=== PATIENT | male | born 1945 | race Caucasian/White ===

== ENCOUNTER → 2020-07-15 13:29 | Outpatient (BNVA) | payer MEDICARE, SELFPAY | PROVIDERS: PCP Internal Medicine; Visit Provider Urology | DX: N40.1 Benign prostatic hyperplasia with lower urinary tract symptoms (principal); N13.8 Other obstructive and reflux uropathy; N39.41 Urge incontinence; N52.9 Male erectile dysfunction, unspecified; Z87.442 Personal history of urinary calculi | CPT/HCPCS: 51798; 99212 ==

== ENCOUNTER → 2020-07-27 13:56 | Outpatient (BNVA) | payer MEDICARE, SELFPAY | PROVIDERS: PCP Internal Medicine; Referring Provider Internal Medicine; Visit Provider Internal Medicine Gastroenterology | DX: R14.0 Abdominal distension (gaseous) (principal); R10.9 Unspecified abdominal pain; K21.9 Gastro-esophageal reflux disease without esophagitis; K30 Functional dyspepsia; N40.1 Benign prostatic hyperplasia with lower urinary tract symptoms; N13.8 Other obstructive and reflux uropathy; Z79.899 Other long term (current) drug therapy | CPT/HCPCS: 99213; Q3014 ==

== ENCOUNTER → 2020-09-27 11:17 | Outpatient (BNVA) | payer MEDICARE, SELFPAY | PROVIDERS: PCP Internal Medicine; Visit Provider Urology | DX: N40.1 Benign prostatic hyperplasia with lower urinary tract symptoms (principal); N13.8 Other obstructive and reflux uropathy; N39.41 Urge incontinence; N52.9 Male erectile dysfunction, unspecified | CPT/HCPCS: 51798; 81002; 99212 ==

== ENCOUNTER 2020-12-08 08:23 | Outpatient (REF) | payer MEDICARE, SELFPAY ==
[2020-12-08 11:10] LABS: MANUAL DIFF FLAG NO
[2020-12-08 11:20] LABS: Basophils Percent Auto 0.6 % (0-2); Eosinophils Absolute Auto 0.2 X10*3/uL (0.0-0.4); Eosinophils Percent Auto 3.1 % (0-4); Hematocrit 45.8 % (42-52); Hemoglobin 15.9 g/dl (14.0-18.0); Imm Gran Abs Auto 0.02 X10*3/uL (0.00-0.03); Imm Gran Pct Auto 0.3 % (0.0-0.4); Lymphocytes Absolute Auto 2.1 X10*3/uL (1.2-4.9); Lymphocytes Percent Auto 30.5 % (20-40); Mean Corpuscular HGB Conc 34.7 g/dl (31.0-36.0); Mean Corpuscular Hemoglobin 30.6 pg (27.0-33.0); Mean Corpuscular Volume 88.2 fL (80-98); Mean Platelet Volume 10.4 fL (9.4-12.4); Monocytes Absolute Auto 0.5 X10*3/uL (0.1-1.2); Monocytes Percent Auto 7.3 % (2-11); Neutrophils Absolute Auto 3.9 X10*3/uL (2.0-8.3); Neutrophils Percent Auto 58.2 % (45-73); Platelet Count 240 X10*3/uL (160-400); Red Blood Count 5.19 X10*6/uL (4.60-5.80); Red Cell Distribution Width 13.2 % (11.0-16.0); White Blood Count 6.8 X10*3/uL (4.8-10.8)
[2020-12-08 11:34] LABS: Glucose Urine UA NEG (NEG); Leukocyte Esterase Urine NEG (NEG); Nitrite Urine NEG (NEG); PH 5.5 (5.0-8.0); Urine Blood NEG (NEG); Urine Ketones NEG (NEG); Urine Protein NEG (NEG-TRACE)
[2020-12-08 11:36] LABS: Estimated Average Glucose 108 mg/dL; Hemoglobin A1c % 5.4 %
[2020-12-08 11:38] LABS: Appearance Urine CLEAR; Color Urine YELLOW
[2020-12-08 11:50] LABS: RBC Urine 0 /HPF (0); Squamous Epithelial Cell Urine TRACE /LPF; WBC Urine 0 /HPF (0-4)
[2020-12-08 12:13] LABS: Alanine Aminotransferase 32 U/L (0-40); Albumin Level 4.4 g/dL (3.5-5.0); Alkaline Phosphatase 61 U/L (39-117); Anion Gap 14 (12-20); Aspartate Amino Transferase 22 U/L (5-37); Bilirubin Total 0.9 mg/dL (0.0-1.0); Blood Urea Nitrogen 18 mg/dL (9-16); Calcium 9.2 mg/dL (8.4-10.2); Carbon Dioxide 27 mmol/L (22-29); Chloride 105 mmol/L (96-108); Cholesterol 146 mg/dL; Estimated Glomerular Filt Rate > 60; Glucose Fasting 104 mg/dL (60-99); HDL Cholesterol 44 mg/dL; LDL Cholesterol Calculated 77 mg/dl; Potassium 3.7 mmol/L (3.3-5.1); Sodium 142 mmol/L (135-145); Total Protein 7.5 g/dL (6.5-8.0); Triglycerides 129 mg/dL
[2020-12-08 12:14] LABS: TSH reflex Free T4 0.58 uIU/mL (0.32-4.0)
== END 2020-12-08 08:24 | disposition home or self-care (01) ==
LOC: HO.HMGCLDS 08:23
PROVIDERS: PCP Internal Medicine; Visit Provider Internal Medicine
DX: I10 Essential (primary) hypertension (principal); R73.01 Impaired fasting glucose; E78.5 Hyperlipidemia, unspecified; K21.9 Gastro-esophageal reflux disease without esophagitis; E66.3 Overweight
CPT/HCPCS: 36415; 80053; 80061; 81001; 83036; 84443; 85025

== ENCOUNTER 2021-06-08 08:18 | Outpatient (REF) | payer MEDICARE, SELFPAY ==
[2021-06-08 11:16] LABS: MANUAL DIFF FLAG NO
[2021-06-08 11:22] LABS: Glucose Urine UA NEG (NEG); Leukocyte Esterase Urine NEG (NEG); Nitrite Urine NEG (NEG); Urine Blood NEG (NEG); Urine Ketones NEG (NEG); Urine Protein TRACE MG/DL (NEG-TRACE)
[2021-06-08 11:24] LABS: Appearance Urine CLEAR; Color Urine YELLOW
[2021-06-08 11:29] LABS: Basophils Percent Auto 0.5 % (0-2); Eosinophils Absolute Auto 0.7 X10*3/uL (0.0-0.4); Eosinophils Percent Auto 9.5 % (0-4); Hemoglobin 15.5 g/dl (14.0-18.0); Imm Gran Abs Auto 0.02 X10*3/uL (0.00-0.03); Imm Gran Pct Auto 0.3 % (0.0-0.4); Lymphocytes Absolute Auto 1.6 X10*3/uL (1.2-4.9); Lymphocytes Percent Auto 21.6 % (20-40); Mean Corpuscular HGB Conc 35.2 g/dl (31.0-36.0); Mean Corpuscular Hemoglobin 30.5 pg (27.0-33.0); Mean Corpuscular Volume 86.6 fL (80-98); Mean Platelet Volume 10.3 fL (9.4-12.4); Monocytes Absolute Auto 0.4 X10*3/uL (0.1-1.2); Monocytes Percent Auto 5.6 % (2-11); Neutrophils Absolute Auto 4.6 X10*3/uL (2.0-8.3); Neutrophils Percent Auto 62.5 % (45-73); Platelet Count 213 X10*3/uL (160-400); Red Blood Count 5.08 X10*6/uL (4.60-5.80); Red Cell Distribution Width 13.1 % (11.0-16.0); White Blood Count 7.4 X10*3/uL (4.8-10.8)
[2021-06-08 11:48] LABS: Alanine Aminotransferase 33 U/L (0-40); Albumin Level 4.3 g/dL (3.5-5.0); Alkaline Phosphatase 56 U/L (39-117); Anion Gap 12 (12-20); Aspartate Amino Transferase 23 U/L (5-37); Blood Urea Nitrogen 22 mg/dL (9-16); Calcium 9.4 mg/dL (8.4-10.2); Carbon Dioxide 27 mmol/L (22-29); Chloride 105 mmol/L (96-108); Cholesterol 148 mg/dL; Estimated Glomerular Filt Rate > 60; Glucose Fasting 119 mg/dL (60-99); HDL Cholesterol 43 mg/dL; LDL Cholesterol Calculated 81 mg/dl; Potassium 3.6 mmol/L (3.3-5.1); Sodium 140 mmol/L (135-145); Triglycerides 121 mg/dL
[2021-06-08 12:09] LABS: TSH reflex Free T4 1.16 uIU/mL (0.32-4.0)
[2021-06-08 12:21] LABS: Estimated Average Glucose 108 mg/dL; Hemoglobin A1c % 5.4 %
== END 2021-06-08 08:19 | disposition home or self-care (01) ==
LOC: HO.HMGCLDS 08:18
PROVIDERS: PCP Internal Medicine; Visit Provider Internal Medicine
DX: E66.3 Overweight (principal); E78.00 Pure hypercholesterolemia, unspecified; R73.01 Impaired fasting glucose; I10 Essential (primary) hypertension; K21.9 Gastro-esophageal reflux disease without esophagitis
CPT/HCPCS: 36415; 80053; 80061; 81003; 83036; 84443; 85025

== ENCOUNTER → 2021-08-07 13:55 | Outpatient (BNVA) | payer MEDICARE, SELFPAY | PROVIDERS: PCP Internal Medicine; Referring Provider Internal Medicine; Visit Provider Nurse Practitioner | DX: K21.9 Gastro-esophageal reflux disease without esophagitis (principal); K30 Functional dyspepsia; Z98.890 Other specified postprocedural states | CPT/HCPCS: 99212 ==

== ENCOUNTER 2021-09-22 08:02 | Outpatient (REF) | payer MEDICARE, SELFPAY ==
[2021-09-22 12:03] LABS: Prostate Specific Antigen 0.95 ng/mL (<0.05-4.0)
== END 2021-09-22 08:03 | disposition home or self-care (01) ==
LOC: HO.HMGCLDS 08:02
PROVIDERS: PCP Internal Medicine; Visit Provider Urology
DX: Z12.5 Encounter for screening for malignant neoplasm of prostate (principal); N13.8 Other obstructive and reflux uropathy; N40.1 Benign prostatic hyperplasia with lower urinary tract symptoms
CPT/HCPCS: 36415; 84153

== ENCOUNTER 2021-09-22 09:47 | Emergency (ER) | payer MEDICARE, SELFPAY ==
--- NOTE | ~2021-09-22 | CT_ITS ---
EXAMINATION: CT HEAD WITHOUT CONTRAST CLINICAL INFORMATION: Dizziness, weakness impression the head COMPARISON: None TECHNIQUE: Contiguous axial imaging was performed from the skull base to vertex without intravenous administration of contrast. This CT examination was performed using dose optimization techniques as appropriate, variously including the following: *Automated exposure control *Adjustment of mA and/or kV according to patient size (this includes techniques or standardized protocols for targeted exams where dose is matched to indication/reason for exam; i.e. extremities or head) *Use of iterative reconstruction technique DLP: 727 mGy-cm FINDINGS: There is no evidence of acute intracranial hemorrhage or territorial infarction. No abnormal mass effect or midline shift is seen. Gutierrez to white matter differentiation is well preserved. No extra-axial fluid collections are identified. The lateral ventricles are symmetrical in size and configuration without enlargement. There is mild periventricular hypodensity in both cerebral hemispheres suggestive of chronic small vessel ischemic disease. The osseous structures and soft tissues are normal. The mastoid air cells and visualized portions of the paranasal sinuses are well aerated. CT/CT head/brain wo con IMPRESSION: No acute intracranial process seen.
[2021-09-22 09:50] VITALS: BP 128/68; PULSE 55; RESP 18; TEMP 36.7; O2SAT 97; BMI 28.1
--- NOTE | 2021-09-22 10:30 | ECG_ITS ---
Test Reason : WEAKNESS Blood Pressure : / mmHG Vent. Rate : 051 BPM Atrial Rate : 051 BPM P-R Int : 170 ms QRS Dur : 092 ms QT Int : 410 ms P-R-T Axes : 028 -02 006 degrees QTc Int : 377 ms Sinus bradycardia Otherwise normal ECG When compared with ECG of 12-APR-2016 11:33, Inverted T waves have replaced nonspecific T wave abnormality in Inferior leads Referred By: Linette Sharpe Electronically Signed By:MOHAN FAULKNER MD
--- NOTE | 2021-09-22 10:35 | ED_ITS ---
HPI - Neuro Symptoms/Deficit General Chief Complaint: Neuro Symptoms/Deficit Stated Complaint: HBP Time Seen by Provider: 09/22/21 10:08 Source: patient Mode of arrival: ambulatory Limitations: no limitations History of Present Illness HPI Narrative: 76-year-old male with a history of hypertension, hyperlipidemia, a recent ischemic stroke admitted to [facility] on September 05 here with reports of intermittent feeling of lightheadedness, head pressure with labile blood pressures since his discharge from the hospital. Patient tells me that he has follow-up with his primary care doctor. They added clonidine 0.1 mg to his daily regimen and increase his hydrochlorothiazide from 12.5 mg to 25 mg daily. He tells me his blood pressures have still been labile which is giving him some anxiety. He has a follow-up appointment Neurology in October here at [facility]. He currently is wearing a Holter monitor. He tells me he initially presented to [place] with vision changes, dizziness, generalized weakness and slurred speech. He denies any current vision changes or speech difficulty. He is taking a full aspirin and statin daily per his discharge Related Data Home Medications Medication Instructions Recorded Confirmed methylcellulose (laxative) 500 mg 500 mg PO DAILY 07/27/20 09/11/21 tablet (Citrucel) metoprolol tartrate 25 mg tablet 25 mg PO BID 09/27/20 09/11/21 atorvastatin 20 mg tablet 20 mg PO DAILY 09/07/21 09/11/21 Previous Rx's Medication Instructions Recorded meclizine 25 mg tablet 25 mg PO TID PRN 30 Days #90 tab 12/20/20 amlodipine 10 mg tablet 10 mg PO DAILY #90 cap 06/22/21 lisinopril 40 mg tablet 40 mg PO DAILY #90 cap 06/22/21 pantoprazole 40 mg tablet,delayed 40 mg PO DAILY #90 cap 08/07/21 release aspirin 325 mg tablet 325 mg PO DAILY #30 tab 09/07/21 hydrochlorothiazide 25 mg tablet 25 mg PO DAILY #90 tab 09/07/21 clonidine HCl 0.1 mg tablet 0.1 mg PO BID #60 tab 09/15/21 Allergies Allergy/AdvReac Type Severity Reaction Status Date / Time Iodinated Contrast Media Allergy Mild UNKNOWN Verified 09/22/21 09:50 [IV Dye, Iodine Containing] tizanidine Allergy Unknown painful Verified 09/22/21 09:50 rash on ankles, dizziness IV contrast dye Allergy Unknown unknown Uncoded 09/11/21 09:48 x ray dye Allergy Unknown unknown Uncoded 09/11/21 09:48 Review of Systems Review of Systems: Yes all other systems are reviewed and are negative Constitutional: Constitutional: Reports no additional constitutional complaints, Denies body ache(s), Denies chills, Denies fever(s), Reports headache(s) (Head pressure) and Denies weakness Eyes: Eyes: Reports no additional eye complaints and Denies change in vision ENT: Reports system reviewed and no additional complaints, except as documented, Reports dizziness, Reports headache(s) (Head pressure), Denies nasal congestion, Denies nasal discharge and Denies neck pain Cardiovascular: Cardiovascular: Reports no additional cardiovascular complaints, Denies chest pain, Denies leg edema and Denies dyspnea Respiratory: Respiratory: Reports no additional respiratory complaints, Denies cough and Denies dyspnea Gastrointestinal: Gastrointestinal: Reports no additional gastrointestinal complaints, Denies abdominal pain, Denies diarrhea, Denies nausea and Denies vomiting Genitourinary: Genitourinary: Denies urinary incontinence Musculoskeletal: Musculoskeletal: Reports no additional musculoskeletal complaints, Denies back pain, Denies arthralgias, Denies joint swelling, Denies neck pain, Denies numbness and Denies tingling Integumentary/Breasts: Skin/Breast: Reports system reviewed and no additional complaints, except as docu and Denies rash Neurologic: Reports system reviewed and no additional complaints, except as documented, Denies Abnormal speech present, Reports dizziness, Reports headache(s) (Head pressure), Denies numbness, Denies tingling and Denies weakness [facility] Past Medical History Attestation statement: The following information was validated with the patient. Source: old records reviewed and nursing notes reviewed Medical History Anxiety Benign essential hypertension BPH (benign prostatic hyperplasia) Cervical disc disorder with radiculopathy Degenerative disc disease, lumbar Degenerative disc disease, thoracic Delayed gastric emptying Dizziness Erectile dysfunction GERD (gastroesophageal reflux disease) Impaired fasting glucose Overweight (BMI 25.0-29.9) Primary insomnia Pure hypercholesterolemia Surgical History History of esophagogastroduodenoscopy (EGD) (02/14/15) Hx of colonoscopy (03/04/12) Hx of cystoscopy (~2019) Hx of tonsillectomy Family History Family History Father Heart disease Mother Cancer Brother Diabetes Paternal Grandmother Heart disease Maternal Uncle Colon cancer Social History Social History Housing: House Alcohol intake: never Patient Tobacco Use Status: Former Tobacco user e-Cigarette/Vaping Use: Never Used Second Hand Smoke Exposure: Yes Use of substances other than those prescribed or required for medical reasons: No Advance Directives: Yes Advance Directives Information Provided: Yes Advance Directives on File: No service: Yes ([employer]) Current occupational status: retired Cognitive needs: No Hearing needs: No Vision needs: No Physical Exam Vital Signs: Vital Signs: Last Vital Signs Temp 98.1 F 09/22/21 09:50 Pulse 62 09/22/21 13:05 Resp 15 09/22/21 13:05 BP 142/63 H 09/22/21 13:05 Pulse Ox 95 09/22/21 13:05 BMI result Body Mass Index 28.1 Const: General: cooperative, healthy appearing, comfortable and no acute distress Orientation/consciousness: patient oriented x3 Limitations: no limitations HENMT: Head: Yes normal to inspection Ears: hearing grossly normal bilaterally General nose exam: Normal external nose present Face and sinus: Yes normal facial exam Mouth: Normal oral and palatal mucosa present Throat: Yes posterior oropharynx normal Eyes: General: appearance normal, both eyes and all related structures Pupils: Equal, round and reactive pupils present Neck: Neck: Yes normal visual inspection Chest: Chest palpation & inspection: normal inspection of the chest Resp: Effort & Inspection: normal respiratory effort Auscultation: clear to auscultation bilaterally Cardio: Rate: regular rate Rhythm: regular rhythm Peripheral pulses: Peripheral pulses 2+ throughout GI: Inspection: Yes normal to inspection Palpation (GI): Soft to palpation and nontender Auscultation: normal bowel sounds Back/Spine/Pelvis: Thoracic/Lumbar Spine: thoracic and lumbar spine normal to inspection Skin: General skin exam: no rashes or lesions noted Neuro: General: patient oriented x3, no focal motor deficits and normal sensation to monofilament Cranial nerves: Yes CN's II-XII intact bilaterally, Yes Equal, round and reactive pupils present, Yes Bilaterally intact EOM present, Yes Nystagmus not present, Yes Normal facial strength present and Yes Midline tongue present Cognition (Neuro): normal cognition Speech: No Abnormal speech present Gait exam (Neuro): Normal gait present Motor exam (neuro): 5/5 motor strength present throughout Sensory Exam: Normal double simultaneous stimulation for sensation Coordination: [id number] test normal, [id number] test normal and tandem gait normal Extrem: General: Yes normal to inspection, Yes no pedal edema and Yes no calf tenderness Course Course Course Narrative: 76-year-old male with a recent ischemic stroke here with intermittent symptoms of head pressure with feeling lightheaded and dizzy since the stroke. Was seen at a walk-in center today and referred to the emergency department for further workup. Patient tells me his blood sugars have been labile and they have changed his medications and this past week. On arrival patient's pressure was normal. He has a normal neurological exam. These symptoms are different from the symptoms he presented with ischemic stroke per patient. Will check labs, CT, EKG 1130-Bp 170/74. Patient tells me he did not take any of his morning medications. These will be ordered. 1200-labs are unremarkable. EKG shows no ischemic changes and troponin is flat. CT head shows no acute intracranial process. Neuro exam is unremarkable there are no overt deficits. Patient is quite concerned about his blood pressure which seems to be labile at home and this is making him feel quite anxious. I recommended he continue his current regimen and follow-up with his primary care doctor outpatient. 1320-blood pressure down to 140 systolic. Plan for discharge home with follow- up with Neurology and primary care outpatient. Reviewed worrisome signs and symptoms of when to return to the emergency department. Comfortable discharge home. MDM - Neuro Symptoms/Deficit Medical Records Attestation: I reviewed the patient's medical records. Lab Data Attestation: I reviewed the patient's lab results. Result diagrams: 09/22/21 10:52 09/22/21 10:52 Labs: Lab Results 09/22/21 09/22/21 09/22/21 Range/Units 10:52 10:52 10:52 WBC 8.7 (4.8-10.8) X10*3/uL RBC 4.89 (4.60-5.80) X10*6/uL Hgb 15.1 (14.0-18.0) g/dl Hct 42.9 (42.0-52.0) % MCV 87.7 (80.0-98.0) fL MCH 30.9 (27.0-33.0) pg MCHC 35.2 (31.0-36.0) g/dl RDW 12.5 (11.0-16.0) % Plt Count 202 (160-400) X10*3/uL MPV 10.2 (9.4-12.4) fL Immature Gran % (Auto) 0.2 (0.0-0.4) % Neut % (Auto) 80.4 H (45-73) % Lymph % (Auto) 12.9 L (20-40) % [place] % (Auto) 4.9 (2-11) % Eos % (Auto) 1.1 (0-4) % Baso % (Auto) 0.5 (0-2) % Lymph # (Auto) 1.1 L (1.2-4.9) X10*3/uL [place] # (Auto) 0.4 (0.1-1.2) X10*3/uL Eos # (Auto) 0.1 (0.0-0.4) X10*3/uL Baso # (Auto) 0.0 (0.0-0.2) X10*3/uL Abs Immat Gran (auto) 0.02 (0.00-0.03) X10*3/uL Absolute Neuts (auto) 7.0 (2.0-8.3) x10*3/uL Absolute Nucleated RBC 0.000 (0.0-0.012) X10*3/uL Nucleated RBC % (auto) 0.0 (0.0-0.2) /100WBC PT 12.2 (9.9-13.0) SEC INR 1.1 (0.9-1.1) Sodium 141 (135-145) mmol/L Potassium 3.8 (3.3-5.1) mmol/L Chloride 105 (96-108) mmol/L Carbon Dioxide 29 (22-29) mmol/L Anion Gap 11 L (12-20) BUN 18 H (9-16) mg/dL Creatinine 1.01 (0.5-1.4) mg/dL Estim Creat Clear Calc 63.6 Estimated GFR > 60 Random Glucose 117 H (60-115) mg/dL Calcium 9.4 (8.4-10.2) mg/dL Magnesium 2.0 (1.6-2.6) mg/dL Total Bilirubin 0.7 (0.0-1.0) mg/dL Direct Bilirubin 0.3 (0.0-0.5) mg/dL AST 19 (5-37) U/L ALT 32 (0-40) U/L Alkaline Phosphatase 56 (39-117) U/L Troponin I High Sens (<3.5-35.0) ng/L Total Protein 6.8 (6.5-8.0) g/dL Albumin 3.9 (3.5-5.0) g/dL 09/22/21 Range/Units 10:52 WBC (4.8-10.8) X10*3/uL RBC (4.60-5.80) X10*6/uL Hgb (14.0-18.0) g/dl Hct (42.0-52.0) % MCV (80.0-98.0) fL MCH (27.0-33.0) pg MCHC (31.0-36.0) g/dl RDW (11.0-16.0) % Plt Count (160-400) X10*3/uL MPV (9.4-12.4) fL Immature Gran % (Auto) (0.0-0.4) % Neut % (Auto) (45-73) % Lymph % (Auto) (20-40) % [place] % (Auto) (2-11) % Eos % (Auto) (0-4) % Baso % (Auto) (0-2) % Lymph # (Auto) (1.2-4.9) X10*3/uL [place] # (Auto) (0.1-1.2) X10*3/uL Eos # (Auto) (0.0-0.4) X10*3/uL Baso # (Auto) (0.0-0.2) X10*3/uL Abs Immat Gran (auto) (0.00-0.03) X10*3/uL Absolute Neuts (auto) (2.0-8.3) x10*3/uL Absolute Nucleated RBC (0.0-0.012) X10*3/uL Nucleated RBC % (auto) (0.0-0.2) /100WBC PT (9.9-13.0) SEC INR (0.9-1.1) Sodium (135-145) mmol/L Potassium (3.3-5.1) mmol/L Chloride (96-108) mmol/L Carbon Dioxide (22-29) mmol/L Anion Gap (12-20) BUN (9-16) mg/dL Creatinine (0.5-1.4) mg/dL Estim Creat Clear Calc Estimated GFR Random Glucose (60-115) mg/dL Calcium (8.4-10.2) mg/dL Magnesium (1.6-2.6) mg/dL Total Bilirubin (0.0-1.0) mg/dL Direct Bilirubin (0.0-0.5) mg/dL AST (5-37) U/L ALT (0-40) U/L Alkaline Phosphatase (39-117) U/L Troponin I High Sens < 3.5 (<3.5-35.0) ng/L Total Protein (6.5-8.0) g/dL Albumin (3.5-5.0) g/dL Imaging Data CT scan - head: Attestation: I personally reviewed and interpreted this imaging study as follows: Radiologist's impression: FINDINGS: There is no evidence of acute intracranial hemorrhage or territorial infarction. No abnormal mass effect or midline shift is seen. Gutierrez to white matter differentiation is well preserved. No extra-axial fluid collections are identified. The lateral ventricles are symmetrical in size and configuration without enlargement. There is mild periventricular hypodensity in both cerebral hemispheres suggestive of chronic small vessel ischemic disease. The osseous structures and soft tissues are normal. The mastoid air cells and visualized portions of the paranasal sinuses are well aerated. ? CT/CT head/brain wo con IMPRESSION: No acute intracranial process seen. ECG Data Attestation: I personally reviewed and interpreted this ECG as follows: ECG interpretation date: 09/22/21 ECG interpretation time: 10:42 Interpretation: Sinus bradycardia with a rate of 51, normal SC, normal QRS normal QT NIH Stroke Scale Internal: Initial- Upon Arrival Level of Consciousness: Alert Level of Consciousness Questions: Answers both questions correctly Level of Consciousness Commands: Performs both tasks correctly Best Gaze: Normal Visual: No visual loss Facial Palsy: Normal Motor Arm (Right): No drift Motor Arm (Left): No drift Motor Leg (Right): No drift Motor Leg (Left): No drift Limb Ataxia: Absent Sensory: Normal Best Language: No aphasia Dysarthia: Normal Extinction and Inattention: No abnormality Score: 0 Discharge Plan Discharge Clinical Impression: Light-headed, Hypertension Patient Disposition: Home, Self-Care Instructions: Hypertension (ED), Lightheadedness (ED) Additional Instructions: Your blood pressure improved with your daily blood pressure medication Your lab work and CT scan are normal Follow-up with your outpatient providers which include your primary care doctor and keep your appointment with your neurologist Prescriptions: No Action amlodipine 10 mg tablet 10 mg PO DAILY Qty: 90 RF: 0 lisinopril 40 mg tablet 40 mg PO DAILY Qty: 90 RF: 0 clonidine HCl 0.1 mg tablet 0.1 mg PO BID Qty: 60 RF: 1 meclizine 25 mg tablet 25 mg PO TID PRN (Reason: dizziness) 30 Days Qty: 90 RF: 2 atorvastatin 20 mg tablet 20 mg PO DAILY RF: 0 aspirin 325 mg tablet 325 mg PO DAILY Qty: 30 RF: 0 hydrochlorothiazide 25 mg tablet 25 mg PO DAILY Qty: 90 RF: 0 Citrucel 500 mg tablet 500 mg PO DAILY RF: 0 metoprolol tartrate 25 mg tablet 25 mg PO BID RF: 0 pantoprazole 40 mg tablet,delayed release (DR/EC) 40 mg PO DAILY Qty: 90 RF: 2 Referrals: Armaan Correa MD [Primary Care Provider] - 2 days Interventions: ED Discharge Assessment Last Done: 09/22/21 13:24 Discharge Date/Time: 09/22/21 13:24
[2021-09-22 10:56] LABS: MANUAL DIFF FLAG NO
[2021-09-22 10:59] VITALS: BP 170/74; PULSE 55; RESP 12; O2SAT 96
[2021-09-22 11:03] LABS: Basophils Percent Auto 0.5 % (0-2); Eosinophils Absolute Auto 0.1 X10*3/uL (0.0-0.4); Eosinophils Percent Auto 1.1 % (0-4); Hematocrit 42.9 % (42.0-52.0); Hemoglobin 15.1 g/dl (14.0-18.0); Imm Gran Abs Auto 0.02 X10*3/uL (0.00-0.03); Imm Gran Pct Auto 0.2 % (0.0-0.4); Lymphocytes Absolute Auto 1.1 X10*3/uL (1.2-4.9); Lymphocytes Percent Auto 12.9 % (20-40); Mean Corpuscular HGB Conc 35.2 g/dl (31.0-36.0); Mean Corpuscular Hemoglobin 30.9 pg (27.0-33.0); Mean Corpuscular Volume 87.7 fL (80.0-98.0); Mean Platelet Volume 10.2 fL (9.4-12.4); Monocytes Absolute Auto 0.4 X10*3/uL (0.1-1.2); Monocytes Percent Auto 4.9 % (2-11); Neutrophils Percent Auto 80.4 % (45-73); Platelet Count 202 X10*3/uL (160-400); Red Blood Count 4.89 X10*6/uL (4.60-5.80); Red Cell Distribution Width 12.5 % (11.0-16.0); White Blood Count 8.7 X10*3/uL (4.8-10.8)
[2021-09-22 11:09] LABS: INTERNATIONAL NORM RATIO 1.1 (0.9-1.1); Prothrombin Time 12.2 SEC (9.9-13.0)
[2021-09-22 11:14] LABS: Alanine Aminotransferase 32 U/L (0-40); Albumin Level 3.9 g/dL (3.5-5.0); Alkaline Phosphatase 56 U/L (39-117); Anion Gap 11 (12-20); Aspartate Amino Transferase 19 U/L (5-37); Bilirubin Direct 0.3 mg/dL (0.0-0.5); Bilirubin Total 0.7 mg/dL (0.0-1.0); Blood Urea Nitrogen 18 mg/dL (9-16); Calcium 9.4 mg/dL (8.4-10.2); Carbon Dioxide 29 mmol/L (22-29); Chloride 105 mmol/L (96-108); Creatinine Clr Calc Pharmacy 63.6; Estimated Glomerular Filt Rate > 60; Glucose Random 117 mg/dL (60-115); Potassium 3.8 mmol/L (3.3-5.1); Sodium 141 mmol/L (135-145); Total Protein 6.8 g/dL (6.5-8.0)
[2021-09-22 11:20] LABS: Troponin-I High Sensitivity < 3.5 ng/L (<3.5-35.0)
[2021-09-22 12:00] VITALS: BP 155/66; PULSE 53; RESP 16; O2SAT 96
[2021-09-22 12:02] VITALS: BP 155/66; PULSE 52
[2021-09-22] MEDS: lisinopriL 40 MG TABLET PO (12:02)
[2021-09-22] MEDS: Metoprolol Tartrate 25 MG TABLET PO (12:02)
[2021-09-22] MEDS: cloNIDine HCL 0.1 MG TABLET PO (12:02)
[2021-09-22] MEDS: hydroCHLOROthiazide 25 MG TABLET PO (12:03)
[2021-09-22 12:06] VITALS: BP 155/66; PULSE 52
[2021-09-22] MEDS: amLODIPine Besylate 10 MG TABLET PO (12:06)
[2021-09-22 13:05] VITALS: BP 142/63; PULSE 62; RESP 15; O2SAT 95
== END 2021-09-22 13:24 | disposition home or self-care (01) ==
PROVIDERS: Nurse Practitioner Family; Emergency Provider Emergency Medicine; PCP Internal Medicine
DX: R42 Dizziness and giddiness (principal); I10 Essential (primary) hypertension; R29.700 NIHSS score 0; Z79.899 Other long term (current) drug therapy; Z87.891 Personal history of nicotine dependence
CPT/HCPCS: 36415; 70450; 80048; 80076; 83735; 84484; 85025; 85610; 93005; 99284

== ENCOUNTER 2021-09-27 09:38 | Outpatient (REF) | payer MEDICARE, SELFPAY ==
[2021-09-27 09:55] LABS: MANUAL DIFF FLAG NO
[2021-09-27 10:21] LABS: Basophils Absolute Auto 0.1 X10*3/uL (0.0-0.2); Basophils Percent Auto 0.5 % (0-2); Eosinophils Absolute Auto 0.2 X10*3/uL (0.0-0.4); Eosinophils Percent Auto 2.3 % (0-4); Hemoglobin 16.2 g/dl (14.0-18.0); Imm Gran Abs Auto 0.03 X10*3/uL (0.00-0.03); Imm Gran Pct Auto 0.3 % (0.0-0.4); Lymphocytes Absolute Auto 1.3 X10*3/uL (1.2-4.9); Lymphocytes Percent Auto 13.1 % (20-40); Mean Corpuscular HGB Conc 34.5 g/dl (31.0-36.0); Mean Corpuscular Hemoglobin 30.6 pg (27.0-33.0); Mean Corpuscular Volume 88.8 fL (80.0-98.0); Mean Platelet Volume 10.4 fL (9.4-12.4); Monocytes Absolute Auto 0.6 X10*3/uL (0.1-1.2); Monocytes Percent Auto 5.6 % (2-11); Neutrophils Absolute Auto 7.9 x10*3/uL (2.0-8.3); Neutrophils Percent Auto 78.2 % (45-73); Platelet Count 258 X10*3/uL (160-400); Red Blood Count 5.29 X10*6/uL (4.60-5.80); Red Cell Distribution Width 12.8 % (11.0-16.0); White Blood Count 10.1 X10*3/uL (4.8-10.8)
[2021-09-27 10:48] LABS: C Reactive Protein 0.22 mg/dL (< or = 0.50)
[2021-09-27 11:05] LABS: Prostate Specific Antigen 2.51 ng/mL (<0.05-4.0)
[2021-09-27 11:20] LABS: Folate 9.8 ng/mL (> or = 4.0); Vitamin B12 315 pg/mL (200-900)
[2021-09-27 12:04] LABS: Erythrocyte Sedimentation Rate 11 MM/HR (0-15)
[2021-10-02 17:45] LABS: Lyme Abs Screen <0.90 index
== END 2021-09-27 09:39 | disposition home or self-care (01) ==
LOC: HO.LAB 09:38
PROVIDERS: Urology; PCP Internal Medicine; Visit Provider Internal Medicine
DX: R29.898 Other symptoms and signs involving the musculoskeletal system (principal); N13.8 Other obstructive and reflux uropathy; N40.1 Benign prostatic hyperplasia with lower urinary tract symptoms; Z12.5 Encounter for screening for malignant neoplasm of prostate
CPT/HCPCS: 36415; 82550; 82607; 82746; 84153; 85025; 85652; 86140; 86617; 86618

== ENCOUNTER 2021-09-28 11:11 | Outpatient (REF) | payer MEDICARE, SELFPAY ==
--- NOTE | ~2021-09-28 | MR_ITS ---
MRI OF THE BRAIN WITHOUT IV CONTRAST INDICATION: Stroke 4 weeks ago with 2-3 days of muscles feeling like jelly COMPARISON: Head CT 09/22/2021. TECHNIQUE: Multiplanar multisequence MR imaging of the brain was obtained without IV contrast. FINDINGS: There are multiple punctate acute infarcts throughout the left cerebral hemisphere and the left frontal lobe, parietal lobe, occipital lobe, and temporal lobe. No mass effect and no hemorrhagic transformation. There is moderate chronic microangiopathy. There is no hydrocephalus, extra-axial surface collection, or herniation. The major flow voids at the skull base are preserved. There is no intracranial hemorrhage on the gradient recalled echo acquisition. The midline structures are normal. The cerebellar tonsils are normally positioned. The cerebellum and brainstem are normal. The craniocervical junction is normal. Osseous marrow signal intensity is homogenous. The visualized soft tissues are unremarkable. MR/MR head/brain wo con IMPRESSION: - Multiple punctate acute embolic infarcts throughout the left cerebral hemisphere as described. No mass effect and no hemorrhagic transformation. - There is moderate chronic microangiopathy. Findings were discussed with Flaquita Villarreal at 12:17 PM on 09/28/2021
== END 2021-09-28 11:12 | disposition home or self-care (01) ==
LOC: HO.MRI 11:11
PROVIDERS: Visit Provider Internal Medicine
DX: I63.9 Cerebral infarction, unspecified (principal); R29.898 Other symptoms and signs involving the musculoskeletal system
CPT/HCPCS: 70551

== ENCOUNTER 2021-09-28 15:07 | Inpatient (IN) | payer MEDICARE, SELFPAY ==
--- NOTE | 2021-09-28 15:57 | ED_ITS ---
HPI - Neuro Symptoms/Deficit General Chief Complaint: Stroke Stated Complaint: PCP stroke Time Seen by Provider: 09/28/21 15:56 Source: patient Mode of arrival: ambulatory Limitations: no limitations History of Present Illness HPI Narrative: 76-year-old male presents from home after primary care physician called him to present to the emergency department for acute infarct on MRI that was performed today. Patient has had prior stroke dating 09/05/2021. Patient's symptoms had resolved, noted that yesterday weakness to the right side had increased and patient was unable to lift leg properly. PCP ordered emergent outpatient MRI which indicated new acute infarcts. Onset (ago): week(s) Timing confirmed by: spouse Location: right arm and right leg History of same: Yes Severity: mild Quality: weak, tingling and intermittent Relieving factors: none Context: gradual onset On Anticoagulants: No Associated symptoms: confusion Treatments Prior to Arrival: Aspirin Related Data Home Medications Medication Instructions Recorded Confirmed methylcellulose (laxative) 500 mg 500 mg PO DAILY 07/27/20 09/27/21 tablet (Citrucel) metoprolol tartrate 25 mg tablet 25 mg PO BID 09/27/20 09/27/21 Previous Rx's Medication Instructions Recorded meclizine 25 mg tablet 25 mg PO TID PRN 30 Days #90 tab 12/20/20 amlodipine 10 mg tablet 10 mg PO DAILY #90 cap 06/22/21 lisinopril 40 mg tablet 40 mg PO DAILY #90 cap 06/22/21 pantoprazole 40 mg tablet,delayed 40 mg PO DAILY #90 cap 08/07/21 release aspirin 325 mg tablet 325 mg PO DAILY #30 tab 09/07/21 hydrochlorothiazide 25 mg tablet 25 mg PO DAILY #90 tab 09/07/21 clonidine HCl 0.2 mg tablet 0.2 mg PO BID 30 Days #60 tab 09/27/21 rosuvastatin 5 mg tablet 5 mg PO DAILY 30 Days #30 tab 09/27/21 Allergies Allergy/AdvReac Type Severity Reaction Status Date / Time Iodinated Contrast Media Allergy Mild UNKNOWN Verified 09/27/21 09:18 [IV Dye, Iodine Containing] tizanidine Allergy Unknown painful Verified 09/27/21 09:18 rash on ankles, dizziness IV contrast dye Allergy Unknown unknown Uncoded 09/27/21 09:18 x ray dye Allergy Unknown unknown Uncoded 09/27/21 09:18 Review of Systems Review of Systems: Constitutional: No Weight loss, No Fever, No Chills, No Night Sweats, No Fatigue, No Malaise ENT/Mouth: No Hearing loss, No Ear Pain, No Nasal Congestion, No Sinus Pain, No Hoarseness, No sore throat, No Rhinorrhea, No Swallowing Difficulty Eyes: No Eye Pain, No Swelling, No Redness, No Foreign Body, No Discharge, No Vision Changes Cardiovascular: No Chest Pain, No SOB, No Dyspnea on Exertion, No Orthopnea, No Edema, No Palpitations Respiratory: No Cough, No Sputum, No Wheezing, No Smoke Exposure, No Dyspnea Gastrointestinal: No Nausea, No Vomiting, No Diarrhea, No Constipation, No abdominal Pain, No Hematochezia, No Melena Genitourinary: no irregular bleeding, No Dysuria, No Urinary Frequency, No Hematuria, No Urinary Incontinence, No Urgency, No Flank Pain, No Urinary Flow Changes, No Hesitancy Musculoskeletal: No joint pain, No Myalgias, No Joint Swelling Skin: No Skin Lesions, No rash Neuro: Positive right-sided Weakness, positive right-sided Numbness, positive confusion, No Paresthesias, No Loss of Consciousness, No Dizziness, No Headache Psych: No Anxiety/Panic, No Depression, No SI/HI/AH/VH, No Social Issues Heme/Lymph: No Bruising, No Bleeding,No Lymphadenopathy Endocrine: No Polyuria, No Polydipsia, No Temperature Intolerance Yes all other systems are reviewed and are negative [facility] Past Medical History Attestation statement: The following information was validated with the patient. Source: old records reviewed Medical History Anxiety Benign essential hypertension BPH (benign prostatic hyperplasia) Cervical disc disorder with radiculopathy Degenerative disc disease, lumbar Degenerative disc disease, thoracic Delayed gastric emptying Dizziness Erectile dysfunction GERD (gastroesophageal reflux disease) Impaired fasting glucose Overweight (BMI 25.0-29.9) Primary insomnia Pure hypercholesterolemia Surgical History History of esophagogastroduodenoscopy (EGD) (02/14/15) Hx of colonoscopy (03/04/12) Hx of cystoscopy () Hx of tonsillectomy Family History Family History Father Heart disease Mother Cancer Brother Diabetes Paternal Grandmother Heart disease Maternal Uncle Colon cancer Social History Social History Housing: House Alcohol intake: never Patient Tobacco Use Status: Former Tobacco user e-Cigarette/Vaping Use: Never Used Second Hand Smoke Exposure: Yes Advance Directives: No Advance Directives Information Provided: Yes service: Yes ([employer]) Current occupational status: retired Cognitive needs: No Hearing needs: No Vision needs: No Physical Exam Vital Signs: Vital Signs: Last Vital Signs Temp 98.8 F 09/28/21 16:19 Pulse 50 09/28/21 16:19 Resp 18 09/28/21 16:19 BP 158/72 H 09/28/21 16:19 Pulse Ox 98 09/28/21 16:19 BMI result Body Mass Index 27.3 Appearance: Alert. Oriented X3. No acute distress. Head: Normal external exam. Normocephalic. Atraumatic. No Chin signs noted. No raccoon eyes noted Eyes: PERRLA. EOMI. Conjunctiva and sclera normal. Eyelids normal. ENT: TM's Normal. Pharynx normal. Uvula midline. Moist mucous membranes. No trismus noted. No drooling noted. No muffled voice noted. Neck: Normal inspection. Neck supple. No adenopathy. No meningeal signs. No neck mass noted. CVS: Normal heart rate and rhythm. Heart sound normal. No murmurs noted. Pulses equal to all extremities. Respiratory: No respiratory distress. Painless inspiration. Breath sounds normal. No wheezes/rales/rhonchi noted. Chest nontender. No accessory muscle usage noted or decreased air movement noted. Abdomen: Soft and nontender. Bowel sounds normal in all 4 quadrants. No distention noted. No organomegaly noted. No visible injury noted. Back: No CVA tenderness. Full range of motion noted. Skin: Skin warm and dry. Normal skin color. Normal skin turgor. No rashes/lesions/lacerations noted. Extremities: No lower extremity edema. Extremities exhibit normal range of motion. Extremities nontender. Neuro: 5/5 to left extremities, 4/5 to right extremities. No motor deficit. Decreased sensation to the right side. Course Course Course Narrative: 4:00 p.m. patient evaluated by this [employer] SUPPORT LEAD, has right-sided weakness, last known well 09/27/2021. NIH Stroke Scale on arrival is 3. 4:05 p.m. discussion with business operations coordinator Mariah, patient outside of tPA window he has had strokes in the past, last known well according to the patient with 09/20/2021. After discussing case with his , patient had symptoms starting 09/04/2021 and was evaluated at [facility] on 09/05/2021. Review of records from [facility] study date 09/05/2021. MRI radiologist impression ventricular caliber is mildly prominent as are the cortical sulci due to age-related volume loss. Mild cerebral atrophy. Few nonspecific scattered T2 hyperintensities in the cerebral white matter consistent with mild small vessel ischemic changes non expected for patient's age. There is a small focus of acute infarct seen in the left posterior frontal lobe measuring 7.5 mm. A small acute infarct is seen in the posterior left temporal lobe measuring 4.7 mm. There is no acute intracranial hemorrhage, extra-axial fluid collection, mass, mass effect, or midline shift. Stem is normal. Fourth ventricle is midline. Cerebellum normal. Cerebellar tonsils are in normal location. Sella normal. Vasculature normal. Cardiac echo LVEF ranges estimated at 60% to 65%. Mitral valve no regurgitation. Aortic valve no aortic valve regurgitation. Tricuspid regurgitation. RVSP range 35-40 mmHg. Possible LV prominent trabeculations cannot exclude LV non compaction may consider outpatient echo with definity enhancing agent versus cardiac MRI. Final impression for [facility] workup showing 2 small foci of acute infarction located on the left front lobe and left temporal lobe in the left MCA territory. Patient has had symptoms that resolved prior for approximately 1 month. He did not seek any medical attention for those prior episodes. No known cardiac arrhythmia noted. Upon discharge from [facility] patient was started on 20 of atorvastatin and 365 of aspirin was recommended to follow up with Neurology 3-4 weeks. Patient had symptoms yesterday 09/27, and his contacted primary care physician. Primary care evaluated patient and was sent for MRI. Today, MRI indicates multiple punctate acute infarcts throughout the left cerebral hemisphere and left frontal lobe parietal lobe occipital lobe and temporal lobe without mass effect or hemorrhagic transformations. Discussion with primary care via tiger text and telephone patient is not on any anticoagulation, on aspirin 325 mg and statin 5 mg. I did discuss this case with hospitalist group at 4:30 p.m.. Plan is to admit. Consultations Consultation #1: lucio Time: 16:30 Consultation #2: business operations coordinator Time: 16:05 Consultation #3: jailene Time: 16:40 MDM - Neuro Symptoms/Deficit Differential Diagnosis Differential diagnosis: Likely subarachnoid hemorrhage, cerebrovascular accident and transient cerebral ischemia Medical Records Attestation: I reviewed the patient's medical records. Lab Data Attestation: I reviewed the patient's lab results. Result diagrams: 09/28/21 16:45 09/28/21 16:45 Labs: Lab Results 09/28/21 09/28/21 09/28/21 Range/Units 16:45 16:45 16:45 WBC 7.6 (4.8-10.8) X10*3/uL RBC 4.89 (4.60-5.80) X10*6/uL Hgb 15.0 (14.0-18.0) g/dl Hct 43.0 (42.0-52.0) % MCV 87.9 (80.0-98.0) fL MCH 30.7 (27.0-33.0) pg MCHC 34.9 (31.0-36.0) g/dl RDW 12.7 (11.0-16.0) % Plt Count 217 (160-400) X10*3/uL MPV 10.1 (9.4-12.4) fL Immature Gran % (Auto) 0.3 (0.0-0.4) % Neut % (Auto) 68.4 (45-73) % Lymph % (Auto) 20.6 (20-40) % [place] % (Auto) 7.3 (2-11) % Eos % (Auto) 2.9 (0-4) % Baso % (Auto) 0.5 (0-2) % Lymph # (Auto) 1.6 (1.2-4.9) X10*3/uL [place] # (Auto) 0.6 (0.1-1.2) X10*3/uL Eos # (Auto) 0.2 (0.0-0.4) X10*3/uL Baso # (Auto) 0.0 (0.0-0.2) X10*3/uL Abs Immat Gran (auto) 0.02 (0.00-0.03) X10*3/uL Absolute Neuts (auto) 5.2 (2.0-8.3) x10*3/uL Absolute Nucleated RBC 0.000 (0.0-0.012) X10*3/uL Nucleated RBC % (auto) 0.0 (0.0-0.2) /100WBC PT 12.2 (9.9-13.0) SEC INR 1.1 (0.9-1.1) APTT 30.0 (24.1-38.0) SEC Sodium 141 (135-145) mmol/L Potassium 3.6 (3.3-5.1) mmol/L Chloride 103 (96-108) mmol/L Carbon Dioxide 30 H (22-29) mmol/L Anion Gap 12 (12-20) BUN 22 H (9-16) mg/dL Creatinine 1.23 (0.5-1.4) mg/dL Estim Creat Clear Calc 49.4 Estimated GFR 57 Random Glucose 98 (60-115) mg/dL Calcium 9.5 (8.4-10.2) mg/dL Magnesium 2.1 (1.6-2.6) mg/dL Total Bilirubin 0.6 (0.0-1.0) mg/dL Direct Bilirubin 0.2 (0.0-0.5) mg/dL AST 18 (5-37) U/L ALT 31 (0-40) U/L Alkaline Phosphatase 54 (39-117) U/L Troponin I High Sens (<3.5-35.0) ng/L B-Natriuretic Peptide (<100) pg/mL Total Protein 6.8 (6.5-8.0) g/dL Albumin 3.9 (3.5-5.0) g/dL Lipase 44 (8-78) U/L Urine Color Urine Appearance Urine pH (5.0-8.0) Ur Specific Sterling (1.005-1.025) Urine Protein (NEG-TRACE) MG/DL Urine Glucose (UA) (NEG) MG/DL Urine Ketones (NEG) MG/DL Urine Blood (NEG) Urine Nitrite (NEG) Ur Leukocyte Esterase (NEG) 1209/28/21 09/28/21 Range/Units 16:45 16:45 16:45 WBC (4.8-10.8) X10*3/uL RBC (4.60-5.80) X10*6/uL Hgb (14.0-18.0) g/dl Hct (42.0-52.0) % MCV (80.0-98.0) fL MCH (27.0-33.0) pg MCHC (31.0-36.0) g/dl RDW (11.0-16.0) % Plt Count (160-400) X10*3/uL MPV (9.4-12.4) fL Immature Gran % (Auto) (0.0-0.4) % Neut % (Auto) (45-73) % Lymph % (Auto) (20-40) % [place] % (Auto) (2-11) % Eos % (Auto) (0-4) % Baso % (Auto) (0-2) % Lymph # (Auto) (1.2-4.9) X10*3/uL [place] # (Auto) (0.1-1.2) X10*3/uL Eos # (Auto) (0.0-0.4) X10*3/uL Baso # (Auto) (0.0-0.2) X10*3/uL Abs Immat Gran (auto) (0.00-0.03) X10*3/uL Absolute Neuts (auto) (2.0-8.3) x10*3/uL Absolute Nucleated RBC (0.0-0.012) X10*3/uL Nucleated RBC % (auto) (0.0-0.2) /100WBC PT (9.9-13.0) SEC INR (0.9-1.1) APTT (24.1-38.0) SEC Sodium (135-145) mmol/L Potassium (3.3-5.1) mmol/L Chloride (96-108) mmol/L Carbon Dioxide (22-29) mmol/L Anion Gap (12-20) BUN (9-16) mg/dL Creatinine (0.5-1.4) mg/dL Estim Creat Clear Calc Estimated GFR Random Glucose (60-115) mg/dL Calcium (8.4-10.2) mg/dL Magnesium (1.6-2.6) mg/dL Total Bilirubin (0.0-1.0) mg/dL Direct Bilirubin (0.0-0.5) mg/dL AST (5-37) U/L ALT (0-40) U/L Alkaline Phosphatase (39-117) U/L Troponin I High Sens < 3.5 (<3.5-35.0) ng/L B-Natriuretic Peptide 41 (<100) pg/mL Total Protein (6.5-8.0) g/dL Albumin (3.5-5.0) g/dL Lipase (8-78) U/L Urine Color YELLOW Urine Appearance CLEAR Urine pH 5.5 (5.0-8.0) Ur Specific Sterling 1.020 (1.005-1.025) Urine Protein NEG (NEG-TRACE) MG/DL Urine Glucose (UA) NEG (NEG) MG/DL Urine Ketones NEG (NEG) MG/DL Urine Blood NEG (NEG) Urine Nitrite NEG (NEG) Ur Leukocyte Esterase NEG (NEG) Imaging Data MRI brain: Attestation: I personally reviewed and interpreted this imaging study as follows: Radiologist's impression: MRI OF THE BRAIN WITHOUT IV CONTRAST INDICATION: Stroke 4 weeks ago with 2-3 days of muscles feeling like jelly COMPARISON: Head CT 09/22/2021. TECHNIQUE: Multiplanar multisequence MR imaging of the brain was obtained without IV contrast. FINDINGS: There are multiple punctate acute infarcts throughout the left cerebral hemisphere and the left frontal lobe, parietal lobe, occipital lobe, and temporal lobe. No mass effect and no hemorrhagic transformation. There is moderate chronic microangiopathy. There is no hydrocephalus, extra-axial surface collection, or herniation. The major flow voids at the skull base are preserved. There is no intracranial hemorrhage on the gradient recalled echo acquisition. The midline structures are normal. The cerebellar tonsils are normally positioned. The cerebellum and brainstem are normal. The craniocervical junction is normal. Osseous marrow signal intensity is homogenous. The visualized soft tissues are unremarkable. MR/MR head/brain wo con IMPRESSION: - Multiple punctate acute embolic infarcts throughout the left cerebral hemisphere as described. No mass effect and no hemorrhagic transformation. ? - There is moderate chronic microangiopathy. ? Findings were discussed with Flaquita Villarreal at 12:17 PM on 09/28/2021 ECG Data Attestation: I personally reviewed and interpreted this ECG as follows: ECG interpretation date: 09/28/21 ECG interpretation time: 16:28 Prior ECG tracings: available for review Interpretation: Vent. rate 47 BPM AK interval 186 ms QRS duration 92 ms QT/QTc 420/371 ms P-R-T axes 31 31 4 Sinus bradycardia Low voltage QRS Borderline ECG When compared with ECG of 22-SEP-2021 10:42, No significant change was found NIH Stroke Scale Internal: Initial- Upon Arrival Time: 16:00 Level of Consciousness: Alert Level of Consciousness Questions: Answers both questions correctly Level of Consciousness Commands: Performs both tasks correctly Best Gaze: Normal Visual: No visual loss Facial Palsy: Normal Motor Arm (Right): Drift Motor Arm (Left): No drift Motor Leg (Right): Drift Motor Leg (Left): No drift Limb Ataxia: Absent Sensory: Mild to moderate sensory loss Best Language: No aphasia Dysarthia: Normal Extinction and Inattention: No abnormality Score: 3 Critical Care Time Critical Care Time Critical Care Time: Yes Total Critical Care Time: 45 Attestation: I have personally provided critical care time exclusive of time spent on separately billable procedures. Time includes review of laboratory data, radiology results, discussion with consultants, and monitoring for potential decompensation. Interventions were performed as documented. Discharge Plan Discharge Clinical Impression: Embolic cerebral infarction Qualifiers: Laterality of affected vessel: left Patient Disposition: Admitted As Inpatient
--- NOTE | 2021-09-28 16:04 | ECG_ITS ---
Test Reason : stroke Blood Pressure : / mmHG Vent. Rate : 047 BPM Atrial Rate : 047 BPM P-R Int : 186 ms QRS Dur : 092 ms QT Int : 420 ms P-R-T Axes : 031 031 004 degrees QTc Int : 371 ms Sinus bradycardia Otherwise normal EKG When compared with ECG of 22-SEP-2021 10:42, No significant change was found Referred By: Ale Wang Electronically Signed By:MAME MCCANN
[2021-09-28 16:19] VITALS: BP 158/72; PULSE 50; RESP 18; TEMP 37.1; O2SAT 98; BMI 27.3
[2021-09-28 16:53] LABS: MANUAL DIFF FLAG NO
[2021-09-28 16:54] LABS: Basophils Percent Auto 0.5 % (0-2); Eosinophils Absolute Auto 0.2 X10*3/uL (0.0-0.4); Eosinophils Percent Auto 2.9 % (0-4); Imm Gran Abs Auto 0.02 X10*3/uL (0.00-0.03); Imm Gran Pct Auto 0.3 % (0.0-0.4); Lymphocytes Absolute Auto 1.6 X10*3/uL (1.2-4.9); Lymphocytes Percent Auto 20.6 % (20-40); Mean Corpuscular HGB Conc 34.9 g/dl (31.0-36.0); Mean Corpuscular Hemoglobin 30.7 pg (27.0-33.0); Mean Corpuscular Volume 87.9 fL (80.0-98.0); Mean Platelet Volume 10.1 fL (9.4-12.4); Monocytes Absolute Auto 0.6 X10*3/uL (0.1-1.2); Monocytes Percent Auto 7.3 % (2-11); Neutrophils Absolute Auto 5.2 x10*3/uL (2.0-8.3); Neutrophils Percent Auto 68.4 % (45-73); Platelet Count 217 X10*3/uL (160-400); Red Blood Count 4.89 X10*6/uL (4.60-5.80); Red Cell Distribution Width 12.7 % (11.0-16.0); White Blood Count 7.6 X10*3/uL (4.8-10.8)
[2021-09-28 16:55] LABS: Appearance Urine CLEAR; Color Urine YELLOW; Glucose Urine UA NEG (NEG); Leukocyte Esterase Urine NEG (NEG); Nitrite Urine NEG (NEG); PH 5.5 (5.0-8.0); Urine Blood NEG (NEG); Urine Ketones NEG (NEG); Urine Protein NEG (NEG-TRACE)
[2021-09-28 17:01] LABS: INTERNATIONAL NORM RATIO 1.1 (0.9-1.1); Prothrombin Time 12.2 SEC (9.9-13.0)
[2021-09-28 17:10] LABS: Alanine Aminotransferase 31 U/L (0-40); Albumin Level 3.9 g/dL (3.5-5.0); Alkaline Phosphatase 54 U/L (39-117); Anion Gap 12 (12-20); Aspartate Amino Transferase 18 U/L (5-37); Bilirubin Direct 0.2 mg/dL (0.0-0.5); Bilirubin Total 0.6 mg/dL (0.0-1.0); Blood Urea Nitrogen 22 mg/dL (9-16); Calcium 9.5 mg/dL (8.4-10.2); Carbon Dioxide 30 mmol/L (22-29); Chloride 103 mmol/L (96-108); Creatinine Clr Calc Pharmacy 49.4; Estimated Glomerular Filt Rate 57; Glucose Random 98 mg/dL (60-115); Lipase 44 U/L (8-78); Magnesium 2.1 mg/dL (1.6-2.6); Potassium 3.6 mmol/L (3.3-5.1); Sodium 141 mmol/L (135-145); Total Protein 6.8 g/dL (6.5-8.0)
[2021-09-28 17:15] LABS: B Type Natriuretic Peptide 41 pg/mL (<100); Troponin-I High Sensitivity < 3.5 ng/L (<3.5-35.0)
--- NOTE | 2021-09-28 17:32 | MHC.STROKE ---
Addendum entered by Mariah Adhikari RN 09/28/21 17:53: PATIENT HAD A CTA H/N AT [facility] THIS MONTH WITHOUT ANY EVIDENCE OF LVO (LARGE VESSEL OCCLUSION), I DID RELAY THIS TO DR BLAIR AND WE DO NOT NEED ANOTHER CTA H/N, HE WILL SEE THE PATIENT IN THE AM. Original Note: DR SNYDER ASKED IF PATIENT CAN BE STARTED ON ELIQUIS FOR MULTIPLE EMBOLIC STROKES, DR BLAIR DID LOOK AT THE SCANS AND HE SAID THAT IS FINE . I DID RELAY THIS TO DR SNYDER. I EXPLAINED THIS TO THE PATIENT, HE SAID HE HAS BEEN VERY FOGGY AND HAS HAD A VARIETY OF SYMPTOMS OVER THE PAST FEW WEEKS, THE OTHER DAY HIS RIGHT ARM AND LEG WAS FLOPPY , EARLIER IN THE MONTH IT WAS HIS SPEECH.
--- NOTE | 2021-09-28 17:39 | P.HPHOSP_ITS ---
History of Present Illness Date of Service: 09/28/21 <MARIBEL Stark - Last Filed: 09/28/21 18:25> Attending physician on admission: Susan Robledo <MARIBEL Stark - Last Filed: 09/28/21 18:25> Chief Complaint: abnormal MRI <MARIBEL Stark - Last Filed: 09/28/21 18:25> This is a 76 year old male with history of hypertention and recent stroke who was sent to the ED due to abnormal MRI. He initially presented to [facility] at the end of August with headache, blurry vision and feeling weak. His blood pressure was initially over 200 systolic. An MRI of the brain at that time revealed 2 small areas of infarction in the left frontal and left temporal lobe which were suggestive of embolic nature. He had echocardiogram which showed normal size left ventricle, LVEF 60-65% and no valvular abnorm alities (see scanned report), CTA of the head and neck showing some atherosclerotic calcifications in bilateral carotids, no report uavailable. LDL was 61. He was started on low-dose statin. Due to concern for cardioembolic source he also received full dose ASA and a holter monitor and was discharged with plan for outpatient neuro follow up. His reglan was thought to be contributing to his uncontrolled HTN and was discontinued. In follow up with PCP, his dose of clonidine was increased. Since that admission he continues to have intermittent episodes of dizziness, primarily in thr morning. He denies any chest pain or palpitations. Three days ago the patient reports feeling like his right arm and leg were asleep. He thought it might be related to his statin, so he stopped taking it. Because this did not improve, his PCP ordered a repeat MRI of the brain today which showed multiple punctate acute embolic infarct throughout the left cerebral hemisphere with no hemorrhagic transformation and no mass effect. He was sent by his PCP to the emergency department to be evaluated. lab work today was unremarkable, EKG showed sinus bradycardia. Due to recurrent stroke the decision was made to admit him to the hospital for further management <MARIBEL Stark - Last Filed: 09/28/21 18:25> Review of Systems Review of Systems: Yes all other systems are reviewed and are negative <MARIBEL Stark Last Filed: 09/28/21 18:25> Constitutional: Constitutional: Denies chills and Denies fever(s) <MARIBEL Stark - Last Filed: 09/28/21 18:25> Cardiovascular: Cardiovascular: Denies chest pain <MARIBEL Stark - Last Filed: 09/28/21 18:25> Respiratory: Respiratory: Denies cough <MARIBEL Stark - Last Filed: 09/28/21 18:25> Gastrointestinal: Gastrointestinal: Denies abdominal pain <MARIBEL Strak - Last Filed: 09/28/21 18:25> [facility] Medical History: Medical History Anxiety Benign essential hypertension BPH (benign prostatic hyperplasia) Cervical disc disorder with radiculopathy Degenerative disc disease, lumbar Degenerative disc disease, thoracic Delayed gastric emptying Dizziness Embolic cerebral infarction Erectile dysfunction GERD (gastroesophageal reflux disease) Impaired fasting glucose Overweight (BMI 25.0-29.9) Primary insomnia Pure hypercholesterolemia <MARIBEL Stark - Last Filed: 09/28/21 18:25> Functional capacity: independent ambulation <MARIBEL Stark - Last Filed: 09/28/21 18:25> Family History: Family History Father Heart disease Mother Cancer Brother Diabetes Paternal Grandmother Heart disease Maternal Uncle Colon cancer <MARIBEL Stark - Last Filed: 09/28/21 18:25> Surgical History: Surgical History History of esophagogastroduodenoscopy (EGD) (02/14/15) Hx of colonoscopy (03/04/12) Hx of cystoscopy (~2019) Hx of tonsillectomy <MARIBEL Stark - Last Filed: 09/28/21 18:25> Social History: Social History Housing: House Alcohol intake: never Patient Tobacco Use Status: Former Tobacco user e-Cigarette/Vaping Use: Never Used Second Hand Smoke Exposure: Yes Advance Directives: No Advance Directives Information Provided: Yes service: Yes ([employer]) Current occupational status: retired Cognitive needs: No Hearing needs: No Vision needs: No <MARIBEL Stark - Last Filed: 09/28/21 18:25> Meds Allergies/Adverse reactions: Allergies Allergy/AdvReac Type Severity Reaction Status Date / Time Iodinated Contrast Media Allergy Mild UNKNOWN Verified 09/27/21 09:18 [IV Dye, Iodine Containing] tizanidine Allergy Unknown painful Verified 09/27/21 09:18 rash on ankles, dizziness IV contrast dye Allergy Unknown unknown Uncoded 09/27/21 09:18 x ray dye Allergy Unknown unknown Uncoded 09/27/21 09:18 <MARIBEL Stark - Last Filed: 09/28/21 18:25> Home medications: Home Medications Medication Instructions Recorded Confirmed Last Taken Type metoprolol tartrate 25 mg tablet 25 mg PO BID 09/27/20 09/28/21 09/28/21 History docusate sodium 100 mg capsule 100 mg PO BID PRN 09/28/21 09/28/21 Unknown History pantoprazole 40 mg tablet,delayed 40 mg PO DAILY@0630 09/28/21 09/28/21 09/28/21 History release <MARIBEL Stark - Last Filed: 09/28/21 18:25> Physical Exam Vital Signs and Narrative: Vital Signs: Last Vital Signs Temp 98.8 F 09/28/21 16:19 Pulse 50 09/28/21 16:19 Resp 18 09/28/21 16:19 BP 158/72 H 09/28/21 16:19 Pulse Ox 98 09/28/21 16:19 BMI result Body Mass Index 27.3 <MARIBEL Stark - Last Filed: 09/28/21 18:25> Results Labs CBC and Chem 7: : 09/29/21 06:50 09/29/21 06:50 <MARIBEL Stark - Last Filed: 09/28/21 18:25> Labs: Laboratory Results - last 24 hr 09/28/21 09/28/21 09/28/21 16:45 16:45 16:45 MCV 87.9 MCH 30.7 MCHC 34.9 RDW 12.7 Plt Count 217 MPV 10.1 Immature Gran % (Auto) 0.3 Neut % (Auto) 68.4 Lymph % (Auto) 20.6 [place] % (Auto) 7.3 Eos % (Auto) 2.9 Baso % (Auto) 0.5 Lymph # (Auto) 1.6 [place] # (Auto) 0.6 Eos # (Auto) 0.2 Baso # (Auto) 0.0 Abs Immat Gran (auto) 0.02 Absolute Neuts (auto) 5.2 Absolute Nucleated RBC 0.000 Nucleated RBC % (auto) 0.0 PT 12.2 INR 1.1 APTT 30.0 Anion Gap 12 Estim Creat Clear Calc 49.4 Estimated GFR 57 Random Glucose 98 Calcium 9.5 Magnesium 2.1 Total Bilirubin 0.6 Direct Bilirubin 0.2 AST 18 ALT 31 Alkaline Phosphatase 54 Troponin I High Sens B-Natriuretic Peptide Total Protein 6.8 Albumin 3.9 Lipase 44 Urine Color Urine Appearance Urine pH Ur Specific [place] Urine Protein Urine Glucose (UA) Urine Ketones Urine Blood Urine Nitrite Ur Leukocyte Esterase 09/28/21 09/28/21 09/28/21 16:45 16:45 16:45 MCV MCH MCHC RDW Plt Count MPV Immature Gran % (Auto) Neut % (Auto) Lymph % (Auto) [place] % (Auto) Eos % (Auto) Baso % (Auto) Lymph # (Auto) [place] # (Auto) Eos # (Auto) Baso # (Auto) Abs Immat Gran (auto) Absolute Neuts (auto) Absolute Nucleated RBC Nucleated RBC % (auto) PT INR APTT Anion Gap Estim Creat Clear Calc Estimated GFR Random Glucose Calcium Magnesium Total Bilirubin Direct Bilirubin AST ALT Alkaline Phosphatase Troponin I High Sens < 3.5 B-Natriuretic Peptide 41 Total Protein Albumin Lipase Urine Color YELLOW Urine Appearance CLEAR Urine pH 5.5 Ur Specific [place] 1.020 Urine Protein NEG Urine Glucose (UA) NEG Urine Ketones NEG Urine Blood NEG Urine Nitrite NEG Ur Leukocyte Esterase NEG <MARIBEL Stark - Last Filed: 09/28/21 18:25> Assessment and Plan (1) CVA (cerebral vascular accident): Qualifiers: CVA mechanism: unspecified Qualified Code(s): I63.9 - Cerebral infarction, unspecified <MARIBEL Stark - Last Filed: 09/28/21 18:25> Status: Acute <MARIBEL Stark - Last Filed: 09/28/21 18:25> (2) Uncontrolled hypertension: Status: Acute <MARIBEL Stark - Last Filed: 09/28/21 18:25> this is a 76-year-old male with history of hypertension, recent stroke thought to be embolic in nature who was sent to the emergency department by PCP due to abnormal outpatient brain MRI acute embolic stroke likely cardioembolic source treated for stroke with concern for embolic source in August of this year, given recurrent episode will start anticoagulation with Eliquis echo from [facility] unremarkable (see scanned report); EKG sinus tiesha has had nurse monitoring for the past several weeks, no results available at this time continue statin, change to low dose ASA PT/OT eval; neuro checks cardiology consultation neuro consultation HTN dose of clonidine recently increased BP 150s in ED hold BP meds for now in light of acute stroke, can likely resume within next 24 hours med rec pending at this marlyn h/o gastroparesis reglan d/c during recent hospitalization med rec pending at the time of admission dvt ppx - eliquis code status - full code <MRAIBEL Stark - Last Filed: 09/28/21 18:25> Quality Stroke Does the patient have a stroke diagnosis?: Yes <MARIBEL Stark - Last Filed: 09/28/21 18:25> Reason for No Anti-thrombotic by Day Two: N/A - Med Ordered <MARIBEL Stark - Last Filed: 09/28/21 18:25> VTE Prior VTE?: No <MARIBEL Stark - Last Filed: 09/28/21 18:25> VTE Risk Level:: Medical - moderate - high <MARIBEL Stark - Last Filed: 09/28/21 18:25> VTE Device Contraindication: Treatment Not Indicated <MARIBEL Stark - Last Filed: 09/28/21 18:25> VTE Drug Contraindication: N/A - Med Ordered <MARIBEL Stark - Last Filed: 09/28/21 18:25>
[2021-09-28] MEDS: Atorvastatin Calcium 80 MG TABLET PO (17:41)
[2021-09-28 18:21] LABS: COVID-19 Test Negative (Negative)
--- NOTE | 2021-09-28 18:58 | PHA.MEDREC ---
MED REC COMPLETE, NO ISSUES Pharmacy Consult ? Medication Reconciliation Pharmacy has completed the medication reconciliation.
[2021-09-28 19:35] VITALS: BP 158/59; PULSE 48; RESP 18; TEMP 36.6; O2SAT 96
[2021-09-28] MEDS: Apixaban 5 MG TABLET PO (21:30)
[2021-09-28 23:51] VITALS: PULSE 53; RESP 17; O2SAT 96
[2021-09-29] VITALS (9 sets, daily range): BP systolic 140–160; BP diastolic 59–73; PULSE 49–55; RESP 12–18; TEMP 36.7; O2SAT 94–97
[2021-09-29 07:00] LABS: MANUAL DIFF FLAG NO
[2021-09-29 07:05] LABS: Basophils Percent Auto 0.5 % (0-2); Eosinophils Absolute Auto 0.2 X10*3/uL (0.0-0.4); Eosinophils Percent Auto 2.9 % (0-4); Hematocrit 44.2 % (42.0-52.0); Hemoglobin 15.4 g/dl (14.0-18.0); Imm Gran Abs Auto 0.02 X10*3/uL (0.00-0.03); Imm Gran Pct Auto 0.3 % (0.0-0.4); Lymphocytes Absolute Auto 1.6 X10*3/uL (1.2-4.9); Lymphocytes Percent Auto 20.5 % (20-40); Mean Corpuscular HGB Conc 34.8 g/dl (31.0-36.0); Mean Corpuscular Hemoglobin 30.4 pg (27.0-33.0); Mean Corpuscular Volume 87.2 fL (80.0-98.0); Mean Platelet Volume 10.2 fL (9.4-12.4); Monocytes Absolute Auto 0.5 X10*3/uL (0.1-1.2); Monocytes Percent Auto 6.7 % (2-11); Neutrophils Absolute Auto 5.4 x10*3/uL (2.0-8.3); Neutrophils Percent Auto 69.1 % (45-73); Platelet Count 221 X10*3/uL (160-400); Red Blood Count 5.07 X10*6/uL (4.60-5.80); Red Cell Distribution Width 12.8 % (11.0-16.0); White Blood Count 7.8 X10*3/uL (4.8-10.8)
[2021-09-29 07:36] LABS: Anion Gap 12 (12-20); Blood Urea Nitrogen 16 mg/dL (9-16); Calcium 9.4 mg/dL (8.4-10.2); Carbon Dioxide 29 mmol/L (22-29); Chloride 104 mmol/L (96-108); Cholesterol 95 mg/dL; Creatinine Clr Calc Pharmacy 58.4; Estimated Glomerular Filt Rate > 60; Glucose Random 110 mg/dL (60-115); HDL Cholesterol 31 mg/dL; LDL Cholesterol Calculated 40 mg/dl; Potassium 3.7 mmol/L (3.3-5.1); Sodium 141 mmol/L (135-145); Triglycerides 120 mg/dL
[2021-09-29] MEDS: Apixaban 5 MG TABLET PO ×2 (09:48→21:14)
[2021-09-29] MEDS: Aspirin Enteric Coated 81 MG TABLET.DR PO (09:48)
--- NOTE | 2021-09-29 11:06 | PM.CNCAR ---
History of Present Illness History of Present Illness Date of Service: 09/29/21 Chief complaint: embolic cva Narrative: This is a cardiology consultation regarding stroke and cardiac workup. Patient has history of hypertension. It seems that he recent stroke when he was seen at [facility] as he was hunting in that area. He has some blurry vision, felt weak and had headache. Per H and P, MRI at that time had shown 2 small areas of infarction the left frontal and left temporal lobe which were suggestive of emboli. Echocardiogram pattern is unremarkable. He was also placed on a 30 day monitor that patient actually still wearing. Then the few days ago he felt as though his right arm and leg were feeling weak and it seems that he had a repeat MRI that showed multiple punctate areas of acute embolic infarct and that led to the hospitalization. Patient is quite anxious and still has the weakness in the right side but otherwise doing okay. No cardiac symptoms whatsoever. Review of Systems Review of Systems: Yes all other systems are reviewed and are negative Cardiovascular: Cardiovascular: Reports as per HPI, Reports no additional cardiovascular complaints, Denies acrocyanosis, Denies cool extremities, Denies painful fingertips, Denies chest pain, Denies chest pain at rest, Denies diaphoresis, Denies syncope, Denies irregular heart rhythm, Denies claudication, Denies leg edema, Denies lightheadedness, Denies palpitations and Denies dyspnea Respiratory: Respiratory: Denies dyspnea Neurologic: Denies syncope Endocrine: Endocrine: Denies palpitations [facility] Past Medical History Medical History Anxiety Benign essential hypertension BPH (benign prostatic hyperplasia) Cervical disc disorder with radiculopathy Degenerative disc disease, lumbar Degenerative disc disease, thoracic Delayed gastric emptying Dizziness Embolic cerebral infarction Erectile dysfunction GERD (gastroesophageal reflux disease) Impaired fasting glucose Overweight (BMI 25.0-29.9) Primary insomnia Pure hypercholesterolemia Functional capacity: independent ambulation Family History Family History Father Heart disease Mother Cancer Brother Diabetes Paternal Grandmother Heart disease Maternal Uncle Colon cancer Surgical History Surgical History History of esophagogastroduodenoscopy (EGD) (02/14/15) Hx of colonoscopy (03/04/12) Hx of cystoscopy (~2019) Hx of tonsillectomy Social History Social History Housing: House Alcohol intake: never Patient Tobacco Use Status: Former Tobacco user e-Cigarette/Vaping Use: Never Used Second Hand Smoke Exposure: Yes Advance Directives: No Advance Directives Information Provided: Yes service: Yes ([employer]) Current occupational status: retired Cognitive needs: No Hearing needs: No Vision needs: No Meds Allergies Allergy/AdvReac Type Severity Reaction Status Date / Time Iodinated Contrast Media Allergy Mild UNKNOWN Verified 09/27/21 09:18 [IV Dye, Iodine Containing] tizanidine Allergy Unknown painful Verified 09/27/21 09:18 rash on ankles, dizziness IV contrast dye Allergy Unknown unknown Uncoded 09/27/21 09:18 x ray dye Allergy Unknown unknown Uncoded 09/27/21 09:18 Active Medications: Current Medications Acetaminophen (Acetaminophen 325 Mg Tablet) 650 mg PO Q6H PRN PRN Reason: Pain, Mild (Pain Scale 1-3) Apixaban (Apixaban 5 Mg Tablet) 5 mg PO BID [facility] Last Admin: 09/29/21 09:48 Dose: 5 mg Documented by: Aspirin (Aspirin Enteric Coated 81 Mg Tablet.) 81 mg PO DAILY [facility] Last Admin: 09/29/21 09:48 Dose: 81 mg Documented by: Docusate Sodium (Docusate Sodium 100 Mg Capsule) 100 mg PO DAILY PRN PRN Reason: Constipation Docusate Sodium (Docusate Sodium 100 Mg Capsule) 100 mg PO BID PRN PRN Reason: Constipation Meclizine HCl (Meclizine Hcl 25 Mg Tablet) 25 mg PO TID PRN PRN Reason: dizziness Metoprolol Tartrate (Metoprolol Tartrate 25 Mg Tablet) 25 mg PO BID [facility]; Protocol Ondansetron HCl (Ondansetron Hcl 4 Mg/2 Ml Vial) 4 mg IVPUSH Q8H PRN PRN Reason: Nausea and Vomiting Pharmacy Consult (Consult Rx Perform Med Rec) 1 each MISCELLANE ONCE PRN PRN Reason: Consult order Sodium Chloride (0.9 % Sodium Chloride Flush 3 Ml Syringe) 3 ml IVFLUSH QSHIFT [facility] Last Admin: 09/29/21 07:12 Dose: Not Given Documented by: Home Medications Medication Instructions Recorded Confirmed Last Taken Type metoprolol tartrate 25 mg tablet 25 mg PO BID 09/27/20 09/28/21 09/28/21 History docusate sodium 100 mg capsule 100 mg PO BID PRN 09/28/21 09/28/21 Unknown History pantoprazole 40 mg tablet,delayed 40 mg PO DAILY@0630 09/28/21 09/28/21 09/28/21 History release Physical Exam Vital Signs: Vital Signs: Last Vital Signs Temp 97.8 F 09/28/21 19:35 Pulse 55 09/29/21 09:42 Resp 16 09/29/21 09:22 BP 140/60 H 09/29/21 09:22 Pulse Ox 95 09/29/21 09:22 BMI result Body Mass Index 27.3 Const: General: no acute distress HENMT: Other: Unremarkable Neck: Neck: Yes normal visual inspection Chest: Chest palpation & inspection: normal inspection of the chest Resp: Auscultation: no crackles and no wheezes Cardio: Palpation: normal PMI Heart sounds: S1 normal heart sound present, S2 normal heart sound present, no gallops, no murmurs and no rubs GI: Palpation (GI): Soft to palpation Back/Spine/Pelvis: Other: unremarkable Skin: Lesions: other Neuro: Cranial nerves: Yes Other cranial nerve findings present Extrem: General: Yes other Psych: Mental Status: other Objective Labs and Meds Result diagrams: 09/29/21 06:50 09/29/21 06:50 Lab results: Laboratory Results - last 24 hr 09/28/21 09/28/21 09/28/21 16:45 16:45 16:45 WBC 7.6 RBC 4.89 Hgb 15.0 Hct 43.0 MCV 87.9 MCH 30.7 MCHC 34.9 RDW 12.7 Plt Count 217 MPV 10.1 Immature Gran % (Auto) 0.3 Neut % (Auto) 68.4 Lymph % (Auto) 20.6 [place] % (Auto) 7.3 Eos % (Auto) 2.9 Baso % (Auto) 0.5 Lymph # (Auto) 1.6 [place] # (Auto) 0.6 Eos # (Auto) 0.2 Baso # (Auto) 0.0 Abs Immat Gran (auto) 0.02 Absolute Neuts (auto) 5.2 Absolute Nucleated RBC 0.000 Nucleated RBC % (auto) 0.0 PT 12.2 INR 1.1 APTT 30.0 Sodium 141 Potassium 3.6 Chloride 103 Carbon Dioxide 30 H Anion Gap 12 BUN 22 H Creatinine 1.23 Estim Creat Clear Calc 49.4 Estimated GFR 57 Random Glucose 98 Calcium 9.5 Magnesium 2.1 Total Bilirubin 0.6 Direct Bilirubin 0.2 AST 18 ALT 31 Alkaline Phosphatase 54 Troponin I High Sens B-Natriuretic Peptide Total Protein 6.8 Albumin 3.9 Triglycerides Cholesterol LDL Cholesterol, Calc HDL Cholesterol Lipase 44 Urine Color Urine Appearance Urine pH Ur Specific [place] Urine Protein Urine Glucose (UA) Urine Ketones Urine Blood Urine Nitrite Ur Leukocyte Esterase COVID-19 (MAHENDRA) COVID-19 [employer] 09/28/21 09/28/21 09/28/21 16:45 16:45 16:45 WBC RBC Hgb Hct MCV MCH MCHC RDW Plt Count MPV Immature Gran % (Auto) Neut % (Auto) Lymph % (Auto) [place] % (Auto) Eos % (Auto) Baso % (Auto) Lymph # (Auto) [place] # (Auto) Eos # (Auto) Baso # (Auto) Abs Immat Gran (auto) Absolute Neuts (auto) Absolute Nucleated RBC Nucleated RBC % (auto) PT INR APTT Sodium Potassium Chloride Carbon Dioxide Anion Gap BUN Creatinine Estim Creat Clear Calc Estimated GFR Random Glucose Calcium Magnesium Total Bilirubin Direct Bilirubin AST ALT Alkaline Phosphatase Troponin I High Sens < 3.5 B-Natriuretic Peptide 41 Total Protein Albumin Triglycerides Cholesterol LDL Cholesterol, Calc HDL Cholesterol Lipase Urine Color YELLOW Urine Appearance CLEAR Urine pH 5.5 Ur Specific [place] 1.020 Urine Protein NEG Urine Glucose (UA) NEG Urine Ketones NEG Urine Blood NEG Urine Nitrite NEG Ur Leukocyte Esterase NEG COVID-19 (MAHENDRA) COVID-19 [employer] 09/28/21 09/29/21 09/29/21 18:01 06:50 06:50 WBC 7.8 RBC 5.07 Hgb 15.4 Hct 44.2 MCV 87.2 MCH 30.4 MCHC 34.8 RDW 12.8 Plt Count 221 MPV 10.2 Immature Gran % (Auto) 0.3 Neut % (Auto) 69.1 Lymph % (Auto) 20.5 [place] % (Auto) 6.7 Eos % (Auto) 2.9 Baso % (Auto) 0.5 Lymph # (Auto) 1.6 [place] # (Auto) 0.5 Eos # (Auto) 0.2 Baso # (Auto) 0.0 Abs Immat Gran (auto) 0.02 Absolute Neuts (auto) 5.4 Absolute Nucleated RBC 0.000 Nucleated RBC % (auto) 0.0 PT INR APTT Sodium 141 Potassium 3.7 Chloride 104 Carbon Dioxide 29 Anion Gap 12 BUN 16 Creatinine 1.04 Estim Creat Clear Calc 58.4 Estimated GFR > 60 Random Glucose 110 Calcium 9.4 Magnesium Total Bilirubin Direct Bilirubin AST ALT Alkaline Phosphatase Troponin I High Sens B-Natriuretic Peptide Total Protein Albumin Triglycerides 120 Cholesterol 95 D LDL Cholesterol, Calc 40 HDL Cholesterol 31 D Lipase Urine Color Urine Appearance Urine pH Ur Specific [place] Urine Protein Urine Glucose (UA) Urine Ketones Urine Blood Urine Nitrite Ur Leukocyte Esterase COVID-19 (MAHENDRA) Negative COVID-19 Clin Com See Note ECG Interpretation: EKG with sinus bradycardia, 47/Min; no significant ST-T changes and otherwise unremarkable. Available prior EKGs also shows sinus. Assessment and Plan (1) CVA (cerebral vascular accident): Qualifiers: CVA mechanism: unspecified Qualified Code(s): I63.9 - Cerebral infarction, unspecified Status: Acute (2) Uncontrolled hypertension: Status: Acute Recent echocardiogram reviewed from [place]. LVEF 60-65%; no significant valvular pathology. Described to have possible LV trabeculations and could not exclude noncompaction and hence recommended contrast echo versus MRI. Otherwise he also has any event monitor in place for 30 days. He seems to be already on anticoagulation with Eliquis. Unremarkable troponins. With regard to further workup. We can repeat the echocardiogram with contrast due to concern for noncompaction. Will need to review the 30 day event monitor findings once that is completed. May need SARA and based on Neurology recommendations, probably schedule as outpt. Procedures Date of Service Date of Service: 09/29/21
[2021-09-29] MEDS: ALPRAZolam 0.25 MG TABLET 0.125 MG PO ×2 (11:30→22:01)
[2021-09-29] MEDS: Metoprolol Tartrate 25 MG TABLET PO (11:30)
--- NOTE | 2021-09-29 12:16 | PC.NURSE ---
Pt received from date night caregiver: Pt AOX4 and states he feels lightheaded with R sided heaviness. No specific neuro deficits noted besides residual R sided mouth droop from previous CVA. MD Robledo at bedside during morning rounds and is aware of pt complaints. No further orders received besides anxiety medications. Pt abd soft and nontender.
--- NOTE | 2021-09-29 12:29 | P.CNNE_ITS ---
History of Present Illness Data of Consult Service Date: 09/29/21 Primary Care Provider: Armaan Correa MD HPI Reason for consult: Stroke 76 years old man who was admitted hospital because of abnormal finding on recent MRI of brain. His problem started on last day of August when he was hunting. He noted blurred vision numbness of face and unsteadiness. His blood pressure was high and he was taken to [facility] where he was noted to have a small exam embolic infarct. Apparently his vasculature did not reveal any large vessel disease and transthoracic echo was okay. He was discharged on aspirin with follow-up cardiac evaluation. He had a Holter placed recently. He complained of right-sided numbness and weakness to his primary care physician and was asked to have an MRI of brain after which she came to emergency room. His symptoms started at least a day or 2 before he came. His MRI of brain revealed multiple small embolic infarcts and he was admitted. Now he was feeling better but stating that every morning when he got up he was dizzy and lightheaded. Review of Systems Review of Systems: No recent cold or flu-like illness per no headache or neck pain. [facility] Past Medical History Medical History (Updated 09/29/21 @ 12:32 by Jason Knowles MD) Anxiety Benign essential hypertension BPH (benign prostatic hyperplasia) Cervical disc disorder with radiculopathy Degenerative disc disease, lumbar Degenerative disc disease, thoracic Delayed gastric emptying Dizziness Embolic cerebral infarction Erectile dysfunction GERD (gastroesophageal reflux disease) Impaired fasting glucose Overweight (BMI 25.0-29.9) Primary insomnia Pure hypercholesterolemia Functional capacity: independent ambulation Family History Family History Father Heart disease Mother Cancer Brother Diabetes Paternal Grandmother Heart disease Maternal Uncle Colon cancer Surgical History Surgical History History of esophagogastroduodenoscopy (EGD) (02/14/15) Hx of colonoscopy (03/04/12) Hx of cystoscopy (~2019) Hx of tonsillectomy Social History Social History Housing: House Alcohol intake: never Patient Tobacco Use Status: Former Tobacco user e-Cigarette/Vaping Use: Never Used Second Hand Smoke Exposure: Yes Advance Directives: No Advance Directives Information Provided: Yes service: Yes ([employer]) Current occupational status: retired Cognitive needs: No Hearing needs: No Vision needs: No Meds Allergies Allergy/AdvReac Type Severity Reaction Status Date / Time Iodinated Contrast Media Allergy Mild UNKNOWN Verified 09/27/21 09:18 [IV Dye, Iodine Containing] tizanidine Allergy Unknown painful Verified 09/27/21 09:18 rash on ankles, dizziness IV contrast dye Allergy Unknown unknown Uncoded 09/27/21 09:18 x ray dye Allergy Unknown unknown Uncoded 09/27/21 09:18 Active Medications: Current Medications Acetaminophen (Acetaminophen 325 Mg Tablet) 650 mg PO Q6H PRN PRN Reason: Pain, Mild (Pain Scale 1-3) Apixaban (Apixaban 5 Mg Tablet) 5 mg PO BID [facility] Last Admin: 09/29/21 09:48 Dose: 5 mg Documented by: Aspirin (Aspirin Enteric Coated 81 Mg Tablet.) 81 mg PO DAILY [facility] Last Admin: 09/29/21 09:48 Dose: 81 mg Documented by: Docusate Sodium (Docusate Sodium 100 Mg Capsule) 100 mg PO DAILY PRN PRN Reason: Constipation Docusate Sodium (Docusate Sodium 100 Mg Capsule) 100 mg PO BID PRN PRN Reason: Constipation Meclizine HCl (Meclizine Hcl 25 Mg Tablet) 25 mg PO TID PRN PRN Reason: dizziness Metoprolol Tartrate (Metoprolol Tartrate 25 Mg Tablet) 25 mg PO BID [facility]; Pr otocol Last Admin: 09/29/21 11:30 Dose: 25 mg Documented by: Ondansetron HCl (Ondansetron Hcl 4 Mg/2 Ml Vial) 4 mg IVPUSH Q8H PRN PRN Reason: Nausea and Vomiting Pharmacy Consult (Consult Rx Perform Med Rec) 1 each MISCELLANE ONCE PRN PRN Reason: Consult order Sodium Chloride (0.9 % Sodium Chloride Flush 3 Ml Syringe) 3 ml IVFLUSH QSHIFT [facility] Last Admin: 09/29/21 07:12 Dose: Not Given Documented by: Home Medications Medication Instructions Recorded Confirmed Last Taken Type metoprolol tartrate 25 mg tablet 25 mg PO BID 09/27/20 09/28/21 09/28/21 History docusate sodium 100 mg capsule 100 mg PO BID PRN 09/28/21 09/28/21 Unknown History pantoprazole 40 mg tablet,delayed 40 mg PO DAILY@0630 09/28/21 09/28/21 09/28/21 History release Physical Exam Vital Signs: Vital Signs: Last Vital Signs Temp 97.8 F 09/28/21 19:35 Pulse 55 09/29/21 09:42 Resp 16 09/29/21 09:22 BP 140/60 H 09/29/21 09:22 Pulse Ox 95 09/29/21 09:22 BMI result Body Mass Index 27.3 Neuro: Other: He was alert and awake with normal spontaneity of speech fluency comprehension and anxious affect. There was moderate right-sided facial weakness of central type. Mild right pronator drift was noted. Otherwise examination was nonfocal. Visual moran were intact. Plantars were flexors. Results Labs CBC & Chem 7: 09/29/21 06:50 09/29/21 06:50 Labs: Short CBC 09/28/21 09/29/21 Range/Units 16:45 06:50 WBC 7.6 7.8 (4.8-10.8) X10*3/uL Hgb 15.0 15.4 (14.0-18.0) g/dl Hct 43.0 44.2 (42.0-52.0) % Plt Count 217 221 (160-400) X10*3/uL BMP 09/28/21 09/29/21 16:45 06:50 Sodium 141 141 Potassium 3.6 3.7 Chloride 103 104 Carbon Dioxide 30 H 29 BUN 22 H 16 Creatinine 1.23 1.04 Calcium 9.5 9.4 Liver Function 09/28/21 Range/Units 16:45 Total Bilirubin 0.6 (0.0-1.0) mg/dL Direct Bilirubin 0.2 (0.0-0.5) mg/dL AST 18 (5-37) U/L ALT 31 (0-40) U/L Alkaline Phosphatase 54 (39-117) U/L Albumin 3.9 (3.5-5.0) g/dL Urine 09/28/21 Range/Units 16:45 Urine Color YELLOW Urine Appearance CLEAR Urine pH 5.5 (5.0-8.0) Ur Specific Lejunior 1.020 (1.005-1.025) Urine Protein NEG (NEG-TRACE) MG/DL Urine Glucose (UA) NEG (NEG) MG/DL His MRI of brain revealed multiple small embolic looking infarct in left middle cerebral artery area territory both upper and lower division. Otherwise on FLAIR sequence bilateral similar small lesions were noted. Assessment and Plan (1) Embolic infarction: Status: Acute 76 years old man with multiple bilateral acute on chronic small embolic ischemic cerebral infarction. Most likely etiology was cardiac source of embolism. Apparently he had CTA of brain and neck at [facility] and we should try to obtain report of that. For now I would recommend starting him on anticoagulation at least for 3 months during which cardiac workup can be accomplished. He already has a Holter placed. If Holter would not answer the question he should have an internal loop recorder. He also was quite anxious and nervous and my suggestion is to start him on sertraline 25 mg in the morning. Procedures Date of Service Date of Service: 09/29/21
--- NOTE | 2021-09-29 12:48 | HO.PM.IMPN ---
Subjective Subjective Date of Service: 09/29/21 Interval History: Patient complaining of bilateral ear pressure, left facial burning, feels very anxious was unable to sleep overnight, blood pressure and pulse remains stable, no new neuro deficit. Review of Systems Review of Systems: Yes all other systems are reviewed and are negative Physical Exam Vital Signs: Vital Signs: Last Vital Signs Temp 97.8 F 09/28/21 19:35 Pulse 55 09/29/21 09:42 Resp 16 09/29/21 09:22 BP 140/60 H 09/29/21 09:22 Pulse Ox 95 09/29/21 09:22 BMI result Body Mass Index 27.3 General awake alert x3,no acute distress, very anxious appearing Neck supple no JVD. CVS regular rate rhythm, Respiratory lungs clear to auscultation, no respiratory distress, no wheeze, no rhonchi. Gastrointestinal abdomen soft, nontender, bowel sounds audible Extremities no edema. Neuro awake alert x3 speech clear, loss of right nasal labial fold, good strength both upper and lower extremities Skin no rash Psych anxious Objective Data Active Medications Acetaminophen (Acetaminophen 325 Mg Tablet) 650 mg PO Q6H PRN PRN Reason: Pain, Mild (Pain Scale 1-3) Apixaban (Apixaban 5 Mg Tablet) 5 mg PO BID [facility] Last Admin: 09/29/21 09:48 Dose: 5 mg Documented by: FABIANA Aspirin (Aspirin Enteric Coated 81 Mg Tablet.) 81 mg PO DAILY [facility] Last Admin: 09/29/21 09:48 Dose: 81 mg Documented by: FABIANA Docusate Sodium (Docusate Sodium 100 Mg Capsule) 100 mg PO DAILY PRN PRN Reason: Constipation Docusate Sodium (Docusate Sodium 100 Mg Capsule) 100 mg PO BID PRN PRN Reason: Constipation Meclizine HCl (Meclizine Hcl 25 Mg Tablet) 25 mg PO TID PRN PRN Reason: dizziness Metoprolol Tartrate (Metoprolol Tartrate 25 Mg Tablet) 25 mg PO BID [facility]; Protocol Last Admin: 09/29/21 11:30 Dose: 25 mg Documented by: FABIANA Ondansetron HCl (Ondansetron Hcl 4 Mg/2 Ml Vial) 4 mg IVPUSH Q8H PRN PRN Reason: Nausea and Vomiting Pharmacy Consult (Consult Rx Perform Med Rec) 1 each MISCELLANE ONCE PRN PRN Reason: Consult order Sodium Chloride (0.9 % Sodium Chloride Flush 3 Ml Syringe) 3 ml IVFLUSH QSHIFT [facility] Last Admin: 09/29/21 07:12 Dose: Not Given Documented by: FABIANA Non-Admin Reason: Med Not Available Labs CBC & Chem 7: 09/29/21 06:50 09/29/21 06:50 Labs: Laboratory Results - last 24 hr 09/28/21 09/28/21 09/28/21 16:45 16:45 16:45 MCV 87.9 MCH 30.7 MCHC 34.9 RDW 12.7 Plt Count 217 MPV 10.1 Immature Gran % (Auto) 0.3 Neut % (Auto) 68.4 Lymph % (Auto) 20.6 Canyon % (Auto) 7.3 Eos % (Auto) 2.9 Baso % (Auto) 0.5 Lymph # (Auto) 1.6 [place] # (Auto) 0.6 Eos # (Auto) 0.2 Baso # (Auto) 0.0 Abs Immat Gran (auto) 0.02 Absolute Neuts (auto) 5.2 Absolute Nucleated RBC 0.000 Nucleated RBC % (auto) 0.0 PT 12.2 INR 1.1 APTT 30.0 Anion Gap 12 Estim Creat Clear Calc 49.4 Estimated GFR 57 Random Glucose 98 Calcium 9.5 Magnesium 2.1 Total Bilirubin 0.6 Direct Bilirubin 0.2 AST 18 ALT 31 Alkaline Phosphatase 54 Troponin I High Sens B-Natriuretic Peptide Total Protein 6.8 Albumin 3.9 Triglycerides Cholesterol LDL Cholesterol, Calc HDL Cholesterol Lipase 44 Urine Color Urine Appearance Urine pH Ur Specific Clancy Urine Protein Urine Glucose (UA) Urine Ketones Urine Blood Urine Nitrite Ur Leukocyte Esterase COVID-19 ([facility]) COVID-19 Clin Com 09/28/21 09/28/21 09/28/21 16:45 16:45 16:45 MCV MCH MCHC RDW Plt Count MPV Immature Gran % (Auto) Neut % (Auto) Lymph % (Auto) Canyon % (Auto) Eos % (Auto) Baso % (Auto) Lymph # (Auto) [place] # (Auto) Eos # (Auto) Baso # (Auto) Abs Immat Gran (auto) Absolute Neuts (auto) Absolute Nucleated RBC Nucleated RBC % (auto) PT INR APTT Anion Gap Estim Creat Clear Calc Estimated GFR Random Glucose Calcium Magnesium Total Bilirubin Direct Bilirubin AST ALT Alkaline Phosphatase Troponin I High Sens < 3.5 B-Natriuretic Peptide 41 Total Protein Albumin Triglycerides Cholesterol LDL Cholesterol, Calc HDL Cholesterol Lipase Urine Color YELLOW Urine Appearance CLEAR Urine pH 5.5 Ur Specific Clancy 1.020 Urine Protein NEG Urine Glucose (UA) NEG Urine Ketones NEG Urine Blood NEG Urine Nitrite NEG Ur Leukocyte Esterase NEG COVID-19 ([facility]) COVID-19 Clin Com 09/28/21 09/29/21 09/29/21 18:01 06:50 06:50 MCV 87.2 MCH 30.4 MCHC 34.8 RDW 12.8 Plt Count 221 MPV 10.2 Immature Gran % (Auto) 0.3 Neut % (Auto) 69.1 Lymph % (Auto) 20.5 Canyon % (Auto) 6.7 Eos % (Auto) 2.9 Baso % (Auto) 0.5 Lymph # (Auto) 1.6 [place] # (Auto) 0.5 Eos # (Auto) 0.2 Baso # (Auto) 0.0 Abs Immat Gran (auto) 0.02 Absolute Neuts (auto) 5.4 Absolute Nucleated RBC 0.000 Nucleated RBC % (auto) 0.0 PT INR APTT Anion Gap 12 Estim Creat Clear Calc 58.4 Estimated GFR > 60 Random Glucose 110 Calcium 9.4 Magnesium Total Bilirubin Direct Bilirubin AST ALT Alkaline Phosphatase Troponin I High Sens B-Natriuretic Peptide Total Protein Albumin Triglycerides 120 Cholesterol 95 D LDL Cholesterol, Calc 40 HDL Cholesterol 31 D Lipase Urine Color Urine Appearance Urine pH Ur Specific Clancy Urine Protein Urine Glucose (UA) Urine Ketones Urine Blood Urine Nitrite Ur Leukocyte Esterase COVID-19 ([facility]) Negative COVID-19 Clin Com See Note Assessment and Plan (1) Embolic infarction: Status: Acute (2) Uncontrolled hypertension: Status: Acute Assessment and Plan: 76-year-old male with history of hypertension, recent stroke thought to be embolic in nature who was sent to the emergency department by PCP due to abnormal outpatient brain MRI ?acute embolic stroke ?likely cardioembolic source stable neuro exam since yesterday ?cont. eleni Umana asa ?Case discussed with Dr. Knowles he recommend Lyndsay Spoke with Dr. Matt he recommend contrast echo, patient has [address] by [place] few more days left, SARA as outpatient ?continue statin , avoid hypotension ?Continue close neurological follow up Will encourage out of bed to chair and ambulation PT OT HTN on multiple antihypertensives at home including Norvasc 10 mg, clonidine 0.2 mg b.i.d., hydrochlorothiazide 25 mg daily, lisinopril 40 mg daily and metoprolol 25 mg b.i.d. BP 140/60 this a.m. will continue metoprolol 25 b.i.d. and hold all other blood pressure medications follow BP closely h/o gastroparesis reglan d/c during recent hospitalization Continue PPI Severe anxiety disorder Given 1 dose of Xanax will place on low-dose SSRI dvt ppx - eliquis code status - full code? Quality Stroke Does the patient have a stroke diagnosis?: Yes Reason for No Anti-thrombotic by Day Two: N/A - Med Ordered VTE Prior VTE?: No VTE Risk Level:: Medical - moderate - high VTE Device Contraindication: Treatment Not Indicated VTE Drug Contraindication: N/A - Med Ordered
--- NOTE | 2021-09-29 12:51 | MHC.CM.PN ---
pt lives c his in their home. he reports that he is independent in his care. he does not use any AD c ambulation and has no svcs in the home and is still driving a car. he has 4 children all of which live in the area. his family can help him should he have any needs including a ride home at dc. pt denies the need for vna at dc. dc plan is home no svcs. cm to cont. to follow.
[2021-09-29] MEDS: Omeprazole 20 MG CAPSULE.DR PO (15:04)
--- NOTE | 2021-09-29 15:05 | PC.NURSE ---
Pt update status given to pt's Mia: [phone]
--- NOTE | 2021-09-29 23:05 | PC.NURSE ---
pt HR between 45-47 bpm, pt sleeping at this time in no apparent distress hospitalist notified no new orders at this time
[2021-09-30] VITALS (9 sets, daily range): BP systolic 152–174; BP diastolic 69–81; PULSE 50–66; RESP 12–21; TEMP 36.6–36.8; O2SAT 93–96
--- NOTE | 2021-09-30 00:25 | PC.NURSE ---
pt desatting to 85% on room air, good pleth. pt sleeping and in no apparent distress. respirations remain even and unlabored. pt placed on 2L nc for comfort and to maintain adequate 02 sat
[2021-09-30] MEDS: Omeprazole 20 MG CAPSULE.DR PO (06:29)
[2021-09-30] MEDS: Metoprolol Tartrate 25 MG TABLET PO ×2 (09:54→21:13)
[2021-09-30] MEDS: Apixaban 5 MG TABLET PO ×2 (09:55→21:13)
[2021-09-30] MEDS: Sertraline HCL 25 MG TABLET PO (09:55)
[2021-09-30] MEDS: amLODIPine Besylate 5 MG TABLET PO (09:55)
[2021-09-30] MEDS: 0.9 % Sodium Chloride Flush 3 ML SYRINGE IVFLUSH ×2 (09:55→16:08)
--- NOTE | 2021-09-30 10:23 | HO.PM.IMPN ---
Subjective Subjective Date of Service: 09/30/21 Interval History: Feels better this morning, slept well, no recurrent episode of dizziness ER pressure of facial numbness, still concern about having similar symptoms, denies headache dizziness no new neurological symptoms. Review of Systems Review of Systems: Yes all other systems are reviewed and are negative Physical Exam Vital Signs: Vital Signs: Last Vital Signs Temp 98.2 F 09/30/21 07:55 Pulse 51 09/30/21 09:55 Resp 21 H 09/30/21 07:55 BP 152/72 H 09/30/21 09:55 Pulse Ox 95 09/30/21 07:55 BMI result Body Mass Index 27.3 General awake aler t x3,no acute dist ress, less anxious ? Neck? supple no JVD. CVS? regular rate rhythm, Respi ratory lungs clear to auscultation, no respiratory dis tress, no wheeze, no rhonchi. Gastro intestinal abdomen soft, nontender, bowel sounds audib le Extremities no edema. Neuro awake alert x3 speech c lear, loss of righ t nasiolabial fold , good strength darlene th upper and lower extremities Skin no rash Psych anxi ous Objective Data Active Medications Acetaminophen (Acetaminophen 325 Mg Tablet) 650 mg PO Q6H PRN PRN Reason: Pain, Mild (Pain Scale 1-3) Amlodipine Besylate (Amlodipine Besylate 5 Mg Tablet) 5 mg PO DAILY [facility]; Protocol Last Admin: 09/30/21 09:55 Dose: 5 mg Documented by: ANDREZ Apixaban (Apixaban 5 Mg Tablet) 5 mg PO BID [facility] Last Admin: 09/30/21 09:55 Dose: 5 mg Documented by: ANDREZ Docusate Sodium (Docusate Sodium 100 Mg Capsule) 100 mg PO DAILY PRN PRN Reason: Constipation Docusate Sodium (Docusate Sodium 100 Mg Capsule) 100 mg PO BID PRN PRN Reason: Constipation Meclizine HCl (Meclizine Hcl 25 Mg Tablet) 25 mg PO TID PRN PRN Reason: dizziness Metoprolol Tartrate (Metoprolol Tartrate 25 Mg Tablet) 25 mg PO BID [facility]; Protocol Last Admin: 09/30/21 09:54 Dose: 25 mg Documented by: ANDREZ Omeprazole (Omeprazole 20 Mg Capsule.) 20 mg PO DAILY@0630 [facility] Last Admin: 09/30/21 06:29 Dose: 20 mg Documented by: ANA Ondansetron HCl (Ondansetron Hcl 4 Mg/2 Ml Vial) 4 mg IVPUSH Q8H PRN PRN Reason: Nausea and Vomiting Pharmacy Consult (Consult Rx Perform Med Rec) 1 each MISCELLANE ONCE PRN PRN Reason: Consult order Sertraline HCl (Sertraline Hcl 25 Mg Tablet) 25 mg PO DAILY [facility] Last Admin: 09/30/21 09:55 Dose: 25 mg Documented by: ANDREZ Sodium Chloride (0.9 % Sodium Chloride Flush 3 Ml Syringe) 3 ml IVFLUSH QSHIFT [facility] Last Admin: 09/30/21 09:55 Dose: 3 ml Documented by: ANDREZ Labs CBC & Chem 7: 09/29/21 06:50 12 06:50 Assessment and Plan (1) Embolic infarction: Status: Acute (2) Dizziness: Status: Acute (3) CVA (cerebral vascular accident): Status: Acute (4) Facial droop: Status: Acute (5) Uncontrolled hypertension: Status: Acute Assessment and Plan: 76-year-old male with history of hypertension, recent stroke thought to be embolic in nature who was sent to the emergency department by PCP due to abnormal outpatient brain MRI ?acute embolic stroke ?No new neuro symptoms cont. Eliquis ?Spoke with Dr. Matt he recommend contrast echo, patient has [address] by [place] few more days left, SARA as outpatient? ?continue statin , avoid hypotension ?Continue close neurological follow up ?Will encourage out of bed to chair and ambulation ? HTN Few high blood pressure readings in last 24 hours on metoprolol 25 mg b.i.d., will resume Norvasc 5 mg daily on multiple antihypertensives at home including Norvasc 10 mg, clonidine 0.2 mg b.i.d., hydrochlorothiazide 25 mg daily, lisinopril 40 mg daily and metoprolol 25 mg b.i.d. hold all other blood pressure medications follow BP closely Hyperlipidemia On Crestor 5mg daily, LDL 40 total cholesterol 95 with HDL of 31 h/o gastroparesis reglan d/c during recent hospitalization Continue PPI Severe anxiety disorder started on Zoloft 25 mg by mouth daily /support provided dvt ppx - eliquis code status - full code? Quality Stroke Does the patient have a stroke diagnosis?: Yes Reason for No Anti-thrombotic by Day Two: N/A - Med Ordered VTE Prior VTE?: No VTE Risk Level:: Medical - moderate - high VTE Device Contraindication: Treatment Not Indicated VTE Drug Contraindication: N/A - Med Ordered
--- NOTE | 2021-09-30 10:41 | P.PNCA_ITS ---
Subjective Subjective Date of Service: 09/30/21 Interval history: Still quite anxious but otherwise OK. Review of Systems Review of Systems Yes all other systems are reviewed and are negative Cardiovascular: Reports as per HPI, Reports no additional cardiovascular complaints, Denies acrocyanosis, Denies cool extremities, Denies painful fingertips, Denies chest pain, Denies chest pain at rest, Denies diaphoresis, Denies syncope, Denies irregular heart rhythm, Denies claudication, Denies leg edema, Denies lightheadedness, Denies palpitations and Denies dyspnea Respiratory: Denies dyspnea Denies syncope Endocrine: Denies palpitations Physical Exam Vital Signs: Last Vital Signs Temp 98.2 F 09/30/21 07:55 Pulse 51 09/30/21 09:55 Resp 21 H 09/30/21 07:55 BP 152/72 H 09/30/21 09:55 Pulse Ox 95 09/30/21 07:55 BMI result Body Mass Index 27.3 Const General: no acute distress HENMT Other: Unremarkable Neck Neck: Yes normal visual inspection Chest Chest palpation & inspection: normal inspection of the chest Resp Auscultation: no crackles and no wheezes Cardio Palpation: normal PMI Heart sounds: S1 normal heart sound present, S2 normal heart sound present, no gallops, no murmurs and no rubs GI Palpation (GI): Soft to palpation Back/Spine/Pelvis Other: unremarkable Skin Lesions: other Neuro Cranial nerves: Yes Other cranial nerve findings present Extrem General: Yes other Psych Mental Status: other Objective Labs and Meds Result diagrams: 09/29/21 06:50 09/29/21 06:50 Progress Note: A&P Assessment and plan (1) CVA (cerebral vascular accident): Status: Acute (2) Uncontrolled hypertension: Status: Acute Assessment and Plan: Recent echocardiogram reviewed from [place] -LVEF 60-65%; no significant valvular pathology. Described to have possible LV trabeculations and could not exclude noncompaction and hence recommended contrast echo versus MRI. Otherwise he also has any event monitor in place for 30 days. He seems to be already on anticoagulation with Eliquis. Unremarkable troponins. With regard to further workup. We can repeat the echocardiogram with contrast due to concern for noncompaction. Will need to review the 30 day event monitor findings once that is completed. SARA likely as outpt. Fall Risk Details Current Medications: Current Medications Acetaminophen (Acetaminophen 325 Mg Tablet) 650 mg PO Q6H PRN PRN Reason: Pain, Mild (Pain Scale 1-3) Amlodipine Besylate (Amlodipine Besylate 5 Mg Tablet) 5 mg PO DAILY [facility]; Protocol Last Admin: 09/30/21 09:55 Dose: 5 mg Documented by: Apixaban (Apixaban 5 Mg Tablet) 5 mg PO BID [facility] Last Admin: 09/30/21 09:55 Dose: 5 mg Documented by: Docusate Sodium (Docusate Sodium 100 Mg Capsule) 100 mg PO DAILY PRN PRN Reason: Constipation Docusate Sodium (Docusate Sodium 100 Mg Capsule) 100 mg PO BID PRN PRN Reason: Constipation Meclizine HCl (Meclizine Hcl 25 Mg Tablet) 25 mg PO TID PRN PRN Reason: dizziness Metoprolol Tartrate (Metoprolol Tartrate 25 Mg Tablet) 25 mg PO BID [facility]; Protocol Last Admin: 09/30/21 09:54 Dose: 25 mg Documented by: Omeprazole (Omeprazole 20 Mg Capsule.) 20 mg PO DAILY@0630 [facility] Last Admin: 09/30/21 06:29 Dose: 20 mg Documented by: Ondansetron HCl (Ondansetron Hcl 4 Mg/2 Ml Vial) 4 mg IVPUSH Q8H PRN PRN Reason: Nausea and Vomiting Pharmacy Consult (Consult Rx Perform Med Rec) 1 each MISCELLANE ONCE PRN PRN Reason: Consult order Sertraline HCl (Sertraline Hcl 25 Mg Tablet) 25 mg PO DAILY [facility] Last Admin: 09/30/21 09:55 Dose: 25 mg Documented by: Sodium Chloride (0.9 % Sodium Chloride Flush 3 Ml Syringe) 3 ml IVFLUSH QSHIFT [facility] Last Admin: 09/30/21 09:55 Dose: 3 ml Documented by: Time Spent With Patient Time: Total time spent is greater than 50% in coordination of care (as documented) at patient's floor/unit and/or counseling patient: Time with patient: less than 15 minutes Progress Note: Quality Stroke Does the patient have a stroke diagnosis?: Yes Reason for No Anti-thrombotic by Day Two: N/A - Med Ordered Procedures Date of Service Date of Service: 09/30/21
--- NOTE | 2021-09-30 17:35 | PC.NURSE ---
PT HAS BEEN OOB AD [facility] WITH STEADY GAIT, AOX4. TOLERATING PO, STATES HE STILL FEELS DIZZY AT TIMES, PROVIDER AWARE. PT NEEDS BEING MET
[2021-10-01] VITALS (10 sets, daily range): BP systolic 148–182; BP diastolic 65–86; PULSE 54–57; RESP 18–19; TEMP 36.9–37.1; O2SAT 93–96; BMI 25.9
[2021-10-01] MEDS: Sertraline HCL 25 MG TABLET PO (07:57)
[2021-10-01] MEDS: Metoprolol Tartrate 25 MG TABLET PO (07:57)
[2021-10-01] MEDS: Apixaban 5 MG TABLET PO (07:57)
[2021-10-01] MEDS: amLODIPine Besylate 10 MG TABLET PO (07:58)
[2021-10-01] MEDS: 0.9 % Sodium Chloride Flush 3 ML SYRINGE IVFLUSH (08:02)
--- NOTE | 2021-10-01 11:06 | PM.PNCARD ---
Subjective Subjective Date of Service: 10/01/21 Interval history: No new complaints. Review of Systems Review of Systems Yes all other systems are reviewed and are negative Cardiovascular: Reports as per HPI, Reports no additional cardiovascular complaints, Denies acrocyanosis, Denies cool extremities, Denies painful fingertips, Denies chest pain, Denies chest pain at rest, Denies diaphoresis, Denies syncope, Denies irregular heart rhythm, Denies claudication, Denies leg edema, Denies lightheadedness, Denies palpitations and Denies dyspnea Respiratory: Denies dyspnea Denies syncope Endocrine: Denies palpitations Physical Exam Vital Signs: Last Vital Signs Temp 98.5 F 10/01/21 07:45 Pulse 55 10/01/21 07:58 Resp 18 10/01/21 07:45 BP 182/82 H 10/01/21 07:58 Pulse Ox 95 10/01/21 07:45 BMI result Body Mass Index 25.9 Const General: no acute distress HENMT Other: Unremarkable Neck Neck: Yes normal visual inspection Chest Chest palpation & inspection: normal inspection of the chest Resp Auscultation: no crackles and no wheezes Cardio Palpation: normal PMI Heart sounds: S1 normal heart sound present, S2 normal heart sound present, no gallops, no murmurs and no rubs GI Palpation (GI): Soft to palpation Back/Spine/Pelvis Other: unremarkable Skin Lesions: other Neuro Cranial nerves: Yes Other cranial nerve findings present Extrem General: Yes other Psych Mental Status: other Objective Labs and Meds Result diagrams: 09/29/21 06:50 09/29/21 06:50 Progress Note: A&P Assessment and plan (1) CVA (cerebral vascular accident): Status: Acute (2) Uncontrolled hypertension: Status: Acute Assessment and Plan: Echo with preserved LVEF and no clear evidence of non-compaction. Otherwise he also has any event monitor in place for 30 days. He seems to be already on anticoagulation with Eliquis. Unremarkable troponins. Will need to review the 30 day event monitor findings once that is completed. SARA likely as outpt. For BP- on Metoprolol, Lisinopril, Amlodipine; meds adjusted by hospitalist team. Will follow in office. Fall Risk Details Current Medications: Current Medications Acetaminophen (Acetaminophen 325 Mg Tablet) 650 mg PO Q6H PRN PRN Reason: Pain, Mild (Pain Scale 1-3) Amlodipine Besylate (Amlodipine Besylate 10 Mg Tablet) 10 mg PO DAILY [facility]; Protocol Last Admin: 10/01/21 07:58 Dose: 10 mg Documented by: Apixaban (Apixaban 5 Mg Tablet) 5 mg PO BID [facility] Last Admin: 10/01/21 07:57 Dose: 5 mg Documented by: Docusate Sodium (Docusate Sodium 100 Mg Capsule) 100 mg PO DAILY PRN PRN Reason: Constipation Docusate Sodium (Docusate Sodium 100 Mg Capsule) 100 mg PO BID PRN PRN Reason: Constipation Meclizine HCl (Meclizine Hcl 25 Mg Tablet) 25 mg PO TID PRN PRN Reason: dizziness Metoprolol Tartrate (Metoprolol Tartrate 25 Mg Tablet) 25 mg PO BID [facility]; Protocol Last Admin: 10/01/21 07:57 Dose: 25 mg Documented by: Omeprazole (Omeprazole 20 Mg Capsule.Dr) 20 mg PO DAILY@0630 [facility] Last Admin: 10/01/21 06:12 Dose: Not Given Documented by: Ondansetron HCl (Ondansetron Hcl 4 Mg/2 Ml Vial) 4 mg IVPUSH Q8H PRN PRN Reason: Nausea and Vomiting Pharmacy Consult (Consult Rx Perform Med Rec) 1 each MISCELLANE ONCE PRN PRN Reason: Consult order Sertraline HCl (Sertraline Hcl 25 Mg Tablet) 25 mg PO DAILY [facility] Last Admin: 10/01/21 07:57 Dose: 25 mg Documented by: Sodium Chloride (0.9 % Sodium Chloride Flush 3 Ml Syringe) 3 ml IVFLUSH QSHIFT [facility] Last Admin: 10/01/21 08:02 Dose: 3 ml Documented by: Time Spent With Patient Time: Total time spent is greater than 50% in coordination of care (as documented) at patient's floor/unit and/or counseling patient: Time with patient: less than 15 minutes Progress Note: Quality Stroke Does the patient have a stroke diagnosis?: Yes Reason for No Anti-thrombotic by Day Two: N/A - Med Ordered Procedures Date of Service Date of Service: 10/01/21
[2021-10-01] MEDS: lisinopriL 40 MG TABLET PO (11:22)
--- NOTE | 2021-10-01 12:29 | MHC.CM.PN ---
CM INFORMED PT WILL DC TODAY WITH NEW HOME OXYGEN. REFERRALS MADE FOR [facility] AWAITIING RESPONSES
--- NOTE | 2021-10-01 12:32 | MHC.CM.PN ---
Addendum entered by Willow Vasquez 10/02/21 09:25: AT DC, PT REPORTED HE WOULD ACCEPT A VNA. [facility] NO LONGER ABLE TO ACCEPT HE LOST HIS PLACE ON THE TRIAGE LIST. REFERRALS MADE TO [facility] AWAITING RESPONSES. PT DID DC TO HOME YESTERDAY, 10/01 Addendum entered by Willow Vasquez 10/01/21 12:38: PT REPORTS HE DOES NOT WANT VNA SERVICES HE REPORTS HE DOES HAVE A BP CUFF AND HE AND HIS MONITOR IT DAILY PT WILL DC HOME TODAY WITH NO SERVICES WILL TRANSPORT Original Note: CM INFORMED PT WILL BE READY TO DC HOME TODAY REFERRALS MADE FOR [facility] FOR [facility] TO MONITOR BP AWAITING RESPONSES TO TRANSPORT
--- NOTE | 2021-10-01 13:00 | CA_ITS ---
Transthoracic Echocardiogram Patient (Last, First, Middle): Fabio Maciel J Gender: Male Date of : 1945 Age: 76 Procedure Date: 10/01/2021 Procedure Type: Transthoracic Echocardiogram Location: [facility] [place] Height: 172.72 cm Weight: 77.11 kg BSA: 1.91 m2 Heart Rate: bpm BP: 182 / 88 mmHg [facility] Specialists: Referring MD: Susan Robledo MD Symptoms: Embolic CVA, definity used to r/o non-compaction Study Quality: Fair ECG Rhythm: Sinus Conclusions: - The left ventricular systolic function is normal. The calculated ejection fraction is 59% by biplane method. - No obvious valvular pathology seen on this study. Findings Procedure Information Contrast agent, definity, is being given per protocol without apparent complications. Left Ventricle Normal left ventricular cavity size. There is mildly increased left ventricular wall thickness. The left ventricular systolic function is normal. The calculated ejection fraction is 59% by biplane method. There is no evidence of regional wall motion abnormalities. E/E prime ratio is >15, consistent with elevated filling pressures. Evidence suggests grade I (mild) diastolic dysfunction. No clear evidence of non-compaction. Right Ventricle Normal right ventricular cavity size and systolic function. Atria The left atrium is mildly dilated. The right atrium is normal in size. Aortic Valve The aortic valve was not well visualized. There is no aortic valve stenosis. There is trace (trivial) aortic valve regurgitation. Mitral Valve There is mild mitral annular calcification. There is trace mitral valve regurgitation. There is no mitral valve stenosis. Pulmonic Valve There is trace pulmonic valve regurgitation. Tricuspid Valve There is mild tricuspid valve regurgitation. The right ventricular systolic pressure is normal. Great Vessels The aortic annulus, sinuses of valsalva, and asc aorta are normal in size. Venous The inferior vena cava is normal in size and collapses greater than 50% with inspiration. Pericardium/Pleural There is no evidence of pericardial effusion. Prior Study Comparison No prior study available for comparison. Recommendations, Care & Conclusions No obvious valvular pathology seen on this study. Measurements 2D Linear Measurements IVSd: 1.15 0.6-0.9/0.6-1.0 cm LVIDd: 4.85 3.9-5.3/4.2-5.9 cm LVIDd Index: 2.54 2.4-3.2/2.2-3.1 cm/m2 LVIDs: 3.00 2.0-3.6 cm LVPWd: 1.14 0.7-1.1 cm Ao Root: 3.20 2.1-3.5 cm LA Diam: 3.50 2.7-3.8/3.0-4.0 cm LAIDs Index: 1.83 1.5-2.3 cm/m2 LV Mass: 259.91 67-162/88-224 g LV Mass Index: 136.08 43-95/49-115 g/m2 LVOT Diam: 2.20 3.0+(-)1.3 cm 2D Systolic Function EF 4C: 55.60 >55% EF 2C: 59.10 >55% EF BiP: 58.60 >55% Mitral Valve MV Pk E: 0.90 MV PK A: 1.00 MV Decel Time: 201.00 E/A: 0.90 E'Lateral: 6.09 E'Medial: 5.66 E/E' Med: 15.90 E/E' Lat: 14.80 PHT: 59.00 MVA PHT: 3.73 Decel Keith: 4.53 Aortic Valve AoV Pk Mathew: 1.49 AoV Mn Mathew: 1.01 AoV VTI: 0.40 AoV Pk Grad: 9.00 Aov Mn Grad: 5.00 DALE Cont.VTI: 1.96 LVOT LVOT Pk Mathew: 0.79 LVOT Mn Mathew: 0.51 LVOT VTI: 0.21 LVOT Pk Grad: 2.00 LVOT Mn Grad: 1.00 LVOT Diam: 2.20 LVOT Area: 3.80 Diastolic Function MV Pk E: 0.90 MV Pk A: 1.00 E/A: 0.90 E'Medial: 5.66 E/E' Med: 15.90 E' Laterial: 6.09 E/E' Lat: 14.80 Right Ventricle TAPSE (mm): 29.00 TVS' Mathew: 15.00 Tricuspid Valve TR Pk Mathew: 2.74 TR Pk Grad: 30.00 Great Vessels Aorta Ao Root-2D: 3.20 2.0-3.7 cm Ao Asc: 3.60 2.1-3.4 cm Pulmonary Valve PV Pk Mathew: 0.94 Peak PV Grad: 4.00 Updated in Other Vendor System with Status of Final Amari Matt MD electronically signed on 10/01/2021 11:02:17 AM with status of Final
--- NOTE | 2021-10-01 14:59 | PM.DS ---
DS: Providers Provider Date of Service: 10/01/21 Date of admission: 09/28/21 17:48 Primary care physician: Armaan Correa MD Consults: 09/28/21 17:48 Consult to Cardiology Routine Consulting Provider: Amari Matt Reason for consultation: recurrent embolic cva; concern for cardioembolic source Has provider been notified: No 09/28/21 17:49 Consult to Neurology Routine Consulting Provider: Jason Knowles Reason for consultation: recurrent embolic cva DS: Diagnosis Discharge Diagnosis (1) CVA (cerebral vascular accident): Status: Acute (2) Uncontrolled hypertension: Status: Acute DS: Summary Hospital Course Hospital Course: Chief complaint abnormal MRI 76 year old male with history of hypertention and recent stroke who was sent to the ED due to abnormal MRI.? He initially presented to [facility] at the end of August with headache, blurry vision and feeling weak.? His blood pressure was initially over 200 systolic.? An MRI of the brain at that time revealed 2 small areas of infarction in the left frontal and left temporal lobe which were suggestive of embolic nature.? He had echocardiogram which showed normal size left ventricle, LVEF 60-65% and no valvular abnormalities (see scanned report), CTA of the head and neck showing some atherosclerotic calcifications in bilateral carotids, no report uavailable.? LDL was 61.? He was started on low-dose statin. Due to concern for cardioembolic source he also received full dose ASA and a holter monitor and was discharged with plan for outpatient neuro follow up. His reglan was thought to be contributing to his uncontrolled HTN and was discontinued. In follow up with PCP, his dose of clonidine was increased. Since that admission he continues to have intermittent episodes of dizziness, primarily in thr morning. He denies any chest pain or palpitations. Three days ago the patient reports feeling like his right arm and leg were asleep. He thought it might be related to his statin, so he stopped taking it. Because this did not improve, his PCP ordered a repeat MRI of the brain? today which showed multiple punctate acute embolic infarct? throughout the left cerebral hemisphere with no hemorrhagic transformation and no mass effect.? He was sent by his PCP to the emergency department to be evaluated.? lab work today was unremarkable, EKG showed sinus bradycardia.? Due to recurrent stroke the decision was made to admit him to the hospital for further management Hospital course 76-year-old male with history of hypertension, recent stroke thought to be embolic in nature who was sent to the emergency department by PCP due to abnormal outpatient brain MRI and diagnosed to have acute embolic stroke Patient seen by the neurologist Dr. Knowles he recommended Eliquis, therefore aspirin discontinued patient also seen by Dr. Matt, a contrast echocardiogram was obtained that showed EF 59%, no evidence of wall motion abnormality, mild grade 1 diastolic dysfunction there was no clear evidence of non compaction, he recommend to follow-up on Holter monitor report and possible SARA as outpt, recommend patient to continue statin and blood pressure medication as prescribed, in regard to hypertension patient initially had stable blood pressure he was treated with metoprolol 25 mg b.i.d. and gradually his home medications were added he was noted to have few high blood pressure readings, he he has been recommend to resume all home medications except clonidine has been discontinued due to bradycardia, he is being discharged home with VNA services for blood pressure monitoring, patient noted to have significant anxiety therefore Zoloft was started but patient developed side effect of dizziness and fogginess therefore it has been discontinued and patient is being discharged home on Xanax 0.25 mg at bedtime as needed for anxiety and sleep Hyperlipidemia continue Crestor 5mg daily, LDL 40 total cholesterol 95 with HDL of 31 h/o gastroparesis recommend to continue Protonix Time Spent with Patient Time attestation: Total time spent providing and/or coordinating discharge services: Discharge coordination time: Greater than 30 minutes Quality: Stroke Does the patient have a stroke diagnosis?: No Physical Exam Vital Signs: Vital Signs: Last Vital Signs Temp 98.7 F 10/01/21 11:41 Pulse 55 10/01/21 11:41 Resp 19 10/01/21 11:41 BP 162/80 H 10/01/21 13:15 Pulse Ox 94 10/01/21 11:41 BMI result Body Mass Index 25.9 ? General awake al ert x3,no acute di stress, very anxio us appearing? Neck ? supple no JVD. C VS? regular rate r hythm, Respiratory lungs clear to au scultation, no res piratory distress, no wheeze, no rho nchi. Gastrointest inal abdomen soft, nontender, bowel sounds audible Ext remities no edema. Neuro awake alert x3 speech clear, loss of right nasa l labial fold, goo d strength both up per and lower extr emities Skin no ra sh Psych anxious Discharge Plan Discharge Patient Disposition: Home Health Service Discharge Diagnosis: Acute embolic CVA Uncontrolled blood pressure Referrals: Armaan Correa MD [Primary Care Provider] - 1 Week Discharge Medications: New Eliquis 5 mg Tablet 5 mg PO BID Qty: 60 RF: 0 alprazolam [Xanax] 0.25 mg tablet 0.25 mg PO BEDTIME PRN (Reason: anxiety) Qty: 14 RF: 0 Continued amlodipine 10 mg tablet 10 mg PO DAILY Qty: 90 RF: 0 lisinopril 40 mg tablet 40 mg PO DAILY Qty: 90 RF: 0 pantoprazole 40 mg tablet,delayed release (DR/EC) 40 mg PO DAILY@0630 RF: 0 docusate sodium 100 mg Capsule 100 mg PO BID PRN (Reason: Constipation) RF: 0 meclizine 25 mg tablet 25 mg PO TID PRN (Reason: dizziness) 30 Days Qty: 90 RF: 2 rosuvastatin 5 mg tablet 5 mg PO DAILY 30 Days Qty: 30 RF: 2 hydrochlorothiazide 25 mg tablet 25 mg PO DAILY Qty: 90 RF: 0 metoprolol tartrate 25 mg tablet 25 mg PO BID RF: 0 Discontinued clonidine HCl 0.2 mg tablet 0.2 mg PO BID 30 Days Qty: 60 RF: 3 aspirin 325 mg tablet 325 mg PO DAILY Qty: 30 RF: 0 Discharge Orders: Discharge Order (Routine); Ordered 10/01/21 Ordered By: Susan Robledo Diet: low fat, low cholesterol Activity on Discharge: As tolerated Stand Alone Forms: Patient Portal Discharge page Care Plan Goals: Embolic CVA, outpatient follow-up with Neurology and Cardiology, take Eliquis 5 mg by mouth twice daily, VNA services for blood pressure monitoring Health Concerns: High blood pressure, hyperlipidemia, recurrent CVA Plan of Treatment: Outpatient follow-up with Cardiology Dr. Matt in 1-2 weeks for result of Holter monitor, outpatient follow-up with PCP 1-2 weeks. Assessment: As per discharge summary
--- NOTE | 2021-10-01 15:05 | W.MHC.F2F ---
Service Date Service Date: 10/01/21 Encounter Date of encounter: 10/01/21 Reasons for Services Reason for senior living: CV/CP assess and/or care and medication treatment MD Overseeing Care: Armaan Correa Homebound: Leaving the home is medically contraindicated at this time without the asist of a device and/or another person due th the listed conditions above and below. Certification: Based on the above findings, I certify that this patient is confined to the home and needs intermittent senior living care, physical therapy and/or speech therapy, or continues to need occupational therapy. The patient is under my care, and I have initiated the establishment of the plan of care. The patient will be followed by a physician who will periodically review the plan of care.
== END 2021-10-01 15:56 | disposition home health service (06) | DRG 65 ==
LOC: HO.ED 17:09 → HO.EDOVER 18:04 → HO.IMC 10-01 00:57
PROVIDERS: Nurse Practitioner Family; Admitting Provider Physician Assistant Medical; Emergency Provider Internal Medicine; PCP Internal Medicine; Visit Provider Hospitalist
DX: I63.9 Cerebral infarction, unspecified (principal); G81.91 Hemiplegia, unspecified affecting right dominant side; F41.9 Anxiety disorder, unspecified; R29.810 Facial weakness; I10 Essential (primary) hypertension; E78.5 Hyperlipidemia, unspecified; K31.84 Gastroparesis; Z20.822 Contact with and (suspected) exposure to COVID-19; Z87.891 Personal history of nicotine dependence; R29.703 NIHSS score 3; Z79.01 Long term (current) use of anticoagulants; Z79.899 Other long term (current) drug therapy
CPT/HCPCS: 36415; 80048; 80061; 80076; 81003; 83690; 83735; 83880; 84484; 85025; 85610; 85730; 87635; 93005; 93306; 97162; 97165; 99285; Q9957

== ENCOUNTER → 2021-10-12 11:17 | Outpatient (BNVA) | payer MEDICARE, SELFPAY | PROVIDERS: PCP Internal Medicine; Visit Provider Urology | DX: N40.1 Benign prostatic hyperplasia with lower urinary tract symptoms (principal); N13.8 Other obstructive and reflux uropathy | CPT/HCPCS: 99212 ==

== ENCOUNTER → 2021-10-30 12:17 | Outpatient (BNVA) | payer MEDICARE, SELFPAY | PROVIDERS: PCP Internal Medicine; Referring Provider Internal Medicine; Visit Provider Internal Medicine | DX: Z86.73 Personal history of transient ischemic attack (TIA), and cerebral infarction without residual deficits (principal); I10 Essential (primary) hypertension | CPT/HCPCS: 99212 ==

== ENCOUNTER 2021-11-30 06:48 | Day surgery (SDC) | payer MEDICARE, SELFPAY ==
[2021-11-21 13:14] VITALS: BMI 26.9
--- NOTE | 2021-11-29 09:37 | P.CONAN_ITS ---
Documented by User: Gregoria Lipscomb NP 11/29/21 10:02 HPI - Anesthesia Eval Consult details Narrative: 76yo M for Transesophageal Echocardiogram with bubble Eliquis for embolic CVA PMFSH Active Problems Active Problems: All Active Problems (Updated 11/21/21 @ 13:00 by Jazzy Doran RN) BPH with obstruction/lower urinary tract symptoms (Acute) Urgency incontinence (Acute) Urgency of micturition (Acute) Abdominal bloating with cramps (Acute) Right arm weakness (Acute) Right leg weakness (Acute) Cerebrovascular accident, embolic (Acute) CVA (cerebral vascular accident) (Acute) Hx of colonoscopy (Acute 03/04/12) GERD (gastroesophageal reflux disease) (Acute) Delayed gastric emptying (Acute) Degenerative disc disease, thoracic (Acute) Erectile dysfunction (Acute) Benign essential hypertension (Acute) Pure hypercholesterolemia (Acute) Impaired fasting glucose (Acute) Cervical disc disorder with radiculopathy (Acute) Primary insomnia (Acute) Anxiety (Acute) Overweight (BMI 25.0-29.9) (Acute) Dizziness (Acute) Past Medical History Medical History Anxiety Benign essential hypertension BPH (benign prostatic hyperplasia) Cervical disc disorder with radiculopathy COVID-19 vaccine series completed CVA (cerebral vascular accident) Degenerative disc disease, lumbar Degenerative disc disease, thoracic Delayed gastric emptying Dizziness Embolic cerebral infarction Erectile dysfunction Facial droop GERD (gastroesophageal reflux disease) Impaired fasting glucose Overweight (BMI 25.0-29.9) Primary insomnia Pure hypercholesterolemia Uncontrolled hypertension Family History Family History Father Heart disease Mother Cancer Brother Diabetes Paternal Grandmother Heart disease Maternal Uncle Colon cancer Surgical History Surgical History History of esophagogastroduodenoscopy (EGD) (02/14/15) History of prostate surgery Hx of cataract extraction Hx of colonoscopy (03/04/12) Hx of cystoscopy (~2019) Hx of tonsillectomy Social History Social History Household Members: Spouse Housing: House Are you a primary transitional care manager to a significant other at home: No Do you presently have visiting nurse or other home services: No Alcohol intake: never Patient Tobacco Use Status: Former Tobacco user Quit Date: age 46 Tobacco use type: Cigarette e-Cigarette/Vaping Use: Never Used Second Hand Smoke Exposure: Yes Use of substances other than those prescribed or required for medical reasons: No Have you been hit, kicked, punched, or otherwise hurt by someone within the past year? If so, by whom?: No Are you DNR?: No Advance Directives Information Provided: Yes (advised to bring copy for chart DOS) Advance Directives on File: No Recently lost weight without trying: No Eating poorly because of decreased appetite: No Nutrition Risks: Surgical patient >75years Poor oral hygiene: No (upper partial) service: Yes ([employer]) Current occupational status: retired Cognitive needs: No Hearing needs: No Vision needs: No Meds Allergies Allergy/AdvReac Type Severity Reaction Status Date / Time Iodinated Contrast Media Allergy Mild Hives Verified 11/30/21 06:57 [IV Dye, Iodine Containing] tizanidine Allergy Mild painful Verified 11/30/21 06:57 rash on ankles, dizziness Home Medications Medication Instructions Recorded Confirmed Last Taken Type docusate sodium 100 mg capsule 100 mg PO BID PRN 09/28/21 11/21/21 Unknown History pantoprazole 40 mg tablet,delayed 40 mg PO DAILY@0630 09/28/21 11/21/21 11/30/21 History release Exam Exam Date and Time: November 29, 2021 0937 Height,Weight and Vital Signs: Height 5 ft 7 in Weight 78.018 kg Pertinent Lab Results Pertinent Lab Results: Laboratory Tests 09/29/21 09/29/21 06:50 06:50 WBC 7.8 Hgb 15.4 Hct 44.2 Plt Count 221 Sodium 141 Potassium 3.7 Chloride 104 Carbon Dioxide 29 BUN 16 Creatinine 1.04 Narrative Narrative: EKG 09/2021 Vent. Rate : 047 BPM ? ? Atrial Rate : 047 BPM ?? P-R Int : 186 ms? QRS Dur : 092 ms ? ? QT Int : 420 ms ? ? ? P-R-T Axes : 031 031 004 degrees ?? QTc Int : 371 ms ? Sinus bradycardia Otherwise normal EKG When compared with ECG of 22-SEP-2021 10:42, No significant change was found ECHO 09/2021 Conclusions: - The left ventricular systolic function is normal.? The ? calculated ejection fraction is 59% by biplane method. ? - No obvious valvular pathology seen on this study.? ?? Assessment and Plan Assessment Anesthesia Assessment: Chart Reviewed Documented by User: Claribel Islas MD 11/30/21 07:16 [facility] Past Medical History Medical History Anxiety Benign essential hypertension BPH (benign prostatic hyperplasia) Cervical disc disorder with radiculopathy COVID-19 vaccine series completed CVA (cerebral vascular accident) Degenerative disc disease, lumbar Degenerative disc disease, thoracic Delayed gastric emptying Dizziness Embolic cerebral infarction Erectile dysfunction Facial droop GERD (gastroesophageal reflux disease) Impaired fasting glucose Overweight (BMI 25.0-29.9) Primary insomnia Pure hypercholesterolemia Uncontrolled hypertension Functional capacity: independent ambulation Family History Family History Father Heart disease Mother Cancer Brother Diabetes Paternal Grandmother Heart disease Maternal Uncle Colon cancer Family history of problems with anesthesia: No Surgical History Surgical History History of esophagogastroduodenoscopy (EGD) (02/14/15) History of prostate surgery Hx of cataract extraction Hx of colonoscopy (03/04/12) Hx of cystoscopy (~2019) Hx of tonsillectomy History of Problems with Anesthesia: No Social History Social History Household Members: Spouse Housing: House Are you a primary transitional care manager to a significant other at home: No Do you presently have visiting nurse or other home services: No Alcohol intake: never Patient Tobacco Use Status: Former Tobacco user Quit Date: age 46 Tobacco use type: Cigarette e-Cigarette/Vaping Use: Never Used Second Hand Smoke Exposure: Yes Use of substances other than those prescribed or required for medical reasons: No Have you been hit, kicked, punched, or otherwise hurt by someone within the past year? If so, by whom?: No Are you DNR?: No Advance Directives Information Provided: Yes (advised to bring copy for chart DOS) Advance Directives on File: No Recently lost weight without trying: No Eating poorly because of decreased appetite: No Nutrition Risks: Surgical patient >75years Poor oral hygiene: No (upper partial) service: Yes ([employer]) Current occupational status: retired Cognitive needs: No Hearing needs: No Vision needs: No Meds Allergies Allergy/AdvReac Type Severity Reaction Status Date / Time Iodinated Contrast Media Allergy Mild Hives Verified 11/30/21 06:57 [IV Dye, Iodine Containing] tizanidine Allergy Mild painful Verified 11/30/21 06:57 rash on ankles, dizziness Home Medications Medication Instructions Recorded Confirmed Last Taken Type docusate sodium 100 mg capsule 100 mg PO BID PRN 09/28/21 11/21/21 Unknown History pantoprazole 40 mg tablet,delayed 40 mg PO DAILY@0630 09/28/21 11/21/21 11/30/21 History release Exam Airway Mallampati Class: III TM Dist: >3cm Neck ROM: Full Heart: RRR Lungs: CTA Assessment and Plan Final Anesthetic Review Family History of Problems with Anesthesia: No History of Problems with Anesthesia: No NPO: Yes ASA Class: III Final Preanesthetic Review: No Changes in Pt Med Stat, Meds/Allgs Chart Reviewed, Consent Obtained/Reviewed and Anes Risks/Benef Reviewed Patient Risk: Intermediate Procedure Risk: Low Anesthetic Plan Anesthetic Plan: GA Disposition: Standard PACU
[2021-11-30 07:05] VITALS: BP 159/66; PULSE 48; RESP 18; TEMP 36.6; O2SAT 97
[2021-11-30] MEDS: Lactated Ringers 1,000 ML 50 ML IVCONT (07:22)
--- NOTE | 2021-11-30 08:19 | CA_ITS ---
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 Study is negative for cardiac source of embolism. Findings Procedure Information The patient is being monitored per protocol. Consent was obtained prior to the procedure. The adult 3D probe was passed with no difficulty. Left Ventricle Normal left ventricular cavity size. The left ventricular systolic function is normal. The visually estimated ejection fraction is between 55-60%. There is no evidence of regional wall motion abnormalities. Atria There is no evidence of a thrombus in the left atrial appendage. There is no evidence of interatrial shunt by color Doppler and contrast. Bubble study negative x 3. Aortic Valve There is a normal trileaflet aortic valve. There is no aortic valve stenosis. There is trace (trivial) aortic valve regurgitation. Mitral Valve The mitral valve appears normal. There is trace mitral valve regurgitation. There is no mitral valve stenosis. Pulmonic Valve The pulmonic valve was not well visualized. Tricuspid Valve Normal tricuspid valve structure. There is trace tricuspid valve regurgitation. Great Vessels Small plaque is seen in the descending thoracic aorta. Pericardium/Pleural There is a small loculated pericardial effusion overlying the right ventricle. Prior Study Comparison No significant change compared to prior study dated: 10/01/2021. Updated by Amari Matt on 05:10 PM with Status of Final Amari Matt MD electronically signed on 11/30/2021 5:10:35 PM with status of Final
--- NOTE | 2021-11-30 08:29 | PC.NURSE ---
asked md and patient is student could accompany procedure. ok.
--- NOTE | 2021-11-30 08:33 | MHC.SHP ---
Pre-Procedural Eval Section A Date of Service: 11/30/21 Section B Chief Complaint: cerebral infarction Allergies: Allergies Allergy/AdvReac Type Severity Reaction Status Date / Time Iodinated Contrast Media Allergy Mild Hives Verified 11/30/21 06:57 [IV Dye, Iodine Containing] tizanidine Allergy Mild painful Verified 11/30/21 06:57 rash on ankles, dizziness Plan I have reviewed the history and physical and performed a pertinent physical examination on my patient. No changes have occurred unless specified.
[2021-11-30 09:20] VITALS: BP 104/62; PULSE 48; RESP 20; TEMP 36.6; O2SAT 98
[2021-11-30 09:35] VITALS: BP 131/68; PULSE 50; RESP 20; O2SAT 95
[2021-11-30 09:50] VITALS: BP 128/70; PULSE 49; RESP 20; TEMP 37.3; O2SAT 96
== END 2021-11-30 10:35 | disposition home or self-care (01) ==
PROVIDERS: PCP Internal Medicine; Visit Provider Internal Medicine
PROC: (CPT 93312; principal; 2021-11-30 08:30)
DX: I63.9 Cerebral infarction, unspecified (principal); I10 Essential (primary) hypertension; Z79.01 Long term (current) use of anticoagulants; Z79.899 Other long term (current) drug therapy; Z91.041 Radiographic dye allergy status; Z88.8 Allergy status to other drugs, medicaments and biological substances; Z87.891 Personal history of nicotine dependence
CPT/HCPCS: 93312

== ENCOUNTER 2021-12-11 08:03 | Outpatient (REF) | payer MEDICARE, SELFPAY ==
[2021-12-11 11:31] LABS: MANUAL DIFF FLAG NO
[2021-12-11 11:33] LABS: Basophils Percent Auto 0.6 % (0-2); Eosinophils Absolute Auto 0.3 X10*3/uL (0.0-0.4); Eosinophils Percent Auto 4.5 % (0-4); Hematocrit 46.6 % (42.0-52.0); Hemoglobin 15.9 g/dl (14.0-18.0); Imm Gran Abs Auto 0.02 X10*3/uL (0.00-0.03); Imm Gran Pct Auto 0.3 % (0.0-0.4); Lymphocytes Absolute Auto 1.9 X10*3/uL (1.2-4.9); Lymphocytes Percent Auto 26.7 % (20-40); Mean Corpuscular HGB Conc 34.1 g/dl (31.0-36.0); Mean Corpuscular Hemoglobin 30.4 pg (27.0-33.0); Mean Corpuscular Volume 89.1 fL (80.0-98.0); Mean Platelet Volume 10.6 fL (9.4-12.4); Monocytes Absolute Auto 0.5 X10*3/uL (0.1-1.2); Monocytes Percent Auto 7.5 % (2-11); Neutrophils Absolute Auto 4.3 x10*3/uL (2.0-8.3); Neutrophils Percent Auto 60.4 % (45-73); Platelet Count 212 X10*3/uL (160-400); Red Blood Count 5.23 X10*6/uL (4.60-5.80); Red Cell Distribution Width 13.2 % (11.0-16.0); White Blood Count 7.1 X10*3/uL (4.8-10.8)
[2021-12-11 12:08] LABS: Alanine Aminotransferase 31 U/L (0-40); Alkaline Phosphatase 48 U/L (39-117); Anion Gap 11 (12-20); Aspartate Amino Transferase 21 U/L (5-37); Bilirubin Total 0.7 mg/dL (0.0-1.0); Blood Urea Nitrogen 24 mg/dL (9-16); Calcium 9.4 mg/dL (8.4-10.2); Carbon Dioxide 33 mmol/L (22-29); Chloride 103 mmol/L (96-108); Cholesterol 105 mg/dL; Estimated Glomerular Filt Rate > 60; Glucose Fasting 116 mg/dL (60-99); HDL Cholesterol 36 mg/dL; LDL Cholesterol Calculated 47 mg/dl; Potassium 4.1 mmol/L (3.3-5.1); Sodium 143 mmol/L (135-145); TSH reflex Free T4 1.31 uIU/mL (0.32-4.0); Triglycerides 110 mg/dL; Vitamin D 25-OH Total 18.6 ng/mL (>30)
[2021-12-11 12:12] LABS: Appearance Urine HAZY; Color Urine YELLOW; Glucose Urine UA NEG (NEG); Leukocyte Esterase Urine NEG (NEG); Nitrite Urine NEG (NEG); Urine Blood NEG (NEG); Urine Ketones NEG (NEG); Urine Protein NEG (NEG-TRACE)
[2021-12-11 12:18] LABS: Estimated Average Glucose 120 mg/dL; Hemoglobin A1c % 5.8 %
[2021-12-11 12:27] LABS: Folate 10.1 ng/mL (> or = 4.0); Vitamin B12 309 pg/mL (200-900)
== END 2021-12-11 08:04 | disposition home or self-care (01) ==
LOC: HO.HMGCLDS 08:03
PROVIDERS: Visit Provider Internal Medicine
DX: E55.9 Vitamin D deficiency, unspecified (principal); E53.8 Deficiency of other specified B group vitamins; I10 Essential (primary) hypertension; E78.00 Pure hypercholesterolemia, unspecified; R73.01 Impaired fasting glucose
CPT/HCPCS: 36415; 80053; 80061; 81003; 82306; 82607; 82746; 83036; 84443; 85025

== ENCOUNTER → 2021-12-26 09:52 | Outpatient (BNVA) | payer MEDICARE, SELFPAY | PROVIDERS: PCP Internal Medicine; Referring Provider Internal Medicine; Visit Provider Internal Medicine | DX: Z86.73 Personal history of transient ischemic attack (TIA), and cerebral infarction without residual deficits (principal); I10 Essential (primary) hypertension | CPT/HCPCS: 99212 ==

== ENCOUNTER 2022-03-19 08:02 | Outpatient (REF) | payer MEDICARE, SELFPAY ==
[2022-03-19 12:46] LABS: MANUAL DIFF FLAG NO
[2022-03-19 12:50] LABS: Appearance Urine CLOUDY; Color Urine YELLOW; Glucose Urine UA NEG (NEG); Leukocyte Esterase Urine NEG (NEG); Nitrite Urine NEG (NEG); Urine Blood NEG (NEG); Urine Ketones NEG (NEG); Urine Protein TRACE MG/DL (NEG-TRACE)
[2022-03-19 12:55] LABS: Basophils Absolute Auto 0.1 X10*3/uL (0.0-0.2); Basophils Percent Auto 0.9 % (0-2); Eosinophils Absolute Auto 0.3 X10*3/uL (0.0-0.4); Eosinophils Percent Auto 3.9 % (0-4); Hematocrit 44.6 % (42.0-52.0); Hemoglobin 15.3 g/dl (14.0-18.0); Imm Gran Abs Auto 0.03 X10*3/uL (0.00-0.03); Imm Gran Pct Auto 0.4 % (0.0-0.4); Lymphocytes Absolute Auto 1.8 X10*3/uL (1.2-4.9); Lymphocytes Percent Auto 26.4 % (20-40); Mean Corpuscular HGB Conc 34.3 g/dl (31.0-36.0); Mean Corpuscular Hemoglobin 30.5 pg (27.0-33.0); Mean Corpuscular Volume 88.8 fL (80.0-98.0); Mean Platelet Volume 11.2 fL (9.4-12.4); Monocytes Absolute Auto 0.5 X10*3/uL (0.1-1.2); Monocytes Percent Auto 6.7 % (2-11); Neutrophils Absolute Auto 4.1 x10*3/uL (2.0-8.3); Neutrophils Percent Auto 61.7 % (45-73); Platelet Count 199 X10*3/uL (160-400); Red Blood Count 5.02 X10*6/uL (4.60-5.80); Red Cell Distribution Width 13.3 % (11.0-16.0); White Blood Count 6.7 X10*3/uL (4.8-10.8)
[2022-03-19 13:16] LABS: Alanine Aminotransferase 38 U/L (0-40); Alkaline Phosphatase 49 U/L (39-117); Anion Gap 13 (12-20); Aspartate Amino Transferase 25 U/L (5-37); Bilirubin Total 0.6 mg/dL (0.0-1.0); Blood Urea Nitrogen 23 mg/dL (9-16); Carbon Dioxide 26 mmol/L (22-29); Chloride 107 mmol/L (96-108); Cholesterol 102 mg/dL; Estimated Glomerular Filt Rate > 60; Glucose Fasting 127 mg/dL (60-99); HDL Cholesterol 35 mg/dL; LDL Cholesterol Calculated 51 mg/dl; Potassium 3.9 mmol/L (3.3-5.1); Sodium 142 mmol/L (135-145); Triglycerides 84 mg/dL
[2022-03-19 13:17] LABS: Estimated Average Glucose 120 mg/dL; Hemoglobin A1c % 5.8 %
[2022-03-19 13:39] LABS: TSH reflex Free T4 1.02 uIU/mL (0.32-4.0); Vitamin D 25-OH Total 32.5 ng/mL (>30)
== END 2022-03-19 08:03 | disposition home or self-care (01) ==
LOC: HO.HMGCLDS 08:02
PROVIDERS: PCP Internal Medicine; Visit Provider Internal Medicine
DX: E78.00 Pure hypercholesterolemia, unspecified (principal); E55.9 Vitamin D deficiency, unspecified; I10 Essential (primary) hypertension; R73.01 Impaired fasting glucose
CPT/HCPCS: 36415; 80053; 80061; 81003; 82306; 83036; 84443; 85025

== ENCOUNTER → 2022-03-20 09:53 | Outpatient (BNVA) | payer MEDICARE, SELFPAY | PROVIDERS: PCP Internal Medicine; Referring Provider Internal Medicine; Visit Provider Internal Medicine | DX: I63.9 Cerebral infarction, unspecified (principal); I10 Essential (primary) hypertension | CPT/HCPCS: 99212 ==

== ENCOUNTER → 2022-04-05 13:19 | Outpatient (BNVA) | payer MEDICARE, SELFPAY | PROVIDERS: PCP Internal Medicine; Visit Provider Nurse Practitioner | DX: K21.9 Gastro-esophageal reflux disease without esophagitis (principal); K30 Functional dyspepsia; Z86.73 Personal history of transient ischemic attack (TIA), and cerebral infarction without residual deficits; Z79.01 Long term (current) use of anticoagulants | CPT/HCPCS: 99212 ==

== ENCOUNTER 2022-07-10 08:33 | Outpatient (REF) | payer MEDICARE, SELFPAY ==
[2022-07-10 11:23] LABS: Appearance Urine Clear; Color Urine Yellow; Glucose Urine UA Negative (Negative); Leukocyte Esterase Urine Negative (Negative); Nitrite Urine Negative (Negative); Specific Gravity - Urine 1.025 (1.005-1.025); Urine Blood Negative (Negative); Urine Ketones Negative (Negative); Urine Protein Negative (Neg-Trace)
[2022-07-10 11:25] LABS: MANUAL DIFF FLAG NO
[2022-07-10 11:35] LABS: Basophils Absolute Auto 0.1 X10*3/uL (0.0-0.2); Basophils Percent Auto 0.9 % (0-2); Eosinophils Absolute Auto 0.3 X10*3/uL (0.0-0.4); Eosinophils Percent Auto 3.8 % (0-4); Hematocrit 46.1 % (42.0-52.0); Imm Gran Abs Auto 0.02 X10*3/uL (0.00-0.03); Imm Gran Pct Auto 0.3 % (0.0-0.4); Lymphocytes Absolute Auto 1.8 X10*3/uL (1.2-4.9); Lymphocytes Percent Auto 26.9 % (20-40); Mean Corpuscular HGB Conc 34.7 g/dl (31.0-36.0); Mean Corpuscular Hemoglobin 30.6 pg (27.0-33.0); Mean Corpuscular Volume 88.1 fL (80.0-98.0); Mean Platelet Volume 10.4 fL (9.4-12.4); Monocytes Absolute Auto 0.4 X10*3/uL (0.1-1.2); Monocytes Percent Auto 6.5 % (2-11); Neutrophils Percent Auto 61.6 % (45-73); Platelet Count 215 X10*3/uL (160-400); Red Blood Count 5.23 X10*6/uL (4.60-5.80); Red Cell Distribution Width 12.9 % (11.0-16.0); White Blood Count 6.6 X10*3/uL (4.8-10.8)
[2022-07-10 11:43] LABS: Estimated Average Glucose 117 mg/dL; Hemoglobin A1c % 5.7 %
[2022-07-10 12:07] LABS: Alanine Aminotransferase 33 U/L (0-40); Albumin Level 4.4 g/dL (3.5-5.0); Alkaline Phosphatase 52 U/L (39-117); Anion Gap 17 (12-20); Aspartate Amino Transferase 24 U/L (5-37); Bilirubin Total 0.7 mg/dL (0.0-1.0); Blood Urea Nitrogen 20 mg/dL (9-16); Calcium 9.2 mg/dL (8.4-10.2); Carbon Dioxide 25 mmol/L (22-29); Chloride 103 mmol/L (96-108); Cholesterol 114 mg/dL; Estimated Glomerular Filt Rate > 60; Glucose Fasting 117 mg/dL (60-99); HDL Cholesterol 37 mg/dL; LDL Cholesterol Calculated 54 mg/dl; Potassium 3.8 mmol/L (3.3-5.1); Sodium 141 mmol/L (135-145); Total Protein 7.3 g/dL (6.5-8.0); Triglycerides 118 mg/dL
[2022-07-10 12:29] LABS: TSH reflex Free T4 0.86 uIU/mL (0.32-4.0); Vitamin D 25-OH Total 37.8 ng/mL (>30)
[2022-07-10 12:51] LABS: Folate 10.3 ng/mL (> or = 4.0); Vitamin B12 278 pg/mL (200-900)
== END 2022-07-10 08:34 | disposition home or self-care (01) ==
LOC: HO.HMGCLDS 08:33
PROVIDERS: PCP Internal Medicine; Visit Provider Internal Medicine
DX: I10 Essential (primary) hypertension (principal); E78.00 Pure hypercholesterolemia, unspecified; E53.8 Deficiency of other specified B group vitamins; E55.9 Vitamin D deficiency, unspecified; R73.01 Impaired fasting glucose
CPT/HCPCS: 36415; 80053; 80061; 81003; 82306; 82607; 82746; 83036; 84443; 85025

== ENCOUNTER 2022-08-15 08:04 | Outpatient (REF) | payer MEDICARE, SELFPAY ==
[2022-08-15 12:13] LABS: Erythrocyte Sedimentation Rate 6 MM/HR (0-15)
== END 2022-08-15 08:05 | disposition home or self-care (01) ==
LOC: HO.HMGCLDS 08:04
PROVIDERS: PCP Internal Medicine; Visit Provider Psychiatry & Neurology Neurology
DX: G43.909 Migraine, unspecified, not intractable, without status migrainosus (principal)
CPT/HCPCS: 36415; 85652; 86140

== ENCOUNTER → 2022-09-20 08:26 | Outpatient (BNVA) | payer MEDICARE, SELFPAY | PROVIDERS: PCP Internal Medicine; Visit Provider Psychiatry & Neurology Neurology | DX: I63.9 Cerebral infarction, unspecified (principal); R42 Dizziness and giddiness; R51.9 Headache, unspecified; Z79.01 Long term (current) use of anticoagulants | CPT/HCPCS: 99202 ==

== ENCOUNTER 2022-09-27 13:28 | Outpatient (REF) | payer MEDICARE, SELFPAY ==
--- NOTE | ~2022-09-27 | MR_ITS ---
EXAMINATION: MR CERVICAL SPINE WITHOUT CONTRAST CLINICAL INFORMATION: Cervicalgia. COMPARISON: Cervical spine MRI January 07, 2018. TECHNIQUE: MRI of the cervical spine was performed using routine sequences without contrast. FINDINGS: The cervical vertebral bodies maintain normal heights. There is mild retrolisthesis of C3 on C4. No significant disc height loss is seen. There is no bone marrow edema. The cervical cord signal appears normal. The imaged portions of the intracranial contents are unremarkable. 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 SPINAL LEVELS: C2-C3: No posterior disc abnormality. No spinal canal or neural foraminal stenosis. C3-C4: No posterior disc abnormality or spinal canal stenosis. Left uncovertebral hypertrophy and mild to moderate facet arthropathy resulting in progressive moderate left and mild right neural foraminal stenosis. C4-C5: Disc osteophyte complex with uncovertebral hypertrophy, ligamentum flavum infolding, and moderate left and mild to moderate right facet arthropathy resulting in progressive moderate to severe left neural foraminal stenosis. Mild spinal canal stenosis. C5-C6: Disc osteophyte complex with right more than left uncovertebral hypertrophy and moderate left and mild right facet arthropathy resulting in mild spinal canal stenosis and severe bilateral neural foraminal stenosis, unchanged. C6-C7: Disc osteophyte complex with uncovertebral hypertrophy and mild facet arthropathy resulting in severe bilateral neural foraminal stenosis, unchanged. Stable mild spinal canal stenosis. C7-T1: No posterior disc abnormality. No spinal canal or neural foraminal stenosis. MR/MR cervical spine wo con IMPRESSION: 1. Multilevel degenerative spondylotic changes without significant narrowing of the spinal canal. 2. At C3-C4 there is progressive moderate left and mild right neural foraminal stenosis. 3. At C4-C5 there is progressive moderate to severe left neural foraminal stenosis. 4. At C5-C6 and C6-C7 there is unchanged severe bilateral neural foraminal stenosis.
== END 2022-09-27 13:29 | disposition home or self-care (01) ==
LOC: HO.MRI 13:28
PROVIDERS: Visit Provider Psychiatry & Neurology Neurology
DX: M54.2 Cervicalgia (principal); R20.2 Paresthesia of skin; R42 Dizziness and giddiness; R51.9 Headache, unspecified
CPT/HCPCS: 72141

== ENCOUNTER 2022-10-02 08:16 | Outpatient (REF) | payer MEDICARE, SELFPAY ==
[2022-10-02 11:13] LABS: MANUAL DIFF FLAG NO
[2022-10-02 11:20] LABS: Appearance Urine Clear; Color Urine Yellow; Glucose Urine UA Negative (Negative); Leukocyte Esterase Urine Negative (Negative); Nitrite Urine Negative (Negative); PH 5.5 (5.0-9.0); Specific Gravity - Urine 1.025 (1.005-1.025); Urine Blood Negative (Negative); Urine Ketones Negative (Negative); Urine Protein Negative (Neg-Trace)
[2022-10-02 11:31] LABS: Basophils Absolute Auto 0.1 X10*3/uL (0.0-0.2); Basophils Percent Auto 0.9 % (0-2); Eosinophils Absolute Auto 0.2 X10*3/uL (0.0-0.4); Eosinophils Percent Auto 3.6 % (0-4); Hematocrit 48.2 % (42.0-52.0); Hemoglobin 16.4 g/dl (14.0-18.0); Imm Gran Abs Auto 0.01 X10*3/uL (0.00-0.03); Imm Gran Pct Auto 0.2 % (0.0-0.4); Lymphocytes Absolute Auto 1.7 X10*3/uL (1.2-4.9); Lymphocytes Percent Auto 26.3 % (20-40); Mean Corpuscular Hemoglobin 30.6 pg (27.0-33.0); Mean Corpuscular Volume 89.9 fL (80.0-98.0); Mean Platelet Volume 10.3 fL (9.4-12.4); Monocytes Absolute Auto 0.4 X10*3/uL (0.1-1.2); Monocytes Percent Auto 6.1 % (2-11); Neutrophils Percent Auto 62.9 % (45-73); Platelet Count 211 X10*3/uL (160-400); Red Blood Count 5.36 X10*6/uL (4.60-5.80); White Blood Count 6.4 X10*3/uL (4.8-10.8)
[2022-10-02 11:55] LABS: Estimated Average Glucose 105 mg/dL; Hemoglobin A1c % 5.3 %
[2022-10-02 12:39] LABS: Alanine Aminotransferase 32 U/L (0-40); Albumin Level 4.4 g/dL (3.5-5.0); Alkaline Phosphatase 49 U/L (39-117); Anion Gap 11 (12-20); Aspartate Amino Transferase 22 U/L (5-37); Bilirubin Total 0.8 mg/dL (0.0-1.0); Blood Urea Nitrogen 20 mg/dL (9-16); Calcium 9.5 mg/dL (8.4-10.2); Carbon Dioxide 32 mmol/L (22-29); Chloride 104 mmol/L (96-108); Cholesterol 121 mg/dL; Estimated Glomerular Filt Rate > 60; Glucose Fasting 113 mg/dL (60-99); HDL Cholesterol 41 mg/dL; LDL Cholesterol Calculated 60 mg/dl; Sodium 143 mmol/L (135-145); TSH reflex Free T4 0.88 uIU/mL (0.32-4.0); Total Protein 7.2 g/dL (6.5-8.0); Triglycerides 101 mg/dL; Vitamin D 25-OH Total 34.4 ng/mL (>30)
[2022-10-02 12:41] LABS: Prostate Specific Antigen 0.76 ng/mL (<0.05-4.0)
[2022-10-02 13:03] LABS: Folate 9.5 ng/mL (> or = 4.0); Vitamin B12 319 pg/mL (200-900)
== END 2022-10-02 08:17 | disposition home or self-care (01) ==
LOC: HO.HMGCLDS 08:16
PROVIDERS: Absent Provider Urology; PCP Internal Medicine; Visit Provider Internal Medicine
DX: Z12.5 Encounter for screening for malignant neoplasm of prostate (principal); R30.0 Dysuria; I10 Essential (primary) hypertension; E78.00 Pure hypercholesterolemia, unspecified; E55.9 Vitamin D deficiency, unspecified; E53.8 Deficiency of other specified B group vitamins; N13.8 Other obstructive and reflux uropathy; N40.1 Benign prostatic hyperplasia with lower urinary tract symptoms; E11.9 Type 2 diabetes mellitus without complications
CPT/HCPCS: 36415; 80053; 80061; 81003; 82306; 82607; 82746; 83036; 84153; 84443; 85025

== ENCOUNTER → 2022-10-12 13:08 | Outpatient (BNVA) | payer MEDICARE, SELFPAY | PROVIDERS: PCP Internal Medicine; Visit Provider Urology | DX: N40.1 Benign prostatic hyperplasia with lower urinary tract symptoms (principal); N13.8 Other obstructive and reflux uropathy; N52.9 Male erectile dysfunction, unspecified; I10 Essential (primary) hypertension; E78.00 Pure hypercholesterolemia, unspecified; E55.9 Vitamin D deficiency, unspecified; Z87.891 Personal history of nicotine dependence; Z79.01 Long term (current) use of anticoagulants | CPT/HCPCS: 51798; 99212 ==

== ENCOUNTER → 2022-12-27 11:06 | Outpatient (BNVA) | payer MEDICARE, SELFPAY | PROVIDERS: PCP Internal Medicine; Visit Provider Psychiatry & Neurology Neurology | DX: R51.9 Headache, unspecified (principal); R42 Dizziness and giddiness; Z86.73 Personal history of transient ischemic attack (TIA), and cerebral infarction without residual deficits | CPT/HCPCS: 99212 ==

== ENCOUNTER 2023-01-22 08:08 | Outpatient (REF) | payer MEDICARE, SELFPAY ==
[2023-01-22 11:07] LABS: MANUAL DIFF FLAG NO
[2023-01-22 11:36] LABS: Basophils Absolute Auto 0.1 X10*3/uL (0.0-0.2); Basophils Percent Auto 0.9 % (0-2); Eosinophils Absolute Auto 0.3 X10*3/uL (0.0-0.4); Eosinophils Percent Auto 4.4 % (0-4); Hematocrit 44.9 % (42.0-52.0); Hemoglobin 15.8 g/dl (14.0-18.0); Imm Gran Abs Auto 0.03 X10*3/uL (0.00-0.03); Imm Gran Pct Auto 0.4 % (0.0-0.4); Lymphocytes Absolute Auto 1.7 X10*3/uL (1.2-4.9); Lymphocytes Percent Auto 25.6 % (20-40); Mean Corpuscular HGB Conc 35.2 g/dl (31.0-36.0); Mean Corpuscular Hemoglobin 31.3 pg (27.0-33.0); Mean Corpuscular Volume 88.9 fL (80.0-98.0); Mean Platelet Volume 10.6 fL (9.4-12.4); Monocytes Absolute Auto 0.4 X10*3/uL (0.1-1.2); Monocytes Percent Auto 6.5 % (2-11); Neutrophils Absolute Auto 4.2 x10*3/uL (2.0-8.3); Neutrophils Percent Auto 62.2 % (45-73); Platelet Count 210 X10*3/uL (160-400); Red Blood Count 5.05 X10*6/uL (4.60-5.80); Red Cell Distribution Width 13.2 % (11.0-16.0); White Blood Count 6.8 X10*3/uL (4.8-10.8)
[2023-01-22 12:26] LABS: Alanine Aminotransferase 34 U/L (0-40); Albumin Level 4.1 g/dL (3.5-5.0); Alkaline Phosphatase 51 U/L (39-117); Anion Gap 12 (12-20); Aspartate Amino Transferase 23 U/L (5-37); Blood Urea Nitrogen 15 mg/dL (9-16); Calcium 8.8 mg/dL (8.4-10.2); Carbon Dioxide 29 mmol/L (22-29); Chloride 106 mmol/L (96-108); Cholesterol 117 mg/dL; Estimated Glomerular Filt Rate > 60; Glucose Fasting 118 mg/dL (60-99); HDL Cholesterol 36 mg/dL; LDL Cholesterol Calculated 59 mg/dl; Potassium 3.6 mmol/L (3.3-5.1); Sodium 143 mmol/L (135-145); Total Protein 6.6 g/dL (6.5-8.0); Triglycerides 111 mg/dL
[2023-01-22 12:33] LABS: TSH reflex Free T4 1.23 uIU/mL (0.32-4.0); Vitamin D 25-OH Total 37.9 ng/mL (>30)
== END 2023-01-22 08:09 | disposition home or self-care (01) ==
LOC: HO.HMGCLDS 08:08
PROVIDERS: PCP Internal Medicine; Visit Provider Internal Medicine
DX: E55.9 Vitamin D deficiency, unspecified (principal); E78.00 Pure hypercholesterolemia, unspecified; I10 Essential (primary) hypertension
CPT/HCPCS: 36415; 80053; 80061; 82306; 84443; 85025

== ENCOUNTER 2023-02-14 11:00 | Outpatient (RCR) | payer MEDICARE, SELFPAY ==
--- NOTE | 2023-01-18 12:15 | MHC.PT.EP ---
[facility] [place] Office [place] Office [place] Office [address] Marge Hamilton [address] [phone] F: [phone] F: [phone] F: [phone] F: [phone] Physical Therapy Plan of Care Date of Evaluation: Date of Surgery: Diagnosis: cervicalgia Assessment: Patient is a 77 year old R handed male who presents with s/s consistent with cervicalgia, neck pain. He does not work but likes to take care of his yard and house. 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 Current impairments include pain, posture, ROM, strength, activity tolerance and functional mobility. Functional limitations include decreased ability to sleep, turn head, drive, lift, carry, perform overhead activities, and perform projects around the house. Patient is motivated with good rehab potential. Skilled PT will address impairments and functional limitations in order to achieve goals. Frequency and Duration: The patient will be seen 2x/week for 5 weeks Short Term Goals: I with HEP - 2 weeks AROM rotation c-spine to 55 b/l - 3 weeks Improved postural awareness - 3 weeks Snf Goals: NPDI 10% or less - 5 weeks Reduced pain with ADLs - 2/10 - 5 weeks AROM c-spine 60 b/l - 5 weeks pec tightness min - 5 weeks Treatment Plan: Modalities to reduce pain, spasms and effusion. Manual therapy to restore motion and function. Therapeutic exercise to improve strength and flexibility. Neuromuscular re-education for posture and balance. Therapeutic activities to return to functional activities of daily living. Electronically signed by: Paul Lira, PT Please sign and return to therapist. Thank you for your referral.
--- NOTE | 2023-03-22 09:06 | MHC.PT.DC ---
[facility] [place] Office [place] Office [place] Office [address] Marge Hamilton [address] [phone] F: [phone] F: [phone] F: [phone] F: [phone] Physical Therapy Discharge Report Diagnosis: cervicalgia Date of Surgery: Date of Evaluation: 01/18/23 Date of Discharge: 03/02/23 Treatments to Date: 4 Cancellations to Date: No Shows to Date: Discharge Status: Recommend MD Follow-up Discharge Summary: 02/14/23: pt s/s of CORTES and dizziness unchanged by PT intervention thus far and do not seem to be tied to cervical musculskeletal pathology thus far. we discussed plan and decided to hold and refer back to MD at this time due to pt wanting to prioritize treatment of dizziness and CORTES. 01/31/23: reduced tissue tesnion and reduced discomfort in neck, however CORTES persist and he is frustrated with this. 01/24/23: increased s/s since last visit, increased CORTES. TTP in c-spine and irritable s/s. slow progression likely. dizziness reported with position changes. Patient is a 77 year old R handed male who presents with s/s consistent with cervicalgia, neck pain. He does not work but likes to take care of his yard and house. 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 Current impairments include pain, posture, ROM, strength, activity tolerance and functional mobility. Functional limitations include decreased ability to sleep, turn head, drive, lift, carry, perform overhead activities, and perform projects around the house. Patient is motivated with good rehab potential. Skilled PT will address impairments and functional limitations in order to achieve goals. Electronically signed by: Paul Lira, PT Please sign and return to therapist. Thank you for your referral.
== END 2023-03-22 09:07 | disposition home or self-care (01) ==
LOC: HO.PTCHIC 11:00
PROVIDERS: PCP Internal Medicine; Visit Provider Psychiatry & Neurology Neurology
DX: M54.2 Cervicalgia (principal)
CPT/HCPCS: 97110; 97140; 97163

== ENCOUNTER → 2023-04-04 12:55 | Outpatient (BNVA) | payer MEDICARE, SELFPAY | PROVIDERS: PCP Internal Medicine; Visit Provider Nurse Practitioner | DX: K21.9 Gastro-esophageal reflux disease without esophagitis (principal); K30 Functional dyspepsia | CPT/HCPCS: 99212 ==

== ENCOUNTER → 2023-04-10 10:26 | Outpatient (BNVA) | payer MEDICARE, SELFPAY | PROVIDERS: PCP Internal Medicine; Visit Provider Psychiatry & Neurology Neurology | DX: R51.9 Headache, unspecified (principal); R42 Dizziness and giddiness; Z86.73 Personal history of transient ischemic attack (TIA), and cerebral infarction without residual deficits | CPT/HCPCS: 99212 ==

== ENCOUNTER 2023-05-22 08:10 | Outpatient (REF) | payer MEDICARE, SELFPAY ==
[2023-05-22 11:19] LABS: MANUAL DIFF FLAG NO
[2023-05-22 11:28] LABS: Basophils Absolute Auto 0.1 X10*3/uL (0.0-0.2); Basophils Percent Auto 0.7 % (0-2); Eosinophils Absolute Auto 0.3 X10*3/uL (0.0-0.4); Eosinophils Percent Auto 3.7 % (0-4); Hematocrit 45.6 % (42.0-52.0); Hemoglobin 15.9 g/dl (14.0-18.0); Imm Gran Abs Auto 0.01 X10*3/uL (0.00-0.03); Imm Gran Pct Auto 0.1 % (0.0-0.4); Lymphocytes Absolute Auto 1.6 X10*3/uL (1.2-4.9); Lymphocytes Percent Auto 21.8 % (20-40); Mean Corpuscular HGB Conc 34.9 g/dl (31.0-36.0); Mean Corpuscular Hemoglobin 30.8 pg (27.0-33.0); Mean Corpuscular Volume 88.2 fL (80.0-98.0); Mean Platelet Volume 10.7 fL (9.4-12.4); Monocytes Absolute Auto 0.4 X10*3/uL (0.1-1.2); Monocytes Percent Auto 5.4 % (2-11); Neutrophils Percent Auto 68.3 % (45-73); Platelet Count 213 X10*3/uL (160-400); Red Blood Count 5.17 X10*6/uL (4.60-5.80); White Blood Count 7.3 X10*3/uL (4.8-10.8)
[2023-05-22 11:29] LABS: Appearance Urine Clear; Color Urine Yellow; Glucose Urine UA Negative (Negative); Leukocyte Esterase Urine Negative (Negative); Nitrite Urine Negative (Negative); Urine Blood Negative (Negative); Urine Ketones Negative (Negative); Urine Protein Negative (Neg-Trace)
[2023-05-22 11:55] LABS: Alanine Aminotransferase 28 U/L (0-40); Albumin Level 4.1 g/dL (3.5-5.0); Alkaline Phosphatase 52 U/L (39-117); Anion Gap 11 (12-20); Aspartate Amino Transferase 22 U/L (5-37); Bilirubin Total 0.6 mg/dL (0.0-1.0); Blood Urea Nitrogen 17 mg/dL (9-16); Calcium 9.2 mg/dL (8.4-10.2); Carbon Dioxide 29 mmol/L (22-29); Chloride 106 mmol/L (96-108); Cholesterol 112 mg/dL; Estimated Glomerular Filt Rate > 60; Glucose Fasting 115 mg/dL (60-99); HDL Cholesterol 41 mg/dL; LDL Cholesterol Calculated 49 mg/dl; Potassium 3.7 mmol/L (3.3-5.1); Sodium 142 mmol/L (135-145); Total Protein 7.2 g/dL (6.5-8.0); Triglycerides 114 mg/dL
[2023-05-22 12:18] LABS: TSH reflex Free T4 1.22 uIU/mL (0.32-4.0); Vitamin D 25-OH Total 45.1 ng/mL (>30)
== END 2023-05-22 08:11 | disposition home or self-care (01) ==
LOC: HO.HMGCLDS 08:10
PROVIDERS: PCP Internal Medicine; Visit Provider Internal Medicine
DX: E78.00 Pure hypercholesterolemia, unspecified (principal); R30.0 Dysuria; E55.9 Vitamin D deficiency, unspecified; I10 Essential (primary) hypertension
CPT/HCPCS: 36415; 80053; 80061; 81003; 82306; 84443; 85025

== ENCOUNTER 2023-05-30 10:41 | Outpatient (AMB) | payer MEDICARE, SELFPAY ==
[2023-05-30 11:02] VITALS: BP 110/70; PULSE 45; O2SAT 93; BMI 28.5
--- NOTE | 2023-05-30 11:02 | A.OFFPC_ITS ---
Vital Signs 05/30/23 11:02 Height 5 ft 7 in Weight 182 lb 2 oz BMI 28.5 BP 110/70 Blood Pressure Location Lt brachial Position Sitting Pulse 45 L Pulse Source Pulse Oximeter Pulse Oximetry (%) 93 Oxygen Delivery Method Room Air Intake Visit Reasons: hyperlipidemia, HTN, recurrent dizziness Stitch Burnisher Required: No Accompanied by: Self / Same As Patient Allergies Iodinated Contrast Media [IV Dye, Iodine Containing] Allergy (Mild, Verified 05/30/23 11:48) Hives tizanidine Allergy (Mild, Verified 05/30/23 11:48) painful rash on ankles, dizziness sertraline Adverse Reaction (Intermediate, Verified 05/30/23 11:48) GI upset, confusion Medication List - Last Reconciled 05/30/23 by Armaan Correa MD amlodipine 2.5 mg PO DAILY 90 days amlodipine 5 mg PO DAILY 90 days baclofen 10 mg PO BEDTIME cholecalciferol (vitamin D3) 25 mcg PO DAILY 90 days clonazepam 0.5 mg PO BID PRN 90 days Eliquis (apixaban) 5 mg PO BID 30 days NS escitalopram oxalate 10 mg PO DAILY 30 days gabapentin 100 mg PO BEDTIME hydrochlorothiazide 12.5 mg PO DAILY 90 days lisinopril 40 mg PO DAILY 90 days metoprolol tartrate 25 mg PO BID 90 days pantoprazole 40 mg PO DAILY@0630 90 days rosuvastatin 5 mg PO DAILY 90 days Tobacco use date assessed: 05/30/23 Fall risk assessment: No Falls in past year Last assessed Fall Risk: 05/30/23 Dental Screening Dental Screen Date: 05/30/23 Did you have a dental visit in the last 12 months?: Yes Did you have a dental problem in the last 6 months where you did not have access to dental care?: No Was dental information given to patient?: Patient has dentist HPI hyperlipidemia, HTN, recurrent dizziness HPI Details Patient comes in today for his follow up visit States that he continues to experience recurrent dizziness He also continues to experience frequent symptoms of tingling and numbness in both arms, as well as recurrent neck pain - has cervical spondylosis seen on imaging studies done in the past He was seen again by Neurology last month for follow-up and was started on a trial of Baclofen at bedtime which patient states he has not really tried taking yet He has been to physical therapy for his neck symptoms in the past with no significant improvement in his symptoms He has also been seen by ENT in [place] for consultation regarding his recurrent dizziness and he was reportedly advised that they have no explanation for his symptoms Have discussed with patient previously that his anxiety is likely a major contributor, if not the main cause of his symptoms He has been started on Escitalopram 10 mg QD in the past - states that he has been taking this for several months now and is not sure if it is helping him or not He denies any headaches Denies any chest pains, no increased shortness of breath No nausea/ vomiting, no abdominal pain No change in bowel habits noted Had his follow-up labs done last week - to discuss his results [facility] Medical History (Updated 05/31/23 @ 04:10 by Armaan Correa MD) Anxiety Benign essential hypertension BPH (benign prostatic hyperplasia) Cervical disc disorder with radiculopathy Cervical spondylosis Cervicalgia COVID-19 vaccine series completed CVA (cerebral vascular accident) Degenerative disc disease, lumbar Degenerative disc disease, thoracic Delayed gastric emptying Dizziness Embolic cerebral infarction Erectile dysfunction Facial droop GERD (gastroesophageal reflux disease) Impaired fasting glucose Overweight (BMI 25.0-29.9) Primary insomnia Pure hypercholesterolemia Tingling Uncontrolled hypertension Vitamin D deficiency Surgical History History of esophagogastroduodenoscopy (EGD) (02/14/15) History of prostate surgery Hx of cataract extraction Hx of colonoscopy (03/04/12) Hx of cystoscopy (~2019) Hx of tonsillectomy Family History Father Heart disease Mother Cancer Brother Diabetes Paternal Grandmother Heart disease Maternal Uncle Colon cancer Social History Household Members: Spouse Housing: House Are you a primary lawn caretaker to a significant other at home: No Do you presently have visiting nurse or other home services: No Alcohol intake: current Alcohol intake frequency: holidays/special occasions only Alcohol type: beer Patient Tobacco Use Status: Former Tobacco user Quit Date: age 46 Tobacco use type: Cigarette e-Cigarette/Vaping Use: Never Used Second Hand Smoke Exposure: Yes service: Yes ([employer]) Current occupational status: retired Cognitive needs: No Hearing needs: No Vision needs: Yes Questionnaire PHQ-9 Over the last 2 weeks, how often have you been bothered by any of the following problems? 1. Little interest or pleasure in doing things: not at all 2. Feeling down, depressed, or hopeless: not at all 3. Trouble falling or staying asleep, or sleeping too much: not at all 4. Feeling tired or having little energy: not at all 5. Poor appetite or overeating: not at all 6. Feeling bad about yourself - or that you are a failure or have let yourself or your family down: not at all 7. Trouble concentrating on things, such as reading the newspaper or watching television: not at all 8. Moving or speaking so slowly that other people could have noticed. Or the opposite - being so fidgety or restless that you have been moving around a lot more than usual: not at all 9. Thoughts that you would be better off or of hurting yourself in some way: not at all Total score: 0 Depression Screening Interpretation: Negative [id number] - PHQ-9 Billing: Yes Source: Developed by Drs. Serjio Fields, Razia Coombs, Jason Tena and colleagues, with an educational tia from [employer]. Thrive Questionnaire Date Thrive assessed: 05/30/23 I am a: Patient What is your living situation today?: I have a steady place to live Within the past 12 months, did the food you bought not last and you didn't have the money to get more?: Never true Within the past 12 months, did you worry whether your food would run out before you got money to buy more?: Never true Do you have trouble paying for medicines?: No Do you have trouble getting transportation to medical appointments?: No Do you have trouble paying your heating and electricity bill?: No Do you have trouble taking care of your child, family member or friend?: No Do you have trouble with day-to-day activities such as bathing, preparing meals, shopping, managing finances, etc.?: No Are you currently unemployed and looking for a job?: No Are you interested in more education?: No Please select the resources that you would like help with: None Currently or been in a relationship where the following occur: no concerns reported AUDIT C Alcohol Use Questionnaire (AUDIT-C) 1. How often do you have a drink containing alcohol?: Monthly or less 2. How many drinks containing alcohol do you have on a typical day when you are drinking?: 1 or 2 3. How often do you have six or more drinks on one occasion?: Never Total Score: 1 Score Reviewed/Action Taken: Yes SARAH-7 AMB Questionnaire SARAH-7 Date SARAH - 7 assessed: 05/30/23 Feeling nervous, anxious, or on edge: 0 = Not at all Not being able to stop or control worryin = Not at all Worrying too much about different things: 0 = Not at all Trouble relaxin = Not at all Being so restless that it is hard to sit still: 0 = Not at all Becoming easily annoyed or irritable: 0 = Not at all Feeling afraid as if something awful might happen: 0 = Not at all Total SARAH-7 score (0-4 normal; 5-9 mild; 10-14 moderate; 15-21 severe): 0 Source: Developed by Drs. Serjio Fields, Razia Coombs, Jason Tena and colleagues, with an educational tia from [employer]. Review of Systems Const Reports fatigue, Denies fever(s), Denies headache(s) and Reports weakness (of the right arm and right leg, minimal) ENT Denies dysphagia, Reports dizziness (recurrent), Denies otalgia, Denies headache(s), Reports neck pain, Denies odynophagia and Denies sore throat Card Denies chest pain, Denies irregular heart rhythm, Denies palpitations and Denies dyspnea Resp Denies cough and Denies dyspnea GI Denies abdominal pain, Denies constipation, Denies dysphagia, Denies heartburn, Denies diarrhea, Denies nausea, Denies odynophagia and Denies vomiting Denies dysuria and Denies urinary frequency Musc Reports neck pain, Reports numbness (occasional, in both arms) and Reports tingling (in both arm, on and off) Skin/Breast Denies rash Neuro Reports dizziness (recurrent), Denies headache(s), Reports numbness (occasional, in both arms), Reports tingling (in both arm, on and off) and Reports weakness (of the right arm and right leg, minimal) Psych Details: increased Reports anxiety (in) Endo Reports fatigue and Denies palpitations Physical exam (Primary Care) Vital Signs: Last Vital Signs Pulse 45 L 05/30/23 11:02 BP 110/70 05/30/23 11:02 Pulse Ox 93 05/30/23 11:02 Oxygen Delivery Method Room Air 05/30/23 11:02 BMI result Body Mass Index 28.5 Tobacco/Smoking Status: Tobacco use Status Tobacco use date assessed 05/30/23 05/30/23 11:04 Patient Tobacco Use Status Former Tobacco user 05/30/23 11:04 Tobacco use type Cigarette 05/30/23 11:04 e-Cigarette/Vaping Use Never Used 05/30/23 11:04 PHQ-9: PHQ-9 Score PHQ-9: Total score 0 05/31/23 00:29 Depression Screening Interpretation: Negative Thrive Assessment: Date of Thrive Assessment Date Thrive assessed 05/30/23 05/30/23 11:04 Currently or been in a relationship where the following occur: no concerns reported Const General: no acute distress and alert HENMT Ears: TM's normal bilaterally and EAC's normal Throat: Yes posterior oropharynx normal and Yes tonsils normal (no TP congestion noted) Neck Neck: Yes no lymphadenopathy and Yes supple Resp Auscultation: clear to auscultation bilaterally, no rales and no wheezes Cardio Rate: regular rate Rhythm: regular rhythm Heart sounds: no murmurs GI Palpation (GI): Soft to palpation and nontender Auscultation: normal bowel sounds Back/Spine/Pelvis Cervical Spine: Cervical spine tenderness Neuro Other: (+) residual mild weakness of the right arm and the right leg Extrem General: Yes no clubbing, cyanosis or edema Results Reviewed Results Reviewed: Laboratory Tests 05/22/23 05/22/23 05/22/23 08:15 08:15 Unknown WBC 7.3 Hgb 15.9 Hct 45.6 Plt Count 213 Sodium 142 Potassium 3.7 Creatinine 0.99 Estimated GFR > 60 Fasting Glucose 115 H Calcium 9.2 AST 22 ALT 28 Triglycerides 114 Cholesterol 112 LDL Cholesterol, Calc 49 HDL Cholesterol 41 25-OH Vitamin D Total 45.1 TSH 1.22 Ur Specific [place] 1.020 Urine Protein Negative Urine Glucose (UA) Negative Urine Blood Negative Assessment and Plan Assessment & Plan (1) Cerebrovascular accident, embolic: Comment: Head CT done at the ER at [facility] on 09/22/2021 came out negative MRI of the brain done a week later in September 2022 revealed new embolic infarcts Code(s): I63.9 - Cerebral infarction, unspecified Qualifiers: Precerebral and cerebral artery: unspecified cerebral artery Qualified Code(s): I63.40 - Cerebral infarction due to embolism of unspecified cerebral artery Plan: No recurrence Concluded his cardiac monitoring from [facility] a few years ago - tests reportedly all came out normal Echocardiogram and SARA done a few years ago also came back normal Continue Apixaban 5 mg BID Follow up with neurology and cardiology as scheduled (2) Dizziness: Code(s): R42 - Dizziness and giddiness Plan: Sinus CT done at [facility] last year reportedly came out normal Has been advised by ENT that her evaluation revealed no evidence of ENT source of her symptoms Was seen by Dr. Bernardo for a second (neurology) opinion and was most recently seen a month ago - was tried on Baclofen Q HS, which patient states that he has not tried yet Cervical spine MRI done in September 2022 revealed (+) multilevel degenerative spondylotic changes without significant narrowing of the spinal canal but there are progressive moderate to severe neural foraminal stenosis over several levels bilaterally He was sent for physical therapy of his cervical spine, which he states did not really help much Follow up with neurology as scheduled (3) Cervical spondylosis: Code(s): M47.812 - Spondylosis without myelopathy or radiculopathy, cervical region Plan: Cervical spine MRI done in September 2022 revealed (+) multilevel degenerative spondylotic changes without significant narrowing of the spinal canal but there are progressive moderate to severe neural foraminal stenosis over several levels bilaterally States that physical therapy has not helped much with his neck pain in the past (4) Paresthesia and pain of both upper extremities: Code(s): R20.2 - Paresthesia of skin; M79.601 - Pain in right arm; M79.602 - Pain in left arm Plan: Will send patient for EMG and NCV of the upper extremities for further evaluation (5) Benign essential hypertension: Code(s): I10 - Essential (primary) hypertension Plan: Reinforced low sodium diet - goal is systolic BP of at least 130 to 140 mm, given his recent recurrent CVA and frequent orthostatic dizziness BP log brought in by patient previously showed systolic BP readings mostly in the 120 to 130 mm range, with occasional 145 mm and 143 mm readings Continue Lisinopril 40 mg QD, Metoprolol 25 mg BID, Amlodipine 7.5 mg QD and HCTZ 12.5 mg QD Patient instructed to continue monitoring his blood pressure regularly (6) Pure hypercholesterolemia: Code(s): E78.00 - Pure hypercholesterolemia, unspecified Plan: Results of his labs done last week reviewed and discussed with patient Reinforced low cholesterol diet Continue Rosuvastatin 5 mg QD Will recheck his labs in 4 months for follow up (7) GERD (gastroesophageal reflux disease): Code(s): K21.9 - Gastro-esophageal reflux disease without esophagitis Qualifiers: Esophagitis presence: without esophagitis Qualified Code(s): K21.9 - Gastro-esophageal reflux disease without esophagitis Plan: Dietary restrictions reinforced Continue Pantoprazole 40 mg QD (8) Impaired fasting glucose: Code(s): R73.01 - Impaired fasting glucose Plan: HgbA1c was normal at 5.3% when last checked a few months ago; was at 5.7% previously Reinforced low calorie diet / exercise as tolerated (9) Vitamin D deficiency: Code(s): E55.9 - Vitamin D deficiency, unspecified Plan: Corrected - continue Vitamin D3 2000 units QD (10) Anxiety: Code(s): F41.9 - Anxiety disorder, unspecified Plan: Continue Clonazepam 0.5 mg BID PRN Will try increasing his Escitalopram to 20 mg QD (could not tolerate Sertraline) (11) Overweight (BMI 25.0-29.9): Code(s): E66.3 - Overweight Plan: Reinforced diet/exercise as tolerated/lose weight Plan Follow up in 4 months Orders: Orders NE electromyogram (EMG) 05/30/23 M79.601 - Pain in right arm, M79.602 - Pain in left arm, R20.2 - Paresthesia of skin NE nerve conduction velocity 05/30/23 M79.601 - Pain in right arm, M79.602 - Pain in left arm, R20.2 - Paresthesia of skin Vitamin B12 and Folate 4 Months E53.8 - Deficiency of other specified B group vitamins Comprehensive [place]. Panel Fast 4 Months E78.00 - Pure hypercholesterolemia, unsp ecified Hemoglobin A1c 4 Months R73.01 - Impaired fasting glucose Lipid Panel 4 Months E78.00 - Pure hypercholesterolemia, unspecified TSH reflex Free T4 4 Months E78.00 - Pure hypercholesterolemia, unspecified Vitamin D 25-OH Total 4 Months E55.9 - Vitamin D deficiency, unspecified Complete Blood Count Auto Diff 4 Months I10 - Essential (primary) hypertension UA CC w/rflx Micro + Cult 4 Months R30.0 - Dysuria Medications: Changed From escitalopram oxalate 10 mg PO DAILY 30 days 30 tabs 3RF To escitalopram oxalate 20 mg PO DAILY 30 days 30 tabs 3RF Coding Level of Care Code Est Pt Level 4 (23150) Diagnoses Cerebrovascular accident, embolic I63.40 Precerebral and cerebral artery: unspecified cerebral artery Dizziness R42 Cervical spondylosis M47.812 Paresthesia and pain of both upper extremities R20.2; M79.601; M79.602 Benign essential hypertension I10 Pure hypercholesterolemia E78.00 GERD (gastroesophageal reflux disease) K21.9 Esophagitis presence: without esophagitis Impaired fasting glucose R73.01 Vitamin D deficiency E55.9 Anxiety F41.9 Overweight (BMI 25.0-29.9) E66.3
== END 2023-05-30 12:12 | disposition home or self-care (01) ==
PROVIDERS: PCP Internal Medicine; Visit Provider Internal Medicine
DX: I10 Essential (primary) hypertension (principal); F41.9 Anxiety disorder, unspecified; E55.9 Vitamin D deficiency, unspecified; K21.9 Gastro-esophageal reflux disease without esophagitis; I63.40 Cerebral infarction due to embolism of unspecified cerebral artery; R42 Dizziness and giddiness; M47.812 Spondylosis without myelopathy or radiculopathy, cervical region; R20.2 Paresthesia of skin; M79.601 Pain in right arm; M79.602 Pain in left arm; E78.00 Pure hypercholesterolemia, unspecified; R73.01 Impaired fasting glucose
CPT/HCPCS: 99214

== ENCOUNTER 2023-06-21 10:34 | Outpatient (REF) | payer MEDICARE, SELFPAY ==
--- NOTE | 2023-06-21 10:38 | EMG_ITS ---
Chief complaint: Hand numbness, neck pain, dizziness Reason for referral: Evaluate for neuropathy Referred by: Dr. Correa Procedure done: Bilateral upper extremities NCS/EMG Precautions and/or limitations: On Eliquis The limb temperature was monitored continuously and remained between 32-36 degrees C during the performance of the NCS. Nerve Conduction Studies Anti Sensory Summary Table ?Stim Site NR Onset (ms) Norm Onset (ms) Peak (ms) Norm Peak (ms) O-P Amp (?V) Norm O-P Amp Site1 Site2 Delta-0 (ms) Dist (cm) Mathew (m/s) Norm Mathew (m/s) Left Median Anti Sensory (2nd Digit) Wrist ? 3.0 4.0 <3.6 14.4 >10 Wrist 2nd Digit 3.0 14.0 47 Right Median Anti Sensory (2nd Digit) Wrist ? 3.5 4.2 <3.6 8.3 >10 Wrist 2nd Digit 3.5 14.5 41 Left Ulnar Anti Sensory (5th Digit) Wrist ? 2.9 3.7 <3.7 11.2 >15.0 Wrist 5th Digit 2.9 14.0 48 Right Ulnar Anti Sensory (5th Digit) Wrist ? 2.8 3.7 <3.7 4.0 >15.0 Wrist 5th Digit 2.8 14.0 50 Motor Summary Table ?Stim Site NR Onset (ms) Norm Onset (ms) O-P Amp (mV) Norm O-P Amp iAmp (mV) Amp (1st) (%) Site1 Site2 Delta-0 (ms) Dist (cm) Mathew (m/s) Norm Mathew (m/s) Left Median Motor (Abd Poll Brev) Wrist ? 4.0 <3.9 8.2 >4.5 11.0 100.0 Elbow Wrist 4.6 21.0 46 >45 Elbow ? 8.6 6.7 8.7 81.7 Right Median Motor (Abd Poll Brev) Wrist ? 5.1 <3.9 4.6 >4.5 6.1 100.0 Elbow Wrist 4.4 21.0 48 >45 Elbow ? 9.5 4.4 5.6 95.7 Left Ulnar Motor (Abd Dig Minimi) Wrist ? 3.0 <3.0 5.3 >5 7.1 100.0 B Elbow Wrist 4.0 19.5 49 >45 B Elbow ? 7.0 6.8 9.0 128.3 A Elbow B Elbow 1.9 10.0 53 >45 A Elbow ? 8.9 6.2 8.3 117.0 Right Ulnar Motor (Abd Dig Minimi) Wrist ? 3.0 <3.0 6.8 >5 8.1 100.0 B Elbow Wrist 3.8 18.0 47 >45 B Elbow ? 6.8 6.9 8.4 101.5 A Elbow B Elbow 2.0 10.0 50 >45 A Elbow ? 8.8 6.7 8.3 98.5 EMG ?Side Muscle Nerve Root Ins Act Fibs Psw Amp Dur Poly Recrt Int Pat Comment Right 1stDorInt Ulnar C8-T1 Nml Nml Nml Nml Nml 0 Nml Complete Right FlexCarRad Median C6-7 Nml Nml Nml Nml Nml 0 Nml Complete Right Biceps Musculocut C5-6 Nml Nml Nml Nml Nml 0 Nml Complete Right Triceps Radial C6-7-8 Nml Nml Nml Nml Nml 0 Nml Complete Right Deltoid Axillary C5-6 Nml Nml Nml Nml Nml 0 Nml Complete Left 1stDorInt Ulnar C8-T1 Nml Nml Nml Nml Nml 0 Nml Complete Left FlexCarRad Median C6-7 Nml Nml Nml Nml Nml 0 Nml Complete Left Biceps Musculocut C5-6 Nml Nml Nml Nml Nml 0 Nml Complete Left Triceps Radial C6-7-8 Nml Nml Nml Nml Nml 0 Nml Complete Left Deltoid Axillary C5-6 Nml Nml Nml Nml Nml 0 Nml Complete FINDINGS: Bilateral median motor nerves showed prolonged distal latency, normal amplitude and normal conduction velocity. Bilateral median sensory nerves showed prolonged peak latency. All other nerves tested were within normal. Concentric needle EMG was performed in selected muscles of the bilateral upper extremities. Study did not reveal signs of electric abnormalities as shown in the table below. IMPRESSION: 1. This is an abnormal study. 2. 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 3. There is no electrodiagnostic evidence for ulnar neuropathy, brachial plexopathy, or cervical radiculopathy. Thank you for your kind referral. Yvette Barnett MD, TAL Board Certified, [place] [employer] and [employer] (ABPMR) Board Certified, [place] [employer] Electrodiagnostic [employer] (ABEM) CODIN 61600 x2 MTDD
== END 2023-06-21 10:35 | disposition home or self-care (01) ==
LOC: HO.NEURO 10:34
PROVIDERS: PCP Internal Medicine; Visit Provider Internal Medicine
DX: R20.2 Paresthesia of skin (principal); M79.601 Pain in right arm; M79.602 Pain in left arm
CPT/HCPCS: 95886; 95910

== ENCOUNTER → 2023-06-21 10:38 | Outpatient (BNV) | payer MEDICARE, SELFPAY | PROVIDERS: PCP Internal Medicine; Visit Provider Physical Medicine & Rehabilitation | DX: G56.13 Other lesions of median nerve, bilateral upper limbs (principal); G56.03 Carpal tunnel syndrome, bilateral upper limbs | CPT/HCPCS: 95886; 95910 ==

== ENCOUNTER 2023-08-06 08:44 | Outpatient (AMB) | payer MEDICARE, SELFPAY ==
--- NOTE | 2023-08-06 08:45 | MHC.OFFVIS ---
Intake Vital Signs 08/06/23 08:50 Height 5 ft 7 in Weight 183 lb 4 oz BMI 28.7 BP 154/76 H Blood Pressure Location Rt brachial Position Sitting Respiration 16 Pulse 65 Pulse Source Pulse Oximeter Pulse Oximetry (%) 97 Oxygen Delivery Method Room Air Intake Visit Reasons: 3m follow up CVA-lvm Intake Note: Pt presents for 3 months follow up s/p cerebral infarction. Pt reports hes still been having dizzy spells daily, mainly when getting up in the morning. Allergies Iodinated Contrast Media [IV Dye, Iodine Containing] Allergy (Mild, Verified 08/06/23 08:49) Hives tizanidine Allergy (Mild, Verified 08/06/23 08:49) painful rash on ankles, dizziness sertraline Adverse Reaction (Intermediate, Verified 08/06/23 08:49) GI upset, confusion Medication List - Last Reconciled 08/06/23 by Aida Bernardo MD amlodipine 2.5 mg PO DAILY 90 days amlodipine 5 mg PO DAILY 90 days baclofen 10 mg PO BEDTIME cholecalciferol (vitamin D3) 25 mcg PO DAILY 90 days clonazepam 0.5 mg PO BID PRN 90 days Eliquis (apixaban) 5 mg PO BID 30 days NS escitalopram oxalate 20 mg (2 x 10 mg) PO DAILY 30 days gabapentin 100 mg PO BEDTIME hydrochlorothiazide 12.5 mg PO DAILY 90 days lisinopril 40 mg PO DAILY 90 days metoprolol tartrate 25 mg PO BID 90 days pantoprazole 40 mg PO DAILY rosuvastatin 5 mg PO DAILY 90 days HPI HPI Comments History of Present Illness Details 77y/o male comes for follow up dizziness and head pain. ?He reports head pain , neck discomfort and paresthesias in distal fingers. He had PT for neck which helped initially but the effects does not last long He did not notice improvement with baclofen . He is anxious today and says wants to get rid of all his symptoms I explained the MRI C spine results in detail which is likely causing his neck spasm , head pain and paresthesias. History from 09/27 His problem started on last day of August 2021 when he was hunting.? He noted blurred vision numbness of face and unsteadiness.? His blood pressure was high and he was taken to [facility] where he was noted to have a small embolic infarct.? Apparently his vasculature did not reveal any large vessel disease and transthoracic echo was okay.? He was discharged on aspirin with follow-up cardiac evaluation.? He had a Holter placed recently.? He complained of right-sided numbness and weakness to his primary care physician and was asked to have an MRI of brain after which he came to emergency room at [facility].?? His MRI of brain revealed multiple small embolic infarcts and he was admitted.?He was started on Eliquis .SARA was normal. He reports chronic dizziness since then .He reports constant frontal head pressure . He describes the dizziness as not feeling steady in space. It starts when he starts moving in the morning. He has occasional tinnitus.He also has chronic hearing issues.He was also seen by ENT and ophthalmology. when he had CVA he was seeing flashy lights , double vision etc which resolved. He reports phonophobia. No photophobia or nausea. He has anxiety and is on clonazepam . He was always anxious and has worsened since CVA. He has occasional sleep issues. [facility] Medical History Spasmodic torticollis Cervical spondylosis Tingling Cervicalgia Vitamin D deficiency COVID-19 vaccine series completed CVA (cerebral vascular accident) Embolic cerebral infarction Facial droop Uncontrolled hypertension BPH (benign prostatic hyperplasia) Dizziness Overweight (BMI 25.0-29.9) Anxiety Primary insomnia Cervical disc disorder with radiculopathy Impaired fasting glucose Pure hypercholesterolemia Benign essential hypertension Erectile dysfunction Degenerative disc disease, thoracic Degenerative disc disease, lumbar Delayed gastric emptying GERD (gastroesophageal reflux disease) Surgical History History of prostate surgery Hx of cataract extraction Hx of cystoscopy (~2019) History of esophagogastroduodenoscopy (EGD) (02/14/15) Hx of colonoscopy (03/04/12) Hx of tonsillectomy Family History Father Heart disease Mother Cancer Brother Diabetes Paternal Grandmother Heart disease Maternal Uncle Colon cancer Social History Household Members: Spouse Housing: House Are you a primary physician primary care sports medicine to a significant other at home: No Do you presently have visiting nurse or other home services: No Alcohol intake: current Alcohol intake frequency: holidays/special occasions only Alcohol type: beer Patient Tobacco Use Status: Former Tobacco user Quit Date: age 46 Tobacco use type: Cigarette e-Cigarette/Vaping Use: Never Used Second Hand Smoke Exposure: Yes service: Yes ([employer]) Current occupational status: retired Cognitive needs: No Hearing needs: No Vision needs: Yes Physical Exam Vital Signs: Last Vital Signs Pulse 65 08/06/23 08:50 Resp 16 08/06/23 08:50 BP 154/76 H 08/06/23 08:50 Pulse Ox 97 08/06/23 08:50 Oxygen Delivery Method Room Air 08/06/23 08:50 BMI result Body Mass Index 28.7 Const General: cooperative, healthy appearing and anxious Nutritional Appearance: average body habitus Orientation/consciousness: patient oriented x3 Limitations: no limitations HEENT Head: Yes normal to inspection, Yes No palpable skull fracture present and Yes normocephalic Eyes Pupils: Equal, round and reactive pupils present Neck Other: antecollis restricted range of motion tightness in damaso cervical muscles, tenderness in right splenius and levator diffiuculty tilting to left Neuro General: patient oriented x3, tone normal and moves all extremities Cranial nerves: Yes Facial sensation intact/muscles of mastication intact, Yes Equal, round and reactive pupils present, Yes Bilaterally intact EOM present, Yes Nystagmus not present, Yes Normal facial strength present, Yes Midline tongue present and Yes Symmetric palate elevation present Cognition (Neuro): normal cognition Gait exam (Neuro): Other gait observations present (mild slowness ) Motor exam (neuro): 5/5 motor strength present throughout Coordination: [id number]-[id number] test normal Psych Affect: Anxious affect present Assessment & Plan Assessment & Plan (1) Headache: Comment: cervciogenic Code(s): R51.9 - Headache, unspecified (2) Dizziness: Comment: Due to cervical spasm Code(s): R42 - Dizziness and giddiness (3) Embolic stroke: Code(s): I63.9 - Cerebral infarction, unspecified (4) Spasmodic torticollis: Code(s): G24.3 - Spasmodic torticollis Plan MRI C spine results discussed. I will trial him on Botox 100 units to neck muscles for spasmodic torticollis Continue neck exercises Escitalopram 10mg qd Baclofen 10 mg qhs F/u with cardiology Coding Level of Care Code Est Pt Level 4 (97840) Diagnoses Headache R51.9 Dizziness R42 Embolic stroke I63.9 Spasmodic torticollis G24.3
[2023-08-06 08:50] VITALS: BP 154/76; PULSE 65; RESP 16; O2SAT 97; BMI 28.7
== END 2023-08-06 09:08 | disposition home or self-care (01) ==
PROVIDERS: PCP Internal Medicine; Visit Provider Psychiatry & Neurology Neurology
DX: G44.86 Cervicogenic headache (principal); R42 Dizziness and giddiness; I69.398 Other sequelae of cerebral infarction; G24.3 Spasmodic torticollis
CPT/HCPCS: 99214

== ENCOUNTER → 2023-08-06 08:44 | Outpatient (BNVA) | payer MEDICARE, SELFPAY | PROVIDERS: PCP Internal Medicine; Visit Provider Psychiatry & Neurology Neurology | DX: I63.9 Cerebral infarction, unspecified (principal); R42 Dizziness and giddiness; R51.9 Headache, unspecified; G24.3 Spasmodic torticollis | CPT/HCPCS: 99212 ==

== ENCOUNTER 2023-09-12 12:50 | Outpatient (AMB) | payer MEDICARE, SELFPAY ==
--- NOTE | 2023-09-12 12:59 | MHC.OFFVIS ---
Intake Vital Signs 09/12/23 13:07 Height 5 ft 7 in Weight 185 lb 4 oz BMI 29.0 BP 128/60 Blood Pressure Location Rt brachial Position Sitting Respiration 17 Pulse 49 L Pulse Source Pulse Oximeter Pulse Oximetry (%) 98 Oxygen Delivery Method Room Air Intake Visit Reasons: 1st time Botox appt Intake Note: Pt presents to the office for Botox injections. [employer] G Required: No Allergies Iodinated Contrast Media [IV Dye, Iodine Containing] Allergy (Mild, Verified 09/12/23 13:00) Hives tizanidine Allergy (Mild, Verified 09/12/23 13:00) painful rash on ankles, dizziness sertraline Adverse Reaction (Intermediate, Verified 09/12/23 13:00) GI upset, confusion Medication List - Last Reconciled 09/12/23 by Aida Bernardo MD amlodipine 2.5 mg PO DAILY 90 days amlodipine 5 mg PO DAILY 90 days baclofen 10 mg PO BEDTIME cholecalciferol (vitamin D3) 25 mcg PO DAILY 90 days clonazepam 0.5 mg PO BID PRN 90 days Eliquis (apixaban) 5 mg PO BID 30 days NS escitalopram oxalate 20 mg (2 x 10 mg) PO DAILY 90 days gabapentin 100 mg PO BEDTIME hydrochlorothiazide 12.5 mg PO DAILY 90 days lisinopril 40 mg PO DAILY 90 days metoprolol tartrate 25 mg PO BID 90 days pantoprazole 40 mg PO DAILY rosuvastatin 5 mg PO DAILY 90 days HPI HPI Comments History of Present Illness Details 78y/o male comes for treatment of his cervical dystonia ? Side effects including spread of toxin effect, dysphagia, breathing difficulties , bronchitis etc was discussed in detail and the patient agreed to the procedure.An informed consent was obtained ??? Botulinum toxin type A 100units X 1 -was diluted with 2 cc of normal saline at a concentration of 25 units in 0.5cc saline. Lot number [id number] expiration 12/2025 ??? Muscles injected ??? damaso Splenius - 25 units each ??? damaso levator 25 units each ? Total used 100 units [facility] Medical History Spasmodic torticollis Cervical spondylosis Tingling Cervicalgia Vitamin D deficiency COVID-19 vaccine series completed CVA (cerebral vascular accident) Embolic cerebral infarction Facial droop Uncontrolled hypertension BPH (benign prostatic hyperplasia) Dizziness Overweight (BMI 25.0-29.9) Anxiety Primary insomnia Cervical disc disorder with radiculopathy Impaired fasting glucose Pure hypercholesterolemia Benign essential hypertension Erectile dysfunction Degenerative disc disease, thoracic Degenerative disc disease, lumbar Delayed gastric emptying GERD (gastroesophageal reflux disease) Surgical History History of prostate surgery Hx of cataract extraction Hx of cystoscopy (~2019) History of esophagogastroduodenoscopy (EGD) (02/14/15) Hx of colonoscopy (03/04/12) Hx of tonsillectomy Family History Father Heart disease Mother Cancer Brother Diabetes Paternal Grandmother Heart disease Maternal Uncle Colon cancer Social History Household Members: Spouse Housing: House Are you a primary certified caregiver to a significant other at home: No Do you presently have visiting nurse or other home services: No Alcohol intake: current Alcohol intake frequency: holidays/special occasions only Alcohol type: beer Patient Tobacco Use Status: Former Tobacco user Quit Date: age 46 Tobacco use type: Cigarette e-Cigarette/Vaping Use: Never Used Second Hand Smoke Exposure: Yes service: Yes ([employer]) Current occupational status: retired Cognitive needs: No Hearing needs: No Vision needs: Yes Physical Exam Vital Signs: Last Vital Signs Pulse 49 L 09/12/23 13:07 Resp 17 09/12/23 13:07 BP 128/60 09/12/23 13:07 Pulse Ox 98 09/12/23 13:07 Oxygen Delivery Method Room Air 09/12/23 13:07 BMI result Body Mass Index 29.0 Const General: cooperative, healthy appearing and anxious Nutritional Appearance: average body habitus Orientation/consciousness: patient oriented x3 Limitations: no limitations HEENT Head: Yes normal to inspection, Yes No palpable skull fracture present and Yes normocephalic Eyes Pupils: Equal, round and reactive pupils present Neck Other: antecollis restricted range of motion tightness in damaso cervical muscles, tenderness in right splenius and levator diffiuculty tilting to left Neuro General: patient oriented x3, tone normal and moves all extremities Cranial nerves: Yes Facial sensation intact/muscles of mastication intact, Yes Equal, round and reactive pupils present, Yes Bilaterally intact EOM present, Yes Nystagmus not present, Yes Normal facial strength present, Yes Midline tongue present and Yes Symmetric palate elevation present Cognition (Neuro): normal cognition Gait exam (Neuro): Other gait observations present (mild slowness ) Motor exam (neuro): 5/5 motor strength present throughout Coordination: [id number] test normal Psych Affect: Anxious affect present Office Procedures Botulinum toxin Injection 53263 - Dystonia Procedure code (CPT) selection complete Office Meds onabotulinumtoxinA 100 unit solution for injection Performing Provider: Aida Bernardo MD Performing Location: [facility] Administered by: Aida Bernardo MD on 09/12/23 13:34 Dose Route Admin Location Dispensed Lot Number Expiration Date [facility] [employer] 100 unit IM 100 units [id number] 12/05/25 1567-3717-47 [employer] Comments: see HPI Assessment & Plan Assessment & Plan (1) Spasmodic torticollis: Code(s): G24.3 - Spasmodic torticollis Plan Patient tolerated the procedure well He will call with any side effects Orders: Orders AMB Botulinum toxin Injection Today G24.3 - Spasmodic torticollis Coding Level of Care Code Est Pt Level 1 (04671) Diagnoses Spasmodic torticollis G24.3 CPT Codes Botox Injection - Botox 4: 35492 - Dystonia ([id number])
[2023-09-12 13:07] VITALS: BP 128/60; PULSE 49; RESP 17; O2SAT 98; BMI 29.0
== END 2023-09-12 13:28 | disposition home or self-care (01) ==
PROVIDERS: PCP Internal Medicine; Visit Provider Psychiatry & Neurology Neurology
DX: G24.3 Spasmodic torticollis (principal)
CPT/HCPCS: 64616

== ENCOUNTER → 2023-09-12 12:50 | Outpatient (BNVA) | payer MEDICARE, SELFPAY | PROVIDERS: PCP Internal Medicine; Visit Provider Psychiatry & Neurology Neurology | DX: G24.3 Spasmodic torticollis (principal) | CPT/HCPCS: 64616; 99211; J0585 ==

== ENCOUNTER 2023-10-11 07:59 | Outpatient (REF) | payer MEDICARE, SELFPAY | END 2023-10-11 08:00 | disposition home or self-care (01) | LOC: HO.HMGCLDS 07:59 | PROVIDERS: PCP Internal Medicine; Visit Provider Internal Medicine | DX: E78.00 Pure hypercholesterolemia, unspecified (principal); I10 Essential (primary) hypertension; R30.0 Dysuria; R73.01 Impaired fasting glucose; E55.9 Vitamin D deficiency, unspecified; E53.8 Deficiency of other specified B group vitamins | CPT/HCPCS: 36415; 80053; 80061; 81003; 82306; 82607; 82746; 83036; 84443; 85025 ==

== ENCOUNTER 2023-10-17 10:35 | Outpatient (AMB) | payer MEDICARE, SELFPAY ==
[2023-10-17 10:36] VITALS: BP 126/72; PULSE 46; O2SAT 95; BMI 28.5
--- NOTE | 2023-10-17 10:36 | A.OFFPC_ITS ---
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 Required: No Accompanied by: Self / Same As Patient Allergies Iodinated Contrast Media [IV Dye, Iodine Containing] Allergy (Mild, Verified 10/17/23 11:30) Hives tizanidine Allergy (Mild, Verified 10/17/23 11:30) painful rash on ankles, dizziness sertraline Adverse Reaction (Intermediate, Verified 10/17/23 11:30) GI upset, confusion Medication List - Last Reconciled 10/17/23 by Armaan Correa MD amlodipine 2.5 mg PO DAILY 90 days amlodipine 5 mg PO DAILY 90 days baclofen 10 mg PO BEDTIME cholecalciferol (vitamin D3) 25 mcg PO DAILY 90 days clonazepam 0.5 mg PO BID PRN 90 days Eliquis (apixaban) 5 mg PO BID 30 days NS escitalopram oxalate 20 mg (2 x 10 mg) PO DAILY 90 days gabapentin 100 mg PO BEDTIME hydrochlorothiazide 12.5 mg PO DAILY 90 days lisinopril 40 mg PO DAILY 90 days metoprolol tartrate 25 mg PO BID 90 days pantoprazole 40 mg PO DAILY rosuvastatin 5 mg PO DAILY 90 days Tobacco use date assessed: 10/17/23 Fall risk assessment: No Falls in past year Last assessed Fall Risk: 10/17/23 Dental Screening Dental Screen Date: 10/17/23 Did you have a dental visit in the last 12 months?: Yes Did you have a dental problem in the last 6 months where you did not have access to dental care?: No Was dental information given to patient?: Patient has dentist HPI 4mon f/u HPI Details Patient comes in today for his follow up visit States that he feels okay He denies any headaches; still has occasional dizziness but states that these occur very rarely and are mostly minimal States that his Metoprolol was changed recently from 25 mg BID to the ER formula tion at 25 mg QD Denies any chest pains, no SOB No nausea/vomiting, no abdominal pain No change in bowel habits noted Needs a few of his Rx refilled Had his follow up labs done last week - to discuss his results [facility] Medical History Spasmodic torticollis Cervical spondylosis Tingling Cervicalgia Vitamin D deficiency COVID-19 vaccine series completed CVA (cerebral vascular accident) Embolic cerebral infarction Facial droop Uncontrolled hypertension BPH (benign prostatic hyperplasia) Dizziness Overweight (BMI 25.0-29.9) Anxiety Primary insomnia Cervical disc disorder with radiculopathy Impaired fasting glucose Pure hypercholesterolemia Benign essential hypertension Erectile dysfunction Degenerative disc disease, thoracic Degenerative disc disease, lumbar Delayed gastric emptying GERD (gastroesophageal reflux disease) Surgical History History of prostate surgery Hx of cataract extraction Hx of cystoscopy (~2019) History of esophagogastroduodenoscopy (EGD) (02/14/15) Hx of colonoscopy (03/04/12) Hx of tonsillectomy Family History Father Heart disease Mother Cancer Brother Diabetes Paternal Grandmother Heart disease Maternal Uncle Colon cancer Social History Household Members: Spouse Housing: House Are you a primary care navigator to a significant other at home: No Do you presently have visiting nurse or other home services: No Alcohol intake: current Alcohol intake frequency: holidays/special occasions only Alcohol type: beer Patient Tobacco Use Status: Former Tobacco user Quit Date: age 46 Tobacco use type: Cigarette e-Cigarette/Vaping Use: Never Used Second Hand Smoke Exposure: Yes service: Yes ([employer]) Current occupational status: retired Cognitive needs: No Hearing needs: No Vision needs: Yes Questionnaire PHQ-9 Over the last 2 weeks, how often have you been bothered by any of the following problems? 1. Little interest or pleasure in doing things: not at all 2. Feeling down, depressed, or hopeless: not at all 3. Trouble falling or staying asleep, or sleeping too much: not at all 4. Feeling tired or having little energy: not at all 5. Poor appetite or overeating: not at all 6. Feeling bad about yourself - or that you are a failure or have let yourself or your family down: not at all 7. Trouble concentrating on things, such as reading the newspaper or watching television: not at all 8. Moving or speaking so slowly that other people could have noticed. Or the opposite - being so fidgety or restless that you have been moving around a lot more than usual: not at all 9. Thoughts that you would be better off or of hurting yourself in some way: not at all Total score: 0 Depression Screening Interpretation: Negative Depression Screening Done: Yes 56207 - PHQ-9 Billing: Yes Source: Developed by Drs. Serjio Fields, Razia Coombs, Jason Tena and colleagues, with an educational tia from [employer] ([employer]). Thrive Questionnaire Date Thrive assessed: 10/17/23 I am a: Patient What is your living situation today?: I have a steady place to live Within the past 12 months, did the food you bought not last and you didn't have the money to get more?: Never true Within the past 12 months, did you worry whether your food would run out before you got money to buy more?: Never true Do you have trouble paying for medicines?: No Do you have trouble getting transportation to medical appointments?: No Do you have trouble paying your heating and electricity bill?: No Do you have trouble taking care of your child, family member or friend?: No Do you have trouble with day-to-day activities such as bathing, preparing meals, shopping, managing finances, etc.?: No Are you currently unemployed and looking for a job?: No Are you interested in more education?: No Please select the resources that you would like help with: None Currently or been in a relationship where the following occur: no concerns reported AUDIT C Alcohol Use Questionnaire (AUDIT-C) 1. How often do you have a drink containing alcohol?: Monthly or less 2. How many drinks containing alcohol do you have on a typical day when you are drinking?: 1 or 2 3. How often do you have six or more drinks on one occasion?: Never Total Score: 1 Score Reviewed/Action Taken: Yes SARAH-7 AMB Questionnaire SARAH-7 Date SARAH - 7 assessed: 10/17/23 Feeling nervous, anxious, or on edge: 0 = Not at all Not being able to stop or control worryin = Not at all Worrying too much about different things: 0 = Not at all Trouble relaxin = Not at all Being so restless that it is hard to sit still: 0 = Not at all Becoming easily annoyed or irritable: 0 = Not at all Feeling afraid as if something awful might happen: 0 = Not at all Total SARAH-7 score (0-4 normal; 5-9 mild; 10-14 moderate; 15-21 severe): 0 Source: Developed by Drs. Serjio Fields, Razia Coombs, Jason Tena and colleagues, with an educational tia from [employer] ([employer]). Review of Systems Const Reports fatigue (at times), Denies fever(s), Denies headache(s) and Reports weakness (of the right arm and right leg, minimal) Eyes Denies blurry vision ENT Denies dysphagia, Reports dizziness (occasionally), Denies otalgia, Denies headache(s), Reports neck pain, Denies odynophagia and Denies sore throat Card Denies chest pain, Denies irregular heart rhythm, Denies palpitations and Denies dyspnea Resp Denies cough, Denies dyspnea and Denies wheezing GI Denies abdominal pain, Denies constipation, Denies dysphagia, Denies heartburn, Denies diarrhea, Denies nausea, Denies odynophagia and Denies vomiting Denies dysuria and Denies urinary frequency Musc Reports neck pain, Reports numbness (occasional, in both arms) and Reports tingling (in both arm, occasionally) Skin/Breast Denies rash Neuro Reports dizziness (occasionally), Denies headache(s), Reports numbness (occasional, in both arms), Reports tingling (in both arm, occasionally) and Reports weakness (of the right arm and right leg, minimal) Psych Reports anxiety Endo Reports fatigue (at times) and Denies palpitations Aller/Immun Denies wheezing Physical exam (Primary Care) Vital Signs: Last Vital Signs Pulse 46 L 10/17/23 10:36 BP 126/72 10/17/23 10:36 Pulse Ox 95 10/17/23 10:36 Oxygen Delivery Method Room Air 10/17/23 10:36 BMI result Body Mass Index 28.5 Tobacco/Smoking Status: Tobacco use Status Tobacco use date assessed 10/17/23 10/17/23 10:41 Patient Tobacco Use Status Former Tobacco user 10/17/23 10:41 Tobacco use type Cigarette 10/17/23 10:41 e-Cigarette/Vaping Use Never Used 10/17/23 10:41 PHQ-9: PHQ-9 Score PHQ-9: Total score 0 10/17/23 11:31 Depression Screening Interpretation: Negative Thrive Assessment: Date of Thrive Assessment Date Thrive assessed 10/17/23 10/17/23 10:41 Currently or been in a relationship where the following occur: no concerns reported Const General: no acute distress and alert HENMT Ears: TM's normal bilaterally and EAC's normal Throat: Yes posterior oropharynx normal and Yes tonsils normal (no TP congestion noted) Neck Neck: Yes no lymphadenopathy and Yes supple Resp Auscultation: clear to auscultation bilaterally, no rales and no wheezes Cardio Rate: regular rate Rhythm: regular rhythm Heart sounds: no murmurs GI Palpation (GI): Soft to palpation and nontender Auscultation: normal bowel sounds Back/Spine/Pelvis Cervical Spine: Cervical spine tenderness Neuro Other: (+) residual mild weakness of the right arm and the right leg Extrem General: Yes no clubbing, cyanosis or edema Results Reviewed Results Reviewed: Laboratory Tests 10/11/23 08:14 WBC 8.2 Hgb 15.2 Hct 43.3 Plt Count 228 Sodium 140 Potassium 3.3 Creatinine 0.89 Estimated GFR > 60 Fasting Glucose 109 H Hemoglobin A1c % 5.7 Calcium 9.0 AST 22 ALT 25 Triglycerides 185 H Cholesterol 102 LDL Cholesterol, Calc 35 HDL Cholesterol 30 L Vitamin B12 402 25-OH Vitamin D Total 45.4 TSH 0.50 Ur Specific [place] 1.015 Urine Protein Negative Urine Glucose (UA) Negative Urine Blood Negative Urine Nitrite Negative Ur Leukocyte Esterase Negative Assessment and Plan Assessment & Plan (1) Cerebrovascular accident, embolic: Comment: Head CT done at the ER at [facility] on 09/22/2021 came out negative MRI of the brain done a week later in September 2022 revealed new embolic infarcts Code(s): I63.9 - Cerebral infarction, unspecified Qualifiers: Precerebral and cerebral artery: unspecified cerebral artery Qualified Code(s): I63.40 - Cerebral infarction due to embolism of unspecified cerebral artery Plan: No recurrence Cardiac monitoring tests done at [facility] a few years ago reportedly all came out normal Echocardiogram and SARA done a few years ago also came back normal Continue Apixaban 5 mg BID Follow up with neurology and cardiology as scheduled (2) Dizziness: Code(s): R42 - Dizziness and giddiness Plan: Sinus CT done at [facility] a couple of years ago reportedly came out normal Has been advised by ENT that his evaluation revealed no evidence of ENT source of his symptoms Was seen by Dr. Bernardo for a second (neurology) opinion with the same conclusion and was started on Baclofen Q HS Cervical spine MRI done in September 2022 revealed (+) multilevel degenerative spondylotic changes without significant narrowing of the spinal canal but there are progressive moderate to severe neural foraminal stenosis over several levels bilaterally He was sent for physical therapy of his cervical spine, which he states did not really help much Follow up with neurology as scheduled (3) Cervical spondylosis: Code(s): M47.812 - Spondylosis without myelopathy or radiculopathy, cervical region Plan: Cervical spine MRI done in September 2022 revealed (+) multilevel degenerative spondylotic changes without significant narrowing of the spinal canal but there are progressive moderate to severe neural foraminal stenosis over several levels bilaterally States that physical therapy has not helped much with his neck pain in the past Continue Baclofen 10 mg Q HS PRN (4) Neuropathy: Code(s): G62.9 - Polyneuropathy, unspecified Plan: NCV & EMG of the upper extremities done in June 2023 revealed (+) electrodiagnostic evidence for bilateral moderate-severe median neuropathy at the wrists, consistent with carpal tunnel syndrome. There is no electrodiagnostic evidence for ulnar neuropathy, brachial plexopathy, or cervical radiculopathy. If symptoms persist or get worse, will consider referral to orthopedics for consideration for carpal tunnel surgery (5) Benign essential hypertension: Code(s): I10 - Essential (primary) hypertension Plan: Reinforced low sodium diet - goal is systolic BP of at least 130 to 140 mm, given his Hx of CVA and orthostatic dizziness BP log brought in by patient previously showed systolic BP readings mostly in the 120 to 130 mm range, with occasional 145 mm and 143 mm readings Continue Lisinopril 40 mg QD, Metoprolol ER 25 mg QD, Amlodipine 7.5 mg QD and HCTZ 12.5 mg QD Patient ix reminded to continue monitoring his blood pressure regularly (6) Pure hypercholesterolemia: Code(s): E78.00 - Pure hypercholesterolemia, unspecified Plan: Results of his labs done last week reviewed and discussed with patient Reinforced low cholesterol diet Continue Rosuvastatin 5 mg QD Will recheck his labs and fasting lipids in 4 months for follow up (7) GERD (gastroesophageal reflux disease): Code(s): K21.9 - Gastro-esophageal reflux disease without esophagitis Qualifiers: Esophagitis presence: without esophagitis Qualified Code(s): K21.9 - Gastro-esophageal reflux disease without esophagitis Plan: Dietary restrictions reinforced Continue Pantoprazole 40 mg QD (8) Impaired fasting glucose: Code(s): R73.01 - Impaired fasting glucose Plan: HgbA1c remained normal at 5.7% on his labs done last week; was at 5.3% a few months ago Reinforced low calorie diet / exercise as tolerated (9) Vitamin D deficiency: Code(s): E55.9 - Vitamin D deficiency, unspecified Plan: Continue Vitamin D3 2000 units QD (10) Anxiety: Code(s): F41.9 - Anxiety disorder, unspecified Plan: Continue Clonazepam 0.5 mg BID PRN and Escitalopram to 20 mg QD (could not tolerate Sertraline in the past) (11) Overweight (BMI 25.0-29.9): Code(s): E66.3 - Overweight Plan: Reinforced diet/exercise as tolerated/lose weight Plan Follow up in 4 months Orders: Orders Complete Blood Count Auto Diff 4 Months I10 - Essential (primary) hypertension Comprehensive [place]. Panel Fast 4 Months E78.00 - Pure hypercholesterolemia, unspecified TSH reflex Free T4 4 Months E78.00 - Pure hypercholesterolemia, unspecified Hemoglobin A1c 4 Months E11.9 - Type 2 diabetes mellitus without complications Vitamin D 25-OH Total 4 Months E55.9 - Vitamin D deficiency, unspecified Lipid Panel 4 Months E78.00 - Pure hypercholesterolemia, unspecified UA CC w/rflx Micro + Cult 4 Months R30.0 - Dysuria Microalbumin, Random (w Creat) 4 Months E11.9 - Type 2 diabetes mellitus without complications Medications: New metoprolol succinate ER 25 mg PO DAILY 30 tabs 3RF 30 days guaifenesin ER (Mucinex) 1,200 mg PO BID PRN 60 tabs 1RF cough and congestion Refilled rosuvastatin 5 mg PO DAILY 90 tabs 1RF 90 days clonazepam 0.5 mg PO BID PRN 180 tabs 0RF anxiety 90 days Discontinued metoprolol tartrate Discontinued Reason: Doctor's Order 25 mg PO BID 90 days 180 tabs 1RF Coding Level of Care Code Est Pt Level 4 (57438) Diagnoses Cerebrovascular accident (CVA) due to embolism of cerebral artery I63.40 Precerebral and cerebral artery: unspecified cerebral artery Dizziness R42 Cervical spondylosis M47.812 Neuropathy G62.9 Benign essential hypertension I10 Pure hypercholesterolemia E78.00 Gastroesophageal reflux disease without esophagitis K21.9 Esophagitis presence: without esophagitis Impaired fasting glucose R73.01 Vitamin D deficiency E55.9 Anxiety F41.9 Overweight (BMI 25.0-29.9) E66.3
== END 2023-10-17 11:45 | disposition home or self-care (01) ==
PROVIDERS: PCP Internal Medicine; Visit Provider Internal Medicine
DX: I63.40 Cerebral infarction due to embolism of unspecified cerebral artery (principal); R42 Dizziness and giddiness; M47.812 Spondylosis without myelopathy or radiculopathy, cervical region; G62.9 Polyneuropathy, unspecified; I10 Essential (primary) hypertension; E78.00 Pure hypercholesterolemia, unspecified; K21.9 Gastro-esophageal reflux disease without esophagitis; R73.01 Impaired fasting glucose; E55.9 Vitamin D deficiency, unspecified; F41.9 Anxiety disorder, unspecified; E66.3 Overweight
CPT/HCPCS: 99214

== ENCOUNTER 2023-12-16 12:46 | Outpatient (AMB) | payer MEDICARE, SELFPAY ==
--- NOTE | 2023-12-16 12:48 | A.OFFVIS_ITS ---
Intake Vital Signs 12/16/23 12:49 Respiration 16 Pulse 61 Pulse Source Pulse Oximeter Pulse Oximetry (%) 97 Oxygen Delivery Method Room Air Intake Visit Reasons: Botox- CONF Intake Note: Pt presents to the office for Botox injections. 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 Allergies Iodinated Contrast Media [IV Dye, Iodine Containing] Allergy (Mild, Verified 12/16/23 12:49) Hives tizanidine Allergy (Mild, Verified 12/16/23 12:49) painful rash on ankles, dizziness sertraline Adverse Reaction (Intermediate, Verified 12/16/23 12:49) GI upset, confusion Medication List - Last Reconciled 12/16/23 by Aida Bernardo MD amlodipine 2.5 mg PO DAILY 90 days amlodipine 5 mg PO DAILY 90 days baclofen 10 mg PO BEDTIME cholecalciferol (vitamin D3) 25 mcg PO DAILY 90 days clonazepam 0.5 mg PO BID PRN 90 days Eliquis (apixaban) 5 mg PO BID 30 days NS escitalopram oxalate 20 mg (2 x 10 mg) PO DAILY 90 days gabapentin 100 mg PO BEDTIME guaifenesin ER (Mucinex) 1,200 mg PO BID PRN hydrochlorothiazide 12.5 mg PO DAILY 90 days lisinopril 40 mg PO DAILY 90 days pantoprazole 40 mg PO DAILY rosuvastatin 5 mg PO DAILY 90 days HPI HPI Comments History of Present Illness Details 78y/o male comes for treatment of his cervical dystonia ? Side effects including spread of toxin effect, dysphagia, breathing difficulties , bronchitis etc was discussed in detail and the patient agreed to the procedure.An informed consent was obtained ??? Botulinum toxin type A 100units X 1 -was diluted with 2 cc of normal saline at a concentration of 25 units in 0.5cc saline. Lot number [id number] expiration 01/2026 ??? Muscles injected ??? damaso Splenius - 25 units each ??? damaso levator 25 units each ? Total used 100 units PENDING SALE TO [facility] Medical History Spasmodic torticollis Cervical spondylosis Tingling Cervicalgia Vitamin D deficiency COVID-19 vaccine series completed CVA (cerebral vascular accident) Embolic cerebral infarction Facial droop Uncontrolled hypertension BPH (benign prostatic hyperplasia) Dizziness Overweight (BMI 25.0-29.9) Anxiety Primary insomnia Cervical disc disorder with radiculopathy Impaired fasting glucose Pure hypercholesterolemia Benign essential hypertension Erectile dysfunction Degenerative disc disease, thoracic Degenerative disc disease, lumbar Delayed gastric emptying GERD (gastroesophageal reflux disease) Surgical History History of prostate surgery Hx of cataract extraction Hx of cystoscopy (~2019) History of esophagogastroduodenoscopy (EGD) (02/14/15) Hx of colonoscopy (03/04/12) Hx of tonsillectomy Family History Father Heart disease Mother Cancer Brother Diabetes Paternal Grandmother Heart disease Maternal Uncle Colon cancer Social History Household Members: Spouse Housing: House Are you a primary transitions rn care coordinator to a significant other at home: No Do you presently have visiting nurse or other home services: No Alcohol intake: current Alcohol intake frequency: holidays/special occasions only Alcohol type: beer Patient Tobacco Use Status: Former Tobacco user Quit Date: age 46 Tobacco use type: Cigarette e-Cigarette/Vaping Use: Never Used Second Hand Smoke Exposure: Yes service: Yes ([employer]) Current occupational status: retired Cognitive needs: No Hearing needs: No Vision needs: Yes Physical Exam Vital Signs: Last Vital Signs Pulse 61 12/16/23 12:49 Resp 16 12/16/23 12:49 Pulse Ox 97 12/16/23 12:49 Oxygen Delivery Method Room Air 12/16/23 12:49 Const General: cooperative, healthy appearing and anxious Nutritional Appearance: average body habitus Orientation/consciousness: patient oriented x3 Limitations: no limitations HEENT Head: Yes normal to inspection, Yes No palpable skull fracture present and Yes normocephalic Eyes Pupils: Equal, round and reactive pupils present Neck Other: antecollis restricted range of motion tightness in damaso cervical muscles, tenderness in right splenius and levator diffiuculty tilting to left Neuro General: patient oriented x3, tone normal and moves all extremities Cranial nerves: Yes Facial sensation intact/muscles of mastication intact, Yes Equal, round and reactive pupils present, Yes Bilaterally intact EOM present, Yes Nystagmus not present, Yes Normal facial strength present, Yes Midline tongue present and Yes Symmetric palate elevation present Cognition (Neuro): normal cognition Gait exam (Neuro): Other gait observations present (mild slowness ) Motor exam (neuro): 5/5 motor strength present throughout Coordination: [id number] test normal Psych Affect: Anxious affect present Office Procedures Botulinum toxin Injection 93117 - Dystonia Procedure code (CPT) selection complete Office Meds onabotulinumtoxinA 100 unit solution for injection Performing Provider: Aida Bernardo MD Performing Location: [facility] Administered by: Aida Bernardo MD on 12/16/23 13:22 Dose Route Admin Location Dispensed Lot Number Expiration Date [facility] Speech Lang Path Therapist 100 unit IM 100 units [id number] 01/05/26 1014-8821-64 [employer]OT[employer] Comments: see HPI Assessment & Plan Assessment & Plan (1) Spasmodic torticollis: Code(s): G24.3 - Spasmodic torticollis Plan Patient tolerated the procedure well He will call with any side effects Orders: Orders AMB Botulinum toxin Injection Today G24.3 - Spasmodic torticollis Coding Level of Care Code Est Pt Level 1 (53924) Diagnoses Spasmodic torticollis G24.3 CPT Codes Botox Injection - Botox 4: 72170 - Dystonia ([id number])
[2023-12-16 12:49] VITALS: PULSE 61; RESP 16; O2SAT 97
== END 2023-12-16 13:55 | disposition home or self-care (01) ==
PROVIDERS: PCP Internal Medicine; Visit Provider Psychiatry & Neurology Neurology
DX: G24.3 Spasmodic torticollis (principal)
CPT/HCPCS: 64616

== ENCOUNTER → 2023-12-16 12:46 | Outpatient (BNVA) | payer MEDICARE, SELFPAY | PROVIDERS: PCP Internal Medicine; Visit Provider Psychiatry & Neurology Neurology | DX: G24.3 Spasmodic torticollis (principal) | CPT/HCPCS: 64616; 99211; J0585 ==

== ENCOUNTER 2023-12-24 14:56 | Outpatient (AMB) | payer MEDICARE, SELFPAY ==
--- NOTE | 2023-12-24 15:17 | MHC.OFFVIS ---
Intake Visit Reasons: 1Y PVR Intake Note: Patient is Present for Follow Up Urology Medication: none Antibiotic Allergies: None Blood Thinners: Eliquis PVR:0 Allergies Iodinated Contrast Media [IV Dye, Iodine Containing] Allergy (Mild, Verified 12/24/23 15:18) Hives tizanidine Allergy (Mild, Verified 12/24/23 15:18) painful rash on ankles, dizziness sertraline Adverse Reaction (Intermediate, Verified 12/24/23 15:18) GI upset, confusion HPI Comments Details: Fabio is a pleasant male. He is a patient of Dr. Correa. He is in for the following urologic conditions - BPH - erectile dysfunction 12m f/u Stable urinary performance Nocturia x1 PVR = 0cc Lower urinary tract symptoms Underwent [employer] prostatectomy back in 2019 Healing took an extended period of time Is now happy with resolved and has good urination with good emptying PSA 09/26 2.5, 09/27 0.8 Off other medications Review in a year with PVR Erectile dysfunction Response to Viagra on demand No longer primary issue [facility] Medical History Spasmodic torticollis Cervical spondylosis Tingling Cervicalgia Vitamin D deficiency COVID-19 vaccine series completed CVA (cerebral vascular accident) Embolic cerebral infarction Facial droop Uncontrolled hypertension BPH (benign prostatic hyperplasia) Dizziness Overweight (BMI 25.0-29.9) Anxiety Primary insomnia Cervical disc disorder with radiculopathy Impaired fasting glucose Pure hypercholesterolemia Benign essential hypertension Erectile dysfunction Degenerative disc disease, thoracic Degenerative disc disease, lumbar Delayed gastric emptying GERD (gastroesophageal reflux disease) Surgical History History of prostate surgery Hx of cataract extraction Hx of cystoscopy (~2019) History of esophagogastroduodenoscopy (EGD) (02/14/15) Hx of colonoscopy (03/04/12) Hx of tonsillectomy Family History Father Heart disease Mother Cancer Brother Diabetes Paternal Grandmother Heart disease Maternal Uncle Colon cancer Social History Household Members: Spouse Housing: House Are you a primary medicare nurse to a significant other at home: No Do you presently have visiting nurse or other home services: No Alcohol intake: current Alcohol intake frequency: holidays/special occasions only Alcohol type: beer Patient Tobacco Use Status: Former Tobacco user Quit Date: age 46 Tobacco use type: Cigarette e-Cigarette/Vaping Use: Never Used Second Hand Smoke Exposure: Yes service: Yes ([employer]) Current occupational status: retired Cognitive needs: No Hearing needs: No Vision needs: Yes Office Procedures Post Void Residual Post Residual Void Post Void Residual (PVR): [id number] Void Residual by ultrasound Assessment & Plan Assessment & Plan (1) BPH with obstruction/lower urinary tract symptoms: Code(s): N40.1 - Benign prostatic hyperplasia with lower urinary tract symptoms; N13.8 - Other obstructive and reflux uropathy Category: Medical (2) Erectile dysfunction: Code(s): N52.9 - Male erectile dysfunction, unspecified Category: Medical Plan Twelve month follow-up PSA Orders: Orders AMB Post Void Residual by ultrasound 12/24/23 N40.1 - Benign prostatic hyperplasia with lower urinary tract symptoms, N13.8 - Other obstructive and reflux uropathy Prostate Specific Antigen 364 Days N40.1 - Benign prostatic hyperplasia with lower urinary tract symptoms, N13.8 - Other obstructive and reflux uropathy Patient Instructions: Imaging studies, laboratory and physical exam results were discussed and reviewed in detail. No major barriers to patient understanding were identified. An opportunity to ask questions regarding the treatment plan was provided. All questions were answered. The patient expressed understanding and agreement with the above treatment plan. The patient is aware they should contact our office by phone for worsening of their current condition or the appearance of new urologic symptoms. Compliance is encouraged with any medications and followup testing that is ordered. It is a privilege to participate in the urologic care of your patient. If you have any questions or concerns regarding treatment for the above conditions, or other urologic issues, please do not hesitate to contact me. The office telephone contact is [phone]. This note is constructed using voice recognition software. While every effort has been made to ensure accuracy java sybase developer errors may have been included. Yours sincerely, Dr Tima Bennett MD, [facility] - Urology Providers of Expert, Compassionate Care for the Genitourinary System
== END 2023-12-24 15:53 | disposition home or self-care (01) ==
PROVIDERS: PCP Internal Medicine; Visit Provider Urology
DX: N40.1 Benign prostatic hyperplasia with lower urinary tract symptoms (principal); N13.8 Other obstructive and reflux uropathy; N52.9 Male erectile dysfunction, unspecified
CPT/HCPCS: 99213

== ENCOUNTER → 2023-12-24 14:56 | Outpatient (BNVA) | payer MEDICARE, SELFPAY | PROVIDERS: Visit Provider Urology | DX: N40.1 Benign prostatic hyperplasia with lower urinary tract symptoms (principal); N13.8 Other obstructive and reflux uropathy; N52.9 Male erectile dysfunction, unspecified; Z79.01 Long term (current) use of anticoagulants | CPT/HCPCS: 51798; 99212 ==

== ENCOUNTER 2024-02-11 08:03 | Outpatient (REF) | payer MEDICARE, SELFPAY ==
[2024-02-11 10:19] LABS: MANUAL DIFF FLAG NO
[2024-02-11 10:33] LABS: Basophils Percent Auto 0.7 % (0-2); Eosinophils Absolute Auto 0.2 X10*3/uL (0.0-0.4); Hematocrit 44.6 % (42.0-52.0); Hemoglobin 15.6 g/dl (14.0-18.0); Imm Gran Abs Auto 0.01 X10*3/uL (0.00-0.03); Imm Gran Pct Auto 0.2 % (0.0-0.4); Lymphocytes Absolute Auto 1.5 X10*3/uL (1.2-4.9); Lymphocytes Percent Auto 25.1 % (20-40); Mean Corpuscular Hemoglobin 31.1 pg (27.0-33.0); Mean Corpuscular Volume 88.8 fL (80.0-98.0); Monocytes Absolute Auto 0.4 X10*3/uL (0.1-1.2); Monocytes Percent Auto 6.8 % (2-11); Neutrophils Absolute Auto 3.8 x10*3/uL (2.0-8.3); Neutrophils Percent Auto 63.2 % (45-73); Platelet Count 189 X10*3/uL (160-400); Red Blood Count 5.02 X10*6/uL (4.60-5.80); Red Cell Distribution Width 13.1 % (11.0-16.0); White Blood Count 6.1 X10*3/uL (4.8-10.8)
[2024-02-11 10:36] LABS: Estimated Average Glucose 120 mg/dL; Hemoglobin A1c % 5.8 % (<6.0)
[2024-02-11 10:42] LABS: Appearance Urine Clear; Color Urine Yellow; Glucose Urine UA Negative (Negative); Leukocyte Esterase Urine Negative (Negative); Nitrite Urine Negative (Negative); PH 6.5 (5.0-9.0); Urine Blood Negative (Negative); Urine Ketones Negative (Negative); Urine Protein Negative (Neg-Trace)
[2024-02-11 10:43] LABS: Alanine Aminotransferase 31 U/L (0-40); Albumin Level 4.2 g/dL (3.5-5.0); Alkaline Phosphatase 51 U/L (39-117); Anion Gap 14 (12-20); Aspartate Amino Transferase 26 U/L (5-37); Bilirubin Total 0.7 mg/dL (0.0-1.0); Blood Urea Nitrogen 17 mg/dL (9-16); Calcium 9.8 mg/dL (8.4-10.2); Carbon Dioxide 28 mmol/L (22-29); Chloride 104 mmol/L (96-108); Cholesterol 107 mg/dL (<200); Estimated Glomerular Filt Rate > 60; Glucose Fasting 118 mg/dL (60-99); HDL Cholesterol 42 mg/dL (>40); LDL Cholesterol Calculated 49 mg/dL (<100); Potassium 3.6 mmol/L (3.3-5.1); Sodium 142 mmol/L (135-145); Total Protein 7.4 g/dL (6.5-8.0); Triglycerides 81 mg/dL (<150)
[2024-02-11 10:52] LABS: Creatinine Urine 217.52 mg/dL; Microalbum/Creatinine Ratio Ur 3.2 ug/mg cr (<30)
[2024-02-11 10:59] LABS: TSH reflex Free T4 1.02 uIU/mL (0.32-4.0); Vitamin D 25-OH Total 51.3 ng/mL (>30)
== END 2024-02-11 08:04 | disposition home or self-care (01) ==
LOC: HO.HMGCLDS 08:03
PROVIDERS: PCP Internal Medicine; Visit Provider Internal Medicine
DX: E78.00 Pure hypercholesterolemia, unspecified (principal); E55.9 Vitamin D deficiency, unspecified; R30.0 Dysuria; E11.9 Type 2 diabetes mellitus without complications; I10 Essential (primary) hypertension
CPT/HCPCS: 36415; 80053; 80061; 81003; 82043; 82306; 82570; 83036; 84443; 85025

== ENCOUNTER 2024-02-17 10:43 | Outpatient (AMB) | payer MEDICARE, SELFPAY ==
[2024-02-17 10:45] VITALS: BP 142/74; PULSE 53; O2SAT 97; BMI 28.2
--- NOTE | 2024-02-17 10:45 | A.OFFPC_ITS ---
Vital Signs 02/17/24 10:45 Height 5 ft 7 in Weight 180 lb BMI 28.2 BP 142/74 H Blood Pressure Location Lt brachial Position Sitting Pulse 53 Pulse Source Pulse Oximeter Pulse Oximetry (%) 97 Oxygen Delivery Method Room Air Intake Visit Reasons: CVA, hyperlipidemia, HTN, bradycardia, IFG Feather Maker Required: No Railroad Hand: Not Required per policy Accompanied by: Self / Same As Patient Allergies Iodinated Contrast Media [IV Dye, Iodine Containing] Allergy (Mild, Verified 02/17/24 11:11) Hives tizanidine Allergy (Mild, Verified 02/17/24 11:11) painful rash on ankles, dizziness sertraline Adverse Reaction (Intermediate, Verified 02/17/24 11:11) GI upset, confusion Medication List - Last Reconciled 02/17/24 by Armaan Correa MD amlodipine 5 mg PO DAILY 90 days amlodipine 2.5 mg PO DAILY 90 days cholecalciferol (vitamin D3) 25 mcg PO DAILY 90 days clonazepam 0.5 mg PO BID PRN 90 days Eliquis (apixaban) 5 mg PO BID 30 days NS guaifenesin ER (Mucinex) 1,200 mg PO BID PRN hydrochlorothiazide 12.5 mg PO DAILY 90 days lisinopril 40 mg PO DAILY 90 days pantoprazole 40 mg PO DAILY rosuvastatin 5 mg PO DAILY 90 days Tobacco use date assessed: 10/17/23 Fall risk assessment: No Falls in past year Last assessed Fall Risk: 02/17/24 Dental Screening Dental Screen Date: 10/17/23 HPI CVA, hyperlipidemia, HTN, bradycardia, IFG HPI Details Patient comes in today for his follow up visit States that he feels okay He denies any headaches but still has on and off dizziness but states that these occur very rarely and are mostly minimal States that his Metoprolol was changed recently from 25 mg BID to the ER formulation at 25 mg QD he brought in home BP readings today at 153/92, 165/85 and 171/93 from a few days ago He denies any chest pains, no increased SOB No nausea/vomiting, no abdominal pain No change in bowel habits noted Patient also admits that he self-discontinued a few of his meds, including his Baclofen, Gabapentin and Escitalopram, a couple of months ago as he did not feel that they were helping - states that he feels no different since he stopped taking them and is currently just taking some OTC marijuana gummies to help him sleep at night Had his follow up labs done last week - to discuss his results [facility] Medical History Spasmodic torticollis Cervical spondylosis Tingling Cervicalgia Vitamin D deficiency COVID-19 vaccine series completed CVA (cerebral vascular accident) Embolic cerebral infarction Facial droop Uncontrolled hypertension BPH (benign prostatic hyperplasia) Dizziness Overweight (BMI 25.0-29.9) Anxiety Primary insomnia Cervical disc disorder with radiculopathy Impaired fasting glucose Pure hypercholesterolemia Benign essential hypertension Erectile dysfunction Degenerative disc disease, thoracic Degenerative disc disease, lumbar Delayed gastric emptying GERD (gastroesophageal reflux disease) Surgical History History of prostate surgery Hx of cataract extraction Hx of cystoscopy (~2019) History of esophagogastroduodenoscopy (EGD) (02/14/15) Hx of colonoscopy (03/04/12) Hx of tonsillectomy Family History Father Heart disease Mother Cancer Brother Diabetes Paternal Grandmother Heart disease Maternal Uncle Colon cancer Social History Household Members: Spouse Housing: House Are you a primary caretaker to a significant other at home: No Do you presently have visiting nurse or other home services: No Alcohol intake: current Alcohol intake frequency: holidays/special occasions only Alcohol type: beer Patient Tobacco Use Status: Former Tobacco user Quit Date: age 46 Tobacco use type: Cigarette e-Cigarette/Vaping Use: Never Used Second Hand Smoke Exposure: Yes service: Yes ([employer]) Current occupational status: retired Cognitive needs: No Hearing needs: No Vision needs: Yes (glasses) Questionnaire Thrive Questionnaire Date Thrive assessed: 10/17/23 SARAH-7 AMB Questionnaire SARAH-7 Date SARAH - 7 assessed: 10/17/23 Source: Developed by Drs. Serjio Fields, Razia Coombs, Jason Tena and colleagues, with an educational tia from [employer]. Review of Systems Const Reports fatigue (at times), Denies fever(s), Denies headache(s) and Reports weakness (of the right arm and right leg, minimal) Eyes Denies blurry vision ENT Denies dysphagia, Reports dizziness (occasionally), Denies otalgia, Denies headache(s), Reports neck pain, Denies odynophagia and Denies sore throat Card Denies chest pain, Denies irregular heart rhythm, Denies palpitations and Denies dyspnea Resp Denies cough, Denies dyspnea and Denies wheezing GI Denies abdominal pain, Denies constipation, Denies dysphagia, Denies heartburn, Denies diarrhea, Denies nausea, Denies odynophagia and Denies vomiting Denies dysuria and Denies urinary frequency Musc Reports neck pain, Reports numbness (occasional, in both arms) and Reports tingling (in both arm, occasionally) Skin/Breast Denies rash Neuro Reports dizziness (occasionally), Denies headache(s), Reports numbness (occasional, in both arms), Reports tingling (in both arm, occasionally) and Reports weakness (of the right arm and right leg, minimal) Psych Reports anxiety Endo Reports fatigue (at times) and Denies palpitations Aller/Immun Denies wheezing Physical exam (Primary Care) Vital Signs: Last Vital Signs Pulse 53 02/17/24 10:45 BP 142/74 H 02/17/24 10:45 Pulse Ox 97 02/17/24 10:45 Oxygen Delivery Method Room Air 02/17/24 10:45 BMI result Body Mass Index 28.2 Tobacco/Smoking Status: Tobacco use Status Tobacco use date assessed 10/17/23 02/17/24 10:46 Patient Tobacco Use Status Former Tobacco user 02/17/24 10:46 Tobacco use type Cigarette 02/17/24 10:46 e-Cigarette/Vaping Use Never Used 02/17/24 10:46 Thrive Assessment: Date of Thrive Assessment Date Thrive assessed 10/17/23 02/17/24 10:46 Const General: no acute distress and alert HENMT Ears: TM's normal bilaterally and EAC's normal Throat: Yes posterior oropharynx normal and Yes tonsils normal (no TP congestion noted) Neck Neck: Yes no lymphadenopathy and Yes supple Thyroid: Thyroid normal Resp Auscultation: clear to auscultation bilaterally, no rales and no wheezes Cardio Rate: regular rate Rhythm: regular rhythm Heart sounds: no murmurs GI Palpation (GI): Soft to palpation and nontender Auscultation: normal bowel sounds Back/Spine/Pelvis Cervical Spine: Cervical spine tenderness Neuro Other: (+) residual mild weakness of the right arm and the right leg Extrem General: Yes no clubbing, cyanosis or edema Results Reviewed Results Reviewed: Laboratory Tests 02/11/24 08:08 WBC 6.1 Hgb 15.6 Hct 44.6 Plt Count 189 Sodium 142 Potassium 3.6 Creatinine 1.04 Estimated GFR > 60 Fasting Glucose 118 H Hemoglobin A1c % 5.8 Calcium 9.8 D AST 26 ALT 31 Triglycerides 81 Cholesterol 107 LDL Cholesterol, Calc 49 HDL Cholesterol 42 25-OH Vitamin D Total 51.3 TSH 1.02 Ur Specific [place] 1.020 Urine Protein Negative Urine Glucose (UA) Negative Urine Blood Negative Urine Nitrite Negative Ur Leukocyte Esterase Negative Microalb/Creat Ratio 3.2 Assessment and Plan Assessment & Plan (1) Cerebrovascular accident, embolic: Comment: Head CT done at the ER at [facility] on 09/22/2021 came out negative MRI of the brain done a week later in September 2022 revealed new embolic infarcts Code(s): I63.9 - Cerebral infarction, unspecified Qualifiers: Precerebral and cerebral artery: unspecified cerebral artery Qualified Code(s): I63.40 - Cerebral infarction due to embolism of unspecified cerebral artery Plan: No recurrence Cardiac monitoring tests done at [facility] a few years ago reportedly all came out normal Echocardiogram and SARA done a few years ago also came back normal Continue Apixaban 5 mg BID Follow up with neurology and cardiology as scheduled (2) Dizziness: Code(s): R42 - Dizziness and giddiness Plan: Sinus CT done at [facility] a couple of years ago reportedly came out normal Has been advised by ENT that his evaluation revealed no evidence of any ENT source of his symptoms Was seen by Dr. Bernardo for a second (neurology) opinion with the same conclusion and was started on Baclofen Q HS, which patient eventually stopped taking on his own as he did not feel that the Rx was helping Cervical spine MRI done in September 2022 revealed (+) multilevel degenerative spondylotic changes without significant narrowing of the spinal canal but there are progressive moderate to severe neural foraminal stenosis over several levels bilaterally He was sent for physical therapy of his cervical spine, which he states did not really help much Follow up with neurology as scheduled (3) Cervical spondylosis: Code(s): M47.812 - Spondylosis without myelopathy or radiculopathy, cervical region Plan: Cervical spine MRI done in September 2022 revealed (+) multilevel degenerative spondylotic changes without significant narrowing of the spinal canal but there are progressive moderate to severe neural foraminal stenosis over several levels bilaterally States that physical therapy has not helped much with his neck pain in the past He has been prescribed Baclofen 10 mg Q HS PRN but states that it did not help - he has stopped taking this a while back (4) Neuropathy: Code(s): G62.9 - Polyneuropathy, unspecified Plan: NCV & EMG of the upper extremities done in June 2023 revealed (+) electrodiagnostic evidence for bilateral moderate-severe median neuropathy at the wrists, consistent with carpal tunnel syndrome. There is no electrodiagnostic evidence for ulnar neuropathy, brachial plexopathy, or cervical radiculopathy. If symptoms persist or get worse, will consider referral to orthopedics for consideration for carpal tunnel surgery (5) Benign essential hypertension: Code(s): I10 - Essential (primary) hypertension Plan: Reinforced low sodium diet - goal is systolic BP of at least 130 to 140 mm, given his Hx of CVA and orthostatic dizziness BP log brought in by patient previously showed systolic BP readings mostly in the 120 to 130 mm range, with occasional 145 mm and 143 mm readings Continue Lisinopril 40 mg QD, Metoprolol ER 25 mg QD, Amlodipine 7.5 mg QD and HCTZ 12.5 mg QD Patient is reminded to continue monitoring his blood pressure regularly (6) Pure hypercholesterolemia: Code(s): E78.00 - Pure hypercholesterolemia, unspecified Plan: Results of his labs done last week reviewed and discussed with patient Reinforced low cholesterol diet Continue Rosuvastatin 5 mg QD Will recheck his labs and fasting lipids in 4 months for follow up (7) GERD (gastroesophageal reflux disease): Code(s): K21.9 - Gastro-esophageal reflux disease without esophagitis Qualifiers: Esophagitis presence: without esophagitis Qualified Code(s): K21.9 - Gastro-esophageal reflux disease without esophagitis Plan: Dietary restrictions reinforced Continue Pantoprazole 40 mg QD (8) Impaired fasting glucose: Code(s): R73.01 - Impaired fasting glucose Plan: His HgbA1c has remained normal at 5.8% on his labs done last week but cautioned that he is now at the cut-off between normal and borderline blood sugar; was at 5.7% a few months ago Reinforced low calorie diet / exercise as tolerated (9) Vitamin D deficiency: Code(s): E55.9 - Vitamin D deficiency, unspecified Plan: Continue Vitamin D3 2000 units QD (10) Anxiety: Code(s): F41.9 - Anxiety disorder, unspecified Plan: Continue Clonazepam 0.5 mg BID PRN He was also on Escitalopram to 20 mg QD (could not tolerate Sertraline in the past) but he self-discontinued this a couple of months ago as he did not feel that the Rx helped at all (11) Overweight (BMI 25.0-29.9): Code(s): E66.3 - Overweight Plan: Reinforced diet/exercise as tolerated/lose weight Plan Follow up in 4 months Orders: Orders Comprehensive [place]. Panel Fast 4 Months E78.00 - Pure hypercholesterolemia, unspecified Lipid Panel 4 Months E78.00 - Pure hypercholesterolemia, unspecified UA CC w/rflx Micro + Cult 4 Months R30.0 - Dysuria Complete Blood Count Auto Diff 4 Months D64.9 - Anemia, unspecified Hemoglobin A1c 4 Months R73.01 - Impaired fasting glucose TSH reflex Free T4 4 Months E78.00 - Pure hypercholesterolemia, unspecified Vitamin B12 and Folate 4 Months E53.8 - Deficiency of other specified B group vitamins Vitamin D 25-OH Total 4 Months E55.9 - Vitamin D deficiency, unspecified Coding Level of Care Code Est Pt Level 4 (76553) Diagnoses Cerebrovascular accident (CVA) due to embolism of cerebral artery I63.40 Precerebral and cerebral artery: unspecified cerebral artery Dizziness R42 Cervical spondylosis M47.812 Neuropathy G62.9 Benign essential hypertension I10 Pure hypercholesterolemia E78.00 Gastroesophageal reflux disease without esophagitis K21.9 Esophagitis presence: without esophagitis Impaired fasting glucose R73.01 Vitamin D deficiency E55.9 Anxiety F41.9 Overweight (BMI 25.0-29.9) E66.3
== END 2024-02-17 11:45 | disposition home or self-care (01) ==
PROVIDERS: PCP Internal Medicine; Visit Provider Internal Medicine
DX: I63.40 Cerebral infarction due to embolism of unspecified cerebral artery (principal); R42 Dizziness and giddiness; M47.812 Spondylosis without myelopathy or radiculopathy, cervical region; G62.9 Polyneuropathy, unspecified; I10 Essential (primary) hypertension; E78.00 Pure hypercholesterolemia, unspecified; K21.9 Gastro-esophageal reflux disease without esophagitis; R73.01 Impaired fasting glucose; E55.9 Vitamin D deficiency, unspecified; F41.9 Anxiety disorder, unspecified; E66.3 Overweight
CPT/HCPCS: 99214

== ENCOUNTER 2024-04-02 12:47 | Outpatient (AMB) | payer MEDICARE, SELFPAY ==
--- NOTE | 2024-04-02 12:50 | A.OFFVIS_ITS ---
Vital Signs 04/02/24 12:53 Height 5 ft 7 in Weight 178 lb 2.136 oz BMI 27.9 BP 134/59 L Blood Pressure Location Lt brachial Position Sitting Pulse 54 Intake Visit Reasons: 1 yr follow up Intake Note: Fabio presents to in office 1 year follow up of GERD. CC: Patient reports not having regular BMs. Denies having any other GI concerns today. Regional Marketing Director Required: No Accompanied by: Self / Same As Patient Allergies Iodinated Contrast Media [IV Dye, Iodine Containing] Allergy (Mild, Verified 04/02/24 12:57) Hives tizanidine Allergy (Mild, Verified 04/02/24 12:57) painful rash on ankles, dizziness sertraline Adverse Reaction (Intermediate, Verified 04/02/24 12:57) GI upset, confusion HPI HPI 1 yr follow up: Details: Assessment & Plan (1) GERD (gastroesophageal reflux disease): Code(s): K21.9 - Gastro-esophageal reflux disease without esophagitis Qualifiers: Esophagitis presence: without esophagitis Qualified Code(s): K21.9 - Gastro-esophageal reflux disease without esophagitis Plan: He continues to do very well as pantoprazole once a day with good control of his GERD. I again present to him that he may wish to consider a Cologuard study colon cancer screening and he is agreeable at this time. He is a very low risk as he has never had any polyps and he has no known family history of colorectal cancer. I will contact him if the Cologuard is abnormal but otherwise I will see him again in 1 year (2) Delayed gastric emptying: Comment: Told by neurology that he had to stop his Reglan Code(s): K30 - Functional dyspepsia Medications: Changed From pantoprazole 40 mg PO DAILY@0630 30 tabs 12RF K21.9 - Gastro-esophageal reflux disease without esophagitis To pantoprazole 40 mg PO DAILY@0630 90 days 90 tabs 2RF K21.9 - Gastro- esophageal reflux disease without esophagitis TODAY'S VISIT He never received the Cologuard. We will try again. Pantoprazole working well. Having more CIC, some help with fiber but no enough. Add senna ROV 8 weeks. [facility] Medical History Spasmodic torticollis Cervical spondylosis Tingling Cervicalgia Vitamin D deficiency COVID-19 vaccine series completed CVA (cerebral vascular accident) Embolic cerebral infarction Facial droop Uncontrolled hypertension BPH (benign prostatic hyperplasia) Dizziness Overweight (BMI 25.0-29.9) Anxiety Primary insomnia Cervical disc disorder with radiculopathy Impaired fasting glucose Pure hypercholesterolemia Benign essential hypertension Erectile dysfunction Degenerative disc disease, thoracic Degenerative disc disease, lumbar Delayed gastric emptying GERD (gastroesophageal reflux disease) Surgical History History of prostate surgery Hx of cataract extraction Hx of cystoscopy (~2019) History of esophagogastroduodenoscopy (EGD) (02/14/15) Hx of colonoscopy (03/04/12) Hx of tonsillectomy Family History Father Heart disease Mother Cancer Brother Diabetes Paternal Grandmother Heart disease Maternal Uncle Colon cancer Social History Household Members: Spouse Housing: House Are you a primary childcare center administrator to a significant other at home: No Do you presently have visiting nurse or other home services: No Alcohol intake: current Alcohol intake frequency: holidays/special occasions only Alcohol type: beer Patient Tobacco Use Status: Former Tobacco user Tobacco use type: Cigarette e-Cigarette/Vaping Use: Never Used Second Hand Smoke Exposure: Yes service: Yes ([employer]) Current occupational status: retired Cognitive needs: No Hearing needs: No Vision needs: Yes (glasses) Review of Systems Const Denies fatigue, Denies fever(s), Denies night sweats, Denies poor appetite and Denies weight loss Eyes Details: glasses Reports requires corrective lenses ENT Reports Normal hearing present, Denies dental pain, Denies dysphagia, Denies hearing loss, Denies mouth pain, Denies odynophagia, Denies throat swelling, Denies tongue swelling and Reports other (Dentition adequate) Card Reports no additional complaints Resp Reports no additional complaints GI Details: Denies abdominal pain, Denies melena, Denies bloating, Denies hematochezia, Reports constipation, Denies GI cramping, Denies dysphagia, Denies excessive flatus, Denies early satiety, Reports heartburn, Denies diarrhea, Denies nausea, Denies odynophagia, Denies vomiting and Denies hematemesis Skin/Breast Denies pruritus, Denies lesions, Denies rash and Denies jaundice Neuro Reports Normal hearing present and Denies Abnormal speech present Endo Denies fatigue Aller/Immun Denies throat swelling and Denies tongue swelling Physical Exam Vital Signs: Last Vital Signs Pulse 54 04/02/24 12:53 BP 134/59 L 04/02/24 12:53 BMI result Body Mass Index 27.9 Const General: cooperative, no acute distress, well developed and well groomed Nutritional Appearance: well nourished and overweight Orientation/consciousness: oriented to person, oriented to place and oriented to time Limitations: No language barrier HEENT Head: Yes normocephalic and Yes atraumatic Eyes General: appearance normal, both eyes and all related structures Pupils: Equal, round and reactive pupils present Neck Neck: Yes normal visual inspection and Yes no lymphadenopathy Thyroid: Thyroid normal Resp Effort & Inspection: normal respiratory effort and able to speak in complete sentences Auscultation: clear to auscultation bilaterally Cardio Rate: regular rate Rhythm: regular rhythm Heart sounds: Normal, physiologic split S2 sound present Peripheral pulses: radial pulses present and posterior tibial pulses present GI Inspection: No distended and No Abdominal panniculus present Palpation (GI): Soft to palpation, nontender, no guarding, not rigid and No hepatosplenomegaly present Percussion: Yes normal to percussion Auscultation: normal bowel sounds Rectal Exam - Male: Yes deferred Skin General skin exam: no rashes or lesions noted, turgor normal, skin not dry, no jaundice, No spider nevi and no striae Rashes: no rashes Nails: normal Neuro General: oriented to person, oriented to place and oriented to time Cranial nerves: Yes Equal, round and reactive pupils present and Yes Normal hearing present Speech: No Abnormal speech present Extrem General: Yes normal to inspection, No clubbing, No cyanosis and No edema Psych Appearance: grossly normal and well kempt Mental Status: mental status grossly normal Speech and movement: Normal speech and movement present Affect: normal affect Attitude: cooperative Thought process: Normal thought process present and not confabulating Thought content: Normal thought content present Insight: Fair insight present (Psych) Judgement: Fair judgement present (Psych) Assessment & Plan Assessment & Plan (1) GERD (gastroesophageal reflux disease): Code(s): K21.9 - Gastro-esophageal reflux disease without esophagitis Category: Medical Qualifiers: Esophagitis presence: without esophagitis Qualified Code(s): K21.9 - Gastro-esophageal reflux disease without esophagitis (2) Delayed gastric emptying: Comment: Told by neurology that he had to stop his Reglan Code(s): K30 - Functional dyspepsia Category: Medical (3) Constipation: Code(s): K59.00 - Constipation, unspecified Category: Medical Plan He never received the Cologuard. We will try again. Pantoprazole working well. Having more CIC, some help with fiber but no enough. Add senna ROV 8 weeks. Medications: New sennosides (Senna Laxative) 17.2 mg (2 x 8.6 mg) PO BEDTIME 60 tabs 6RF Refilled pantoprazole 40 mg PO DAILY 90 tabs 1RF K21.9 - Gastro-esophageal reflux disease without esophagitis Coding Level of Care Code Est Pt Level 3 (97698) Diagnoses Gastroesophageal reflux disease without esophagitis K21.9 Esophagitis presence: without esophagitis Delayed gastric emptying K30 Constipation K59.00
[2024-04-02 12:53] VITALS: BP 134/59; PULSE 54; BMI 27.9
== END 2024-04-02 14:00 | disposition home or self-care (01) ==
PROVIDERS: PCP Internal Medicine; Visit Provider Nurse Practitioner
DX: K21.9 Gastro-esophageal reflux disease without esophagitis (principal); K30 Functional dyspepsia; K59.00 Constipation, unspecified
CPT/HCPCS: 99213

== ENCOUNTER → 2024-04-02 12:47 | Outpatient (BNVA) | payer MEDICARE, SELFPAY | PROVIDERS: PCP Internal Medicine; Visit Provider Nurse Practitioner | DX: K21.9 Gastro-esophageal reflux disease without esophagitis (principal); K30 Functional dyspepsia | CPT/HCPCS: 99212 ==

== ENCOUNTER 2024-05-28 13:10 | Outpatient (AMB) | payer MEDICARE, SELFPAY ==
--- NOTE | 2024-05-28 13:22 | MHC.OFFVIS ---
Vital Signs 05/28/24 13:29 Height 5 ft 7 in Weight 177 lb 11.081 oz BMI 27.8 BP 135/61 Blood Pressure Location Lt brachial Position Sitting Pulse 54 Intake Visit Reasons: 8 week follow up Intake Note: Fabio presents to in office visit today in follow up of Cologuard. CC: Patient reports doing well and denies having any GI symptoms today. Equipment Installation Professional Required: No Accompanied by: Self / Same As Patient Allergies Iodinated Contrast Media [IV Dye, Iodine Containing] Allergy (Mild, Verified 06/03/24 09:25) Hives tizanidine Allergy (Mild, Verified 06/03/24 09:25) painful rash on ankles, dizziness sertraline Adverse Reaction (Intermediate, Verified 06/03/24 09:25) GI upset, confusion HPI HPI 8 week follow up: Details: Assessment & Plan (1) GERD (gastroesophageal reflux disease): Code(s): K21.9 - Gastro-esophageal reflux disease without esophagitis Category: Medical Qualifiers: Esophagitis presence: without esophagitis Qualified Code(s): K21.9 - Gastro-esophageal reflux disease without esophagitis (2) Delayed gastric emptying: Comment: Told by neurology that he had to stop his Reglan Code(s): K30 - Functional dyspepsia Category: Medical (3) Constipation: Code(s): K59.00 - Constipation, unspecified Category: Medical Plan He never received the Cologuard. We will try again. Pantoprazole working well. Having more CIC, some help with fiber but no enough. Add senna ROV 8 weeks. Medications: New sennosides (Senna Laxative) 17.2 mg (2 x 8.6 mg) PO BEDTIME 60 tabs 6RF Refilled pantoprazole 40 mg PO DAILY 90 tabs 1RF K21.9 - Gastro-esophageal reflux disease without esophagitis TODAY'S VISIT His Cologuard was negative so we will repeat this in 3 years. No doing well on his senna and his pantoprazole. ROV 6 mos. [facility] Medical History Urgency of micturition Essential hypertension Embolic stroke Cervicalgia Cervical spondylosis Dizziness CVA (cerebral vascular accident) Cerebrovascular accident, embolic Right leg weakness Right arm weakness Abdominal bloating with cramps Preop examination Tingling Spasmodic torticollis Vitamin D deficiency COVID-19 vaccine series completed Embolic cerebral infarction Facial droop Uncontrolled hypertension BPH (benign prostatic hyperplasia) Overweight (BMI 25.0-29.9) Anxiety Primary insomnia Cervical disc disorder with radiculopathy Impaired fasting glucose Pure hypercholesterolemia Benign essential hypertension Erectile dysfunction Degenerative disc disease, thoracic Degenerative disc disease, lumbar Delayed gastric emptying GERD (gastroesophageal reflux disease) Surgical History History of prostate surgery Hx of cataract extraction Hx of cystoscopy (~2019) History of esophagogastroduodenoscopy (EGD) (02/14/15) Hx of colonoscopy (03/04/12) Hx of tonsillectomy Family History Father Heart disease Mother Cancer Brother Diabetes Paternal Grandmother Heart disease Maternal Uncle Colon cancer Social History Household Members: Spouse Housing: House Are you a primary wound care physician to a significant other at home: No Do you presently have visiting nurse or other home services: No Alcohol intake: current Alcohol intake frequency: holidays/special occasions only Alcohol type: beer Patient Tobacco Use Status: Former Tobacco user Tobacco use type: Cigarette e-Cigarette/Vaping Use: Never Used Second Hand Smoke Exposure: Yes service: Yes ([employer]) Current occupational status: retired Cognitive needs: No Hearing needs: No Vision needs: Yes (glasses) Review of Systems Const Denies fatigue, Denies fever(s), Denies night sweats, Denies poor appetite and Denies weight loss Eyes Details: glasses ENT Reports Normal hearing present, Denies dental pain, Denies dysphagia, Denies hearing loss, Denies mouth pain, Denies odynophagia, Denies throat swelling, Denies tongue swelling and Reports other (Dentition adequate) Card Reports no additional complaints Resp Reports no additional complaints GI Details: Denies abdominal pain, Denies melena, Denies bloating, Denies hematochezia, Reports constipation, Denies GI cramping, Denies dysphagia, Denies excessive flatus, Denies early satiety, Reports heartburn, Denies diarrhea, Denies nausea, Denies odynophagia, Denies vomiting and Denies hematemesis Skin/Breast Denies pruritus, Denies lesions, Denies rash and Denies jaundice Neuro Reports Normal hearing present and Denies Abnormal speech present Endo Denies fatigue Aller/Immun Denies throat swelling and Denies tongue swelling Physical Exam Vital Signs: Last Vital Signs Pulse 54 05/28/24 13:29 BP 135/61 05/28/24 13:29 BMI result Body Mass Index 27.8 Const General: cooperative, no acute distress, well developed and well groomed Nutritional Appearance: average body habitus and well nourished Orientation/consciousness: oriented to person, oriented to place and oriented to time Limitations: No language barrier HEENT Head: Yes normocephalic and Yes atraumatic Eyes General: appearance normal, both eyes and all related structures Pupils: Equal, round and reactive pupils present Neck Neck: Yes normal visual inspection and Yes no lymphadenopathy Thyroid: Thyroid normal Resp Effort & Inspection: normal respiratory effort and able to speak in complete sentences Auscultation: clear to auscultation bilaterally Cardio Rate: regular rate Rhythm: regular rhythm Heart sounds: Normal, physiologic split S2 sound present Peripheral pulses: radial pulses present and posterior tibial pulses present GI Inspection: No distended and No Abdominal panniculus present Palpation (GI): Soft to palpation, nontender, no guarding, not rigid and No hepatosplenomegaly present Percussion: Yes normal to percussion Auscultation: normal bowel sounds Rectal Exam - Male: Yes deferred Skin General skin exam: no rashes or lesions noted, turgor normal, skin not dry, no jaundice, No spider nevi and no striae Rashes: no rashes Nails: normal Neuro General: oriented to person, oriented to place and oriented to time Cranial nerves: Yes Equal, round and reactive pupils present and Yes Normal hearing present Speech: No Abnormal speech present Extrem General: Yes normal to inspection, No clubbing, No cyanosis and No edema Psych Appearance: grossly normal and well kempt Mental Status: mental status grossly normal Speech and movement: Normal speech and movement present Affect: normal affect Attitude: cooperative Thought process: Normal thought process present and not confabulating Thought content: Normal thought content present Insight: Good insight present (Psych) Judgement: Good judgement present (Psych) Assessment & Plan Assessment & Plan (1) Constipation: Code(s): K59.00 - Constipation, unspecified Category: Medical (2) GERD (gastroesophageal reflux disease): Code(s): K21.9 - Gastro-esophageal reflux disease without esophagitis Category: Medical Qualifiers: Esophagitis presence: without esophagitis Qualified Code(s): K21.9 - Gastro-esophageal reflux disease without esophagitis (3) Delayed gastric emptying: Comment: Told by neurology that he had to stop his Reglan Code(s): K30 - Functional dyspepsia Category: Medical (4) Screening for malignant neoplasm of colon performed: Comment: 04/2024 COLOGUARD= neg repeat 3 years Code(s): Z12.11 - Encounter for screening for malignant neoplasm of colon Category: Medical Plan His Cologuard was negative so we will repeat this in 3 years. No doing well on his senna and his pantoprazole. ROV 6 mos. Medications: Refilled sennosides (Senna Laxative) 17.2 mg (2 x 8.6 mg) PO BEDTIME 60 tabs 6RF pantoprazole 40 mg PO DAILY 90 tabs 1RF K21.9 - Gastro-esophageal reflux disease without esophagitis Coding Level of Care Code Est Pt Level 3 (96899) Diagnoses Constipation K59.00 Gastroesophageal reflux disease without esophagitis K21.9 Esophagitis presence: without esophagitis Delayed gastric emptying K30 Screening for malignant neoplasm of colon performed Z12.11
[2024-05-28 13:29] VITALS: BP 135/61; PULSE 54; BMI 27.8
== END 2024-05-28 13:58 | disposition home or self-care (01) ==
PROVIDERS: PCP Internal Medicine; Visit Provider Nurse Practitioner
DX: K59.00 Constipation, unspecified (principal); K21.9 Gastro-esophageal reflux disease without esophagitis; K30 Functional dyspepsia; Z12.11 Encounter for screening for malignant neoplasm of colon
CPT/HCPCS: 99213

== ENCOUNTER → 2024-05-28 13:10 | Outpatient (BNVA) | payer MEDICARE, SELFPAY | PROVIDERS: PCP Internal Medicine; Visit Provider Nurse Practitioner | DX: K21.9 Gastro-esophageal reflux disease without esophagitis (principal); K59.00 Constipation, unspecified; K30 Functional dyspepsia | CPT/HCPCS: 99212 ==

== ENCOUNTER 2024-06-03 09:15 | Outpatient (AMB) | payer MEDICARE, SELFPAY ==
--- NOTE | 2024-06-03 09:24 | A.OFFVIS_ITS ---
Vital Signs 06/03/24 09:25 Height 5 ft 7 in Weight 177 lb BMI 27.7 BP 140/76 H Blood Pressure Location Rt brachial Position Sitting Respiration 16 Pulse 59 Pulse Source Pulse Oximeter Pulse Oximetry (%) 97 Oxygen Delivery Method Room Air Intake Visit Reasons: Botox Intake Note: Pt presents to the office for Botox injections for spasmodic torticollis. [employer] Required: No Allergies Iodinated Contrast Media [IV Dye, Iodine Containing] Allergy (Mild, Verified 06/03/24 09:25) Hives tizanidine Allergy (Mild, Verified 06/03/24 09:25) painful rash on ankles, dizziness sertraline Adverse Reaction (Intermediate, Verified 06/03/24 09:25) GI upset, confusion Medication List - Last Reconciled 06/03/24 by Aida Bernardo MD amlodipine 2.5 mg PO DAILY 90 days amlodipine 5 mg PO DAILY 90 days cholecalciferol (vitamin D3) 25 mcg PO DAILY 90 days clonazepam 0.5 mg PO BID PRN 90 days Eliquis (apixaban) 5 mg PO BID 30 days NS guaifenesin ER (Mucinex) 1,200 mg PO BID PRN hydrochlorothiazide 12.5 mg PO DAILY 90 days lisinopril 40 mg PO DAILY 90 days metoprolol succinate ER 25 mg PO DAILY 90 days pantoprazole 40 mg PO DAILY rosuvastatin 5 mg PO DAILY 90 days sennosides (Senna Laxative) 17.2 mg (2 x 8.6 mg) PO BEDTIME HPI Comments Details: 79y/o male comes for follow up of head pressure , chronic dizziness and pain - he was scheduled for botox for enck . He declines today as he did not respond from his last treatment and feels his symptoms are worse. Now he reports burning sensation in his right ear intermittently, right arm pain etc. ??? He was seen by ENT in the past. [facility] Medical History Urgency of micturition Essential hypertension Embolic stroke Cervicalgia Cervical spondylosis Dizziness CVA (cerebral vascular accident) Cerebrovascular accident, embolic Right leg weakness Right arm weakness Abdominal bloating with cramps Preop examination Tingling Spasmodic torticollis Vitamin D deficiency COVID-19 vaccine series completed Embolic cerebral infarction Facial droop Uncontrolled hypertension BPH (benign prostatic hyperplasia) Overweight (BMI 25.0-29.9) Anxiety Primary insomnia Cervical disc disorder with radiculopathy Impaired fasting glucose Pure hypercholesterolemia Benign essential hypertension Erectile dysfunction Degenerative disc disease, thoracic Degenerative disc disease, lumbar Delayed gastric emptying GERD (gastroesophageal reflux disease) Surgical History History of prostate surgery Hx of cataract extraction Hx of cystoscopy (~2019) History of esophagogastroduodenoscopy (EGD) (02/14/15) Hx of colonoscopy (03/04/12) Hx of tonsillectomy Family History Father Heart disease Mother Cancer Brother Diabetes Paternal Grandmother Heart disease Maternal Uncle Colon cancer Social History Household Members: Spouse Housing: House Are you a primary adult care manager to a significant other at home: No Do you presently have visiting nurse or other home services: No Alcohol intake: current Alcohol intake frequency: holidays/special occasions only Alcohol type: beer Patient Tobacco Use Status: Former Tobacco user Tobacco use type: Cigarette e-Cigarette/Vaping Use: Never Used Second Hand Smoke Exposure: Yes service: Yes ([employer]) Current occupational status: retired Cognitive needs: No Hearing needs: No Vision needs: Yes (glasses) Physical Exam Vital Signs: Last Vital Signs Pulse 59 06/03/24 09:25 Resp 16 06/03/24 09:25 BP 140/76 H 06/03/24 09:25 Pulse Ox 97 06/03/24 09:25 Oxygen Delivery Method Room Air 06/03/24 09:25 BMI result Body Mass Index 27.7 Const General: cooperative, healthy appearing and anxious Nutritional Appearance: average body habitus Orientation/consciousness: patient oriented x3 Limitations: no limitations HEENT Head: Yes normal to inspection, Yes No palpable skull fracture present and Yes normocephalic Eyes Pupils: Equal, round and reactive pupils present Neck Other: antecollis restricted range of motion tightness in damaso cervical muscles, tenderness in right splenius and levator diffiuculty tilting to left Neuro General: patient oriented x3, tone normal and moves all extremities Cranial nerves: Yes Facial sensation intact/muscles of mastication intact, Yes Equal, round and reactive pupils present, Yes Bilaterally intact EOM present, Yes Nystagmus not present, Yes Normal facial strength present, Yes Midline tongue present and Yes Symmetric palate elevation present Cognition (Neuro): normal cognition Gait exam (Neuro): Other gait observations present (mild slowness ) Motor exam (neuro): 5/5 motor strength present throughout Coordination: [id number] test normal Psych Affect: Anxious affect present Results Reviewed Results Reviewed: 2021 -MRI C spine . Multilevel degenerative spondylotic changes without significant narrowing of the spinal canal. 2. At C3-C4 there is progressive moderate left and mild right neural foraminal stenosis. 3. At C4-C5 there is progressive moderate to severe left neural foraminal stenosis. 4. At C5-C6 and C6-C7 there is unchanged severe bilateral neural foraminal stenosis. Assessment & Plan Assessment & Plan (1) Headache: Comment: cervciogenic Code(s): R51.9 - Headache, unspecified Category: Medical (2) Dizziness: Comment: Due to cervical spasm Code(s): R42 - Dizziness and giddiness Category: Medical (3) Spasmodic torticollis: Code(s): G24.3 - Spasmodic torticollis Category: Medical (4) Anxiety: Code(s): F41.9 - Anxiety disorder, unspecified Category: Medical Plan I reviewed his results and symptoms again I will refer him to [facility] for further management He declines medication for anxiety. He will benefit from psyhcotherapy for chronic pain and dizziness. Orders: Referrals Pain Management Referral M50.10 - Cervical disc disorder with radiculopathy, unspecified cervical region Coding Level of Care Code Est Pt Level 4 (62717) Diagnoses Headache R51.9 Dizziness R42 Spasmodic torticollis G24.3 Anxiety F41.9
[2024-06-03 09:25] VITALS: BP 140/76; PULSE 59; RESP 16; O2SAT 97; BMI 27.7
== END 2024-06-03 10:01 | disposition home or self-care (01) ==
PROVIDERS: PCP Internal Medicine; Visit Provider Psychiatry & Neurology Neurology
DX: R51.9 Headache, unspecified (principal); R42 Dizziness and giddiness; G24.3 Spasmodic torticollis; F41.9 Anxiety disorder, unspecified
CPT/HCPCS: 99214

== ENCOUNTER → 2024-06-03 09:15 | Outpatient (BNVA) | payer MEDICARE, SELFPAY | PROVIDERS: PCP Internal Medicine; Visit Provider Psychiatry & Neurology Neurology | DX: G24.3 Spasmodic torticollis (principal); R51.9 Headache, unspecified; R42 Dizziness and giddiness; F41.9 Anxiety disorder, unspecified; M50.10 Cervical disc disorder with radiculopathy, unspecified cervical region | CPT/HCPCS: 99212 ==

== ENCOUNTER 2024-06-23 07:50 | Outpatient (REF) | payer MEDICARE, SELFPAY ==
[2024-06-23 10:14] LABS: MANUAL DIFF FLAG NO
[2024-06-23 10:17] LABS: Appearance Urine Clear; Color Urine Yellow; Glucose Urine UA Negative (Negative); Leukocyte Esterase Urine Negative (Negative); Nitrite Urine Negative (Negative); PH 5.5 (5.0-9.0); Urine Blood Negative (Negative); Urine Ketones Negative (Negative); Urine Protein Negative (Neg-Trace)
[2024-06-23 10:29] LABS: Basophils Percent Auto 0.6 % (0-2); Eosinophils Absolute Auto 0.3 X10*3/uL (0.0-0.4); Eosinophils Percent Auto 4.5 % (0-4); Hematocrit 44.4 % (42.0-52.0); Hemoglobin 15.7 g/dl (14.0-18.0); Imm Gran Abs Auto 0.02 X10*3/uL (0.00-0.03); Imm Gran Pct Auto 0.3 % (0.0-0.4); Lymphocytes Absolute Auto 1.6 X10*3/uL (1.2-4.9); Lymphocytes Percent Auto 22.8 % (20-40); Mean Corpuscular HGB Conc 35.4 g/dl (31.0-36.0); Mean Corpuscular Hemoglobin 31.4 pg (27.0-33.0); Mean Corpuscular Volume 88.8 fL (80.0-98.0); Monocytes Absolute Auto 0.4 X10*3/uL (0.1-1.2); Monocytes Percent Auto 6.4 % (2-11); Neutrophils Absolute Auto 4.5 x10*3/uL (2.0-8.3); Neutrophils Percent Auto 65.4 % (45-73); Platelet Count 180 X10*3/uL (160-400); Red Cell Distribution Width 13.1 % (11.0-16.0); White Blood Count 6.9 X10*3/uL (4.8-10.8)
[2024-06-23 10:56] LABS: Estimated Average Glucose 117 mg/dL; Hemoglobin A1c % 5.7 % (<6.0)
[2024-06-23 11:18] LABS: Alanine Aminotransferase 29 U/L (0-40); Albumin Level 4.1 g/dL (3.5-5.0); Alkaline Phosphatase 51 U/L (39-117); Anion Gap 11 (12-20); Aspartate Amino Transferase 21 U/L (5-37); Bilirubin Total 0.8 mg/dL (0.0-1.0); Blood Urea Nitrogen 18 mg/dL (9-16); Calcium 9.7 mg/dL (8.4-10.2); Carbon Dioxide 29 mmol/L (22-29); Chloride 106 mmol/L (96-108); Cholesterol 109 mg/dL (<200); Estimated Glomerular Filt Rate > 60; Glucose Fasting 119 mg/dL (60-99); HDL Cholesterol 38 mg/dL (>40); LDL Cholesterol Calculated 50 mg/dL (<100); Potassium 3.6 mmol/L (3.3-5.1); Sodium 142 mmol/L (135-145); TSH reflex Free T4 0.91 uIU/mL (0.32-4.0); Total Protein 7.3 g/dL (6.5-8.0); Triglycerides 107 mg/dL (<150); Vitamin D 25-OH Total 68.1 ng/mL (>30)
[2024-06-23 11:20] LABS: Folate 11.5 ng/mL (> or = 4.0); Vitamin B12 392 pg/mL (200-900)
== END 2024-06-23 07:51 | disposition home or self-care (01) ==
LOC: HO.HMGCLDS 07:50
PROVIDERS: PCP Internal Medicine; Visit Provider Internal Medicine
DX: R30.0 Dysuria (principal); E55.9 Vitamin D deficiency, unspecified; E53.8 Deficiency of other specified B group vitamins; E78.00 Pure hypercholesterolemia, unspecified; R73.01 Impaired fasting glucose; D64.9 Anemia, unspecified
CPT/HCPCS: 36415; 80053; 80061; 81003; 82306; 82607; 82746; 83036; 84443; 85025

== ENCOUNTER 2024-07-01 10:42 | Outpatient (AMB) | payer MEDICARE, SELFPAY ==
[2024-07-01 10:45] VITALS: BP 124/82; PULSE 47; O2SAT 95; BMI 27.8
--- NOTE | 2024-07-01 10:45 | A.OFFPC_ITS ---
Vital Signs 07/01/24 10:45 Height 5 ft 7 in Weight 177 lb 6 oz BMI 27.8 BP 124/82 Blood Pressure Location Lt brachial Position Sitting Pulse 47 L Pulse Source Pulse Oximeter Pulse Oximetry (%) 95 Oxygen Delivery Method Room Air Intake Visit Reasons: [facility] Director Of Collections Required: No Accompanied by: Self / Same As Patient Allergies Iodinated Contrast Media [IV Dye, Iodine Containing] Allergy (Mild, Verified 07/01/24 11:58) Hives tizanidine Allergy (Mild, Verified 07/01/24 11:58) painful rash on ankles, dizziness sertraline Adverse Reaction (Intermediate, Verified 07/01/24 11:58) GI upset, confusion Medication List - Last Reconciled 07/01/24 by Armaan Correa MD amlodipine 2.5 mg PO DAILY 90 days amlodipine 5 mg PO DAILY 90 days cholecalciferol (vitamin D3) 25 mcg PO DAILY 90 days clonazepam 0.5 mg PO BID PRN 90 days Eliquis (apixaban) 5 mg PO BID 30 days NS guaifenesin ER (Mucinex) 1,200 mg PO BID PRN hydrochlorothiazide 12.5 mg PO DAILY 90 days lisinopril 40 mg PO DAILY 90 days metoprolol succinate ER 25 mg PO DAILY 90 days pantoprazole 40 mg PO DAILY rosuvastatin 5 mg PO DAILY 90 days sennosides (Senna Laxative) 17.2 mg (2 x 8.6 mg) PO BEDTIME Tobacco use date assessed: 07/01/24 Fall risk assessment: No Falls in past year Last assessed Fall Risk: 07/01/24 Dental Screening Dental Screen Date: 07/01/24 Did you have a dental visit in the last 12 months?: Yes Did you have a dental problem in the last 6 months where you did not have access to dental care?: No Was dental information given to patient?: Patient has dentist HPI 4mt f/u HPI Details Patient comes in today for his follow up visit States that he feels okay He denies any headaches; still has on and off dizziness He denies any chest pains, no increased SOB No nausea/vomiting, no abdominal pain No change in bowel habits noted States that he is still taking some OTC marijuana gummies to help him sleep at night He has an appointment with [facility] tomorrow for his neck pain - was referred by neurology to them a few months ago Needs a couple of his Rx refilled He had his follow up labs done last week - to discuss his results seeing [facility] Medical History Urgency of micturition Essential hypertension Embolic stroke Cervicalgia Cervical spondylosis Dizziness CVA (cerebral vascular accident) Cerebrovascular accident, embolic Right leg weakness Right arm weakness Abdominal bloating with cramps Preop examination Tingling Spasmodic torticollis Vitamin D deficiency COVID-19 vaccine series completed Embolic cerebral infarction Facial droop Uncontrolled hypertension BPH (benign prostatic hyperplasia) Overweight (BMI 25.0-29.9) Anxiety Primary insomnia Cervical disc disorder with radiculopathy Impaired fasting glucose Pure hypercholesterolemia Benign essential hypertension Erectile dysfunction Degenerative disc disease, thoracic Degenerative disc disease, lumbar Delayed gastric emptying GERD (gastroesophageal reflux disease) Surgical History History of prostate surgery Hx of cataract extraction Hx of cystoscopy (~2019) History of esophagogastroduodenoscopy (EGD) (02/14/15) Hx of colonoscopy (03/04/12) Hx of tonsillectomy Family History Father Heart disease Mother Cancer Brother Diabetes Paternal Grandmother Heart disease Maternal Uncle Colon cancer Social History Household Members: Spouse Housing: House Are you a primary child caregiver to a significant other at home: No Do you presently have visiting nurse or other home services: No Alcohol intake: current Alcohol intake frequency: holidays/special occasions only Alcohol type: beer Patient Tobacco Use Status: Former Tobacco user Tobacco use type: Cigarette e-Cigarette/Vaping Use: Never Used Second Hand Smoke Exposure: Yes service: Yes ([employer]) Current occupational status: retired Cognitive needs: No Hearing needs: No Vision needs: Yes (glasses) Questionnaire PHQ-9 Over the last 2 weeks, how often have you been bothered by any of the following problems? 1. Little interest or pleasure in doing things: not at all 2. Feeling down, depressed, or hopeless: not at all 3. Trouble falling or staying asleep, or sleeping too much: not at all 4. Feeling tired or having little energy: not at all 5. Poor appetite or overeating: not at all 6. Feeling bad about yourself - or that you are a failure or have let yourself or your family down: not at all 7. Trouble concentrating on things, such as reading the newspaper or watching television: not at all 8. Moving or speaking so slowly that other people could have noticed. Or the opposite - being so fidgety or restless that you have been moving around a lot more than usual: not at all 9. Thoughts that you would be better off or of hurting yourself in some way: not at all Total score: 0 Depression Screening Interpretation: Negative Depression Screening Done: Yes 49066 - PHQ-9 Billing: Yes Source: Developed by Drs. Serjio Fields, Razia Coombs, Jason Tena and colleagues, with an educational tia from [employer]. Thrive Questionnaire Date Thrive assessed: 07/01/24 I am a: Patient What is your living situation today?: I have a steady place to live Within the past 12 months, did the food you bought not last and you didn't have the money to get more?: Never true Within the past 12 months, did you worry whether your food would run out before you got money to buy more?: Never true Do you have trouble paying for medicines?: No Do you have trouble getting transportation to medical appointments?: No Do you have trouble paying your heating and electricity bill?: No Do you have trouble taking care of your child, family member or friend?: No Do you have trouble with day-to-day activities such as bathing, preparing meals, shopping, managing finances, etc.?: No Are you currently unemployed and looking for a job?: No Are you interested in more education?: No Please select the resources that you would like help with: None Currently or been in a relationship where the following occur: No concerns reported THRIVE Score: 0 AUDIT C Alcohol Use Questionnaire (AUDIT-C) 1. How often do you have a drink containing alcohol?: Monthly or less 2. How many drinks containing alcohol do you have on a typical day when you are drinking?: 1 or 2 3. How often do you have six or more drinks on one occasion?: Never Total Score: 1 Score Reviewed/Action Taken: Yes SARAH-7 AMB Questionnaire SARAH-7 Date SARAH - 7 assessed: 07/01/24 Feeling nervous, anxious, or on edge: 0 = Not at all Not being able to stop or control worryin = Not at all Worrying too much about different things: 0 = Not at all Trouble relaxin = Not at all Being so restless that it is hard to sit still: 0 = Not at all Becoming easily annoyed or irritable: 0 = Not at all Feeling afraid as if something awful might happen: 0 = Not at all Total SARAH-7 score (0-4 normal; 5-9 mild; 10-14 moderate; 15-21 severe): 0 Source: Developed by Drs. Serjio Fields, Razia Coombs, Jason Tena and colleagues, with an educational tia from [employer]. Review of Systems Const Denies chills, Reports fatigue (at times), Denies fever(s), Denies headache(s) and Reports weakness (of the right arm and right leg, minimal) Eyes Denies blurry vision ENT Denies dysphagia, Reports dizziness (on and off), Denies otalgia, Denies headache(s), Reports neck pain, Denies odynophagia and Denies sore throat Card Denies chest pain, Denies irregular heart rhythm, Denies palpitations and Denies dyspnea Resp Denies cough, Denies dyspnea and Denies wheezing GI Denies abdominal pain, Denies constipation, Denies dysphagia, Denies heartburn, Denies diarrhea, Denies nausea, Denies odynophagia and Denies vomiting Denies dysuria and Denies urinary frequency Musc Denies back pain, Reports neck pain, Reports numbness (occasional, in both arms) and Reports tingling (in both arm, occasionally) Skin/Breast Denies rash Neuro Reports dizziness (on and off), Denies headache(s), Reports numbness (occasional, in both arms), Reports tingling (in both arm, occasionally) and Reports weakness (of the right arm and right leg, minimal) Psych Reports anxiety Endo Reports fatigue (at times) and Denies palpitations Aller/Immun Denies wheezing Physical exam (Primary Care) Vital Signs: Last Vital Signs Pulse 47 L 07/01/24 10:45 BP 124/82 07/01/24 10:45 Pulse Ox 95 07/01/24 10:45 Oxygen Delivery Method Room Air 07/01/24 10:45 BMI result Body Mass Index 27.8 Tobacco/Smoking Status: Tobacco use Status Tobacco use date assessed 07/01/24 07/01/24 10:46 Patient Tobacco Use Status Former Tobacco user 07/01/24 10:46 Tobacco use type Cigarette 07/01/24 10:46 e-Cigarette/Vaping Use Never Used 07/01/24 10:46 PHQ-9: PHQ-9 Score PHQ-9: Total score 0 07/01/24 12:05 Depression Screening Interpretation: Negative Thrive Assessment: Date of Thrive Assessment Date Thrive assessed 07/01/24 07/01/24 10:46 Currently or been in a relationship where the following occur: No concerns reported Const General: no acute distress and alert HENMT Ears: TM's normal bilaterally and EAC's normal Throat: Yes posterior oropharynx normal and Yes tonsils normal (no TP congestion noted) Neck Neck: Yes no lymphadenopathy and Yes supple Thyroid: Thyroid normal Resp Auscultation: clear to auscultation bilaterally, no rales and no wheezes Cardio Rate: regular rate Rhythm: regular rhythm Heart sounds: no murmurs GI Palpation (GI): Soft to palpation and nontender Auscultation: normal bowel sounds Back/Spine/Pelvis Cervical Spine: Cervical spine tenderness Neuro Other: (+) residual mild weakness of the right arm and the right leg Extrem General: Yes no clubbing, cyanosis or edema Results Reviewed Results Reviewed: Laboratory Tests 06/23/24 06/23/24 08:24 08:30 WBC 6.9 Hgb 15.7 Hct 44.4 Plt Count 180 Sodium 142 Potassium 3.6 Creatinine 0.98 Estimated GFR > 60 Fasting Glucose 119 H Hemoglobin A1c % 5.7 Calcium 9.7 AST 21 ALT 29 Triglycerides 107 Cholesterol 109 LDL Cholesterol, Calc 50 HDL Cholesterol 38 L Vitamin B12 392 25-OH Vitamin D Total 68.1 TSH 0.91 Ur Specific [place] 1.020 Urine Protein Negative Urine Glucose (UA) Negative Urine Blood Negative Urine Nitrite Negative Ur Leukocyte Esterase Negative Assessment and Plan Assessment & Plan (1) Cerebrovascular accident, embolic: Comment: Head CT done at the ER at [facility] on 09/22/2021 came out negative MRI of the brain done a week later in September 2022 revealed new embolic infarcts Code(s): I63.9 - Cerebral infarction, unspecified Qualifiers: Precerebral and cerebral artery: unspecified cerebral artery Qualified Code(s): I63.40 - Cerebral infarction due to embolism of unspecified cerebral artery Plan: No recurrence since his initial CVA a few years ago Cardiac monitoring tests done at [facility] a few years ago reportedly all came out normal Echocardiogram and SARA done a few years ago also came back normal Continue Apixaban 5 mg BID Follow up with neurology and cardiology as scheduled (2) Dizziness: Code(s): R42 - Dizziness and giddiness Plan: Sinus CT done at [facility] a couple of years ago reportedly came out normal He has been advised by ENT that his evaluation revealed no evidence of any ENT source of his symptoms He was seen by Dr. Bernardo for a second (neurology) opinion with the same conclusion and was started on Baclofen Q HS, which patient eventually stopped taking on his own as he did not feel that the Rx was helping Cervical spine MRI done in September 2022 revealed (+) multilevel degenerative spondylotic changes without significant narrowing of the spinal canal but there are progressive moderate to severe neural foraminal stenosis over several levels bilaterally He was sent for physical therapy of his cervical spine, which he states did not really help much He was then referred by neurology to [facility] for pain management evaluation and he has an appointment to see them tomorrow Follow up with neurology as scheduled (3) Cervical spondylosis: Code(s): M47.812 - Spondylosis without myelopathy or radiculopathy, cervical region Plan: Cervical spine MRI done in September 2022 revealed (+) multilevel degenerative spondylotic changes without significant narrowing of the spinal canal but there are progressive moderate to severe neural foraminal stenosis over several levels bilaterally States that physical therapy has not helped much with his neck pain in the past He has been prescribed Baclofen 10 mg Q HS PRN but states that it did not help - he has stopped taking this a while back He will be seeing [facility] tomorrow for pain management evaluation (4) Neuropathy: Code(s): G62.9 - Polyneuropathy, unspecified Plan: NCV & EMG of the upper extremities done in June 2023 revealed (+) electrodiagnostic evidence for bilateral moderate-severe median neuropathy at the wrists, consistent with carpal tunnel syndrome. There is no electrodiagnostic evidence for ulnar neuropathy, brachial plexopathy, or cervical radiculopathy. If symptoms persist or get worse, will consider referral to orthopedics for consideration for carpal tunnel release surgery (5) Benign essential hypertension: Code(s): I10 - Essential (primary) hypertension Plan: Reinforced low sodium diet - goal is systolic BP of at least 130 to 140 mm, given his Hx of CVA and orthostatic dizziness BP log brought in by patient previously showed systolic BP readings mostly in the 120 to 130 mm range, with occasional 145 mm and 143 mm readings Continue Lisinopril 40 mg QD, Metoprolol ER 25 mg QD, Amlodipine 7.5 mg QD and HCTZ 12.5 mg QD Patient is reminded to continue monitoring his blood pressure regularly (6) Pure hypercholesterolemia: Code(s): E78.00 - Pure hypercholesterolemia, unspecified Plan: Results of his labs done last week reviewed and discussed with patient Reinforced low cholesterol diet Continue Rosuvastatin 5 mg QD Will recheck his labs and fasting lipids in 4 months for follow up (7) GERD (gastroesophageal reflux disease): Code(s): K21.9 - Gastro-esophageal reflux disease without esophagitis Qualifiers: Esophagitis presence: without esophagitis Qualified Code(s): K21.9 - Gastro-esophageal reflux disease without esophagitis Plan: Dietary restrictions reinforced Continue Pantoprazole 40 mg QD (8) Impaired fasting glucose: Code(s): R73.01 - Impaired fasting glucose Plan: His HgbA1c was at 5.7% on his labs done last week; was previously at 5.8% a few months ago Reinforced low calorie diet / exercise as tolerated (9) Vitamin D deficiency: Code(s): E55.9 - Vitamin D deficiency, unspecified Plan: Continue Vitamin D3 2000 units QD (10) Anxiety: Code(s): F41.9 - Anxiety disorder, unspecified Plan: Continue Clonazepam 0.5 mg BID PRN He was also on Escitalopram to 20 mg QD (could not tolerate Sertraline in the past) but he self-discontinued this a few months ago as he did not feel that the Rx helped at all Despite repeated attempts to convince him that controlling his anxiety better would go a long way towards helping a lot of his symptoms overall, he continues to DECLINE taking anything else other than Clonazepam PRN, citing his issues when he tried Sertraline in the past (11) Overweight (BMI 25.0-29.9): Code(s): E66.3 - Overweight Plan: Reinforced diet/exercise as tolerated/lose weight Plan Follow up in 4 months Orders: Orders Comprehensive [place]. Panel Fast 4 Months E78.00 - Pure hypercholesterolemia, unspecified Hemoglobin A1c 4 Months R73.01 - Impaired fasting glucose TSH reflex Free T4 4 Months E78.00 - Pure hypercholesterolemia, unspecified Vitamin B12 and Folate 4 Months E53.8 - Deficiency of other specified B group vitamins Complete Blood Count Auto Diff 4 Months D64.9 - Anemia, unspecified Lipid Panel 4 Months E78.00 - Pure hypercholesterolemia, unspecified UA CC w/rflx Micro + Cult 4 Months R30.0 - Dysuria Vitamin D 25-OH Total 4 Months E55.9 - Vitamin D deficiency, unspecified Medications: Refilled clonazepam 0.5 mg PO BID 90 days PRN 180 tabs 0RF anxiety Eliquis (apixaban) 5 mg PO BID 30 days 60 tabs 3RF NS I63.9 - Cerebral infarction, unspecified Coding Level of Care Code Est Pt Level 4 (15453) Diagnoses Cerebrovascular accident (CVA) due to embolism of cerebral artery I63.40 Precerebral and cerebral artery: unspecified cerebral artery Dizziness R42 Cervical spondylosis M47.812 Neuropathy G62.9 Benign essential hypertension I10 Pure hypercholesterolemia E78.00 Gastroesophageal reflux disease without esophagitis K21.9 Esophagitis presence: without esophagitis Impaired fasting glucose R73.01 Vitamin D deficiency E55.9 Anxiety F41.9 Overweight (BMI 25.0-29.9) E66.3
== END 2024-07-01 12:07 | disposition home or self-care (01) ==
PROVIDERS: PCP Internal Medicine; Visit Provider Internal Medicine
DX: I63.40 Cerebral infarction due to embolism of unspecified cerebral artery (principal); R42 Dizziness and giddiness; M47.812 Spondylosis without myelopathy or radiculopathy, cervical region; G62.9 Polyneuropathy, unspecified; I10 Essential (primary) hypertension; E78.00 Pure hypercholesterolemia, unspecified; K21.9 Gastro-esophageal reflux disease without esophagitis; R73.01 Impaired fasting glucose; E55.9 Vitamin D deficiency, unspecified; F41.9 Anxiety disorder, unspecified; E66.3 Overweight

== ENCOUNTER → 2024-07-01 10:42 | Outpatient (BNVA) | payer MEDICARE, SELFPAY | PROVIDERS: PCP Internal Medicine; Visit Provider Internal Medicine | DX: I63.40 Cerebral infarction due to embolism of unspecified cerebral artery (principal); R42 Dizziness and giddiness; M47.812 Spondylosis without myelopathy or radiculopathy, cervical region; G62.9 Polyneuropathy, unspecified; I10 Essential (primary) hypertension; E78.00 Pure hypercholesterolemia, unspecified; K21.9 Gastro-esophageal reflux disease without esophagitis; R73.01 Impaired fasting glucose; E55.9 Vitamin D deficiency, unspecified; F41.9 Anxiety disorder, unspecified; E66.3 Overweight | CPT/HCPCS: 99212 ==

== ENCOUNTER 2024-09-18 08:46 | Outpatient (AMB) | payer MEDICARE, SELFPAY ==
[2024-09-18 09:09] VITALS: BMI 28.7
--- NOTE | 2024-09-18 09:09 | HO.SPINEOV ---
Vital Signs 09/18/24 09:09 Height 5 ft 6 in Weight 178 lb BMI 28.7 Intake Visit Reasons: Neck pain Intake Note: Mr. Maciel is here today c/o neck pain with Dizziness. Ripening Room Attendant Required: No Allergies Iodinated Contrast Media [IV Dye, Iodine Containing] Allergy (Mild, Verified 09/18/24 09:10) Hives tizanidine Allergy (Mild, Verified 09/18/24 09:10) painful rash on ankles, dizziness sertraline Adverse Reaction (Intermediate, Verified 09/18/24 09:10) GI upset, confusion Physical Exam Vital Signs: BMI result Body Mass Index 28.7 Assessment & Plan Assessment & Plan (1) Cervical disc disorder with radiculopathy: Code(s): M50.10 - Cervical disc disorder with radiculopathy, unspecified cervical region Category: Medical Plan Dear colleague Thank you for referring Fabio Maciel to the office today with a chief complaint of severe right arm pain. HPI: This 79-year-old male is suffering from neck pain for several years. Over the last year he developed severe pain radiating from the neck to his shoulder and upper arm and sometimes down into the hand. The pain is severe at night where it has a pulsating pain into the biceps area. The pain prevents him sleeping. In addition he has tingling in his fingertips bilaterally. He had an injection in the neck without success. Botox injections were not helpful. Physical therapy was not helpful. He had a stroke 3 years ago from which he recovered. Cardiology evaluation was negative at that time. PMH: Kidney stone, hypertension, dizziness, hypertension, hypercholesterolemia Medications: Eliquis, rosuvastatin, lisinopril, hydrochlorothiazide, amlodipine, metoprolol pantoprazole Allergies: IV contrast, tizanidine and sertraline Social history: . Nonsmoker Physical Exam: Pleasant male in obvious agony. Axial loading produces neck pain. Lhermitte sign is negative. Spurling test is negative. Sensory exam reviews decreased sensation over the ventral medial side of his right upper arm. Motor exam is 5/5 throughout. No pathological reflexes Radiological Studies: MRI done at [place] on 07/15/2024 shows severe bilateral C6 and C7 foraminal stenosis due to degenerative disc disease with osteophyte formation. Impression/Plan: This patient is suffering from a predominantly right cervical radiculopathy that is most likely coming from the C5-6 level but I can not exclude contribution of the C6-7 level as well. The pain is severe and has not been responding to conservative treatment so far. Therefore I offered him an anterior diskectomy and fusion C5-6 and C6-7 to decompress the bilateral C6 and C7 nerve roots. I described the procedure and expected postoperative outcome and he wants to proceed. He is scheduled for 11/12/2024. He will obtain preoperative clearance from his primary care physician, Dr. Correa. Thank you for allowing me to participate in your patients care. total time spent was 50 minutes in counseling ,coordination of plan, personal review of imaging, surgical decision making and subsequent plan Lincoln Qureshi MD, PhD Spine Fellowship Trained Neurosurgeon Director, [facility] Coding Level of Care Code New Pt Level 4 (86389) Diagnoses Cervical disc disorder with radiculopathy M50.10
== END 2024-09-18 10:08 | disposition home or self-care (01) ==
PROVIDERS: PCP Internal Medicine; Referring Provider Physical Medicine & Rehabilitation; Visit Provider Neurological Surgery
DX: M50.10 Cervical disc disorder with radiculopathy, unspecified cervical region (principal)
CPT/HCPCS: 99204

== ENCOUNTER → 2024-09-18 08:46 | Outpatient (BNVA) | payer MEDICARE, SELFPAY | PROVIDERS: PCP Internal Medicine; Referring Provider Physical Medicine & Rehabilitation; Visit Provider Neurological Surgery | DX: M50.10 Cervical disc disorder with radiculopathy, unspecified cervical region (principal) | CPT/HCPCS: 99202 ==

== ENCOUNTER 2024-10-27 07:53 | Outpatient (REF) | payer MEDICARE, SELFPAY ==
[2024-10-27 10:03] LABS: MANUAL DIFF FLAG NO
[2024-10-27 10:11] LABS: Basophils Absolute Auto 0.1 X10*3/uL (0.0-0.2); Basophils Percent Auto 0.9 % (0-2); Eosinophils Absolute Auto 0.3 X10*3/uL (0.0-0.4); Eosinophils Percent Auto 3.6 % (0-4); Hematocrit 45.4 % (42.0-52.0); Hemoglobin 15.6 g/dl (14.0-18.0); Imm Gran Abs Auto 0.02 X10*3/uL (0.00-0.03); Imm Gran Pct Auto 0.3 % (0.0-0.4); Lymphocytes Absolute Auto 1.6 X10*3/uL (1.2-4.9); Lymphocytes Percent Auto 23.2 % (20-40); Mean Corpuscular HGB Conc 34.4 g/dl (31.0-36.0); Mean Corpuscular Hemoglobin 30.2 pg (27.0-33.0); Mean Platelet Volume 10.4 fL (9.4-12.4); Monocytes Absolute Auto 0.5 X10*3/uL (0.1-1.2); Monocytes Percent Auto 6.7 % (2-11); Neutrophils Absolute Auto 4.6 x10*3/uL (2.0-8.3); Neutrophils Percent Auto 65.3 % (45-73); Platelet Count 192 X10*3/uL (160-400); Red Blood Count 5.16 X10*6/uL (4.60-5.80); Red Cell Distribution Width 12.9 % (11.0-16.0)
[2024-10-27 10:29] LABS: Appearance Urine Clear; Color Urine Yellow; Glucose Urine UA Negative (Negative); Leukocyte Esterase Urine Negative (Negative); Nitrite Urine Negative (Negative); PH 5.5 (5.0-9.0); Urine Blood Negative (Negative); Urine Ketones Negative (Negative); Urine Protein Negative (Neg-Trace)
[2024-10-27 10:55] LABS: Estimated Average Glucose 117 mg/dL; Hemoglobin A1C 156.8494 umol/L; Hemoglobin A1c % 5.7 % (<6.0); Total Hemoglobin (HGBA1C) 4089.0719 umol/L
[2024-10-27 11:03] LABS: Albumin Level 4.2 g/dL (3.5-5.0); Alkaline Phosphatase 51 U/L (39-117); Anion Gap 10 (12-20); Aspartate Amino Transferase 29 U/L (5-37); Bilirubin Total 0.9 mg/dL (0.0-1.0); Blood Urea Nitrogen 20 mg/dL (9-16); Calcium 8.7 mg/dL (8.4-10.2); Carbon Dioxide 31 mmol/L (22-29); Chloride 104 mmol/L (96-108); Cholesterol 103 mg/dL (<200); Estimated Glomerular Filt Rate > 60; Glucose Fasting 109 mg/dL (60-99); HDL Cholesterol 40 mg/dL (>40); LDL Cholesterol Calculated 41 mg/dL (<100); Potassium 3.4 mmol/L (3.3-5.1); Sodium 142 mmol/L (135-145); Total Protein 7.4 g/dL (6.5-8.0); Triglycerides 114 mg/dL (<150)
[2024-10-27 11:14] LABS: Alanine Aminotransferase 34 U/L (0-40)
[2024-10-27 11:20] LABS: Folate 10.3 ng/mL (> or = 4.0); Vitamin B12 328 pg/mL (200-900)
[2024-10-27 11:22] LABS: TSH reflex Free T4 0.97 uIU/mL (0.32-4.0); Vitamin D 25-OH Total 51.1 ng/mL (>30)
== END 2024-10-27 07:54 | disposition home or self-care (01) ==
LOC: HO.HMGCLDS 07:53
PROVIDERS: PCP Internal Medicine; Visit Provider Internal Medicine
DX: R73.01 Impaired fasting glucose (principal); R30.0 Dysuria; E55.9 Vitamin D deficiency, unspecified; D64.9 Anemia, unspecified; E53.8 Deficiency of other specified B group vitamins; E78.00 Pure hypercholesterolemia, unspecified
CPT/HCPCS: 36415; 80053; 80061; 81003; 82306; 82607; 82746; 83036; 84443; 85025

== ENCOUNTER → 2024-10-29 13:31 | Outpatient (BNV) | payer MEDICARE, SELFPAY | PROVIDERS: PCP Internal Medicine; Visit Provider Internal Medicine Cardiovascular Disease | DX: R00.1 Bradycardia, unspecified (principal) | CPT/HCPCS: 93010 ==

== ENCOUNTER 2024-11-02 12:43 | Outpatient (AMB) | payer MEDICARE, SELFPAY ==
--- NOTE | 2024-11-02 12:47 | MHC.PC.OV ---
Vital Signs 11/02/24 12:50 Height 5 ft 6 in Weight 182 lb 8 oz BMI 29.5 BP 124/66 Blood Pressure Location Lt brachial Position Sitting Pulse 54 Pulse Source Pulse Oximeter Pulse Oximetry (%) 97 Oxygen Delivery Method Room Air Intake Visit Reasons: 4 Months f/u and preop clearance per pcp Siderographer Required: No Accompanied by: Self / Same As Patient Allergies Iodinated Contrast Media [IV Dye, Iodine Containing] Allergy (Mild, Verified 11/02/24 13:28) Hives tizanidine Allergy (Mild, Verified 11/02/24 13:28) painful rash on ankles, dizziness sertraline Adverse Reaction (Intermediate, Verified 11/02/24 13:28) GI upset, confusion Medication List - Last Reconciled 11/02/24 by Armaan Correa MD amlodipine 2.5 mg PO DAILY 90 days amlodipine 5 mg PO DAILY 90 days cholecalciferol (vitamin D3) 25 mcg PO DAILY 90 days clonazepam 0.5 mg PO BEDTIME PRN Eliquis (apixaban) 5 mg PO BID 30 days NS hydrochlorothiazide 12.5 mg PO DAILY 90 days lisinopril 40 mg PO DAILY 90 days metoprolol succinate ER 25 mg PO DAILY 90 days pantoprazole 40 mg PO DAILY rosuvastatin 5 mg PO DAILY 90 days sennosides (Senna Laxative) 17.2 mg (2 x 8.6 mg) PO BEDTIME Tobacco use date assessed: 11/02/24 Fall risk assessment: No Falls in past year Last assessed Fall Risk: 11/02/24 Dental Screening Dental Screen Date: 11/02/24 Did you have a dental visit in the last 12 months?: Yes Did you have a dental problem in the last 6 months where you did not have access to dental care?: No Was dental information given to patient?: Patient has dentist HPI 4 Months f/u and preop clearance per pcp HPI Details Patient comes in today for his follow up visit He is also here today for a preoperative exam for clearance for surgery at the request of Dr. Qureshi He is currently scheduled for anterior diskectomy and fusion C5-6 and C6-7 under general anesthesia with Dr. Qureshi on 11/12/2024 Patient states that he continues to experience severe pain radiating from his neck down into his right shoulder and right upper arm and sometimes down into the right hand, which have been going on for at least a couple of years now Notes that his symptoms are often worse at night and can keep him from getting a good night's sleep States that he has tried conservative management with physical therapy, injection treatments from pain management and ever botox injections, all of which have not helped significantly and he is hoping that the surgery will finally provide him with (+) relief He reports (+) on and off headaches, which are likely related to his neck symptoms He also still has occasional dizziness, which have been ongoing for the past 3 years Denies any chest pains, no increased shortness of breath No nausea/vomiting, no abdominal pain No change in bowel habits noted He needs several of his Rx refilled He had his follow-up labs done last week - to discuss his results [facility] Medical History (Updated 11/03/24 @ 06:11 by Armaan Correa MD) Essential hypertension Depression Kidney stone Spasmodic torticollis Cervical spondylosis Vitamin D deficiency COVID-19 vaccine series completed Cerebrovascular accident, embolic Right leg weakness Right arm weakness Facial droop BPH (benign prostatic hyperplasia) Overweight (BMI 25.0-29.9) Anxiety Primary insomnia Cervical disc disorder with radiculopathy Impaired fasting glucose Pure hypercholesterolemia Benign essential hypertension Erectile dysfunction Degenerative disc disease, thoracic Degenerative disc disease, lumbar Delayed gastric emptying GERD (gastroesophageal reflux disease) Urgency of micturition Surgical History History of prostate surgery Hx of cataract extraction Hx of cystoscopy (~2019) History of esophagogastroduodenoscopy (EGD) (02/14/15) Hx of colonoscopy (03/04/12) Hx of tonsillectomy Family History Father Heart disease Mother Cancer Brother Diabetes Paternal Grandmother Heart disease Maternal Uncle Colon cancer Social History Household Members: Spouse Housing: House Are you a primary rn palliative care to a significant other at home: No Do you presently have visiting nurse or other home services: No Alcohol intake: current Alcohol intake frequency: does not drink Alcohol type: beer Patient Tobacco Use Status: Former Tobacco user Tobacco use type: Cigarette e-Cigarette/Vaping Use: Never Used Second Hand Smoke Exposure: Yes service: Yes ([employer]) Current occupational status: retired Cognitive needs: No Hearing needs: No Vision needs: Yes (glasses) Questionnaire PHQ-9 Over the last 2 weeks, how often have you been bothered by any of the following problems? 1. Little interest or pleasure in doing things: not at all 2. Feeling down, depressed, or hopeless: not at all 3. Trouble falling or staying asleep, or sleeping too much: not at all 4. Feeling tired or having little energy: not at all 5. Poor appetite or overeating: not at all 6. Feeling bad about yourself - or that you are a failure or have let yourself or your family down: not at all 7. Trouble concentrating on things, such as reading the newspaper or watching television: not at all 8. Moving or speaking so slowly that other people could have noticed. Or the opposite - being so fidgety or restless that you have been moving around a lot more than usual: not at all 9. Thoughts that you would be better off or of hurting yourself in some way: not at all Total score: 0 Depression Screening Interpretation: Negative Depression Screening Done: Yes 54233 - PHQ-9 Billing: Yes Source: Developed by Drs. Serjio Fields, Razia Coombs, Jason Tena and colleagues, with an educational tia from [employer]. Thrive Questionnaire Date Thrive assessed: 11/02/24 I am a: Patient What is your living situation today?: I have a steady place to live Within the past 12 months, did the food you bought not last and you didn't have the money to get more?: Never true Within the past 12 months, did you worry whether your food would run out before you got money to buy more?: Never true Do you have trouble paying for medicines?: No Do you have trouble getting transportation to medical appointments?: No Do you have trouble paying your heating and electricity bill?: No Do you have trouble taking care of your child, family member or friend?: No Do you have trouble with day-to-day activities such as bathing, preparing meals, shopping, managing finances, etc.?: No Are you currently unemployed and looking for a job?: No Are you interested in more education?: No Please select the resources that you would like help with: None Currently or been in a relationship where the following occur: No concerns reported THRIVE Score: 0 AUDIT C Alcohol Use Questionnaire (AUDIT-C) 1. How often do you have a drink containing alcohol?: Monthly or less 2. How many drinks containing alcohol do you have on a typical day when you are drinking?: 1 or 2 3. How often do you have six or more drinks on one occasion?: Never Total Score: 1 Score Reviewed/Action Taken: Yes SARAH-7 AMB Questionnaire SARAH-7 Date SARAH - 7 assessed: 11/02/24 Feeling nervous, anxious, or on edge: 0 = Not at all Not being able to stop or control worryin = Not at all Worrying too much about different things: 0 = Not at all Trouble relaxin = Not at all Being so restless that it is hard to sit still: 0 = Not at all Becoming easily annoyed or irritable: 0 = Not at all Feeling afraid as if something awful might happen: 0 = Not at all Total SARAH-7 score (0-4 normal; 5-9 mild; 10-14 moderate; 15-21 severe): 0 Source: Developed by Drs. Serjio Fields, Razia Coombs, Jason Tena and colleagues, with an educational tia from [employer]. Review of Systems Const Denies chills, Reports fatigue (at times), Denies fever(s), Denies headache(s), Denies malaise and Reports weakness (of the right arm and right leg, minimal) Eyes Denies blurry vision ENT Denies dysphagia, Reports dizziness (occasional), Denies otalgia, Denies headache(s), Reports neck pain, Denies odynophagia and Denies sore throat Card Denies chest pain, Denies irregular heart rhythm, Denies palpitations and Denies dyspnea Resp Denies chest congestion, Denies cough and Denies dyspnea GI Denies abdominal pain, Denies constipation, Denies dysphagia, Denies heartburn, Denies diarrhea, Denies nausea, Denies odynophagia and Denies vomiting Denies difficulty urinating, Denies dysuria and Denies urinary frequency Musc Denies back pain, Reports neck pain, Reports numbness (occasional, in both arms), Reports radiating pain into limb (into the right arm and hand - see HPI) and Reports tingling (in both arm, occasionally) Skin/Breast Denies rash Neuro Reports dizziness (occasional), Denies headache(s), Reports numbness (occasional, in both arms), Reports tingling (in both arm, occasionally) and Reports weakness (of the right arm and right leg, minimal) Psych Reports anxiety Endo Reports fatigue (at times) and Denies palpitations Physical exam (Primary Care) Vital Signs: Last Vital Signs Pulse 54 11/02/24 12:50 BP 124/66 11/02/24 12:50 Pulse Ox 97 11/02/24 12:50 Oxygen Delivery Method Room Air 11/02/24 12:50 BMI result Body Mass Index 29.5 Tobacco/Smoking Status: Tobacco use Status Tobacco use date assessed 11/02/24 11/02/24 12:49 Patient Tobacco Use Status Former Tobacco user 11/02/24 12:49 Tobacco use type Cigarette 11/02/24 12:49 e-Cigarette/Vaping Use Never Used 11/02/24 12:49 PHQ-9: PHQ-9 Score PHQ-9: Total score 0 11/02/24 21:07 Depression Screening Interpretation: Negative Thrive Assessment: Date of Thrive Assessment Date Thrive assessed 11/02/24 11/02/24 12:49 Currently or been in a relationship where the following occur: No concerns reported Const General: no acute distress and alert HENMT Ears: TM's normal bilaterally and EAC's normal Throat: Yes posterior oropharynx normal and Yes tonsils normal (no TP congestion noted) Neck Neck: No lymphadenopathy Thyroid: Thyroid normal Resp Auscultation: clear to auscultation bilaterally, no rales and no wheezes Cardio Rate: regular rate Rhythm: regular rhythm Heart sounds: no murmurs GI Palpation (GI): Soft to palpation and nontender Auscultation: normal bowel sounds Back/Spine/Pelvis Cervical Spine: Cervical spine tenderness Neuro Other: (+) residual mild weakness of the right arm and the right leg Extrem General: Yes no clubbing, cyanosis or edema Results Reviewed Results Reviewed: Laboratory Tests 10/27/24 07:58 WBC 7.0 Hgb 15.6 Hct 45.4 Plt Count 192 Sodium 142 Potassium 3.4 Creatinine 1.05 Estimated GFR > 60 Fasting Glucose 109 H Hemoglobin A1c % 5.7 Calcium 8.7 D AST 29 ALT 34 Triglycerides 114 Cholesterol 103 LDL Cholesterol, Calc 41 HDL Cholesterol 40 L Vitamin B12 328 25-OH Vitamin D Total 51.1 TSH 0.97 Ur Specific Henning 1.020 Urine Protein Negative Urine Glucose (UA) Negative Urine Blood Negative Urine Nitrite Negative Ur Leukocyte Esterase Negative Coding Level of Care Code Est Pt Level 4 (92540) Diagnoses Preoperative examination Z01.818 Cervical disc disorder with radiculopathy M50.10 History of cerebrovascular accident (CVA) due to embolism Z86.73 Dizziness of unknown etiology R42 Neuropathy G62.9 Essential hypertension I10 Pure hypercholesterolemia E78.00 Gastroesophageal reflux disease without esophagitis K21.9 Esophagitis presence: without esophagitis Impaired fasting glucose R73.01 Vitamin D deficiency E55.9 Anxiety F41.9 Overweight (BMI 25.0-29.9) E66.3 Additional Codes PHQ-9 - 57129 - PHQ-9 Billing: Yes ([id number]) Assessment & Plan Assessment & Plan (1) Preoperative examination: Code(s): Z01.818 - Encounter for other preprocedural examination Category: Medical Plan: Patient presents with acceptable risks and is currently medically optimized for planned intermediate cardiac risk procedure He has been instructed to hold his Apixaban about 3 days prior to his surgery and to start back on it the day after his procedure is completed He is also advised to hold his HCTZ 12.5 mg in the morning on the day of his surgery (2) Cervical disc disorder with radiculopathy: Code(s): M50.10 - Cervical disc disorder with radiculopathy, unspecified cervical region Category: Medical Plan: He will be undergoing anterior diskectomy and fusion of his C5-6 and C6-7 under general anesthesia with Dr. Qureshi on 11/12/2024 Cervical spine MRI done in September 2022 revealed (+) multilevel degenerative spondylotic changes without significant narrowing of the spinal canal but there are progressive moderate to severe neural foraminal stenosis over several levels bilaterally States that physical therapy has not helped much with his neck pain in the past He has been referred to and seen by [facility], who has been managing his chronic neck pain but injections treatments attempted so far, including Botox injections, have not helped much (3) History of cerebrovascular accident (CVA) due to embolism: Comment: Head CT done at the ER at [facility] on 09/22/2021 came out negative MRI of the brain done a week later in September 2021 revealed new embolic infarcts Code(s): Z86.73 - Personal history of transient ischemic attack (TIA), and cerebral infarction without residual deficits Category: Medical Plan: Patient has had no recurrence of his CVA since his initial presentation a few years ago in September 2021 Cardiac monitoring tests done at [facility] then all reportedly came out normal Echocardiogram and SARA done at the time also came back normal Continue Apixaban 5 mg BID - he has already been given instructions to hold this 3 days prior to his surgery, and to start back on it the day after his surgery is done Follow up with neurology and cardiology as scheduled (4) Dizziness of unknown etiology: Code(s): R42 - Dizziness and giddiness Category: Medical Plan: Patient states that he still has occasional dizziness Sinus CT done at [facility] a couple of years ago reportedly came out normal He has been advised by ENT that his overall evaluation have revealed no evidence of any ENT source of his symptoms He was seen by Dr. Bernardo for a second (neurology) opinion with the same conclusion and was started on Baclofen Q HS, which patient eventually stopped taking on his own as he did not feel that the Rx was helping (5) Neuropathy: Code(s): G62.9 - Polyneuropathy, unspecified Category: Medical Plan: NCV & EMG of the upper extremities done in June 2023 revealed (+) electrodiagnostic evidence for bilateral moderate-severe median neuropathy at the wrists, consistent with carpal tunnel syndrome. There is no electrodiagnostic evidence for ulnar neuropathy, brachial plexopathy, or cervical radiculopathy (6) Essential hypertension: Code(s): I10 - Essential (primary) hypertension Category: Medical Plan: Reinforced low sodium diet - goal is systolic BP of at least 130 to 140 mm, given his Hx of CVA and orthostatic dizziness Continue Lisinopril 40 mg QD, Metoprolol ER 25 mg QD, Amlodipine 7.5 mg QD and HCTZ 12.5 mg QD - he is to hold his HCTZ on the morning of the day of his surgery His blood pressure appears to have improved significantly lately BP log brought in by patient previously showed systolic BP readings mostly in the 120 to 130 mm range, with occasional 145 mm and 143 mm readings Patient is reminded to continue monitoring his blood pressure regularly (7) Pure hypercholesterolemia: Code(s): E78.00 - Pure hypercholesterolemia, unspecified Category: Medical Plan: His cholesterol levels are well-controlled with current management Reinforced low cholesterol diet Continue Rosuvastatin 5 mg QD Will recheck his labs and fasting lipids in 4 months for follow up (8) GERD (gastroesophageal reflux disease): Code(s): K21.9 - Gastro-esophageal reflux disease without esophagitis Category: Medical Qualifiers: Esophagitis presence: without esophagitis Qualified Code(s): K21.9 - Gastro-esophageal reflux disease without esophagitis Plan: Dietary restrictions reinforced Continue Pantoprazole 40 mg QD (9) Impaired fasting glucose: Code(s): R73.01 - Impaired fasting glucose Category: Medical Plan: His HgbA1c remains unchanged and normal at 5.7% on his labs done last week; it was previously at 5.8% last year FBS was again slightly elevated at 109 mg/dl Reinforced low calorie diet / exercise as tolerated (10) Vitamin D deficiency: Code(s): E55.9 - Vitamin D deficiency, unspecified Category: Medical Plan: Continue Vitamin D3 2000 units QD (11) Anxiety: Code(s): F41.9 - Anxiety disorder, unspecified Category: Medical Plan: Continue Clonazepam 0.5 mg BID PRN He was also on Escitalopram to 20 mg QD (could not tolerate Sertraline in the past) but he self-discontinued this sometime last year as he did not feel that the Rx helped at all He has DECLINED taking anything else other than Clonazepam PRN, citing his issues when he tried Sertraline in the past, and does not wish to try any other medications at this time (12) Overweight (BMI 25.0-29.9): Code(s): E66.3 - Overweight Category: Medical Plan: Reinforced diet/exercise as tolerated/lose weight Plan Patient is currently medically optimized and has no contraindications to undergo planned cervical spine decompression surgery under general anesthesia on 11/12/[address] Qureshi Follow up in 4 months Orders: Orders Complete Blood Count Auto Diff 4 Months D64.9 - Anemia, unspecified Lipid Panel 4 Months E78.00 - Pure hypercholesterolemia, unspecified TSH reflex Free T4 4 Months E78.00 - Pure hypercholesterolemia, unspecified Vitamin D 25-OH Total 4 Months E55.9 - Vitamin D deficiency, unspecified Comprehensive Farnam. Panel Fast 4 Months E78.00 - Pure hypercholesterolemia, unspecified UA CC w/rflx Micro + Cult 4 Months R30.0 - Dysuria Hemoglobin A1c 4 Months R73.01 - Impaired fasting glucose Medications: Changed From pantoprazole 40 mg PO DAILY 90 tabs 1RF K21.9 - Gastro-esophageal reflux disease without esophagitis To pantoprazole 40 mg PO DAILY 90 days 90 tabs 3RF K21.9 - Gastro-esophageal reflux disease without esophagitis Refilled amlodipine To be taken together with Amlodipine 5 mg to EQUAL a TOTAL of 7.5 mg DAILY DOSE 2.5 mg PO DAILY 90 days 90 tabs 3RF rosuvastatin 5 mg PO DAILY 90 days 90 tabs 3RF amlodipine To be taken together with Amlodipine 2.5 mg to EQUAL a TOTAL of 7.5 mg DAILY DOSE 5 mg PO DAILY 90 days 90 tabs 3RF cholecalciferol (vitamin D3) 25 mcg PO DAILY 90 days 90 caps 3RF E55.9 - Vitamin D deficiency, unspecified hydrochlorothiazide 12.5 mg PO DAILY 90 days 90 tabs 3RF metoprolol succinate ER 25 mg PO DAILY 90 days 90 tabs 3RF
[2024-11-02 12:50] VITALS: BP 124/66; PULSE 54; O2SAT 97; BMI 29.5
--- OUTSIDE RECORDS SUMMARY | 2024-11-02 17:23 | XMS_ITS | Clinical Summary ---
Author Organization [facility] Facility Address [address] [place] [address], [place] [address] Care Team Providers Care Content Developer Name Role Phone Armaan Correa MD Primary Care Provider [phone] Social History Tobacco Use Types Packs/Day Years Used Date Smoking Tobacco: Never Assessed Sex and Gender Information Value Date Recorded Sex Assigned at Not on file Legal Sex Male 12:13 PM EST Gender Identity Not on file Sexual Orientation Not on file Plan of Treatment Health Maintenance Due Date Last Done Comments Pneumococcal Vaccine: 65+ Ye ars (1 of 1 - PCV) 2010 Influenza Vaccine (#1) 2024 Hepatitis B Vaccine Aged Out No longe r eligible based on patient's age to complete this topic [place] [address] [place] [address] Care Teams Content Developer Relationship Specialty Start Date End Date Armaan Correa MD [address] [facility] [address] [place] [address] [id number] PCP - General Internal Medicine 10/05/21
--- OUTSIDE RECORDS SUMMARY | 2024-11-02 17:23 | XMS_ITS | Data Portability ---
Author Organization [place] - [facility], Allergy Address [address] [place] [phone] Care Team Providers Care Size Mixer Name Role Phone OLIVA JAYY Primary Care Provider Assessment Encounter Date Assessment Date Assessment LastModified by Organization Details LastModified Time 05/08/2024 05/08/2024 79-year-old male with a history of CVA presents for nasal obstruction. He reports that he continues to have a sensation of lightheadedness. He is wondering if the deviated septum is contributing to his symptoms. Since his last visit, he did have Botox in his neck but this did not help. He has done physical therapy. He is seeing a neurologist. His blood pressure does go up and down. I counseled him that the deviated septum was not contributing to his sense of lightheadedness and I would not recommend any surgical intervention. I did note some obstructive cerumen on the left which I removed. He did report that this seemed to help his symptoms a little bit. He is welcome to follow-up for cleanings in the future as needed. [email or web address] Not available 05/10/2024 20:50:00 Plan of Treatment Reminders Order Date Submit Date Provider Last Modified By Organization Details Last Modified Time Details Appointments None record ed. Lab None record ed. Referral None record ed. Procedures None record ed. Surgeries None record ed. Imaging None record ed. Medication Orders None record ed. Patient TargetsNo targets recorded. Patient InstructionsNo instructions recorded. Reason for Referral None Reported. Results Created Date Observation Date Name Description Value Unit Range Abnormal Flag Note LastModifiedBy Organization Detail LastModifiedTime 05/27/20 24 05/25/2022 imagi ng/di agnos tic resul t No observ ation record ed. [email or web address] Not Available 03:24:39 05/27/20 24 06/21/2022 imagi ng/di agnos tic resul t No observ ation record ed. [email or web address] Not Available 03:25:01 05/27/20 24 06/25/2022 imagi ng/di agnos tic resul t No observ ation record ed. [email or web address] Not Available 03:25:05 05/27/20 24 09/28/2021 imagi ng/di agnos tic resul t No observ ation record ed. [email or web address] Not Available 03:25:12 Result Notes None recorded. Problems Name Problem SNOMED Code Status Onset Date Resolution Date Notes Provider Name and Address Organization Details Recorded Time Impacted cerumen 18513849 Active 2013 Impacted wax /debris; CMS Risk: low risk CMS Treatment : new problem (to examiner) : no additiona l workup planned C ondition: controlle d Note: Date Diagnosed : 4 3:37 PM (380.4) Not Available [facility] 4 02:44:50 Sensorine ural hearing loss of bilateral ears 471939130 Active 2015 Sensorine ural hearing loss bilateral ly; CMS Risk: low risk CMS Treatment : new problem (to examiner) : no additiona l workup planned C ondition: controlle d Note: Date Diagnosed : 4 3:37 PM (389.18) ; Start Date : 4 Sensori neural hearing loss, bilateral ; Note: Date Diagnosed : 11/18/2015 1:58 PM (H90.3) Not Available [facility] 4 02:44:47 Dizziness and giddiness 002985852 Active 2021 Dizziness and giddiness ; Note: Date Diagnosed : 05/25/2022 10:53 AM (R42) Not Available [facility] 4 02:44:48 Candidal otitis externa 28922623 Active 2015 Candidal otitis externa; Note: Date Diagnosed : 11/02/2015 1:29 PM (B37.84) Not Available [facility] 4 02:44:45 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; Note: Date Diagnosed : 05/25/2022 10:53 AM (G50.1) Not Available [facility] 4 02:44:46 Infective otitis externa of left ear 05340744033 32285 Active 2015 Other infective otitis externa, left ear; Note: Date Diagnosed : 11/02/2015 1:29 PM (H60.392) Not Available [facility] 4 02:44:48 Chronic mycotic otitis externa 749413411 Active 2015 Chronic mycotic otitis externa; Note: Date Diagnosed : 11/11/2015 1:17 PM (380.15) Not Available [facility] 02:44:44 Impacted cerumen 40679981 Active 2023 LAURA MAIER MD [address] [place] [address], [place], [phone] , [facility] - [facility] 4 20:48:19 Dizziness 471092443 Active 2023 LAURA MAIER MD [address] [place] [address], [place], [phone] , [place] [facility] [place] 4 20:48:34 Deviated nasal septum 534454777 Active 2023 LAURA MAIER MD [address] [place] [address], [place], [phone] , [facility] 4 20:48:47 Problem Notes None recorded. Procedures Surgical History None recorded. Imaging Results Imaging Date Name Status LastModified by Organiz [facility] Details LastModified Time 05/25/2022 imaging/diag nostic result completed Information not available 05/27/2024 03:24:39 06/21/2022 imaging/diag nostic result completed Information not available 05/27/2024 03:25:01 06/25/2022 imaging/diag nostic result completed Information not available 05/27/2024 03:25:05 09/28/2021 imaging/diag nostic result completed Information not available 05/27/2024 03:25:12 Procedure Notes None recorded. Medical Equipment None Reported. Allergies Allergen ID Allergen Name Allergen Category Reaction Reaction Severity Criticality Documentation Date Start Date Code Code System Note Provider Name and Address Organization Details Recorded Time 32295 Iodinated contrast media (substanc e) medicatio n other Not available Not available 02/18/2024 [id number] SNOMED React ion: unkno wn, unspe cifie d;; Not Available [facility] 01:02:09 Medications Name Sig Start Date Stop Date Status Note LastModified by Organization Details LastModified Time clonidine HCl 0.1 mg tablet 05/08 completed Medicati on ID: [id number] B rand Name: clonidin e HCl Send Method: E-Prescr ibed Sub s Allowed: subs OK Medic ationGen ericName : clonidin e HCl Not Available Not Available Not Available lisinopri l 20 mg tablet 05/08 completed Medicati on ID: [id number] Bra nd Name: lisinopr il Send Method: E-Prescr ibed Sub s Allowed: subs OK Medic ationGen ericName : lisinopr il Not Available Not Available Not Available clonazepa m 0.5 mg tablet 05/08 completed Medicati on ID: [id number] B rand Name: clonazep am Send Method: E-Prescr ibed Sub s Allowed: subs OK Medic ationGen ericName : clonazep am Not Available Not Available Not Available amlodipin e 2.5 mg tablet active Not Available Not Available Not Available amlodipin e 5 mg tablet active Not Available Not Available Not Available Ciloxan 0.3 % eye drops 05/08 completed Medicati on ID: [id number] D uration Value: 10 Prescri bed By Name: JOSE Burnett nd Name: Ciloxan Send Method: E-Prescr ibed Sub s Allowed: subs OK Speci al Instruct ion: Instill 4 drops twice a day into the affected ear. Med icationG enericNa me: Ciloxan Not Available Not Available Not Available lorazepam 0.5 mg tablet 05/25 completed Medicati on ID: [id number] Dur ation Value: 30 Brand Name: lorazepa m Send Method: E-Prescr ibed Sub s Allowed: subs OK Speci al Instruct ion: TAKE 1 TABLET BY MOUTH TWICE A DAY FOR 30 DAYS Med [facility]: lorazepa m Not Available Not Available Not Available metoclopr amide 5 mg tablet 05/08 completed Medicati on ID: [id number] B rand Name: metoclop ramide HCl Send Method: E-Prescr ibed Sub s Allowed: subs OK Medic ationGen ericName : metoclop ramide HCl Not Available Not Available Not Available baclofen 10 mg tablet TAKE 1 TABLET BY MOUTH EVERYDAY AT BEDTIME 05/08 completed Not Available Not Available Not Available pantopraz ole 40 mg tablet,de layed release active Not Available Not Available Not Available clotrimaz ole 1 % topical solution 05/25 completed Medicati on ID: [id number] Monique russell By Name: JOSE Burnett nd Name: clotrima zole Sen d Method: E-Prescr ibed Sub s Allowed: subs OK Speci al Instruct ion: 4 drops to affected ear three times a day X [address] [facility]: clotrima zole Not Available Not Available Not Available gabapenti n 100 mg capsule TAKE 1 CAPSULE BY MOUTH AT BEDTIME 05/08 completed Not Available Not Available Not Available metoprolo l succinate ER 25 mg tablet,ex tended release 24 hr TAKE 1 TABLET BY MOUTH EVERY DAY FOR 90 DAYS active Not Available Not Available No t Available lisinopri l 40 mg tablet active Not Available Not Available Not Available escitalop maggie 10 mg tablet TAKE 2 TABLETS BY MOUTH EVERY DAY FOR 90 DAYS 05/08 completed Not Available Not Available Not Available rosuvasta tin 5 mg tablet active Medicati on ID: [id number] B rand Name: rosuvast atin Sen d Method: E-Prescr ibed Sub s Allowed: subs OK Medic ationGen ericName : rosuvast atin Not Available Not Available Not Available metoprolo l tartrate 25 mg tablet 05/08 completed Not Available Not Available Not Available DermOtic Oil 0.01 % ear drops Instill 5 drop twice a day as directed 05/08 completed Medicati on ID: [id number] Pre scribed By Name: Zia Norton nd Name: DermOtic Oil Send Method: E-Prescr ibed Sub s Allowed: subs OK Medic ationGen ericName : DermOtic Oil Not Available Not Available Not Available hydrochlo rothiazid e 12.5 mg tablet active Not Available Not Available Not Available Eliquis 5 mg tablet active Medicati on ID: [id number] B rand Name: Eliquis Send Method: E-Prescr ibed Sub s Allowed: subs OK Medic ationGen ericName : Eliquis Not Available Not Available Not Available Vitals Date Recorded Body height Body mass index (BMI) Body weight Provider Name and Address Organization Details Last Updated DateTime 05/08/2024 167.64 cm 29.1 kg/m2 92897.63 g Shyanne Gaytan [place] - [facility] 05/08/2024 11:10:52 Social History None recorded. Functional Status None recorded. Mental Status None recorded. Family History Nothing Reported. Medical History No medical history recorded. Past Encounters Encounter ID Performer Location Encounter Start Date Encounter Closed Date Diagnosis/Indication Diagnosis SNOMED-CT Code Diagnosis ICD10 Code Diagnosis Note [id number] LAURA MAIER MD [facility] [address] [address] 05/08/2024 10:44:25 05/08/2024 11:29:39 Impacted cerumen 32204761 H61.22 Dizziness 446820358 R42 Deviated nasal septum 12 4701050 J34.2 Health Concerns Section Related Observation LastModified by Organization Detai ls LastModified Time None Recorded Concern Status LastModified by Organization Details LastModified Time None Recorded Advance Directives Directive None Recorded Payers Encounter Date Sequence Insurance Name Policy Number Policy Castellano Covered Member ID Castellano Member ID Guarantor Name 05/08/2024 1 [employer] - MEDICARE ADVANTAGE PLAN (MEDICARE REPLACEMENT HMO) [id number] 1 Fabio Maciel [id number] Fabio Maciel Notes Date Note Type Note Provider Name and Address Organization Details Recorded Time 05/08/2024 text/html 79-year-old male presents for left-sided nasal obstruction. He reports that he continues to have a sensation of lightheadedness. He is wondering if the deviated septum is contributing to his symptoms. Since his last visit, he did have Botox in his neck but this did not help. He has done physical therapy. He is seeing a neurologist. His blood pressure does go up and down. PV: 77-year-old male presents today for evaluation of dizziness and lightheadedness. He has long-standing difficulty with asymmetric sensorineural hearing loss. He has a history of hunting. He is right-handed. He had a stroke in August 2021. He reports that he is dizzy all the time. It was worse after his stroke. His vision is checked regularly. He denies any room spinning dizziness. He describes lightheadedness. He describes symptoms of neck pain, eye burning. He had an MRI at [facility] but his sinus headaches started after this. He is had CT sinuses in the past which have not shown any disease. LAURA MAIER MD [address] [place] [address], [phone], [facility] - [facility] 05/10/2024 20:50:40
== END 2024-11-02 13:39 | disposition home or self-care (01) ==
PROVIDERS: PCP Internal Medicine; Visit Provider Internal Medicine
DX: Z01.818 Encounter for other preprocedural examination (principal); M50.10 Cervical disc disorder with radiculopathy, unspecified cervical region; Z86.73 Personal history of transient ischemic attack (TIA), and cerebral infarction without residual deficits; R42 Dizziness and giddiness; G62.9 Polyneuropathy, unspecified; I10 Essential (primary) hypertension; E78.00 Pure hypercholesterolemia, unspecified; K21.9 Gastro-esophageal reflux disease without esophagitis; R73.01 Impaired fasting glucose; E55.9 Vitamin D deficiency, unspecified; F41.9 Anxiety disorder, unspecified; E66.3 Overweight

== ENCOUNTER → 2024-11-02 12:43 | Outpatient (BNVA) | payer MEDICARE, SELFPAY | PROVIDERS: PCP Internal Medicine; Visit Provider Internal Medicine | DX: Z01.818 Encounter for other preprocedural examination (principal); M50.10 Cervical disc disorder with radiculopathy, unspecified cervical region; R42 Dizziness and giddiness; G62.9 Polyneuropathy, unspecified; I10 Essential (primary) hypertension; E78.00 Pure hypercholesterolemia, unspecified; K21.9 Gastro-esophageal reflux disease without esophagitis; R73.01 Impaired fasting glucose; E55.9 Vitamin D deficiency, unspecified; F41.9 Anxiety disorder, unspecified; E66.3 Overweight; Z68.29 Body mass index [BMI] 29.0-29.9, adult; Z86.73 Personal history of transient ischemic attack (TIA), and cerebral infarction without residual deficits; Z71.3 Dietary counseling and surveillance | CPT/HCPCS: 96127; 99212 ==

== ENCOUNTER 2024-11-12 05:49 | Day surgery (SDC) | payer MEDICARE, SELFPAY ==
--- NOTE | 2024-10-29 | ECG_ITS ---
Test Reason : PREOP Blood Pressure : */* mmHG Vent. Rate : 55 BPM Atrial Rate : 55 BPM P-R Int : 176 ms QRS Dur : 96 ms QT Int : 420 ms P-R-T Axes : 18 33 40 degrees QTcB Int : 401 ms Sinus bradycardia Low voltage QRS Borderline ECG When compared with ECG of 28-Sep-2021 16:28, T wave inversion no longer evident in Inferior leads Referred By: Gregoria Lipscomb Electronically Signed By: MOHAN FAULKNER MD
[2024-10-29 12:35] VITALS: BP 162/72; PULSE 54; RESP 16; O2SAT 95; BMI 29.0
--- NOTE | 2024-10-29 12:51 | P.CONAN_ITS ---
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, residual only lightheadedness GERD: ppi controls PMFSH Active Problems Active Problems: All Active Problems Screening for malignant neoplasm of colon performed (Acute) Constipation (Acute) Neuropathy (Acute) Paresthesia and pain of both upper extremities (Acute) Dizziness (Acute) Headache (Acute) Chronic anticoagulation (Acute) Urgency incontinence (Acute) BPH with obstruction/lower urinary tract symptoms (Acute) Spasmodic torticollis (Acute) Vitamin D deficiency (Acute) Hx of colonoscopy (Acute 03/04/12) GERD (gastroesophageal reflux disease) (Acute) Delayed gastric emptying (Acute) Degenerative disc disease, thoracic (Acute) Erectile dysfunction (Acute) Benign essential hypertension (Acute) Pure hypercholesterolemia (Acute) Impaired fasting glucose (Acute) Cervical disc disorder with radiculopathy (Acute) Primary insomnia (Acute) Anxiety (Acute) Overweight (BMI 25.0-29.9) (Acute) Past Medical History Medical History Essential hypertension Depression Kidney stone Spasmodic torticollis Cervical spondylosis Vitamin D deficiency COVID-19 vaccine series completed Cerebrovascular accident, embolic Right leg weakness Right arm weakness Facial droop BPH (benign prostatic hyperplasia) Overweight (BMI 25.0-29.9) Anxiety Primary insomnia Cervical disc disorder with radiculopathy Impaired fasting glucose Pure hypercholesterolemia Benign essential hypertension Erectile dysfunction Degenerative disc disease, thoracic Degenerative disc disease, lumbar Delayed gastric emptying GERD (gastroesophageal reflux disease) Urgency of micturition Family History Family History Father Heart disease Mother Cancer Brother Diabetes Paternal Grandmother Heart disease Maternal Uncle Colon cancer Family history of problems with anesthesia: No Surgical History Surgical History History of prostate surgery Hx of cataract extraction Hx of cystoscopy (~2019) History of esophagogastroduodenoscopy (EGD) (02/14/15) Hx of colonoscopy (03/04/12) Hx of tonsillectomy History of Problems with Anesthesia: No Social History Social History Household Members: Spouse Housing: House Are you a primary family day care provider to a significant other at home: No Do you presently have visiting nurse or other home services: No Alcohol intake: current Alcohol intake frequency: does not drink Alcohol type: beer Patient Tobacco Use Status: Former Tobacco user Tobacco use type: Cigarette e-Cigarette/Vaping Use: Never Used Second Hand Smoke Exposure: Yes Use of substances other than those prescribed or required for medical reasons: Yes Substance Use Frequency: Daily Have you been hit, kicked, punched, or otherwise hurt by someone within the past year? If so, by whom?: No Are you DNR?: No Advance Directives: No Advance Directives Information Provided: Yes Advance Directives on File: No Recently lost weight without trying: No Eating poorly because of decreased appetite: No Nutrition Risks: No Nutritional Risk Poor oral hygiene: Yes (missing teeth) service: Yes ([employer]) Current occupational status: retired Cognitive needs: No Hearing needs: No Vision needs: Yes (glasses) Meds Allergies Allergy/AdvReac Type Severity Reaction Status Date / Time Iodinated Contrast Media Allergy Mild Hives Verified 11/02/24 13:28 [IV Dye, Iodine Containing] tizanidine Allergy Mild painful Verified 11/02/24 13:28 rash on ankles, dizziness sertraline AdvReac Intermediate GI upset, Verified 11/02/24 13:28 confusion Home Medications ?Medication ?Instructions ?Recorded ?Confirmed ?Last Taken ?Type clonazepam 0.5 mg tablet 0.5 mg PO BEDTIME PRN Insomnia 10/29/24 11/12/24 11/10/24 History Exam Height,Weight and Vital Signs: Height 5 ft 6 in Weight 81.647 kg Last Vital Signs Pulse 54 10/29/24 12:35 Resp 16 10/29/24 12:35 BP 162/72 H 10/29/24 12:35 Pulse Ox 95 10/29/24 12:35 O2 Del Method Room Air 10/29/24 12:35 Pertinent Lab Results Pertinent Lab Results: Laboratory Tests 10/27/24 07:58 WBC 7.0 Hgb 15.6 Hct 45.4 Plt Count 192 Sodium 142 Potassium 3.4 Chloride 104 Carbon Dioxide 31 H BUN 20 H Creatinine 1.05 Narrative Narrative: EKG 10/2024 Vent. Rate : 55 BPM Atrial Rate : 55 BPM P-R Int : 176 ms QRS Dur : 96 ms QT Int : 420 ms P-R-T Axes : 18 33 40 degrees QTcB Int : 401 ms Sinus bradycardia Low voltage QRS Borderline ECG When compared with ECG of 28-Sep-2021 16:28, T wave inversion no longer evident in Inferior leads Airway Mallampati Class: III TM Dist: >3cm Neck ROM: Limited Partial: Upper Loose/Missing/Broken Teeth: Yes Heart: RRR Lungs: CTAB Assessment and Plan Assessment Anesthesia Assessment: Anesthesia Plan Discussed and PAT Visit Final Anesthetic Review Family History of Problems with Anesthesia: No History of Problems with Anesthesia: No Documented by User: Anca Quintanilla MD 11/12/24 08:25 [facility] Active Problems Active Problems: All Active Problems Screening for malignant neoplasm of colon performed (Acute) Constipation (Acute) Neuropathy (Acute) Paresthesia and pain of both upper extremities (Acute) Dizziness (Acute) Headache (Acute) Chronic anticoagulation (Acute). Last dose of eliquis 11/09/24 Urgency incontinence (Acute) BPH with obstruction/lower urinary tract symptoms (Acute) Spasmodic torticollis (Acute) Vitamin D deficiency (Acute) Hx of colonoscopy (Acute 03/04/12) GERD (gastroesophageal reflux disease) (Acute) Delayed gastric emptying (Acute) Degenerative disc disease, thoracic (Acute) Erectile dysfunction (Acute) Benign essential hypertension (Acute) Pure hypercholesterolemia (Acute) Impaired fasting glucose (Acute) Cervical disc disorder with radiculopathy (Acute) Primary insomnia (Acute) Anxiety (Acute) Overweight (BMI 25.0-29.9) (Acute) Past Medical History Medical History Essential hypertension Depression Kidney stone Spasmodic torticollis Cervical spondylosis Vitamin D deficiency COVID-19 vaccine series completed Cerebrovascular accident, embolic Right leg weakness Right arm weakness Facial droop BPH (benign prostatic hyperplasia) Overweight (BMI 25.0-29.9) Anxiety Primary insomnia Cervical disc disorder with radiculopathy Impaired fasting glucose Pure hypercholesterolemia Benign essential hypertension Erectile dysfunction Degenerative disc disease, thoracic Degenerative disc disease, lumbar Delayed gastric emptying GERD (gastroesophageal reflux disease) Urgency of micturition Family History Family History Father Heart disease Mother Cancer Brother Diabetes Paternal Grandmother Heart disease Maternal Uncle Colon cancer Family history of problems with anesthesia: No Surgical History Surgical History History of prostate surgery Hx of cataract extraction Hx of cystoscopy (~2019) History of esophagogastroduodenoscopy (EGD) (02/14/15) Hx of colonoscopy (03/04/12) Hx of tonsillectomy History of Problems with Anesthesia: No Social History Social History Household Members: Spouse Housing: House Are you a primary family day care provider to a significant other at home: No Do you presently have visiting nurse or other home services: No Alcohol intake: current Alcohol intake frequency: does not drink Alcohol type: beer Patient Tobacco Use Status: Former Tobacco user Tobacco use type: Cigarette e-Cigarette/Vaping Use: Never Used Second Hand Smoke Exposure: Yes Use of substances other than those prescribed or required for medical reasons: Yes Substance Use Frequency: Daily Have you been hit, kicked, punched, or otherwise hurt by someone within the past year? If so, by whom?: No Are you DNR?: No Advance Directives: No Advance Directives Information Provided: Yes Advance Directives on File: No Recently lost weight without trying: No Eating poorly because of decreased appetite: No Nutrition Risks: No Nutritional Risk Poor oral hygiene: Yes (missing teeth) service: Yes ([employer]) Current occupational status: retired Cognitive needs: No Hearing needs: No Vision needs: Yes (glasses) Meds Allergies Allergy/AdvReac Type Severity Reaction Status Date / Time Iodinated Contrast Media Allergy Mild Hives Verified 11/02/24 13:28 [IV Dye, Iodine Containing] tizanidine Allergy Mild painful Verified 11/02/24 13:28 rash on ankles, dizziness sertraline AdvReac Intermediate GI upset, Verified 11/02/24 13:28 confusion Home Medications ?Medication ?Instructions ?Recorded ?Confirmed ?Last Taken ?Type clonazepam 0.5 mg tablet 0.5 mg PO BEDTIME PRN Insomnia 10/29/24 11/12/24 11/10/24 History Exam Height,Weight and Vital Signs: Height 5 ft 6 in Weight 81.647 kg Last Vital Signs Pulse 54 10/29/24 12:35 Resp 16 10/29/24 12:35 BP 162/72 H 10/29/24 12:35 Pulse Ox 95 10/29/24 12:35 O2 Del Method Room Air 10/29/24 12:35 Vital Signs Temp Pulse Resp BP Pulse Ox O2 Del Method 11/12/24 06:46 98.5 F 56 16 156/64 H 95 Room Air Pertinent Lab Results Pertinent Lab Results: Laboratory Tests 10/27/24 07:58 WBC 7.0 Hgb 15.6 Hct 45.4 Plt Count 192 Sodium 142 Potassium 3.4 Chloride 104 Carbon Dioxide 31 H BUN 20 H Creatinine 1.05 Airway Mallampati Class: III TM Dist: >3cm Neck ROM: Limited Partial: Upper Loose/Missing/Broken Teeth: Yes (Partial dentures top. Missing several teeth bottom sides.Denies broken or loose teeth) Assessment and Plan Assessment Anesthesia Assessment: Anesthesia Plan Discussed, PAT Visit and Chart Reviewed Final Anesthetic Review Family History of Problems with Anesthesia: No History of Problems with Anesthesia: No NPO: Yes ASA Class: III Final Preanesthetic Review: No Changes in Pt Med Stat, Meds/Allgs Chart Reviewed, Consent Obtained/Reviewed and Anes Risks/Benef Reviewed Patient Risk: Intermediate Procedure Risk: Intermediate Assessment/Block/Sedation in SS: Assess/Block/Sedation-SS Anesthetic Plan Anesthetic Plan: GA Disposition: Standard PACU
[2024-11-12] VITALS (26 sets, daily range): BP systolic 133–160; BP diastolic 61–75; PULSE 53–62; RESP 11–18; TEMP 36.3–37.2; O2SAT 93–97; BMI 29.2
--- NOTE | ~2024-11-12 | FL_ITS ---
EXAMINATION: FL GUIDANCE ONLY HISTORY: c5-7 ACDF COMPARISON: None available. TECHNIQUE: Fluoroscopy time: 5.6 minutes. Cumulative Dose: 0.6114 mGy. DAP: 0.1399 mGym2 Images: 2. FINDINGS: Fluoroscopic spot films of the cervical spine demonstrate anterior cervical disc fusion at C5-6 and C6-7. FL/FL guidance in OR IMPRESSION: Fluoroscopy during procedure. Please see procedure report for additional information. Electronically signed by: Serjio Hopkins MD 11/12/2024 10:10 AM JAYSON
--- OUTSIDE RECORDS SUMMARY | 2024-11-12 05:53 | XMS_ITS | Data Portability ---
Author Organization [place] - [facility], All[facility] Address [address] [place] [phone] Care Team Providers Care Coating Technician Name Role Phone OLIVA JAYY Primary Care [...] Address Organization Details Recorded Time Impacted cerumen 91437952 Active 2013 Impacted wax /debris; CMS Risk: low risk CMS Treatment : new problem (to examiner) : no additiona l workup planned C ondition: controlle d Note: Date Diagnosed : 4 3:37 PM (380.4) Not Available [facility] 4 02:44:50 Sensorine ural hearing loss of bilateral ears 522681341 Active 2015 Sensorine ural hearing loss bilateral ly; CMS Risk: low risk CMS Treatment : new problem (to examiner) : no additiona l workup planned C ondition: controlle d Note: Date Diagnosed : 4 3:37 PM (389.18) ; Start Date : 4 Sensori neural hearing loss, bilateral ; Note: Date Diagnosed : 11/18/2015 1:58 PM (H90.3) Not Available [facility] 4 02:44:47 Dizziness and giddiness 891259444 Active 2021 Dizziness and giddiness ; Note: Date Diagnosed : 05/25/2022 10:53 AM (R42) Not [facility] 4 02:44:48 Candidal otitis externa 65175328 Active 2015 Candidal otitis externa; Note: Date Diagnosed : 11/02/2015 1:29 PM (B37.84) Not Available [facility] 4 02:44:45 Atypical facial pain 63345828 Active 2021 Atypical facial pain; Note: Date Diagnosed : 05/25/2022 10:53 AM (G50.1) Not Available [facility] 4 02:44:46 Infective otitis externa of left ear 52332517123 60461 Active 2015 Other infective otitis externa, left ear; Note: Date Diagnosed : 11/02/2015 1:29 PM (H60.392) Not Available [facility] 4 02:44:48 Chronic mycotic otitis externa 654618058 Active 2015 Chronic mycotic otitis externa; Note: Date Diagnosed : 11/11/2015 1:17 PM (380.15) Not Available [facility] 02:44:44 Impacted cerumen 25512749 Active 2023 LAURA MAIER MD [address] [place] [address], [place], [phone] , [facility] - [facility] 4 20:48:19 Dizziness 889868402 Active 2023 LAURA MAIER MD [address] [place] [address], [place], [phone] , [place] [facility] [place] 4 20:48:34 Deviated nasal septum 623254400 Active 2023 LAURA MAIER MD [address] [place] [address], [place], [phone] , [facility] 4 20:48:47 Problem Notes None recorded. Procedures Surgical History None recorded. Imaging Results Imaging Date Name Status LastModified by [facility] Details LastModified Time 05/25/2022 imaging/diag nostic result [...] Name and Address Organization Details Recorded Time 38833 Iodinated contrast media (substanc e) medicatio n other Not available Not available 02/18/2024 927052003 SNOMED React ion: unkno wn, unspe cifie d;; Not Available [facility] 01:02:09 Medications Name Sig Start Date Stop Date Status Note LastModified by Organization Details LastModified Time clonidine HCl 0.1 mg tablet 05/08 completed Medicati on ID: [id number] B rand Name: clonidin e HCl Send [...] mg tablet 05/08 completed Medicati on ID: [id number] B rand Name: clonazep am Send Method: E-Prescr ibed Sub s Allowed: subs OK Medic ationGen ericName : clonazep am Not Available Not Available Not Available amlodipin e 2.5 mg tablet active Not Available Not Available Not Available amlodipin e 5 mg tablet active Not Available Not Available Not Available Ciloxan 0.3 % eye drops 05/08 completed Medicati on ID: [id number] D uration Value: 10 Prescri bed By [...] TWICE A DAY FOR 30 DAYS Med [facility]: lorazepa m Not Available Not Available Not Available metoclopr amide 5 mg tablet 05/08 completed Medicati on ID: [id number] B rand Name: metoclop ramide HCl Send [...] topical solution 05/25 completed Medicati on ID: [id number] Monique russell By Name: JOSE Burnett nd Name: clotrima zole Sen d Method: E-Prescr ibed Sub s Allowed: subs OK Speci al Instruct ion: 4 drops to affected ear three times a day X 14 days [facility]: clotrima zole Not Available [...] 5 mg tablet active Medicati on ID: [id number] B rand Name: rosuvast atin Sen d [...] 5 mg tablet active Medicati on ID: [id number] B rand Name: Eliquis Send Method: E-Prescr ibed Sub s Allowed: subs OK Medic ationGen ericName : Eliquis Not Available Not Available Not Available Vitals Date Recorded Body height Body mass index (BMI) Body weight Provider Name and Address Organization Details Last Updated DateTime 05/08/2024 167.64 cm 29.1 kg/m2 59892.63 g Shyanne Gaytan [place] - [facility] 05/08/2024 11:10:52 Social History None recorded. Functional Status None recorded. Mental Status None recorded. Family History Nothing Reported. Medical History No medical history recorded. Past Encounters Encounter ID Performer Location Encounter Start Date Encounter Closed Date Diagnosis/Indication Diagnosis SNOMED-CT Code Diagnosis ICD10 Code Diagnosis Note [id number] LAURA MAIER MD [facility] [address] [address] 05/08/2024 10:44:25 05/08/2024 11:29:39 Impacted cerumen 01412867 H61.22 Dizziness 136375158 R42 Deviated nasal septum 12 6203683 J34.2 Health Concerns Section Related Observation LastModified by Organization Detai ls LastModified Time None Recorded Concern Status LastModified by Organization Details LastModified Time None Recorded Advance Directives Directive None Recorded Payers Encounter Date Sequence Insurance Name Policy Number Policy Castellano Covered Member ID Castellano Member ID Guarantor Name 05/08/2024 1 [employer] - MEDICARE ADVANTAGE PLAN (MEDICARE REPLACEMENT HMO) [id number] 1 Fabio Maciel [id number] Fabio Maciel Notes Date Note Type Note [...] eye burning. He had an MRI at [facility] but his sinus headaches started after this. He is had CT sinuses in the past which have not shown any disease. LAURA MAIER MD [address] [place] [address], [phone], [facility] - [facility] 05/10/2024 20:50:40
[2024-11-12] MEDS: methocarbamoL 750 MG TABLET PO (06:49)
[2024-11-12] MEDS: Gabapentin 300 MG CAPSULE PO (06:49)
[2024-11-12] MEDS: Lactated Ringers 1,000 ML 100 ML IVCONT (06:54)
--- NOTE | 2024-11-12 07:01 | MHC.SHP ---
Pre-Procedural Eval Section A - 24 Hr Update-Section A only Date of Service: 11/12/24 The patient is an INPATIENT: No Changes since office visit: No Cold of Flu in the past 2 weeks, No New Medical Problems, No Changes in Medication and No Patient answered all questions The patient has been examined within 24 hours of the surgical procedure. The History & Physical has been completed within 30 days and I have reviewed it.: No Section B - Complete if H&P > 30 days Chief Complaint: Cervical disc disorder with radiculopathy, Allergies: Allergies Allergy/AdvReac Type Severity Reaction Status Date / Time Iodinated Contrast Media Allergy Mild Hives Verified 11/02/24 13:28 [IV Dye, Iodine Containing] tizanidine Allergy Mild painful Verified 11/02/24 13:28 rash on ankles, dizziness sertraline AdvReac Intermediate GI upset, Verified 11/02/24 13:28 confusion Review of Systems Sugical H&P ROS: Negative: Constitution, Cardiovascular, Respiratory, Neurological, Psychiatric, Hem-Onc, Allergic/Immunologic, Gastrointestinal, Genitourinary, Musculoskeletal, Integumentary, Endocrine and Eyes/Ears/Nose/Throat Exam Surgical H&P Exam: Normal: HEENT, Normal: Heart, Normal: Lungs, Normal: Extremities, Normal: Abdomen, Normal: Skin and Normal: Neurological (awake, alert,oriented x 3) Plan Diagnosis/Plan: Unchanged ACDF C5-6, C6-7 Time Spent With Patient Time: Total time managing care of this patient today _4___ minutes.
--- NOTE | 2024-11-12 07:02 | P.DS_ITS ---
DS: Providers Provider Date of Service: 11/12/24 Date of discharge: 11/12/24 Primary care physician: Armaan Correa MD Admitting clinician: Lincoln Qureshi DS: Diagnosis Discharge Diagnosis (1) Paresthesia and pain of both upper extremities: Status: Acute DS: Summary Time Attestation Discharge Coordination Time (in mins): 6 Quality: Safe Use of Opioids Does Pt have an Active Cancer Diagnosis on the Problem List?: No Quality: Stroke Does the patient have a stroke diagnosis?: No Physical Exam Vital Signs: Vital Signs: Last Vital Signs Temp 98.5 F 11/12/24 06:46 Pulse 56 11/12/24 06:46 Resp 16 11/12/24 06:46 BP 156/64 H 11/12/24 06:46 Pulse Ox 95 11/12/24 06:46 O2 Del Method Room Air 11/12/24 06:46 BMI result Body Mass Index 29.2 Discharge Plan Discharge Patient Disposition: Home, Self-Care Referrals: Armaan Correa MD [Primary Care Provider] - 1 Week Discharge Medications: New docusate sodium [Colace] 100 mg capsule 100 mg PO BID Qty: 20 0RF oxycodone 5 mg tablet 5 mg PO Q4H PRN (Reason: pain) Qty: 30 0RF Rx Instructions: Partial Fill upon patient request. Continued lisinopril 40 mg tablet 40 mg PO DAILY 90 Days Qty: 90 1RF clonazepam 0.5 mg tablet 0.5 mg PO BEDTIME PRN (Reason: Insomnia) sennosides [Senna Laxative] 8.6 mg tablet 17.2 mg PO BEDTIME Qty: 60 6RF amlodipine 2.5 mg tablet 2.5 mg PO DAILY 90 Days Qty: 90 3RF Rx Instructions: To be taken together with Amlodipine 5 mg to EQUAL a TOTAL of 7.5 mg DAILY DOSE amlodipine 5 mg tablet 5 mg PO DAILY 90 Days Qty: 90 3RF Rx Instructions: To be taken together with Amlodipine 2.5 mg to EQUAL a TOTAL of 7.5 mg DAILY DOSE cholecalciferol (vitamin D3) 25 mcg (1,000 unit) capsule 25 mcg PO DAILY 90 Days Qty: 90 3RF hydrochlorothiazide 12.5 mg tablet 12.5 mg PO DAILY 90 Days Qty: 90 3RF metoprolol succinate 25 mg tablet extended release 24 hr 25 mg PO DAILY 90 Days Qty: 90 3RF pantoprazole 40 mg tablet,delayed release (DR/EC) 40 mg PO DAILY 90 Days Qty: 90 3RF rosuvastatin 5 mg tablet 5 mg PO DAILY 90 Days Qty: 90 3RF Held Eliquis 5 mg tablet 5 mg PO BID 30 Days Qty: 60 3RF Hold Instructions: Resume on 11/15/24. you may resume 3 days after surgery Discharge Orders: Discharge Order (Routine); Ordered 11/12/24 Ordered By: Floyd Velasquez Diet: Advance to usual diet Activity on Discharge: As tolerated Activity Restrictions/Additional Instructions: After your spinal surgery we ask you to observe the following restrictions/guidelines: Activity: It is normal to feel some discomfort as you increase your activity, but that will improve with time. We ask you avoid heavy lifting or acitivities that cause pain. As a general rule, 8lbs is a safe limit for lifting right after surgery. Walk as much as you feel comfortable but not to exhaustion. You will feel extra tired the first few days after surgery. Stay well hydrated. It is OK to walk up and down stairs You may return to driving when you are off narcotics (such as vicodin, oxycodone, dilaudid, etc), and you are back to normal functional capacity. If you have any concerns please check with office before driving. Return to work is specific to each patient and each surgery, so please speak with your doctor/PA at first follow up. Please bring paperwork such as FMLA at that time if you need it filled out. Medications: You can resume Eliquis 3 days after surgery For optimum pain control, it is best to start with a combination of 500 mg of Tylenol every 4 hours with 600 mg of Motrin every 8 hours, and use narcotics as needed in between for breakthrough pain. We will give you a short supply of narcotics after surgery (usually one weeks worth). If you need more please call the office but do not use more than prescribed. You will need to give our office 48 hours notice if you need narcotics refilled and we do not fill narcotics on weekends or evenings. If you are on a narcotic, it is a good idea to take a stool softener such as colace or senna to avoid constipation If you take blood thinner such as aspirin, Plavix, Coumadin, Effient, Eliquis etc for conditions such as Afib, DVT, Pulmonary embolus, coronary disease, stents etc please speak with your surgeon about specific details as to when you can resume these medications. You can resume NSAIDs on post op day 1 (eg: Motrin, Naproxen, etc). Follow up: Please call the office, , after surgery to arrange a 3 week follow up for wound check. Wound Care: You may remove your dressing on the first day after surgery. ?You may ?leave open to air. Please do not remove the steri strips underneath. they will fall off on their own in one week. IT IS NORMAL FOR THE WOUND TO OOZE OR BE BLOODY FOR A FEW DAYS AFTER SURGERY. ?IF THIS HAPPENS JUST PLACE NEW DRESSING OVER IT TO AVOID STAINING CLOTHES. You may shower on post op day # 1 We ask that you do not let the water soak the wound. If it does get wet, just towel dry lightly. Please do not scrub your incision or place any type of chemical/ointment on the wound. No tub baths, pools or jacuzzis for one month. If you have any leaking or redness from your wound, or fevers, please call offi ce Print Language: Burmese
[2024-11-12] MEDS: ceFAZolin Sodium/Dextrose,Iso 2 GM/50 ML PIGGYBACK IV (07:42)
[2024-11-12] MEDS: Acetaminophen 1,000 MG/100 ML PIGGYBACK 400 MG IV ×3 (07:54→19:45)
--- NOTE | 2024-11-12 09:26 | W.PM.OPN ---
Operative Note Operative Note Date of Service: 11/12/24 Narrative: Preoperative Diagnosis: Cervical radiculopathy, right side Procedure: C5-6, C6-7 Anterior discectomy, arthrodesis and implantation cage ; C5-C7 anterior instrumentation ; local autograft; microscope Informed Consent was obtained for this operation. I have explained the nature, purpose and benefits of the operation. I have discussed the risks and benefit of the operation including possible complications or adverse events with patient/family. Alternative(s) were discussed with the patient with their relative benefits and risks as well as the consequences of not accepting the operation were included in obtaining consent. Surgeon: LAURA FARLEY MD, PHD Procedure Assisted By: clark Luz Description of Procedure: This 79-year-old male suffering from severe cervical radiculopathy due to C6 and C7 nerve good compression on the right side. He was offered an anterior diskectomy and fusion C5-6 and C6-7 to decompress the exiting nerve roots. The procedure complications were explained. The patient was consented. The patient was brought to the operating room and endotracheally intubated. The patient was put in supine position with slight extension of the neck. Prep and drape was done followed by timeout. A mid cervical incision was made followed by opening of the platysma. The prevertebral fascia was reached following the natural planes while the physician real estate administrative assistant provided manual retraction. The prevertebral fascia was opened to expose the disc space. A spinal needle was placed in the disk space to confirm the correct level with xray. The longus colli muscles were released bilaterally and a self retaining retractor was inserted. An initial diskectomy was done of the C5-6 and C6-7 levels towards the posterior annulus. Two Brandon pins were placed in the C5-C6 vertebral bodies and distraction was give over the interspace.The microscope was brought in. Theremainder of the discectomy was completed. The posterior ligament was opened and resected to expose the underlying dura. Osteophytes were resected from the body of 5 and C6 and saved for autograft. Bilateral foraminotomies were done. Severe right C6 foraminal stenosis was present and the nerve root was irritated. A good decompression of the C6 nerve root was obtained. The endplates were prepared after which a 6 mm cage filled with autograft was inserted into the disc space. A separate attached plate was locked down with 2 x 14 mm screws as anterior instrumentation. Then attention was turned to the C6-7 level. Large posterior osteophytes were resected from the body of C6 and C7 and saved for autograft. Bilateral foraminotomies were done to relief severe bilateral C7 foraminal stenosis. The endplates were prepared after which an 8 mm cage filled with autograft was inserted into the disc space. A separate attached plate was locked down with 2 x 14 mm screws as anterior instrumentation. Final x-rays in AP and lateral projection showed a satisfactory position of the implants and anterior instrumentation. The physician real estate administrative assistant took over. The Brandon pin was removed. Hemostasis was done. He closed the incision in 2 layers with a 3-0 Vicryl. Steri-Strips used to approximate incision. An OpSite with Tegaderm was used to cover the incision. All sponge and needle counts were correct. Patient was extubated and transported in stable is to recovery room. Anesthesia: General Estimated Blood Loss (ml): 20 mL Duration of Surgery: 1 hour and 20 minutes Postoperative Plan: Discharge home Complications: None
[2024-11-12] MEDS: fentaNYL citrate/PF 100 MCG/2 ML VIAL 25 MCG IVPUSH ×8 (09:45→10:40)
--- NOTE | 2024-11-12 11:54 | P.DS_ITS ---
DS: Providers Provider Date of Service: 11/12/24 Date of discharge: 11/13/24 Primary care physician: Armaan Correa MD DS: Diagnosis Discharge Diagnosis (1) Paresthesia and pain of both upper extremities: Status: Acute DS: Summary Time Attestation Discharge Coordination Time (in mins): 7 Quality: Safe Use of Opioids Does Pt have an Active Cancer Diagnosis on the Problem List?: No Quality: Stroke Does the patient have a stroke diagnosis?: No Physical Exam Vital Signs: Vital Signs: Last Vital Signs Temp 97.6 F 11/12/24 09:40 Pulse 56 11/12/24 11:39 Resp 16 11/12/24 11:39 BP 141/62 H 11/12/24 11:39 Pulse Ox 94 11/12/24 11:39 O2 Del Method Nasal Cannula 11/12/24 11:39 O2 Flow Rate 2 11/12/24 11:39 BMI result Body Mass Index 29.2 Discharge Plan Discharge Patient Disposition: Home, Self-Care Referrals: Armaan Correa MD [Primary Care Provider] - 1 Week Discharge Medications: New hydrocodone-acetaminophen 5-325 mg tablet 1 tab PO Q4H PRN (Reason: pain) Qty: 30 0RF Rx Instructions: Partial Fill upon patient request. Continued lisinopril 40 mg tablet 40 mg PO DAILY 90 Days Qty: 90 1RF clonazepam 0.5 mg tablet 0.5 mg PO BEDTIME PRN (Reason: Insomnia) sennosides [Senna Laxative] 8.6 mg tablet 17.2 mg PO BEDTIME Qty: 60 6RF amlodipine 2.5 mg tablet 2.5 mg PO DAILY 90 Days Qty: 90 3RF Rx Instructions: To be taken together with Amlodipine 5 mg to EQUAL a TOTAL of 7.5 mg DAILY DOSE amlodipine 5 mg tablet 5 mg PO DAILY 90 Days Qty: 90 3RF Rx Instructions: To be taken together with Amlodipine 2.5 mg to EQUAL a TOTAL of 7.5 mg DAILY DOSE hydrochlorothiazide 12.5 mg tablet 12.5 mg PO DAILY 90 Days Qty: 90 3RF metoprolol succinate 25 mg tablet extended release 24 hr 25 mg PO DAILY 90 Days Qty: 90 3RF pantoprazole 40 mg tablet,delayed release (DR/EC) 40 mg PO DAILY 90 Days Qty: 90 3RF rosuvastatin 5 mg tablet 5 mg PO DAILY 90 Days Qty: 90 3RF Held Eliquis 5 mg tablet 5 mg PO BID 30 Days Qty: 60 3RF Hold Instructions: Resume on 11/15/24. you may resume 3 days after surgery Discharge Orders: Discharge Order (Routine); Ordered 11/13/24 Ordered By: Floyd Velasquez Diet: Advance to usual diet Activity on Discharge: As tolerated Activity Restrictions/Additional Instructions: After your spinal surgery we ask you to observe the following rest rictions/guidelines: Activity: It is normal to feel some discomfort as you increase your activity, but that will improve with time. We ask you avoid heavy lifting or acitivities that cause pain. As a general rule, 8lbs is a safe limit for lifting right after surgery. Walk as much as you feel comfortable but not to exhaustion. You will feel extra tired the first few days after surgery. Stay well hydrated. It is OK to walk up and down stairs You may return to driving when you are off narcotics (such as vicodin, oxycodone, dilaudid, etc), and you are back to normal functional capacity. If you have any concerns please check with office before driving. Return to work is specific to each patient and each surgery, so please speak with your doctor/PA at first follow up. Please bring paperwork such as FMLA at that time if you need it filled out. Medications: You can resume Eliquis 3 days after surgery For optimum pain control, it is best to start with a combination of 500 mg of Tylenol every 4 hours with 600 mg of Motrin every 8 hours, and use narcotics as needed in between for breakthrough pain. We will give you a short supply of narcotics after surgery (usually one weeks worth). If you need more please call the office but do not use more than prescribed. You will need to give our office 48 hours notice if you need narcotics refilled and we do not fill narcotics on weekends or evenings. If you are on a narcotic, it is a good idea to take a stool softener such as colace or senna to avoid constipation If you take blood thinner such as aspirin, Plavix, Coumadin, Effient, Eliquis etc for conditions such as Afib, DVT, Pulmonary embolus, coronary disease, stents etc please speak with your surgeon about specific details as to when you can resume these medications. You can resume NSAIDs on post op day 1 (eg: Motrin, Naproxen, etc). Follow up: Please call the office, , after surgery to arrange a 3 week follow up for wound check. Wound Care: You may remove your dressing on the first day after surgery. ?You may ?leave open to air. Please do not remove the steri strips underneath. they will fall off on their own in one week. IT IS NORMAL FOR THE WOUND TO OOZE OR BE BLOODY FOR A FEW DAYS AFTER SURGERY. ?IF THIS HAPPENS JUST PLACE NEW DRESSING OVER IT TO AVOID STAINING CLOTHES. You may shower on post op day # 1 We ask that you do not let the water soak the wound. If it does get wet, just towel dry lightly. Please do not scrub your incision or place any type of chemical/ointment on the wound. No tub baths, pools or jacuzzis for one month. If you have any leaking or redness from your wound, or fevers, please call office Print Language: Indonesian
--- NOTE | 2024-11-12 13:32 | PHA.MEDREC ---
Addendum entered by Thiago Frey 11/12/24 13:44: reviewed Original Note: Pharmacy Consult ? Medication Reconciliation Pharmacy has reviewed the medication reconciliation done by nursing. Spoke to patient to confirm med list. Patient states he is no longer taking Vitamin D3 1,000 mg, and Docusate 100 mg. Patient confirms he takes Amlodipine 2.5 mg and Amlodipine 5 mg for a total dose of 7.5 mg daily.
[2024-11-12] MEDS: HYDROcodone Bit/Acetam 5/325 TABLET 2 TAB PO (13:38)
[2024-11-12] MEDS: Sennosides 8.6 MG TABLET 17.2 MG PO (19:44)
[2024-11-12] MEDS: Docusate Sodium 100 MG CAPSULE PO (19:44)
--- NOTE | 2024-11-13 02:00 | PC.NURSE ---
Pt seen on bed on high fowlers, and neck dressing noted CDI, c/o back pain, scheduled Ofirmev IV given with good result, Jannie DUTTA, call barron inreach, bed alarm on.
[2024-11-13] MEDS: Acetaminophen 1,000 MG/100 ML PIGGYBACK 400 MG IV ×2 (02:19→07:40)
[2024-11-13 03:08] VITALS: BP 156/67; PULSE 55; RESP 16; TEMP 36.7; O2SAT 94
[2024-11-13 07:42] VITALS: BP 161/79; PULSE 57; RESP 20; TEMP 36.7; O2SAT 95
[2024-11-13] MEDS: Omeprazole 20 MG CAPSULE.DR PO (07:44)
[2024-11-13] MEDS: lisinopriL 40 MG TABLET PO (07:44)
[2024-11-13] MEDS: Metoprolol Succinate ER 25 MG TAB.ER.24H PO (07:45)
[2024-11-13] MEDS: amLODIPine Besylate 5 MG TABLET PO (07:45)
[2024-11-13] MEDS: Atorvastatin Calcium 10 MG TABLET PO (07:45)
[2024-11-13] MEDS: Cholecalciferol (Vitamin D3) 25 MCG TABLET PO (07:46)
[2024-11-13] MEDS: amLODIPine Besylate 2.5 MG TABLET PO (07:46)
[2024-11-13] MEDS: hydroCHLOROthiazide 12.5 MG TABLET PO (07:46)
--- NOTE | 2024-11-13 09:07 | HO.NEURO.PN ---
Neurosurgery Operative Note Date of Service: 11/13/24 Narrative: Postop day 1. ACDF C5-6, C6-7 ?when can I get out of here?. Patient reports his arm pain is mostly gone, he is still feeling a little bit. He is eating okay voiding quite a bit. But he has been up to the bathroom numerous times. Afebrile, vital signs are stable Physical exam: Patient is awake alert oriented no acute distress, able to hold his arm up overhead independently on the right side which he could not do before surgery. Gross strength in the right arm is 5/5. Anterior neck dressing is clean and dry with no signs of hematoma. Impression: Postop day 1. ACDF C5-6, C6-7, clinically stable, arm pain improved, he has met criteria for discharge and will be sent home. Dr. Qureshi updated on status and agrees to the plan as outlined above. Will restart his Eliquis on postop day 3.
--- NOTE | 2024-11-13 09:28 | MHC.CM.PN ---
CM MET WITH PT AT BEDSIDE. PT IS FUNCTIONALLY INDEPENDENT. NO SERVICES/DME. + HCP ON FILE AND VERIFIED. PCP DR. BAPTISTE AT [facility]. DP: PT HAS BEEN MEDICALLY CLEARED FOR DC HOME, NO SERVICES. PT'S SPOUSE WILL TRANSPORT.
--- NOTE | 2024-11-13 09:30 | PC.NURSE ---
d/c reviewed with patient, no questions, iv removed, will follow up with md outpatient.
--- NOTE | 2024-11-13 14:01 | HO.POSTANES ---
Post Anesthesia Evaluation Post Anesthesia Evaluation Date of Service: 11/13/24 Vital Signs: Vital Signs Temp Pulse Resp BP Pulse Ox O2 Del Method 11/13/24 07:42 98.1 F 57 20 161/79 H 95 Room Air 11/13/24 03:08 98.1 F 55 16 156/67 H 94 Room Air Anesthesia: General Endotracheal-GETA Mental Status: Awake Pain Control: Satisfactory Nausea/Vomiting: None Hydration: Adequate Anesthesia-Related Issues: No Anes. Related Issues
== END 2024-11-13 09:49 | disposition home or self-care (01) ==
LOC: HO.SSS 07:03 → HO.S3 12:35
PROVIDERS: PCP Internal Medicine; Visit Provider Neurological Surgery
PROC: (CPT 22551; principal; 2024-11-12 07:30)
DX: M50.123 Cervical disc disorder at C6-C7 level with radiculopathy (principal); M79.601 Pain in right arm; R20.2 Paresthesia of skin; I10 Essential (primary) hypertension; E78.00 Pure hypercholesterolemia, unspecified; N20.0 Calculus of kidney; Z86.73 Personal history of transient ischemic attack (TIA), and cerebral infarction without residual deficits; R42 Dizziness and giddiness; Z79.01 Long term (current) use of anticoagulants; Z79.899 Other long term (current) drug therapy; Z91.041 Radiographic dye allergy status; Z88.8 Allergy status to other drugs, medicaments and biological substances; Z87.891 Personal history of nicotine dependence
CPT/HCPCS: 22551; 22552; 22853; 20936; 22845; 93005; C1713; C1889; J0131; J0690; J1100; J2003; J2250; J2405; J2704; J3010

== ENCOUNTER → 2024-11-12 05:49 | Outpatient (BNV) | payer MEDICARE, SELFPAY | PROVIDERS: PCP Internal Medicine; Visit Provider Physician Assistant | DX: R20.2 Paresthesia of skin (principal); M79.601 Pain in right arm; M79.602 Pain in left arm; Z48.89 Encounter for other specified surgical aftercare | CPT/HCPCS: 20936; 22551; 22552; 22845; 22853; 99024; 99499 ==

== ENCOUNTER 2024-12-04 11:16 | Outpatient (AMB) | payer MEDICARE, SELFPAY ==
--- NOTE | 2024-12-04 11:40 | HO.SPINEOV ---
Intake Visit Reasons: 1st post op Intake Note: Mr. Maciel is here today for his 1st post op. Clinical Esthetician Required: No Allergies Iodinated Contrast Media [IV Dye, Iodine Containing] Allergy (Mild, Verified 11/02/24 13:28) Hives tizanidine Allergy (Mild, Verified 11/02/24 13:28) painful rash on ankles, dizziness sertraline Adverse Reaction (Intermediate, Verified 11/02/24 13:28) GI upset, confusion Assessment & Plan Assessment & Plan (1) Right shoulder pain: Code(s): M25.511 - Pain in right shoulder Category: Medical Plan Mr Maciel is 3 weeks out from his C5-6, C6-7 anterior cervical diskectomy and fusion. He is having some mild dysphagia and some interscapular pain as expected. He has had some reduced range of motion of his neck. The tingling he had going down his arm is still there. Some of the arm pain is better but the primary complaint is that he has right shoulder pain in his anterior shoulder capsule. This is part of his initial presentation and we were unsure if the surgery would improve this because it was not clear if it was an issue with his shoulder or the cervical spine. On my exam today, he has significantly limited range of motion of his right arm and positive impingement signs with internal and external rotation as well as abduction and internal rotation. He is unable to put his arm behind his back without significant pain and grimacing. It is very reproducible to what he is experiencing when he is uncomfortable at night and unable to sleep on that side. From the standpoint of his cervical spine he seems to be recovering okay and I reassured him many of the issues he is experiencing with the dysphagia neck pain will go away. I will get a set of x-rays and send him up to see . Floyd Qureshi MD, PhD [facility] Orders: Orders XR shoulder RT min 2V Today M25.511 - Pain in right shoulder Referrals Orthopedics Referral M25.511 - Pain in right shoulder Coding Level of Care Code Global (45934) Diagnoses Right shoulder pain M25.511
--- OUTSIDE RECORDS SUMMARY | 2024-12-04 13:18 | XMS_ITS | Data Portability ---
Author Organization [place] [facility], Allergy Address [address] [place] [address] Care Team Providers Care Wood Heel Finisher Name Role Phone OLIVA JAYY Primary Care Provider [phone] Assessment Encounter Date Assessment Date Assessment LastModified [...] Address Organization Details Recorded Time Impacted cerumen 91946802 Active 2013 Impacted wax /debris; CMS Risk: low risk CMS Treatment : new problem (to examiner) : no additiona l workup planned C ondition: controlle d Note: Date Diagnosed : 4 3:37 PM (380.4) Not Available [facility] 4 02:44:50 Sensorine ural hearing loss of bilateral ears 365065574 Active 2015 Sensorine ural hearing loss bilateral ly; CMS Risk: low risk CMS Treatment : new problem (to examiner) : no additiona l workup planned C ondition: controlle d Note: Date Diagnosed : 4 3:37 PM (389.18) ; Start Date : 4 Sensori neural hearing loss, bilateral ; Note: Date Diagnosed : 11/18/2015 1:58 PM (H90.3) Not Available [facility] 4 02:44:47 Dizziness and giddiness 546639586 Active 2021 Dizziness and giddiness ; Note: Date Diagnosed : 05/25/2022 10:53 AM (R42) Not Available [facility] 4 02:44:48 Candidal otitis externa 85454733 Active 2015 Candidal otitis externa; Note: Date Diagnosed : 11/02/2015 1:29 PM (B37.84) Not Available [facility] 4 02:44:45 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 - [facility] 4 20:48:19 Dizziness 703635458 Active 2023 LAURA MAIER MD [address] [place] [address], [place], [phone] , [place] [facility] [place] 4 20:48:34 Deviated nasal septum 467692167 Active 2023 LAURA MAIER MD [address] [place] [address], [place], [phone] , [facility] 4 20:48:47 Problem Notes None recorded. Procedures Surgical History None recorded. Imaging Results Imaging Date Name Status LastModified by [facility] Details LastModified Time 05/25/2022 imaging/diag nostic result [...] Name and Address Organization Details Recorded Time 83961 Iodinated contrast media (substanc e) medicatio n other Not available Not available 02/18/2024 927372003 SNOMED React ion: unkno wn, unspe cifie d;; Not Available [facility] 01:02:09 Medications Name Sig Start Date Stop Date Status Note LastModified by Organization Details LastModified Time clonidine HCl 0.1 mg tablet 05/08 completed Medicati on ID: [id number] B rand Name: clonidin e HCl Send [...] mg tablet 05/08 completed Medicati on ID: [id number] B rand Name: clonazep am Send Method: E-Prescr ibed Sub s Allowed: subs OK Medic ationGen ericName : clonazep am Not Available Not Available Not Available amlodipin e 2.5 mg tablet active Not Available Not Available Not Available amlodipin e 5 mg tablet active Not Available Not Available Not Available Ciloxan 0.3 % eye drops 05/08 completed Medicati on ID: [id number] D uration Value: 10 Prescri bed By [...] TWICE A DAY FOR 30 DAYS Med [facility]: lorazepa m Not Available Not Available Not Available metoclopr amide 5 mg tablet 05/08 completed Medicati on ID: [id number] B rand Name: metoclop ramide HCl Send [...] topical solution 05/25 completed Medicati on ID: [id number] Monique russell By Name: JOSE Burnett nd Name: clotrima zole Sen d Method: E-Prescr ibed Sub s Allowed: subs OK Speci al Instruct ion: 4 drops to affected ear three times a day X 14 days [facility]: clotrima zole Not Available Not Available [...] 5 mg tablet active Medicati on ID: [id number] B rand Name: rosuvast atin Sen d [...] 5 mg tablet active Medicati on ID: [id number] B rand Name: Eliquis Send Method: E-Prescr ibed Sub s Allowed: subs OK Medic ationGen ericName : Eliquis Not Available Not Available Not Available Vitals Date Recorded Body height Body mass index (BMI) Body weight Provider Name and Address Organization Details Last Updated DateTime 05/08/2024 167.64 cm 29.1 kg/m2 26598.63 g Shyanne Gaytan [place] [facility] 05/08/2024 11:10:52 Social History None recorded. Functional Status None recorded. Mental Status None recorded. Family History Nothing Reported. Medical History No medical history recorded. Past Encounters Encounter ID Performer Location Encounter Start Date Encounter Closed Date Diagnosis/Indication Diagnosis SNOMED-CT Code Diagnosis ICD10 Code Diagnosis Note [id number] LAURA MAIER MD [facility] [address] [address] 05/08/2024 10:44:25 05/08/2024 11:29:39 Impacted cerumen 90319625 H61.22 Dizziness 960684937 R42 Deviated nasal septum 12 8025516 J34.2 Health Concerns Section Related Observation LastModified by Organization Detai ls LastModified Time None Recorded Concern Status LastModified by Organization Details LastModified Time None Recorded Advance Directives Directive None Recorded Payers Encounter Date Sequence Insurance Name Policy Number Policy Castellano Covered Member ID Castellano Member ID Guarantor Name 05/08/2024 1 [employer] - MEDICARE ADVANTAGE PLAN (MEDICARE REPLACEMENT HMO) [id number] 1 Fabio Maciel [id number] Fabio Maciel Notes Date Note Type Note [...] eye burning. He had an MRI at [facility] but his sinus headaches started after this. He is had CT sinuses in the past which have not shown any disease. LAURA MAIER MD [address] [place] [address], [phone], [facility] - [facility] 05/10/2024 20:50:40
--- OUTSIDE RECORDS SUMMARY | 2024-12-04 13:18 | XMS_ITS | Clinical Summary ---
Author Organization [facility] Facility Address [address] [place] [address], [place] [address] Care Team Providers Care Drop Hammer Setter Up Name Role Phone Armaan Correa MD Primary Care Provider +1- [phone] Social History Tobacco Use Types Packs/Day Years [...] patient's age to complete this topic Insurance [place] [address] Care Teams Drop Hammer Setter Up Relationship Specialty Start Date End Date Armaan Correa MD 2 [facility] [address] [place] [address] [phone] PCP - General Internal Medicine 10/05/21
== END 2024-12-04 11:54 | disposition home or self-care (01) ==
PROVIDERS: PCP Internal Medicine; Visit Provider Physician Assistant
DX: M25.511 Pain in right shoulder (principal)
CPT/HCPCS: 99024

== ENCOUNTER 2024-12-04 11:16 | Outpatient (REF) | payer MEDICARE, SELFPAY ==
--- NOTE | ~2024-12-04 | XR_ITS ---
EXAMINATION: XR SHOULDER 2 OR MORE VIEWS RIGHT HISTORY: M25.511 - Pain in right shoulder COMPARISON: There are no prior studies available for comparison. FINDINGS: Two views of the right shoulder are submitted. Osseous mineralization is normal. There is a well-corticated osseous density at the AC joint which may represent an old ununited fracture. There is mild narrowing of the glenohumeral and acromioclavicular joints. The soft tissues are unremarkable. XR/XR shoulder RT min 2V IMPRESSION: Probable old trauma in the region of the AC joint. Mild degenerative changes. Electronically signed by: Serjio Hopkins MD 12/07/2024 09:36 AM EST
--- OUTSIDE RECORDS SUMMARY | 2024-12-04 14:09 | XMS_ITS | Clinical Summary ---
Author Organization [facility] Facility Address [address] [place] [address], [place] [address] Care Team Providers Care Manager Garden Name Role Phone Armaan Correa MD Primary Care Provider +1- [phone] Social History Tobacco Use Types Packs/Day Years [...] patient's age to complete this topic [place] [address] [place] [address] Care Teams Manager Garden Relationship Specialty Start Date End Date Armaan Correa MD 2 [facility] [address] [place] [address] [phone] PCP - General Internal Medicine 10/05/21
== END 2024-12-04 11:17 | disposition home or self-care (01) ==
LOC: HO.HOSX 11:16
PROVIDERS: PCP Internal Medicine; Visit Provider Physician Assistant
DX: M25.511 Pain in right shoulder (principal)
CPT/HCPCS: 73030; 99212

== ENCOUNTER → 2024-12-04 12:01 | Outpatient (BNV) | payer MEDICARE, SELFPAY | PROVIDERS: PCP Internal Medicine; Visit Provider Radiology Diagnostic Radiology | DX: M25.511 Pain in right shoulder (principal) | CPT/HCPCS: 73030 ==

== ENCOUNTER 2024-12-14 07:53 | Outpatient (REF) | payer MEDICARE, SELFPAY ==
--- OUTSIDE RECORDS SUMMARY | 2024-12-14 07:56 | XMS_ITS | Clinical Summary ---
Author Organization [facility] Facility Address [address] [place] [address], [place] [address] Care Team Providers Care Monitoring Specialist Name Role Phone Armaan Correa MD Primary Care Provider +1- [phone] Social History Tobacco Use Types Packs/Day Years [...] patient's age to complete this topic [place] [address] [place] [address] Care Teams Monitoring Specialist Relationship Specialty Start Date End Date Armaan Correa MD 2 [facility] [address] [place] [address] [phone] PCP - General Internal Medicine 10/05/21
[2024-12-14 11:16] LABS: Prostate Specific Antigen 1.27 ng/mL (<0.05-4.0)
== END 2024-12-14 07:54 | disposition home or self-care (01) ==
LOC: HO.HMGCLDS 07:53
PROVIDERS: PCP Internal Medicine; Visit Provider Urology
DX: N40.1 Benign prostatic hyperplasia with lower urinary tract symptoms (principal); N13.8 Other obstructive and reflux uropathy; Z12.5 Encounter for screening for malignant neoplasm of prostate
CPT/HCPCS: 36415; 84153

== ENCOUNTER 2024-12-23 09:23 | Outpatient (AMB) | payer MEDICARE, SELFPAY ==
--- NOTE | 2024-12-23 09:28 | MHC.OFFVIS ---
Intake Visit Reasons: 1 year/PSA(psa?) Intake Note: Patient is Present for Follow Up Urology Medication: none Antibiotic Allergies: None Blood Thinners: Eliqugavin Mathematical Physicist Required: No Allergies Iodinated Contrast Media [IV Dye, Iodine Containing] Allergy (Mild, Verified 12/23/24 09:29) Hives tizanidine Allergy (Mild, Verified 12/23/24 09:29) painful rash on ankles, dizziness sertraline Adverse Reaction (Intermediate, Verified 12/23/24 09:29) GI upset, confusion HPI Comments Details: Fabio is a pleasant male. He is a patient of Dr. Correa. He is in for the following urologic conditions - BPH - erectile dysfunction Yearly follow-up Stable urinary performance No nocturia PVR = 0cc P.r.n. follow-up Will call if urine starts to weekend Lower urinary tract symptoms Underwent Green[employer] prostatectomy back in 2019 Healing took an extended period of time Is now happy with resolved and has good urination with good emptying PSA 09/26 2.5, 09/27 0.8, 12/29 1.3 Off other medications Review in a year with PVR Erectile dysfunction Response to Viagra on demand No longer primary issue [facility] Medical History Essential hypertension Depression Kidney stone Spasmodic torticollis Cervical spondylosis Vitamin D deficiency COVID-19 vaccine series completed Cerebrovascular accident, embolic Right leg weakness Right arm weakness Facial droop BPH (benign prostatic hyperplasia) Overweight (BMI 25.0-29.9) Anxiety Primary insomnia Cervical disc disorder with radiculopathy Impaired fasting glucose Pure hypercholesterolemia Benign essential hypertension Erectile dysfunction Degenerative disc disease, thoracic Degenerative disc disease, lumbar Delayed gastric emptying GERD (gastroesophageal reflux disease) Urgency of micturition Surgical History History of prostate surgery Hx of cataract extraction Hx of cystoscopy (~2019) History of esophagogastroduodenoscopy (EGD) (02/14/15) Hx of colonoscopy (03/04/12) Hx of tonsillectomy Family History Father Heart disease Mother Cancer Brother Diabetes Paternal Grandmother Heart disease Maternal Uncle Colon cancer Social History Household Members: Spouse Housing: House Are you a primary regular senior care provider to a significant other at home: No Do you presently have visiting nurse or other home services: No Alcohol intake: current Alcohol intake frequency: does not drink Alcohol type: beer Patient Tobacco Use Status: Former Tobacco user Tobacco use type: Cigarette e-Cigarette/Vaping Use: Never Used Second Hand Smoke Exposure: Yes Substance Use Type: Other service: No Current occupational status: retired Cognitive needs: No Hearing needs: No Vision needs: Yes (glasses) Review of Systems Const Denies chills and Denies fever(s) Card Reports no additional complaints and Denies syncope Resp Denies cough GI Denies abdominal pain and Denies heartburn Reports as per HPI and Denies change in libido Neuro Denies syncope Psych Denies change in libido Endo Denies change in libido Physical Exam Const General: cooperative, healthy appearing, comfortable and no acute distress Orientation/consciousness: patient oriented x3 HEENT Face and sinus: Yes normal facial exam Mouth: moist mucous membranes Neck Neck: Yes normal visual inspection, Yes full ROM and Yes trachea midline Chest Chest palpation & inspection: normal inspection of the chest Resp Effort & Inspection: normal respiratory effort, able to speak in complete sentences and no respiratory distress GI Inspection: Yes normal to inspection Back/Spine/Pelvis Cervical Spine: normal cervical lordosis Thoracic/Lumbar Spine: thoracic and lumbar spine normal to inspection Skin General skin exam: no rashes or lesions noted Neuro General: patient oriented x3, gait normal, tone normal and moves all extremities Extrem General: Yes normal to inspection and Yes capillary refill normal Assessment & Plan Assessment & Plan (1) BPH with obstruction/lower urinary tract symptoms: Code(s): N40.1 - Benign prostatic hyperplasia with lower urinary tract symptoms; N13.8 - Other obstructive and reflux uropathy Category: Medical Plan P.r.n. follow-up Patient Instructions: This note is constructed using voice recognition software. While every effort has been made to ensure accuracy regional company truck driver errors may have been included. Imaging studies, laboratory and physical exam results were discussed and reviewed in detail. No major barriers to patient understanding were identified. An opportunity to ask questions regarding the treatment plan was provided. All questions were answered. The patient expressed understanding and agreement with the above treatment plan. The patient is aware they should contact our office by phone for worsening of their current condition or the appearance of new urologic symptoms. Compliance is encouraged with any medications and followup testing that is ordered. It is a privilege to participate in the urologic care of your patient. If you have any questions or concerns regarding treatment for the above conditions, or other urologic issues, please do not hesitate to contact me. The office telephone contact is [phone]. Sincerely, Dr Tima Bennett MD, [facility] - Urology Compassionate Specialist Care for the Genitourinary System Coding Level of Care Code Est Pt Level 4 (77941) Diagnoses BPH with obstruction/lower urinary tract symptoms N40.1; N13.8
--- OUTSIDE RECORDS SUMMARY | 2024-12-23 10:21 | XMS_ITS | Clinical Summary ---
Author Organization [facility] Facility Address [address] [place] [address], [place] [address] Care Team Providers Care Bsw Name Role Phone Armaan Correa MD Primary Care Provider +1- [phone] Social History Tobacco Use Types Packs/Day Years [...] patient's age to complete this topic [place] [address] Care Teams Bsw Relationship Specialty Start Date End Date Armaan Correa MD 2 [facility] [address] [place] [address] [phone] PCP - General Internal Medicine 10/05/21
--- OUTSIDE RECORDS SUMMARY | 2024-12-23 10:21 | XMS_ITS | Data Portability ---
Author Organization [place] [facility], Allergy Address [address] [place] [address] Care Team Providers Care Visitor Information Assistant Name Role Phone OLIVA JAYY Primary Care [...] Address Organization Details Recorded Time Impacted cerumen 34220713 Active 2013 Impacted wax /debris; CMS Risk: low risk CMS Treatment : new problem (to examiner) : no additiona l workup planned C ondition: controlle d Note: Date Diagnosed : 4 3:37 PM (380.4) Not Available [facility] 4 02:44:50 Sensorine ural hearing loss of bilateral ears 594257466 Active 2015 Sensorine ural hearing loss bilateral ly; CMS Risk: low risk CMS Treatment : new problem (to examiner) : no additiona l workup planned C ondition: controlle d Note: Date Diagnosed : 4 3:37 PM (389.18) ; Start Date : 4 Sensori neural hearing loss, bilateral ; Note: Date Diagnosed : 11/18/2015 1:58 PM (H90.3) Not Available [facility] 4 02:44:47 Dizziness and giddiness 032145797 Active 2021 Dizziness and giddiness ; Note: Date Diagnosed : 05/25/2022 10:53 AM (R42) Not Available [facility] 4 02:44:48 Candidal otitis externa 76679873 Active 2015 Candidal otitis externa; Note: Date Diagnosed : 11/02/2015 1:29 PM (B37.84) Not Available [facility] 4 02:44:45 Atypical facial pain 71211929 Active 2021 Atypical facial pain; Note: Date Diagnosed : 05/25/2022 10:53 AM (G50.1) Not Available [facility] 4 02:44:46 Infective otitis externa of left ear 32962605877 70163 Active 2015 Other infective otitis externa, left ear; Note: Date Diagnosed : 11/02/2015 1:29 PM (H60.392) Not Available [facility] 4 02:44:48 Chronic mycotic otitis externa 664493686 Active 2015 Chronic mycotic otitis externa; Note: Date Diagnosed : 11/11/2015 1:17 PM (380.15) Not Available [facility] 02:44:44 Impacted cerumen 86767316 Active 2023 LAURA MAIER MD [address] [place] [address], [place], [phone] , [facility] - [facility] 4 20:48:19 Dizziness 361545596 Active 2023 LAURA MAIER MD [address] [place] [address], [place], [phone] , [place] [facility] [place] 4 20:48:34 Deviated nasal septum 651395678 Active 2023 LAURA MAIER MD [address] [place] [address], [place], [phone] , [facility] 4 20:48:47 Problem Notes None recorded. Procedures Surgical History None recorded. Imaging Results Imaging Date Name Status LastModified by [facility] Details LastModified Time 05/25/2022 imaging/diag nostic result [...] Name and Address Organization Details Recorded Time 21475 Iodinated contrast media (substanc e) medicatio n other Not available Not available 02/18/2024 319552003 SNOMED React ion: unkno wn, unspe cifie d;; Not Available [facility] 01:02:09 Medications Name Sig Start Date Stop Date Status Note LastModified by Organization Details LastModified Time clonidine HCl 0.1 mg tablet 05/08 completed Medicati on ID: [id number] B rand Name: clonidin e HCl Send [...] mg tablet 05/08 completed Medicati on ID: [id number] B rand Name: clonazep am Send Method: E-Prescr ibed Sub s Allowed: subs OK Medic ationGen ericName : clonazep am Not Available Not Available Not Available amlodipin e 2.5 mg tablet active Not Available Not Available Not Available amlodipin e 5 mg tablet active Not Available Not Available Not Available Ciloxan 0.3 % eye drops 05/08 completed Medicati on ID: [id number] D uration Value: 10 Prescri bed By [...] TWICE A DAY FOR 30 DAYS Med [facility] me: lorazepa m Not Available Not Available Not Available metoclopr amide 5 mg tablet 05/08 completed Medicati on ID: [id number] B rand Name: metoclop ramide HCl Send [...] topical solution 05/25 completed Medicati on ID: [id number] Monique russell By Name: JOSE Burnett nd Name: clotrima zole Sen d Method: E-Prescr ibed Sub s Allowed: subs OK Speci al Instruct ion: 4 drops to affected ear three times a day X 14 days [facility]: clotrima [facility]ole Not Available [...] 5 mg tablet active Medicati on ID: [id number] B rand Name: rosuvast atin Sen d [...] 5 mg tablet active Medicati on ID: [id number] B rand Name: Eliquis Send Method: E-Prescr ibed Sub s Allowed: subs OK Medic ationGen ericName : Eliquis Not Available Not Available Not Available Vitals Date Recorded Body height Body mass index (BMI) Body weight Provider Name and Address Organization Details Last Updated DateTime 05/08/2024 167.64 cm 29.1 kg/m2 24343.63 g Shyanne Gaytan [place] [facility] 05/08/2024 11:10:52 Social History None recorded. Functional Status None recorded. Mental Status None recorded. Family History Nothing Reported. Medical History No medical history recorded. Past Encounters Encounter ID Performer Location Encounter Start Date Encounter Closed Date Diagnosis/Indication Diagnosis SNOMED-CT Code Diagnosis ICD10 Code Diagnosis Note [id number] LAURA MAIER MD [facility] [address] [address] 05/08/2024 10:44:25 05/08/2024 11:29:39 Impacted cerumen 20369455 H61.22 Dizziness 019622920 R42 Deviated nasal septum 12 1861600 J34.2 Health Concerns Section Related Observation LastModified by Organization Detai ls LastModified Time None Recorded Concern Status LastModified by Organization Details LastModified Time None Recorded Advance Directives Directive None Recorded Payers Encounter Date Sequence Insurance Name Policy Number Policy Castellano Covered Member ID Castellano Member ID Guarantor Name 05/08/2024 1 [employer] - MEDICARE ADVANTAGE PLAN (MEDICARE REPLACEMENT HMO) [id number] 1 Fabio Maciel [id number] Fabio Maciel Notes Date Note Type Note [...] eye burning. He had an MRI at [facility] but his sinus headaches started after this. He is had CT sinuses in the past which have not shown any disease. LAURA MAIER MD [address] [place] [address], [phone], [facility] - [facility] 05/10/2024 20:50:40
== END 2024-12-23 10:08 | disposition home or self-care (01) ==
LOC: HO.HUSH 09:23
PROVIDERS: PCP Internal Medicine; Visit Provider Urology
DX: N40.1 Benign prostatic hyperplasia with lower urinary tract symptoms (principal); N13.8 Other obstructive and reflux uropathy
CPT/HCPCS: 99214

== ENCOUNTER → 2024-12-23 09:23 | Outpatient (BNVA) | payer MEDICARE, SELFPAY | PROVIDERS: PCP Internal Medicine; Visit Provider Urology | DX: N40.1 Benign prostatic hyperplasia with lower urinary tract symptoms (principal); N13.8 Other obstructive and reflux uropathy; N52.9 Male erectile dysfunction, unspecified | CPT/HCPCS: 99212 ==

== ENCOUNTER 2025-01-14 14:38 | Outpatient (AMB) | payer MEDICARE, SELFPAY ==
--- NOTE | 2025-01-14 14:40 | MHC.OFFVIS ---
Vital Signs 01/14/25 14:42 Height 5 ft 7 in Weight 178 lb BMI 27.9 Intake Visit Reasons: Right shoulder pain and weakness, Bilateral arm numbness Intake Note: Fabio is a 79 year old right hand dominant male who presents with complaints of progressively worsening right shoulder pain and weakness as well as numbness and tingling in both of his upper extremities. The patient did undergo cervical spine surgery in November of this year. The patient states that his neck pain has improved but his right shoulder pain and weakness as well as bilateral arm numbness have not improved since the surgery. His symptoms have gotten worse over the last year in spite of continued non operative treatments. He has tried Tylenol and anti-inflammatory medicines as well as physical therapy exercises which gave him minimal relief. Allergies Iodinated Contrast Media [IV Dye, Iodine Containing] Allergy (Mild, Verified 01/14/25 14:41) Hives tizanidine Allergy (Mild, Verified 01/14/25 14:41) painful rash on ankles, dizziness sertraline Adverse Reaction (Intermediate, Verified 01/14/25 14:41) GI upset, confusion Medication List - Last Reconciled 01/14/25 by Alejandro Curiel MD amlodipine 2.5 mg PO DAILY 90 days amlodipine 5 mg PO DAILY 90 days clonazepam 0.5 mg PO BEDTIME PRN Eliquis (apixaban) 5 mg PO BID 30 days NS hydrochlorothiazide 12.5 mg PO DAILY 90 days lisinopril 40 mg PO DAILY 90 days metoprolol succinate ER 25 mg PO DAILY 90 days pantoprazole 40 mg PO DAILY 90 days rosuvastatin 5 mg PO DAILY 90 days sennosides (Senna Laxative) 17.2 mg (2 x 8.6 mg) PO BEDTIME [facility] Medical History Essential hypertension Depression Kidney stone Spasmodic torticollis Cervical spondylosis Vitamin D deficiency COVID-19 vaccine series completed Cerebrovascular accident, embolic Right leg weakness Right arm weakness Facial droop BPH (benign prostatic hyperplasia) Overweight (BMI 25.0-29.9) Anxiety Primary insomnia Cervical disc disorder with radiculopathy Impaired fasting glucose Pure hypercholesterolemia Benign essential hypertension Erectile dysfunction Degenerative disc disease, thoracic Degenerative disc disease, lumbar Delayed gastric emptying GERD (gastroesophageal reflux disease) Urgency of micturition Surgical History History of prostate surgery Hx of cataract extraction Hx of cystoscopy (~2019) History of esophagogastroduodenoscopy (EGD) (02/14/15) Hx of colonoscopy (03/04/12) Hx of tonsillectomy Family History Father Heart disease Mother Cancer Brother Diabetes Paternal Grandmother Heart disease Maternal Uncle Colon cancer Social History (Updated 01/14/25 @ 14:42 by SALEEM Galvan) Household Members: Spouse Housing: House Are you a primary vision care associate to a significant other at home: No Do you presently have visiting nurse or other home services: No Alcohol intake: current Alcohol intake frequency: holidays/special occasions only Alcohol type: beer Patient Tobacco Use Status: Former Tobacco user Tobacco use type: Cigarette e-Cigarette/Vaping Use: Never Used Second Hand Smoke Exposure: Yes Substance Use Type: Other service: No Current occupational status: retired Current occupation: right hand dominant Cognitive needs: No Hearing needs: No Vision needs: Yes (glasses) Physical Exam Vital Signs: BMI result Body Mass Index 27.9 Const Other: Well-nourished well-developed very friendly male awake alert and oriented x3 in no acute distress Extrem Other: Bilateral wrist examination shows positive Tinel's test over his carpal tunnels, thenar muscle wasting, decreased sensation to light touch along his median nerve distributions Right shoulder examination shows decreased range of motion when compared to his left shoulder, 4/5 strength with supraspinatus testing, positive impingement signs, no instability Results Reviewed Results Reviewed: X-rays of the patient's right shoulder show severe acromioclavicular joint narrowing, a type 2 acromion, no acute bony abnormalities Assessment & Plan Assessment & Plan (1) Bilateral carpal tunnel syndrome: Code(s): G56.03 - Carpal tunnel syndrome, bilateral upper limbs Category: Medical (2) Rotator cuff insufficiency of right shoulder: Code(s): M25.311 - Other instability, right shoulder Category: Medical Plan Mr. Maciel presents with right shoulder pain and weakness due to impingement syndrome and possible rotator cuff tearing. He also has bilateral arm numbness and tingling possibly due to carpal tunnel syndrome. Thus, I will send the patient for an MRI of his right shoulder for further evaluation. I will also send him for EMG evaluation of both of his upper extremities. I will see him back once the tests are completed. Feel free to call me at any time should questions regarding his orthopedic management arise. I spent 21 minutes in reviewing the patient's records and imaging studies, seeing the patient and documenting in the medical record. Orders: Orders NE electromyogram (EMG) Today G56.03 - Carpal tunnel syndrome, bilateral upper limbs MR shoulder RT wo con Today M25.311 - Other instability, right shoulder Coding Level of Care Code New Pt Level 3 (03325) Complex EM visit Add On G2211 Diagnoses Bilateral carpal tunnel syndrome G56.03 Rotator cuff insufficiency of right shoulder M25.311
[2025-01-14 14:42] VITALS: BMI 27.9
--- OUTSIDE RECORDS SUMMARY | 2025-01-14 17:16 | XMS_ITS | Clinical Summary ---
Author Organization [facility] Facility Address [address] [place] [address], [place] [address] Care Team Providers Care Pony Cylinder Press Operator Name Role Phone Armaan Correa MD Primary Care Provider +1- [phone] Social History Tobacco Use Types Packs/Day Years Used Date Smoking Tobacco: Never Assessed Sex and Gender Information Value Date Recorded Sex Assigned at Not on file Legal Sex Male 12:13 PM EST Gender Identity Not on file Sexual Orientation Not on file Plan of Treatment Health Maintenance Due Date Last Done Comments Pneumococcal Vaccine: 50+ Ye ars (1 of - PCV) 2010 Influenza Vaccine (Season Ended) 2025 Hepatitis B Vaccine Aged Out No longe r eligible based on patient's age to complete this topic Insurance [facility] Care Teams Pony Cylinder Press Operator Relationship Specialty Start Date End Date Armaan Correa MD 2 [facility] [address] [place] [phone] PCP - General Internal Medicine 10/05/21
--- OUTSIDE RECORDS SUMMARY | 2025-01-14 17:16 | XMS_ITS | Data Portability ---
Author Organization [place] [facility], Allergy Address [address] [place] [id number] Care Team Providers Care Trial Attorney Name Role Phone OLIVA JAYY Primary Care [...] Address Organization Details Recorded Time Impacted cerumen 74240294 Active 2013 Impacted wax /debris; CMS Risk: low risk CMS Treatment : new problem (to examiner) : no additiona l workup planned C ondition: controlle d Note: Date Diagnosed : 4 3:37 PM (380.4) Not Available [facility] 4 02:44:50 Sensorine ural hearing loss of bilateral ears 916758239 Active 2015 Sensorine ural hearing loss bilateral ly; CMS Risk: low risk CMS Treatment : new problem (to examiner) : no additiona l workup planned C ondition: controlle d Note: Date Diagnosed : 4 3:37 PM (389.18) ; Start Date : 4 Sensori neural hearing loss, bilateral ; Note: Date Diagnosed : 11/18/2015 1:58 PM (H90.3) Not Available [facility] 4 02:44:47 Dizziness and giddiness 609348359 Active 2021 Dizziness and giddiness ; Note: Date Diagnosed : 05/25/2022 10:53 AM (R42) Not Available [facility] 4 02:44:48 Candidal otitis externa 61745774 Active 2015 Candidal otitis externa; Note: Date Diagnosed : 11/02/2015 1:29 PM (B37.84) Not Available [facility] 4 02:44:45 Atypical facial pain 25118258 Active 2021 Atypical facial pain; Note: Date Diagnosed : 05/25/2022 10:53 AM (G50.1) Not Available [facility] 4 02:44:46 Infective otitis externa of left ear 58830516827 06484 Active 2015 Other infective otitis externa, left ear; Note: Date Diagnosed : 11/02/2015 1:29 PM (H60.392) Not Available [facility] 4 02:44:48 Chronic mycotic otitis externa 137363396 Active 2015 Chronic mycotic otitis externa; Note: Date Diagnosed : 11/11/2015 1:17 PM (380.15) Not Available [facility] 02:44:44 Impacted cerumen 18051286 Active 2023 LAURA MAIER MD [address] [place] [address], [place], [phone] , [facility] - [facility] 4 20:48:19 Dizziness 579249209 Active 2023 LAURA MAIER MD [address] [place] [address], [place], [phone] , [place] [facility] 4 20:48:34 Deviated nasal septum 223033262 Active 2023 LAURA MAIER MD [address] [place] [address], [place], [phone] , [facility] 4 20:48:47 Problem Notes None recorded. Procedures Surgical History None recorded. Imaging Results Imaging Date Name Status LastModified by Organiz aton [facility] Details LastModified Time 05/25/2022 imaging/diag [...] Name and Address Organization Details Recorded Time 34797 Iodinated contrast media (substanc e) medicatio n other Not available Not available 02/18/2024 433372003 SNOMED React ion: unkno wn, unspe cifie d;; Not Available [facility] 01:02:09 Medications Name Sig Start Date Stop Date Status Note LastModified by Organization Details LastModified Time clonidine HCl 0.1 mg tablet 05/08 completed Medicati on ID: [id number] B rand Name: clonidin e HCl Send [...] mg tablet 05/08 completed Medicati on ID: [id number] B rand Name: clonazep am Send Method: E-Prescr ibed Sub s Allowed: subs OK Medic ationGen ericName : clonazep am Not Available Not Available Not Available amlodipin e 2.5 mg tablet active Not Available Not Available Not Available amlodipin e 5 mg tablet active Not Available Not Available Not Available Ciloxan 0.3 % eye drops 05/08 completed Medicati on ID: [id number] D uration Value: 10 Presc[address] bed By [...] TWICE A DAY FOR 30 DAYS Med [facility]: lorazepa m Not Available Not Available Not Available metoclopr amide 5 mg tablet 05/08 completed Medicati on ID: [id number] B rand Name: metoclop ramide HCl Send [...] topical solution 05/25 completed Medicati on ID: [id number] Monique russell By Name: JOSE Burnett nd Name: clotrima zole Sen d Method: E-Prescr ibed Sub s Allowed: subs OK Speci al Instruct ion: 4 drops to affected ear three times a day X 14 days [facility]: clotrima zole Not Available [...] 5 mg tablet active Medicati on ID: [id number] B rand Name: rosuvast atin Sen d [...] 5 mg tablet active Medicati on ID: [id number] B rand Name: Eliquis Send Method: E-Prescr ibed Sub s Allowed: subs OK Medic ationGen ericName : Eliquis Not Available Not Available Not Available Vitals Date Recorded Body height Body mass index (BMI) Body weight Provider Name and Address Organization Details Last Updated DateTime 05/08/2024 167.64 cm 29.1 kg/m2 64599.63 g Shyanne Gaytan [place] - [facility] 05/08/2024 11:10:52 Social History None recorded. Functional Status None recorded. Mental Status None recorded. Family History Nothing Reported. Medical History No medical history recorded. Past Encounters Encounter ID Performer Location Encounter Start Date Encounter Closed Date Diagnosis/Indication Diagnosis SNOMED-CT Code Diagnosis ICD10 Code Diagnosis Note [id number] LAURA MAIER MD [facility] [address] [phone] 05/08/2024 10:44:25 05/08/2024 11:29:39 Impacted cerumen 68889883 H61.22 Dizziness 362636392 R42 Deviated nasal septum 12 0899151 J34.2 Health Concerns Section Related Observation LastModified by Organization Detai ls LastModified Time None Recorded Concern Status LastModified by Organization Details LastModified Time None Recorded Advance Directives Directive None Recorded Payers Encounter Date Sequence Insurance Name Policy Number Policy Castellano Covered Member ID Castellano Member ID Guarantor Name 05/08/2024 1 [employer] - MEDICARE ADVANTAGE PLAN (MEDICARE REPLACEMENT HMO) [id number] 1 Fabio Maciel [id number] Fabio Maciel Notes Date Note Type Note [...] not shown any disease. LAURA MAIER MD [address] [place] [address], [phone], [facility] - [facility] 05/10/2024 20:50:40
== END 2025-01-14 15:15 | disposition home or self-care (01) ==
LOC: HO.HOS 14:38
PROVIDERS: PCP Internal Medicine; Visit Provider Orthopaedic Surgery
DX: G56.03 Carpal tunnel syndrome, bilateral upper limbs (principal); M25.311 Other instability, right shoulder
CPT/HCPCS: 99203; G2211

== ENCOUNTER → 2025-01-14 14:38 | Outpatient (BNVA) | payer MEDICARE, SELFPAY | PROVIDERS: PCP Internal Medicine; Visit Provider Orthopaedic Surgery | DX: M25.311 Other instability, right shoulder (principal); G56.03 Carpal tunnel syndrome, bilateral upper limbs | CPT/HCPCS: 99202 ==

== ENCOUNTER 2025-01-15 13:08 | Outpatient (AMB) | payer MEDICARE, SELFPAY ==
--- NOTE | 2025-01-15 13:25 | A.SPINEOV_ITS ---
Intake Visit Reasons: 2nd post op Intake Note: Mr. Maciel is here today for his 2nd post-op visit. Drapery Counselor Required: No Allergies Iodinated Contrast Media [IV Dye, Iodine Containing] Allergy (Mild, Verified 01/14/25 14:41) Hives tizanidine Allergy (Mild, Verified 01/14/25 14:41) painful rash on ankles, dizziness sertraline Adverse Reaction (Intermediate, Verified 01/14/25 14:41) GI upset, confusion Assessment & Plan Assessment & Plan (1) Cervical disc disorder with radiculopathy: Code(s): M50.10 - Cervical disc disorder with radiculopathy, unspecified cervical region Category: Medical Plan Mr Maciel is a little over 2 months out from his anterior cervical fusion. He is still having some stiffness in his neck especially in the right side where he feels swelling at the end of the day. His range of motion is somewhat limited as well. He was hoping that would improve with surgery. I did x-rays today and the cages are in good position and there is no shifting with flexion or extension. I explained to him that there is likely going to be some ongoing pain and discomfort as well as limited range of motion just because of the fact that 2 segments of the spine were fused. At this point he has no limitations, he can carry on with activities as tolerated. He is going to follow up with Dr. Curiel about his shoulder, it sounds like he is getting an MRI to evaluate that. Floyd Qureshi MD, PhD [facility] Orders: Orders XR cervical spine 4V Today M50.10 - Cervical disc disorder with radiculopathy, unspecified cervical region Coding Level of Care Code Global (84500) Diagnoses Cervical disc disorder with radiculopathy M50.10
--- OUTSIDE RECORDS SUMMARY | 2025-01-15 13:38 | XMS_ITS | Clinical Summary ---
Author Organization [facility] Facility Address [address] [place] [address], [place] [address] Care Team Providers Care Marine Electrician Name Role Phone Armaan Correa MD Primary Care Provider +1- [phone] Social History Tobacco Use Types Packs/Day Years [...] patient's age to complete this topic Insurance [facility] Care Teams Marine Electrician Relationship Specialty Start Date End Date Armaan Correa MD 2 [facility] [address] [place] [address] [phone] PCP - General Internal Medicine 10/05/21
== END 2025-01-15 14:01 | disposition home or self-care (01) ==
LOC: HO.HNS 13:08
PROVIDERS: PCP Internal Medicine; Visit Provider Physician Assistant
DX: M50.10 Cervical disc disorder with radiculopathy, unspecified cervical region (principal)
CPT/HCPCS: 99024

== ENCOUNTER 2025-01-15 13:08 | Outpatient (REF) | payer MEDICARE, SELFPAY ==
--- NOTE | ~2025-01-15 | XR_ITS ---
EXAMINATION: XR CERVICAL SPINE CLINICAL INFORMATION: M50.10 - Cervical disc disorder with radiculopathy, unspecified cervical... COMPARISON: 06/17/2017. MRI cervical 09/27/2022. TECHNIQUE: 4 views of the cervical spine, inclusive of flexion and extension views, were obtained. FINDINGS: There is no scoliosis. There is a mildly straightened lordosis. There has been anterior fusion of C5-6 and C6-7 with disc prosthesis and oblique interbody endplate screws. The hardware appears intact, well seated, without evidence of loosening. There are no fractures, compression deformities, or significant subluxations. There is no suspicious bone lesion. The craniocervical junction and C1-2 articulation are intact and aligned. There are moderate degenerative changes present. The nonoperative disc levels are maintained. Facets are normally aligned with mild to moderate multilevel facet hypertrophic arthropathy. Flexion and extension radiographs demonstrate no developing subluxation. There is no evidence of instability. No prevertebral soft tissue abnormality. There are bilateral carotid bulb calcifications. The lung apices are clear. XR/XR cervical spine 4V IMPRESSION: 1. No acute bony abnormalities. 2. Anterior fusion of C5-6 and C6-7 without complication. 3. No subluxations. No evidence of instability. 4. Mild to moderate multilevel degenerative facet changes. Electronically signed by: Sahil De La O MD 01/15/2025 02:36 PM EDT
--- OUTSIDE RECORDS SUMMARY | 2025-01-15 14:05 | XMS_ITS | Clinical Summary ---
Author Organization [facility] Facility Address [address] [place] [address], [place] [address] Care Team Providers Care Header Machine Operator Name Role Phone Armaan Correa MD Primary Care Provider +1- [phone] Social History Tobacco Use Types Packs/Day Years [...] to complete this topic Insurance [facility] Care Teams Header Machine Operator Relationship Specialty Start Date End Date Armaan Correa MD 2 [facility] [address] [place] [address] [phone] PCP - General Internal Medicine 10/05/21
== END 2025-01-15 13:09 | disposition home or self-care (01) ==
LOC: HO.HOSX 13:08
PROVIDERS: PCP Internal Medicine; Visit Provider Physician Assistant
DX: M50.10 Cervical disc disorder with radiculopathy, unspecified cervical region (principal); Z98.1 Arthrodesis status
CPT/HCPCS: 72050; 99212

== ENCOUNTER → 2025-01-15 13:47 | Outpatient (BNV) | payer MEDICARE, SELFPAY | PROVIDERS: PCP Internal Medicine; Visit Provider Radiology Diagnostic Radiology | DX: M50.10 Cervical disc disorder with radiculopathy, unspecified cervical region (principal) | CPT/HCPCS: 72050 ==

== ENCOUNTER 2025-01-22 19:01 | Outpatient (REF) | payer MEDICARE, SELFPAY | END 2025-01-22 19:02 | disposition home or self-care (01) | LOC: HO.MRI 19:01 | PROVIDERS: PCP Internal Medicine; Visit Provider Orthopaedic Surgery | DX: M25.311 Other instability, right shoulder (principal) | CPT/HCPCS: 73221 ==

== ENCOUNTER → 2025-01-22 19:09 | Outpatient (BNV) | payer MEDICARE, SELFPAY | PROVIDERS: PCP Internal Medicine; Visit Provider Radiology Diagnostic Radiology | DX: M67.813 Other specified disorders of tendon, right shoulder (principal) | CPT/HCPCS: 73221 ==

== ENCOUNTER 2025-01-26 09:27 | Outpatient (REF) | payer MEDICARE, SELFPAY ==
--- NOTE | 2025-01-26 09:33 | EMG_ITS ---
PROCEDURE: Bilateral median and ulnar motor and sensory studies were performed. Bilateral radial sensory studies were performed and paraspinal muscles were tested with a needle. IMPRESSION: 1. [id number]-rpzarken right and mild left median neuropathy across carpal tunnel. 2. Mild bilateral ulnar neuropathy across cubital tunnel. MD PETRA [place]/JOSE / [id number]
--- OUTSIDE RECORDS SUMMARY | 2025-01-26 10:20 | XMS_ITS | Data Portability ---
Author Organization [place] [facility], Allergy Address [address] [place] [address] Care Team Providers Care Jailer/Training Officer Name Role Phone OLIVA JAYY Primary Care Provider [phone] Assessment Encounter Date Assessment Date Assessment LastModified [...] Address Organization Details Recorded Time Impacted cerumen 84609665 Active 2013 Impacted wax /debris; CMS Risk: low risk CMS Treatment : new problem (to examiner) : no additiona l workup planned C ondition: controlle d Note: Date Diagnosed : 4 3:37 PM (380.4) Not Available [facility] 4 02:44:50 Sensorine ural hearing loss of bilateral ears 818637558 Active 2015 Sensorine ural hearing loss bilateral ly; CMS Risk: low risk CMS Treatment : new problem (to examiner) : no additiona l workup planned C ondition: controlle d Note: Date Diagnosed : 4 3:37 PM (389.18) ; Start Date : 4 Sensori neural hearing loss, bilateral ; Note: Date Diagnosed : 11/18/2015 1:58 PM (H90.3) Not Available [facility] 4 02:44:47 Dizziness and giddiness 495645473 Active 2021 Dizziness and giddiness ; Note: Date Diagnosed : 05/25/2022 10:53 AM (R42) Not Available [facility] 4 02:44:48 Candidal otitis externa 22402310 Active 2015 Candidal otitis externa; Note: Date Diagnosed : 11/02/2015 1:29 PM (B37.84) Not Available [facility] 4 02:44:45 Atypical facial pain 60571359 Active 2021 Atypical facial pain; Note: Date Diagnosed : 05/25/2022 10:53 AM (G50.1) Not Available [facility] 4 02:44:46 Infective otitis externa of left ear 11739783896 50257 Active 2015 Other infective otitis externa, left ear; Note: Date Diagnosed : 11/02/2015 1:29 PM (H60.392) Not Available [facility] 4 02:44:48 Chronic mycotic otitis externa 232873004 Active 2015 Chronic mycotic otitis externa; Note: Date Diagnosed : 11/11/2015 1:17 PM (380.15) Not Available [facility] 02:44:44 Impacted cerumen 06595632 Active 2023 LAURA MAIER MD [address] [place] [address], [place], [phone] , [facility] - [facility] 4 20:48:19 Dizziness 121731336 Active 2023 LAURA MAIER MD [address] [place] [address], [place], [phone] , [place] [facility] 4 20:48:34 Deviated nasal septum 613719756 Active 2023 LAURA MAIER MD [address] [place] [address], [place], [phone] , [facility] 4 20:48:47 Problem Notes None recorded. Procedures Surgical History None recorded. Imaging Results Imaging Date Name Status LastModified by Organiz [facility] Details LastModified Time 05/25/2022 imaging/diag nostic [...] Name and Address Organization Details Recorded Time 63882 Iodinated contrast media (substanc e) medicatio n other Not available Not available 02/18/2024 042232003 SNOMED React ion: unkno wn, unspe cifie d;; Not Available [facility] 01:02:09 Medications Name Sig Start Date Stop Date Status Note LastModified by Organization Details LastModified Time clonidine HCl 0.1 mg tablet 05/08 completed Medicati on ID: [id number] B rand Name: clonidin e HCl Send [...] mg tablet 05/08 completed Medicati on ID: [id number] B rand Name: clonazep am Send Method: E-Prescr ibed Sub s Allowed: subs OK Medic ationGen ericName : clonazep am Not Available Not Available Not Available amlodipin e 2.5 mg tablet active Not Available Not Available Not Available amlodipin e 5 mg tablet active Not Available Not Available Not Available Ciloxan 0.3 % eye drops 05/08 completed Medicati on ID: [id number] D uration Value: 10 Prescri bed By [...] TWICE A DAY FOR 30 DAYS [facility] lorazepa m Not Available Not Available Not Available metoclopr amide 5 mg tablet 05/08 completed Medicati on ID: [id number] B rand Name: metoclop ramide HCl Send [...] topical solution 05/25 completed Medicati on ID: [id number] Monique russell By Name: JOSE Burnett nd Name: clotrima zole Sen d Method: E-Prescr ibed Sub s Allowed: subs OK Speci al Instruct ion: 4 drops to affected ear three times a day X 14 days [facility] clotrima zole Not Available Not Available [...] 5 mg tablet active Medicati on ID: [id number] B rand Name: rosuvast atin Sen d [...] 5 mg tablet active Medicati on ID: [id number] B rand Name: Eliquis Send Method: E-Prescr ibed Sub s Allowed: subs OK Medic ationGen ericName : Eliquis Not Available Not Available Not Available Vitals Date Recorded Body height Body mass index (BMI) Body weight Provider Name and Address Organization Details Last Updated DateTime 05/08/2024 167.64 cm 29.1 kg/m2 29728.63 g Shyanne Gaytan [place] [facility] 05/08/2024 11:10:52 Social History None recorded. Functional Status None recorded. Mental Status None recorded. Family History Nothing Reported. Medical History No medical history recorded. Past Encounters Encounter ID Performer Location Encounter Start Date Encounter Closed Date Diagnosis/Indication Diagnosis SNOMED-CT Code Diagnosis ICD10 Code Diagnosis Note [id number] LAURA MAIER MD [facility] [address] [address] 05/08/2024 10:44:25 05/08/2024 11:29:39 Impacted cerumen 22033925 H61.22 Dizziness 110119623 R42 Deviated nasal septum 12 6952228 J34.2 Health Concerns Section Related Observation LastModified by Organization Detai ls LastModified Time None Recorded Concern Status LastModified by Organization Details LastModified Time None Recorded Advance Directives Directive None Recorded Payers Encounter Date Sequence Insurance Name Policy Number Policy Castellano Covered Member ID Castellano Member ID Guarantor Name 05/08/2024 1 [employer] - MEDICARE ADVANTAGE PLAN (MEDICARE REPLACEMENT HMO) [id number] 1 Fabio Maciel [id number] Fabio Maciel Notes Date Note Type Note [...] eye burning. He had an MRI at [facility] but his sinus headaches started after this. He is had CT sinuses in the past which have not shown any disease. LAURA MAIER MD [address] [place] [address], [phone], [facility] - [facility] 05/10/2024 20:50:40
--- OUTSIDE RECORDS SUMMARY | 2025-01-26 10:20 | XMS_ITS | Clinical Summary ---
Author Organization [facility] Facility Address [address] [place] [address], [place] [address] Care Team Providers Care Nail Maker Name Role Phone Armaan Correa MD Primary Care Provider +1- [phone] Social History Tobacco Use Types Packs/Day Years Used Date Smoking Tobacco: Never Assessed Sex and Gender Information Value Date Recorded Sex Assigned at Not on file Legal Sex Male 12:13 PM EST Gender Identity Not on file Sexual Orientation Not on file Plan of Treatment Health Maintenance Due Date Last Done Comments Pneumococcal Vaccine: 50+ Ye ars (1 of - PCV) 1995 Influenza Vaccine (Season Ended) 2025 Hepatitis B Vaccine Aged Out No longe r eligible based on patient's age to complete this topic Insurance [facility] Care Teams Nail Maker Relationship Specialty Start Date End Date Armaan Correa MD 2 [facility] [address] [place] [address] [phone] PCP - General Internal Medicine 10/05/21
== END 2025-01-26 09:28 | disposition home or self-care (01) ==
LOC: HO.NEURO 09:27
PROVIDERS: PCP Internal Medicine; Visit Provider Orthopaedic Surgery
DX: G56.03 Carpal tunnel syndrome, bilateral upper limbs (principal)
CPT/HCPCS: 95886; 95911

== ENCOUNTER 2025-02-16 12:53 | Outpatient (AMB) | payer MEDICARE, SELFPAY ==
--- NOTE | 2025-02-16 12:56 | A.OFFVIS_ITS ---
Vital Signs 02/16/25 13:00 Height 5 ft 7 in Weight 178 lb BMI 27.9 Intake Visit Reasons: OV- RT shoulder MRI review Intake Note: Fabio is a 79 year old right hand dominant male who presents with complaints of progressively worsening right shoulder pain and stiffness as well as numbness and tingling in both of his upper extremities. The patient did undergo cervical spine surgery in November of this year. The patient states that his neck pain has improved but his right shoulder pain as well as bilateral arm numbness have not improved since the surgery. His symptoms have gotten worse over the last year in spite of continued non operative treatments. He has tried Tylenol and anti-inflammatory medicines as well as physical therapy exercises which gave him minimal relief. Allergies Iodinated Contrast Media [IV Dye, Iodine Containing] Allergy (Mild, Verified 02/16/25 12:59) Hives tizanidine Allergy (Mild, Verified 02/16/25 12:59) painful rash on ankles, dizziness sertraline Adverse Reaction (Intermediate, Verified 02/16/25 12:59) GI upset, confusion Medication List - Last Reconciled 02/16/25 by Alejandro Curiel MD amlodipine 2.5 mg PO DAILY 90 days amlodipine 5 mg PO DAILY 90 days clonazepam 0.5 mg PO BEDTIME PRN 90 days Eliquis (apixaban) 5 mg PO BID 30 days NS hydrochlorothiazide 12.5 mg PO DAILY 90 days lisinopril 40 mg PO DAILY 90 days metoprolol succinate ER 25 mg PO DAILY 90 days pantoprazole 40 mg PO DAILY 90 days rosuvastatin 5 mg PO DAILY 90 days sennosides (Senna Laxative) 17.2 mg (2 x 8.6 mg) PO BEDTIME [facility] Medical History Essential hypertension Depression Kidney stone Spasmodic torticollis Cervical spondylosis Vitamin D deficiency COVID-19 vaccine series completed Cerebrovascular accident, embolic Right leg weakness Right arm weakness Facial droop BPH (benign prostatic hyperplasia) Overweight (BMI 25.0-29.9) Anxiety Primary insomnia Cervical disc disorder with radiculopathy Impaired fasting glucose Pure hypercholesterolemia Benign essential hypertension Erectile dysfunction Degenerative disc disease, thoracic Degenerative disc disease, lumbar Delayed gastric emptying GERD (gastroesophageal reflux disease) Urgency of micturition Surgical History History of prostate surgery Hx of cataract extraction Hx of cystoscopy (~2019) History of esophagogastroduodenoscopy (EGD) (02/14/15) Hx of colonoscopy (03/04/12) Hx of tonsillectomy Family History Father Heart disease Mother Cancer Brother Diabetes Paternal Grandmother Heart disease Maternal Uncle Colon cancer Social History Household Members: Spouse Housing: House Are you a primary neonatal intensive care nurse to a significant other at home: No Do you presently have visiting nurse or other home services: No Alcohol intake: current Alcohol intake frequency: holidays/special occasions only Alcohol type: beer Patient Tobacco Use Status: Former Tobacco user Tobacco use type: Cigarette e-Cigarette/Vaping Use: Never Used Second Hand Smoke Exposure: Yes Substance Use Type: Other service: No Current occupational status: retired Current occupation: right hand dominant Cognitive needs: No Hearing needs: No Vision needs: Yes (glasses) Physical Exam Vital Signs: BMI result Body Mass Index 27.9 Const Other: Well-nourished well-developed very friendly male awake alert and oriented x3 in no acute distress Extrem Other: Right shoulder examination shows decreased range of motion when compared to his left shoulder, positive impingement signs, tenderness over his acromioclavicular joint, 4+ out of 5 strength with supraspinatus testing, no instability Results Reviewed Results Reviewed: MRI of the patient's right shoulder show severe acromioclavicular joint narrowing, a type 2 acromion, signal change within the supraspinatus tendon most likely due to adhesive capsulitis EMG reports of his bilateral upper extremities shows evidence of carpal tunnel syndrome Assessment & Plan Assessment & Plan (1) Impingement of right shoulder: Code(s): M25.811 - Other specified joint disorders, right shoulder Category: Medical Plan Mr. Maciel presents with right shoulder pain and stiffness due to impingement syndrome, acromioclavicular joint arthritis and adhesive capsulitis. I had a lengthy discussion with the patient regarding the treatment options. At this point he has failed continued non operative treatments. The risks and benefits of right shoulder surgery were discussed at length with the patient. The patient wishes to proceed with surgery. Surgery will most likely involve right shoulder diagnostic arthroscopy with distal clavicle excision, acromioplasty, capsular release and manipulation under anesthesia. I will also have the patient evaluated by our hand service for further evaluation of his carpal tunnel syndrome. The patient will follow-up as instructed. Feel free to call me at any time should questions regarding his orthopedic management arise. I spent 20 minutes in reviewing the patient's records and imaging studies, seeing the patient and documenting in the medical record. Coding Level of Care Code Est Pt Level 3 (88337) Complex EM visit Add On G2211 Diagnoses Impingement of right shoulder M25.811
[2025-02-16 13:00] VITALS: BMI 27.9
--- OUTSIDE RECORDS SUMMARY | 2025-02-16 13:57 | XMS_ITS | Clinical Summary ---
Author Organization [facility] Facility Address [address] [place] [address], [place] [address] Care Team Providers Care Cabin Agent Name Role Phone Armaan Correa MD Primary Care Provider +1- [phone] Social History Tobacco Use Types Packs/Day Years [...] patient's age to complete this topic Insurance [facility] Care Teams Cabin Agent Relationship Specialty Start Date End Date Armaan Correa MD 2 [facility] [address] [place] [address] [phone] PCP - General Internal Medicine 10/05/21
--- OUTSIDE RECORDS SUMMARY | 2025-02-16 13:58 | XMS_ITS | Data Portability ---
Author Organization [place] [facility], Allergy Address [address] [place] [address] Care Team Providers Care Octave Board Assembler Name Role Phone OLIVA JAYY Primary Care [...] Address Organization Details Recorded Time Impacted cerumen 75807544 Active 2013 Impacted wax /debris; CMS Risk: low risk CMS Treatment : new problem (to examiner) : no additiona l workup planned C ondition: controlle d Note: Date Diagnosed : 4 3:37 PM (380.4) Not Available [facility] 4 02:44:50 Sensorine ural hearing loss of bilateral ears 358673430 Active 2015 Sensorine ural hearing loss bilateral ly; CMS Risk: low risk CMS Treatment : new problem (to examiner) : no additiona l workup planned C ondition: controlle d Note: Date Diagnosed : 4 3:37 PM (389.18) ; Start Date : 4 Sensori neural hearing loss, bilateral ; Note: Date Diagnosed : 11/18/2015 1:58 PM (H90.3) Not Available [facility] 4 02:44:47 Dizziness and giddiness 495204548 Active 2021 Dizziness and giddiness ; Note: Date Diagnosed : 05/25/2022 10:53 AM (R42) Not Available [facility] 4 02:44:48 Candidal otitis externa 37015856 Active 2015 Candidal otitis externa; Note: Date Diagnosed : 11/02/2015 1:29 PM (B37.84) Not Available [facility] 4 02:44:45 Atypical facial pain 76815895 Active 2021 Atypical facial pain; Note: Date Diagnosed : 05/25/2022 10:53 AM (G50.1) Not Available [facility] 4 02:44:46 Infective otitis externa of left ear 35075569896 94934 Active 2015 Other infective otitis externa, left ear; Note: Date Diagnosed : 11/02/2015 1:29 PM (H60.392) Not Available [facility] 4 02:44:48 Chronic mycotic otitis externa 632732815 Active 2015 Chronic mycotic otitis externa; Note: Date Diagnosed : 11/11/2015 1:17 PM (380.15) Not Available [facility] 02:44:44 Impacted cerumen 78666377 Active 2023 LAURA MAIER MD [address] [place] [address], [place], [phone] , [facility] - [facility] 4 20:48:19 Dizziness 882055363 Active 2023 LAURA MIAER MD [address] [place] [address], [place], [phone] , [place] [facility] [place] 4 20:48:34 Deviated nasal septum 830263666 Active 2023 LAURA MAIER MD [address] [place] [address], [place], [phone] , [facility] 4 20:48:47 Problem Notes None recorded. Procedures Surgical History None recorded. Imaging Results Imaging Date Name Status LastModified by [facility]iz [facility] Details LastModified Time 05/25/2022 imaging/diag nostic [...] Name and Address Organization Details Recorded Time 30894 Iodinated contrast media (substanc e) medicatio n other Not available Not available 02/18/2024 958052003 SNOMED React ion: unkno wn, unspe cifie d;; Not Available [facility] 01:02:09 Medications Name Sig Start Date Stop Date Status Note LastModified by Organization Details LastModified Time clonidine HCl 0.1 mg tablet 05/08 completed Medicati on ID: [id number] B rand Name: clonidin e HCl Send [...] mg tablet 05/08 completed Medicati on ID: [id number] B rand Name: clonazep am Send Method: E-Prescr ibed Sub s Allowed: subs OK Medic ationGen ericName : clonazep am Not Available Not Available Not Available amlodipin e 2.5 mg tablet active Not Available Not Available Not Available amlodipin e 5 mg tablet active Not Available Not Available Not Available Ciloxan 0.3 % eye drops 05/08 completed Medicati on ID: [id number] D uration Value: 10 Prescri bed By [...] 30 DAYS Med [facility]: lorazepa m Not Available Not Available Not Available metoclopr amide 5 mg tablet 05/08 completed Medicati on ID: [id number] B rand Name: metoclop ramide HCl Send [...] topical solution 05/25 completed Medicati on ID: [id number] Monique russell By Name: JOSE Burnett nd Name: clotrima zole Sen d Method: E-Prescr ibed Sub s Allowed: subs OK Speci al Instruct ion: 4 drops to affected ear three times a day X 14 days [facility] me: clotrima zole Not Available Not Available [...] 5 mg tablet active Medicati on ID: [id number] B rand Name: rosuvast atin Sen d [...] 5 mg tablet active Medicati on ID: [id number] B rand Name: Eliquis Send Method: E-Prescr ibed Sub s Allowed: subs OK Medic ationGen ericName : Eliquis Not Available Not Available Not Available Vitals Date Recorded Body height Body mass index (BMI) Body weight Provider Name and Address Organization Details Last Updated DateTime 05/08/2024 167.64 cm 29.1 kg/m2 54099.63 g Shyanne Gaytan [place] [facility] 05/08/2024 11:10:52 Social History None recorded. Functional Status None recorded. Mental Status None recorded. Family History Nothing Reported. Medical History No medical history recorded. Past Encounters Encounter ID Performer Location Encounter Start Date Encounter Closed Date Diagnosis/Indication Diagnosis SNOMED-CT Code Diagnosis ICD10 Code Diagnosis Note [id number] LAURA MAIER MD [facility] [address] [address] 05/08/2024 10:44:25 05/08/2024 11:29:39 Impacted cerumen 61054340 H61.22 Dizziness 074368900 R42 Deviated nasal septum 12 5699964 J34.2 Health Concerns Section Related Observation LastModified by Organization Detai ls LastModified Time None Recorded Concern Status LastModified by Organization Details LastModified Time None Recorded Advance Directives Directive None Recorded Payers Insurance Date Sequence Insurance Name Policy Number Policy Castellano Covered Member ID Castellano Member ID Guarantor Name 05/08/2024 1 [employer] [place] - MEDICARE ADVANTAGE PLAN (MEDICARE REPLACEMENT HMO) [id number] 1 Fabio Maciel [id number] Fabio Maciel Notes Date Note Type Note [...] eye burning. He had an MRI at [facility] but his sinus headaches started after this. He is had CT sinuses in the past which have not shown any disease. LAURA MAIER MD [address] [place] [address], [phone], [facility] - [facility] 05/10/2024 20:50:40
== END 2025-02-16 13:09 | disposition home or self-care (01) ==
LOC: HO.HOS 12:54
PROVIDERS: PCP Internal Medicine; Visit Provider Orthopaedic Surgery
DX: M25.811 Other specified joint disorders, right shoulder (principal)
CPT/HCPCS: 99214; G2211

== ENCOUNTER → 2025-02-16 12:53 | Outpatient (BNVA) | payer MEDICARE, SELFPAY | PROVIDERS: PCP Internal Medicine; Visit Provider Orthopaedic Surgery | DX: M25.811 Other specified joint disorders, right shoulder (principal) | CPT/HCPCS: 99212 ==

== ENCOUNTER 2025-02-22 07:41 | Outpatient (REF) | payer MEDICARE, SELFPAY ==
--- OUTSIDE RECORDS SUMMARY | 2025-02-22 07:43 | XMS_ITS | Clinical Summary ---
Author Organization [facility] Facility Address [address] [place] [address], [place] [address] Care Team Providers Care Market Research Analyst Name Role Phone Armaan Correa MD Primary Care Provider +1- [phone] Social History Tobacco Use Types Packs/Day Years [...] to complete this topic Insurance [facility] Care Teams Market Research Analyst Relationship Specialty Start Date End Date Armaan Correa MD 2 [facility] [address] [place] [address] [phone] PCP - General Internal Medicine 10/05/21
--- OUTSIDE RECORDS SUMMARY | 2025-02-22 07:43 | XMS_ITS | Data Portability ---
Author Organization [place] - [facility], Allergy Address [address] [place] [address] Care Team Providers Care Television Maintenance Worker Name Role Phone OLIVA JAYY Primary Care Provider [phone] Assessment Encounter Date Assessment Date Assessment LastModified [...] Address Organization Details Recorded Time Impacted cerumen 75234224 Active 2013 Impacted wax /debris; CMS Risk: low risk CMS Treatment : new problem (to examiner) : no additiona l workup planned C ondition: controlle d Note: Date Diagnosed : 4 3:37 PM (380.4) Not Available [facility] 4 02:44:50 Sensorine ural hearing loss of bilateral ears 425078108 Active 2015 Sensorine ural hearing loss bilateral ly; CMS Risk: low risk CMS Treatment : new problem (to examiner) : no additiona l workup planned C ondition: controlle d Note: Date Diagnosed : 4 3:37 PM (389.18) ; Start Date : 4 Sensori neural hearing loss, bilateral ; Note: Date Diagnosed : 11/18/2015 1:58 PM (H90.3) Not Available [facility] 4 02:44:47 Dizziness and giddiness 730606196 Active 2021 Dizziness and giddiness ; Note: Date Diagnosed : 05/25/2022 10:53 AM (R42) Not Available [facility] 4 02:44:48 Candidal otitis externa 53904097 Active 2015 Candidal otitis externa; Note: Date Diagnosed : 11/02/2015 1:29 PM (B37.84) Not Available [facility] 4 02:44:45 Atypical facial pain 52927352 Active 2021 Atypical facial pain; Note: Date Diagnosed : 05/25/2022 10:53 AM (G50.1) Not Available [facility] 4 02:44:46 Infective otitis externa of left ear 76671481308 68880 Active 2015 Other infective otitis externa, left ear; Note: Date Diagnosed : 11/02/2015 1:29 PM (H60.392) Not Available [facility] 4 02:44:48 Chronic mycotic otitis externa 294164597 Active 2015 Chronic mycotic otitis externa; Note: Date Diagnosed : 11/11/2015 1:17 PM (380.15) Not Available [facility] 02:44:44 Impacted cerumen 51303878 Active 2023 LAURA MAIER MD [address] [place] [address], [place], [phone] , [facility] - [facility] 4 20:48:19 Dizziness 300599673 Active 2023 LAURA MAIER MD [address] [place] [address], [place], [phone] , [place] [facility] 4 20:48:34 Deviated nasal septum 489619798 Active 2023 LAURA MAIER MD [address] [place] [address], [place], [phone] , [facility] 4 20:48:47 Problem Notes None recorded. [...] Name and Address Organization Details Recorded Time 27178 Iodinated contrast media (substanc e) medicatio n other Not available Not available 02/18/2024 239782003 SNOMED React ion: unkno wn, unspe cifie d;; Not Available [facility] 01:02:09 Medications Name Sig Start Date Stop Date Status Note LastModified by Organization Details LastModified Time clonidine HCl 0.1 mg tablet 05/08 completed Medicati on ID: [id number] B rand Name: clonidin e HCl Send [...] mg tablet 05/08 completed Medicati on ID: [id number] B rand Name: clonazep am Send Method: E-Prescr ibed Sub s Allowed: subs OK Medic ationGen ericName : clonazep am Not Available Not Available Not Available amlodipin e 2.5 mg tablet active Not Available Not Available Not Available amlodipin e 5 mg tablet active Not Available Not Available Not Available Ciloxan 0.3 % eye drops 05/08 completed Medicati on ID: [id number] D uration Value: 10 Prescri bed By [...] TWICE A DAY FOR 30 DAYS Med [facility]: lorazepa m Not Available Not Available Not Available metoclopr amide 5 mg tablet 05/08 completed Medicati on ID: [id number] B rand Name: metoclop ramide HCl Send [...] topical solution 05/25 completed Medicati on ID: [id number] Monique russell By Name: JOSE Burnett nd Name: clotrima zole Sen d Method: E-Prescr ibed Sub s Allowed: subs OK Speci al Instruct ion: 4 drops to affected ear three times a day X 14 days [facility]: clotrima zole Not Available Not [...] 5 mg tablet active Medicati on ID: [id number] B rand Name: rosuvast atin Sen d [...] 5 mg tablet active Medicati on ID: [id number] B rand Name: Eliquis Send Method: E-Prescr ibed Sub s Allowed: subs OK Medic ationGen ericName : Eliquis Not Available Not Available Not Available Vitals Date Recorded Body height Body mass index (BMI) Body weight Provider Name and Address Organization Details Last Updated DateTime 05/08/2024 167.64 cm 29.1 kg/m2 89147.63 g Shyanne Gaytan [place] [facility] 05/08/2024 11:10:52 Social History None recorded. Functional Status None recorded. Mental Status None recorded. Family History Nothing Reported. Medical History No medical history recorded. Past Encounters Encounter ID Performer Location Encounter Start Date Encounter Closed Date Diagnosis/Indication Diagnosis SNOMED-CT Code Diagnosis ICD10 Code Diagnosis Note [id number] LAURA MAIER MD [facility] [address] [address] 05/08/2024 10:44:25 05/08/2024 11:29:39 Impacted cerumen 80462176 H61.22 Dizziness 269098618 R42 Deviated nasal septum 12 9188684 J34.2 Health Concerns Section Related Observation LastModified by Organization Detai ls LastModified Time None Recorded Concern Status LastModified by Organization Details LastModified Time None Recorded Advance Directives Directive None Recorded Payers Insurance Date Sequence Insurance Name Policy Number Policy Castellano Covered Member ID Castellano Member ID Guarantor Name 05/08/2024 1 [employer] MEDICARE ADVANTAGE PLAN (MEDICARE REPLACEMENT HMO) [id number] 1 Fabio Maciel [id number] Fabio Maciel Notes Date Note Type Note [...] eye burning. He had an MRI at [facility] but his sinus headaches started after this. He is had CT sinuses in the past which have not shown any disease. LAURA MAIER MD [address] [place] [address], [phone], [facility] - [facility] 05/10/2024 20:50:40
[2025-02-22 10:14] LABS: MANUAL DIFF FLAG NO
[2025-02-22 10:31] LABS: Basophils Absolute Auto 0.1 X10*3/uL (0.0-0.2); Basophils Percent Auto 0.7 % (0-2); Eosinophils Absolute Auto 0.3 X10*3/uL (0.0-0.4); Eosinophils Percent Auto 3.4 % (0-4); Hemoglobin 15.2 g/dl (14.0-18.0); Imm Gran Abs Auto 0.01 X10*3/uL (0.00-0.03); Imm Gran Pct Auto 0.1 % (0.0-0.4); Lymphocytes Absolute Auto 1.8 X10*3/uL (1.2-4.9); Lymphocytes Percent Auto 23.8 % (20-40); Mean Corpuscular HGB Conc 34.5 g/dl (31.0-36.0); Mean Corpuscular Volume 89.6 fL (80.0-98.0); Mean Platelet Volume 11.1 fL (9.4-12.4); Monocytes Absolute Auto 0.5 X10*3/uL (0.1-1.2); Monocytes Percent Auto 6.2 % (2-11); Neutrophils Absolute Auto 4.9 x10*3/uL (2.0-8.3); Neutrophils Percent Auto 65.8 % (45-73); Platelet Count 170 X10*3/uL (160-400); Red Blood Count 4.91 X10*6/uL (4.60-5.80); Red Cell Distribution Width 13.2 % (11.0-16.0); White Blood Count 7.4 X10*3/uL (4.8-10.8)
[2025-02-22 10:34] LABS: Appearance Urine Clear; Color Urine Yellow; Glucose Urine UA Negative (Negative); Leukocyte Esterase Urine Negative (Negative); Nitrite Urine Negative (Negative); Urine Blood Negative (Negative); Urine Ketones Negative (Negative); Urine Protein Negative (Neg-Trace)
[2025-02-22 10:41] LABS: Estimated Average Glucose 117 mg/dL; Hemoglobin A1c % 5.7 % (<6.0); Total Hemoglobin (HGBA1C) 3859.5764 umol/L
[2025-02-22 10:53] LABS: Alanine Aminotransferase 25 U/L (0-40); Albumin Level 4.1 g/dL (3.5-5.0); Alkaline Phosphatase 56 U/L (39-117); Anion Gap 10 (12-20); Aspartate Amino Transferase 25 U/L (5-37); Bilirubin Total 0.7 mg/dL (0.0-1.0); Blood Urea Nitrogen 17 mg/dL (9-16); Carbon Dioxide 30 mmol/L (22-29); Chloride 106 mmol/L (96-108); Cholesterol 111 mg/dL (<200); Estimated Glomerular Filt Rate > 60; Glucose Fasting 111 mg/dL (60-99); HDL Cholesterol 42 mg/dL (>40); LDL Cholesterol Calculated 50 mg/dL (<100); Potassium 3.4 mmol/L (3.3-5.1); Sodium 143 mmol/L (135-145); Triglycerides 99 mg/dL (<150)
[2025-02-22 11:08] LABS: TSH reflex Free T4 1.25 uIU/mL (0.32-4.0); Vitamin D 25-OH Total 39.7 ng/mL (>30)
== END 2025-02-22 07:42 | disposition home or self-care (01) ==
LOC: HO.HMGCLDS 07:41
PROVIDERS: PCP Internal Medicine; Visit Provider Internal Medicine
DX: E78.00 Pure hypercholesterolemia, unspecified (principal); E55.9 Vitamin D deficiency, unspecified; R30.0 Dysuria; D64.9 Anemia, unspecified; R73.01 Impaired fasting glucose
CPT/HCPCS: 36415; 80053; 80061; 81003; 82306; 83036; 84443; 85025

== ENCOUNTER 2025-02-23 12:32 | Outpatient (AMB) | payer MEDICARE, SELFPAY ==
[2025-02-23 12:36] VITALS: BMI 24.7
--- NOTE | 2025-02-23 12:36 | A.OFFVIS_ITS ---
Vital Signs 02/23/25 12:36 Height 5 ft 7 in Weight 158 lb BMI 24.7 Intake Visit Reasons: Est Patient New prob- CTS Of Right Hand Intake Note: Fabio is a 79 year old right hand dominant male who presents today for a new problem visit with complaints of Bilateral hand pain, numbness and tingling. He is booked for a Right Shoulder Arthroscopy with Dr. Curiel on 03/26/25 EMG done 01/26/25: 1. Gmjl-an-juenbklp right and mild left median neuropathy across carpal tunnel. 2. Mild bilateral ulnar neuropathy across cubital tunnel. EMG done 06/21/23: 1. This is an abnormal study. 2. 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 3. There is no electrodiagnostic evidence for ulnar neuropathy, brachial plexopathy, or cervical radiculopathy. Allergies Iodinated Contrast Media [IV Dye, Iodine Containing] Allergy (Mild, Verified 02/23/25 12:39) Hives tizanidine Allergy (Mild, Verified 02/23/25 12:39) painful rash on ankles, dizziness sertraline Adverse Reaction (Intermediate, Verified 02/23/25 12:39) GI upset, confusion HPI HPI Est Patient New prob- CTS Of Right Hand: Details: Fabio is a 79 year old right hand dominant man who presents for a NCS review of his bilateral hand numbness. He complains of numbness in his bilateral hands. He says his numbness is constant in all digits bilaterally, specifically the tip of his fingers. He says his symptoms are occasionally worse at night. He says his numbness has been present for some time but he thought this was related to his C-spine. He underwent a C5-C6 & C6-C7 fusion on 11/12/24. This improved his neck pain but had no effect on his hand numbness. He is booked for a Right Shoulder Arthroscopy with Dr. Curiel on 03/26/25 [facility] Medical History Essential hypertension Depression Kidney stone Spasmodic torticollis Cervical spondylosis Vitamin D deficiency COVID-19 vaccine series completed Cerebrovascular accident, embolic Right leg weakness Right arm weakness Facial droop BPH (benign prostatic hyperplasia) Overweight (BMI 25.0-29.9) Anxiety Primary insomnia Cervical disc disorder with radiculopathy Impaired fasting glucose Pure hypercholesterolemia Benign essential hypertension Erectile dysfunction Degenerative disc disease, thoracic Degenerative disc disease, lumbar Delayed gastric emptying GERD (gastroesophageal reflux disease) Urgency of micturition Surgical History History of prostate surgery Hx of cataract extraction Hx of cystoscopy (~2019) History of esophagogastroduodenoscopy (EGD) (02/14/15) Hx of colonoscopy (03/04/12) Hx of tonsillectomy Family History Father Heart disease Mother Cancer Brother Diabetes Paternal Grandmother Heart disease Maternal Uncle Colon cancer Social History Household Members: Spouse Housing: House Are you a primary cna caregiver to a significant other at home: No Do you presently have visiting nurse or other home services: No Alcohol intake: current Alcohol intake frequency: holidays/special occasions only Alcohol type: beer Patient Tobacco Use Status: Former Tobacco user Tobacco use type: Cigarette e-Cigarette/Vaping Use: Never Used Second Hand Smoke Exposure: Yes Substance Use Type: Other service: No Current occupational status: retired Current occupation: right hand dominant Cognitive needs: No Hearing needs: No Vision needs: Yes (glasses) Review of Systems Const All systems reviewed & are unremarkable except as noted in HPI and below Physical Exam Vital Signs: BMI result Body Mass Index 24.7 Const General: cooperative, healthy appearing and no acute distress Orientation/consciousness: patient oriented x3 HEENT Head: Yes normocephalic and Yes atraumatic Eyes EOM: EOMs intact bilaterally Resp Effort & Inspection: normal respiratory effort and able to speak in complete s entences Cardio Jugular venous distension: no JVD Skin General skin exam: turgor normal Rashes: no rashes Neuro General: patient oriented x3 Extrem Other: Evaluation of Bilateral Upper Extremity: The patient is alert, oriented, and in no acute distress Neuro: Dense numbness in the median nerve distribution bilaterally. Decreased sensation to the tip of the small finger, bilaterally. No numbness in the ulnar aspect of the hand. No thenar or intrinsic wasting Good APB muscle belly firing and good finger cross Vascular: Cap refill brisk ROM: He can make a fist and extend all his digits Skin: No lacerations or abrasions. General: No Ecchymosis. No Erythema or evidence of infection. Nerve Conduction Study: IMPRESSION: 1. Slet-tx-hceosntf right and mild left median neuropathy across carpal tunnel. 2. Mild bilateral ulnar neuropathy across cubital tunnel. Soren Knowles MD 01/26/2025 IMPRESSION: 1. This is an abnormal study. 2. 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 3. There is no electrodiagnostic evidence for ulnar neuropathy, brachial plex opathy, or cervical radiculopathy. Yvette Barnett MD, TAL 06/21/23 Psych Appearance: grossly normal Affect: normal affect Attitude: cooperative Assessment & Plan Assessment & Plan (1) Bilateral carpal tunnel syndrome: Code(s): G56.03 - Carpal tunnel syndrome, bilateral upper limbs Category: Medical (2) Cubital tunnel syndrome, bilateral: Code(s): G56.23 - Lesion of ulnar nerve, bilateral upper limbs Category: Medical Plan Assessment & Plan: 1. Right carpal tunnel syndrome, mild-moderate With dense numbness 2. Left carpal tunnel syndrome, mild With dense numbness 3. Right cubital tunnel syndrome, mild Decreased sensation to the tip of the small finger, no ulnar hand numbness 4. Left cubital tunnel syndrome, mild Decreased sensation to the tip of the small finger, no ulnar hand numbness I educated him about these conditions I discussed operative and non-operative treatment options He primarily has numbness & tingling in all his fingertips, but he denies any numbness or tingling in the ulnar aspect of his hand or forearms. I recommend we manage his cubital tunnel syndrome conservatively at this time. The patient would like to proceed with surgery, beginning with the right side I explained the risks of his sensation not returning, but that surgery is important to maintain muscle function and preserve any sensation possible. He expressed understanding. I explained that it may take up to 9 months post- operatively for any sensation to return. The risks and benefits of operative treatment were discussed with the patient and the patient wishes to proceed with surgery. These risks include, but are not limited to risk of damage to blood vessels, nerves, tendons, infection, recurrence, incomplete relief of preoperative symptoms, persistent pain, possible need for further surgery and the risks associated with regional blocks and anesthesia. The plan is to take the patient to the operating room sometime in the next few weeks for the following procedures: 1. Right carpal tunnel release, under local All of the preoperative paperwork including the consent was reviewed today. All the patient's questions were answered. The patient understands that they will be contacted by our oral and maxillofacial surgery resident soon to schedule this procedure. He is scheduled for a right shoulder by Dr. Curiel on 03/26/25. This should be scheduled for after he recovers from his shoulder surgery. He denies Diabetes, blood thinners, asthma, heart, lung, kidney issues He has a Hx of a CVA, but denies any blood thinners Scribed for Joyce Palacios MD by Pete Casper, medical technologist prn, on 02/23/25 at 1:10 PM, EST. Coding Level of Care Code New Pt Level 4 (52036) Diagnoses Bilateral carpal tunnel syndrome G56.03 Cubital tunnel syndrome, bilateral G56.23
--- OUTSIDE RECORDS SUMMARY | 2025-02-23 13:35 | XMS_ITS | Clinical Summary ---
Author Organization [facility] Facility Address [address] [place] [address], [place] [address] Care Team Providers Care Resource Recovery Engineer Name Role Phone Armaan Correa MD Primary Care Provider [phone] Social History Tobacco Use Types Packs/Day Years [...] to complete this topic Insurance [facility] Care Teams Resource Recovery Engineer Relationship Specialty Start Date End Date Armaan Correa MD 2 [facility] [address] [place] [address] [phone] PCP - General Internal Medicine 10/05/21
--- OUTSIDE RECORDS SUMMARY | 2025-02-23 13:36 | XMS_ITS | Data Portability ---
Author Organization [place] - [facility], Allergy Address [address] [place] [phone] Care Team Providers Care Cryptologist Name Role Phone OLIVA JAYY Primary Care [...] Address Organization Details Recorded Time Impacted cerumen 48168052 Active 2013 Impacted wax /debris; CMS Risk: low risk CMS Treatment : new problem (to examiner) : no additiona l workup planned C ondition: controlle d Note: Date Diagnosed : 4 3:37 PM (380.4) Not Available [facility] 4 02:44:50 Sensorine ural hearing loss of bilateral ears 757114459 Active 2015 Sensorine ural hearing loss bilateral [...] [facility] 4 02:44:47 Dizziness and giddiness 282368077 Active 2021 Dizziness and giddiness ; Note: Date Diagnosed : 05/25/2022 10:53 AM (R42) Not Available [facility] 4 02:44:48 Candidal otitis externa 26804333 Active 2015 Candidal otitis externa; Note: Date Diagnosed : 11/02/2015 1:29 PM (B37.84) Not Available [facility] 4 02:44:45 Atypical facial pain 32236525 Active 2021 Atypical facial pain; Note: Date Diagnosed : 05/25/2022 10:53 AM (G50.1) Not Available [facility] 4 02:44:46 Infective otitis externa of left ear 84447509684 54563 Active 2015 Other infective otitis externa, left ear; Note: Date Diagnosed : 11/02/2015 1:29 PM (H60.392) Not Available [facility] 4 02:44:48 Chronic mycotic otitis externa 777603266 Active 2015 Chronic mycotic otitis externa; Note: Date Diagnosed : 11/11/2015 1:17 PM (380.15) Not Available [facility] 02:44:44 Impacted cerumen 44577375 Active 2023 LAURA MAIER MD [address] [place] [address], [place], [phone] , [facility] - [facility] 4 20:48:19 Dizziness 110919120 Active 2023 LAURA MAIER MD [address] [place] [address], [place], [phone] , [place] [facility] 4 20:48:34 Deviated nasal septum 777100782 Active 2023 LAURA MAIER MD [address] [place] [address], [place], [phone] , [facility] 4 20:48:47 Problem Notes None recorded. Procedures Surgical History None recorded. Imaging Results Imaging Date Name Status LastModified by [facility] Details LastModified Time 05/25/2022 imaging/diag nostic [...] Name and Address Organization Details Recorded Time 97527 Iodinated contrast media (substanc e) medicatio n other Not available Not available 02/18/2024 436492003 SNOMED React ion: unkno wn, unspe cifie d;; Not Available [facility] 01:02:09 Medications Name Sig Start Date Stop Date Status Note LastModified by Organization Details LastModified Time clonidine HCl 0.1 mg tablet 05/08 completed Medicati on ID: [id number] B rand Name: clonidin e HCl Send [...] mg tablet 05/08 completed Medicati on ID: [id number] B rand Name: clonazep am Send Method: E-Prescr ibed Sub s Allowed: subs OK Medic ationGen ericName : clonazep am Not Available Not Available Not Available amlodipin e 2.5 mg tablet active Not Available Not Available Not Available amlodipin e 5 mg tablet active Not Available Not Available Not Available Ciloxan 0.3 % eye drops 05/08 completed Medicati on ID: [id number] D uration Value: 10 Prescri bed By [...] DAY FOR 30 DAYS Med [facility]: lorazepa m Not Available Not Available Not Available metoclopr amide 5 mg tablet 05/08 completed Medicati on ID: [id number] B rand Name: metoclop ramide HCl Send [...] topical solution 05/25 completed Medicati on ID: [id number] Monique russell By Name: JOSE Burnett nd Name: clotrima zole Sen d Method: E-Prescr ibed Sub s Allowed: subs OK Speci al Instruct ion: 4 drops to affected ear three times a day X 14 days [facility]rima [facility]ole Not Available [...] 5 mg tablet active Medicati on ID: [id number] B rand Name: rosuvast atin Sen d [...] 5 mg tablet active Medicati on ID: [id number] B rand Name: Eliquis Send Method: E-Prescr ibed Sub s Allowed: subs OK Medic ationGen ericName : Eliquis Not Available Not Available Not Available Vitals Date Recorded Body height Body mass index (BMI) Body weight Provider Name and Address Organization Details Last Updated DateTime 05/08/2024 167.64 cm 29.1 kg/m2 84184.63 g Shyanne Gaytan [place] [facility] 05/08/2024 11:10:52 Social History None recorded. Functional Status None recorded. Mental Status None recorded. Family History Nothing Reported. Medical History No medical history recorded. Past Encounters Encounter ID Performer Location Encounter Start Date Encounter Closed Date Diagnosis/Indication Diagnosis SNOMED-CT Code Diagnosis ICD10 Code Diagnosis Note [id number] LAURA MAIER MD [facility] [address] [address] 05/08/2024 10:44:25 05/08/2024 11:29:39 Impacted cerumen 94252346 H61.22 Dizziness 908801441 R42 Deviated nasal septum 12 3465856 J34.2 Health Concerns Section Related Observation LastModified by Organization Detai ls LastModified Time None Recorded Concern Status LastModified by Organization Details LastModified Time None Recorded Advance Directives Directive None Recorded Payers Insurance Date Sequence Insurance Name Policy Number Policy Castellano Covered Member ID Castellano Member ID Guarantor Name 05/08/2024 1 [employer] - MEDICARE ADVANTAGE PLAN (MEDICARE REPLACEMENT HMO) [id number] 1 Fabio Maciel [id number] Fabio Maciel Notes Date Note Type Note [...] eye burning. He had an MRI at [facility] but his sinus headaches started after this. He is had CT sinuses in the past which have not shown any disease. LAURA MAIER MD [address] [place] [address], [phone], [facility] - [facility] 05/10/2024 20:50:40
== END 2025-02-23 13:23 | disposition home or self-care (01) ==
LOC: HO.HOS 12:33
PROVIDERS: PCP Internal Medicine; Visit Provider Orthopaedic Surgery
DX: G56.03 Carpal tunnel syndrome, bilateral upper limbs (principal); G56.23 Lesion of ulnar nerve, bilateral upper limbs
CPT/HCPCS: 99204

== ENCOUNTER → 2025-02-23 12:32 | Outpatient (BNVA) | payer MEDICARE, SELFPAY | PROVIDERS: PCP Internal Medicine; Visit Provider Orthopaedic Surgery | DX: G56.03 Carpal tunnel syndrome, bilateral upper limbs (principal); G56.23 Lesion of ulnar nerve, bilateral upper limbs | CPT/HCPCS: 99202 ==

== ENCOUNTER 2025-03-02 13:14 | Outpatient (AMB) | payer MEDICARE, SELFPAY ==
--- OUTSIDE RECORDS SUMMARY | 2025-03-02 13:16 | XMS_ITS | Clinical Summary ---
Author Organization [facility] Facility Address [address] [place] [address], [place] [address] Care Team Providers Care Corn Husk Baler Name Role Phone Armaan Correa MD Primary Care Provider [phone] Social History Tobacco Use Types Packs/Day Years [...] patient's age to complete this topic Insurance [facility] Care Teams Corn Husk Baler Relationship Specialty Start Date End Date Armaan Correa MD 2 [facility] [address] [place] [address] [phone] PCP - General Internal Medicine 10/05/21
[2025-03-02 13:18] VITALS: BP 122/60; PULSE 54; O2SAT 96; BMI 27.1
--- NOTE | 2025-03-02 13:18 | MHC.PC.OV ---
Vital Signs 03/02/25 13:18 Height 5 ft 7 in Weight 173 lb 4 oz BMI 27.1 BP 122/60 Blood Pressure Location Lt brachial Position Sitting Pulse 54 Pulse Source Pulse Oximeter Pulse Oximetry (%) 96 Oxygen Delivery Method Room Air Intake Visit Reasons: [facility] f/u Physician Practice Market Manager Required: No Accompanied by: Self / Same As Patient Allergies Iodinated Contrast Media [IV Dye, Iodine Containing] Allergy (Mild, Verified 03/02/25 13:54) Hives tizanidine Allergy (Mild, Verified 03/02/25 13:54) painful rash on ankles, dizziness sertraline Adverse Reaction (Intermediate, Verified 03/02/25 13:54) GI upset, confusion Medication List - Last Reconciled 03/02/25 by Armaan Correa MD amlodipine 2.5 mg PO DAILY 90 days amlodipine 5 mg PO DAILY 90 days clonazepam 0.5 mg PO BEDTIME PRN 90 days Eliquis (apixaban) 5 mg PO BID 30 days NS hydrochlorothiazide 12.5 mg PO DAILY 90 days lisinopril 40 mg PO DAILY 90 days metoprolol succinate ER 25 mg PO DAILY 90 days pantoprazole 40 mg PO DAILY 90 days rosuvastatin 5 mg PO DAILY 90 days sennosides (Senna Laxative) 17.2 mg (2 x 8.6 mg) PO BEDTIME Tobacco use date assessed: 03/02/25 Fall risk assessment: No Falls in past year Last assessed Fall Risk: 03/02/25 Dental Screening Dental Screen Date: 03/02/25 Did you have a dental visit in the last 12 months?: Yes Did you have a dental problem in the last 6 months where you did not have access to dental care?: No Was dental information given to patient?: [facility] Details Patient comes in today for his follow up visit States that he currently feels okay He still has on and off dizziness but his headaches have improved significantly since his neck surgery done earlier this year He is still experiencing frequent / recurrent pain and discomfort in his right shoulder and he is scheduled for surgery on his shoulder with Dr. Curiel next month He denies any chest pains, no increased shortness of breath No nausea/vomiting, no abdominal pain No change in bowel habits noted Needs his Eliquis Rx refilled He had his follow-up labs done last week - to discuss his results [facility] Medical History Essential hypertension Depression Kidney stone Spasmodic torticollis Cervical spondylosis Vitamin D deficiency COVID-19 vaccine series completed Cerebrovascular accident, embolic Right leg weakness Right arm weakness Facial droop BPH (benign prostatic hyperplasia) Overweight (BMI 25.0-29.9) Anxiety Primary insomnia Cervical disc disorder with radiculopathy Impaired fasting glucose Pure hypercholesterolemia Benign essential hypertension Erectile dysfunction Degenerative disc disease, thoracic Degenerative disc disease, lumbar Delayed gastric emptying GERD (gastroesophageal reflux disease) Urgency of micturition Surgical History History of prostate surgery Hx of cataract extraction Hx of cystoscopy (~2019) History of esophagogastroduodenoscopy (EGD) (02/14/15) Hx of colonoscopy (03/04/12) Hx of tonsillectomy Family History Father Heart disease Mother Cancer Brother Diabetes Paternal Grandmother Heart disease Maternal Uncle Colon cancer Social History Household Members: Spouse Housing: House Are you a primary child care attendant school to a significant other at home: No Do you presently have visiting nurse or other home services: No Alcohol intake: current Alcohol intake frequency: holidays/special occasions only Alcohol type: beer Patient Tobacco Use Status: Former Tobacco user Tobacco use type: Cigarette e-Cigarette/Vaping Use: Never Used Second Hand Smoke Exposure: Yes Substance Use Type: Other service: No Current occupational status: retired Current occupation: right hand dominant Cognitive needs: No Hearing needs: No Vision needs: Yes (glasses) Questionnaire PHQ-9 Over the last 2 weeks, how often have you been bothered by any of the following problems? 1. Little interest or pleasure in doing things: not at all 2. Feeling down, depressed, or hopeless: not at all 3. Trouble falling or staying asleep, or sleeping too much: not at all 4. Feeling tired or having little energy: not at all 5. Poor appetite or overeating: not at all 6. Feeling bad about yourself - or that you are a failure or have let yourself or your family down: not at all 7. Trouble concentrating on things, such as reading the newspaper or watching television: not at all 8. Moving or speaking so slowly that other people could have noticed. Or the opposite - being so fidgety or restless that you have been moving around a lot more than usual: not at all 9. Thoughts that you would be better off or of hurting yourself in some way: not at all Total score: 0 Depression Screening Interpretation: Negative Depression Screening Done: Yes 05471 - PHQ-9 Billing: Yes Source: Developed by Drs. Serjio Fields, Razia Coombs, Jason Tena and colleagues, with an educational tia from [employer]. Thrive Questionnaire Date Thrive assessed: 03/02/25 I am a: Patient What is your living situation today?: I have a steady place to live Within the past 12 months, did the food you bought not last and you didn't have the money to get more?: Never true Within the past 12 months, did you worry whether your food would run out before you got money to buy more?: Never true Do you have trouble paying for medicines?: No Do you have trouble getting transportation to medical appointments?: No Do you have trouble paying your heating and electricity bill?: No Do you have trouble taking care of your child, family member or friend?: No Do you have trouble with day-to-day activities such as bathing, preparing meals, shopping, managing finances, etc.?: No Are you currently unemployed and looking for a job?: No Are you interested in more education?: No Please select the resources that you would like help with: None Currently or been in a relationship where the following occur: No concerns reported THRIVE Score: 0 AUDIT C Alcohol Use Questionnaire (AUDIT-C) 1. How often do you have a drink containing alcohol?: Monthly or less 2. How many drinks containing alcohol do you have on a typical day when you are drinking?: 1 or 2 3. How often do you have six or more drinks on one occasion?: Never Total Score: 1 Score Reviewed/Action Taken: Yes SARAH-7 AMB Questionnaire SARAH-7 Date SARAH - 7 assessed: 05/27/25 Feeling nervous, anxious, or on edge: 0 = Not at all Not being able to stop or control worryin = Not at all Worrying too much about different things: 0 = Not at all Trouble relaxin = Not at all Being so restless that it is hard to sit still: 0 = Not at all Becoming easily annoyed or irritable: 0 = Not at all Feeling afraid as if something awful might happen: 0 = Not at all Total SARAH-7 score (0-4 normal; 5-9 mild; 10-14 moderate; 15-21 severe): 0 Source: Developed by Drs. Serjio Fields, Razia Coombs, Jason Tena and colleagues, with an educational tia from [employer]. Review of Systems Const Denies chills, Reports fatigue (at times), Denies fever(s), Denies headache(s), Denies malaise and Reports weakness (of the right arm and right leg, minimal) Eyes Denies blurry vision ENT Denies dysphagia, Reports dizziness (occasional), Denies otalgia, Denies headache(s), Reports neck pain (improved a lot with his neck surgery earlier this year), Denies odynophagia and Denies sore throat Card Denies chest pain, Denies irregular heart rhythm, Denies palpitations and Denies dyspnea Resp Denies chest congestion, Denies cough and Denies dyspnea GI Denies abdominal pain, Denies constipation, Denies dysphagia, Denies heartburn, Denies diarrhea, Denies nausea, Denies odynophagia and Denies vomiting Denies difficulty urinating, Denies dysuria and Denies urinary frequency Musc Denies back pain, Reports arthralgias (in the right shoulder), Reports neck pain (improved a lot with his neck surgery earlier this year), Reports numbness (occasional, in both arms), Reports radiating pain into limb (into the right arm and hand - see HPI) and Reports tingling (in both arm, occasionally) Skin/Breast Denies rash Neuro Reports dizziness (occasional), Denies headache(s), Reports numbness (occasional, in both arms), Reports tingling (in both arm, occasionally) and Reports weakness (of the right arm and right leg, minimal) Psych Reports anxiety Endo Reports fatigue (at times) and Denies palpitations Physical exam (Primary Care) Vital Signs: Last Vital Signs Pulse 54 03/02/25 13:18 BP 122/60 03/02/25 13:18 Pulse Ox 96 03/02/25 13:18 Oxygen Delivery Method Room Air 03/02/25 13:18 BMI result Body Mass Index 27.1 Tobacco/Smoking Status: Tobacco use Status Tobacco use date assessed 03/02/25 03/02/25 13:25 Patient Tobacco Use Status Former Tobacco user 03/02/25 13:25 Tobacco use type Cigarette 03/02/25 13:25 e-Cigarette/Vaping Use Never Used 03/02/25 13:25 PHQ-9: PHQ-9 Score PHQ-9: Total score 0 03/02/25 14:10 Depression Screening Interpretation: Negative Thrive Assessment: Date of Thrive Assessment Date Thrive assessed 03/02/25 03/02/25 13:25 Currently or been in a relationship where the following occur: No concerns reported Const General: no acute distress and alert HENMT Ears: TM's normal bilaterally and EAC's normal Throat: Yes posterior oropharynx normal and Yes tonsils normal (no TP congestion noted) Neck Neck: No lymphadenopathy and Yes tender (mild) Thyroid: Thyroid normal Resp Auscultation: clear to auscultation bilaterally, no rales and no wheezes Cardio Rate: regular rate Rhythm: regular rhythm Heart sounds: no murmurs GI Palpation (GI): Soft to palpation and nontender Auscultation: normal bowel sounds General: Yes no CVA tenderness Back/Spine/Pelvis Back: no CVA tenderness Cervical Spine: Cervical spine tenderness (mild) Thoracic/Lumbar Spine: No lumbar spinal tenderness Skin Rashes: no rashes Neuro Other: (+) residual mild weakness of the right arm and the right leg Extrem General: Yes no clubbing, cyanosis or edema Right upper extremity: shoulder/upper arm Details: tenderness Location: of the A-C joint Results Reviewed Results Reviewed: Laboratory Tests 02/22/25 02/22/25 07:48 07:55 WBC 7.4 Hgb 15.2 Hct 44.0 Plt Count 170 Sodium 143 Potassium 3.4 Creatinine 1.02 Estimated GFR > 60 Fasting Glucose 111 H Hemoglobin A1c % 5.7 Calcium 9.0 AST 25 ALT 25 Triglycerides 99 Cholesterol 111 LDL Cholesterol, Calc 50 HDL Cholesterol 42 25-OH Vitamin D Total 39.7 TSH 1.25 Ur Specific [place] 1.020 Urine Protein Negative Urine Glucose (UA) Negative Urine Blood Negative Urine Nitrite Negative Ur Leukocyte Esterase Negative Coding Level of Care Code Est Pt Level 4 (87643) Diagnoses Cervical disc disorder with radiculopathy M50.10 History of cerebrovascular accident (CVA) due to embolism Z86.73 Dizziness of unknown etiology R42 Neuropathy G62.9 Essential hypertension I10 Pure hypercholesterolemia E78.00 Gastroesophageal reflux disease without esophagitis K21.9 Esophagitis presence: without esophagitis Impaired fasting glucose R73.01 Vitamin D deficiency E55.9 Anxiety F41.9 Overweight (BMI 25.0-29.9) E66.3 Additional Codes PHQ-9 - 62019 - PHQ-9 Billing: Yes ([id number]) Assessment & Plan Assessment & Plan (1) Cervical disc disorder with radiculopathy: Code(s): M50.10 - Cervical disc disorder with radiculopathy, unspecified cervical region Category: Medical Plan: He will be undergoing anterior diskectomy and fusion of his C5-6 and C6-7 under general anesthesia with Dr. Qureshi on 11/12/2024 Cervical spine MRI done in September 2022 revealed (+) multilevel degenerative spondylotic changes without significant narrowing of the spinal canal but there are progressive moderate to severe neural foraminal stenosis over several levels bilaterally States that physical therapy has not helped much with his neck pain in the past He has been referred to and seen by [facility], who has been managing his chronic neck pain but injections treatments attempted so far, including Botox injections, have not helped much (2) History of cerebrovascular accident (CVA) due to embolism: Comment: Head CT done at the ER at [facility] on 09/22/2021 came out negative MRI of the brain done a week later in September 2021 revealed new embolic infarcts Code(s): Z86.73 - Personal history of transient ischemic attack (TIA), and cerebral infarction without residual deficits Category: Medical Plan: Patient has had no recurrence of his CVA since his initial presentation a few years ago in September 2021 Cardiac monitoring tests done at [facility] then all reportedly came out normal Echocardiogram and SARA done at the time also came back normal Continue Apixaban 5 mg BID - he has already been given instructions to hold this 3 days prior to his surgery, and to start back on it the day after his surgery is done Follow up with neurology and cardiology as scheduled (3) Dizziness of unknown etiology: Code(s): R42 - Dizziness and giddiness Category: Medical Plan: Patient states that he still has occasional dizziness Sinus CT done at [facility] a couple of years ago reportedly came out normal He has been advised by ENT that his overall evaluation have revealed no evidence of any ENT source of his symptoms He was seen by Dr. Bernardo for a second (neurology) opinion with the same conclusion and was started on Baclofen Q HS, which patient eventually stopped taking on his own as he did not feel that the Rx was helping (4) Neuropathy: Code(s): G62.9 - Polyneuropathy, unspecified Category: Medical Plan: NCV & EMG of the upper extremities done in June 2023 revealed (+) electrodiagnostic evidence for bilateral moderate-severe median neuropathy at the wrists, consistent with carpal tunnel syndrome. There is no electrodiagnostic evidence for ulnar neuropathy, brachial plexopathy, or cervical radiculopathy (5) Essential hypertension: Code(s): I10 - Essential (primary) hypertension Category: Medical Plan: Reinforced low sodium diet - goal is systolic BP of at least 130 to 140 mm, given his Hx of CVA and orthostatic dizziness Continue Lisinopril 40 mg QD, Metoprolol ER 25 mg QD, Amlodipine 7.5 mg QD and HCTZ 12.5 mg QD - he is to hold his HCTZ on the morning of the day of his surgery His blood pressure has improved significantly lately BP log brought in by patient previously showed systolic BP readings mostly in the 120 to 130 mm range, with occasional 145 mm and 143 mm readings Patient is reminded to continue monitoring his blood pressure regularly (6) Pure hypercholesterolemia: Code(s): E78.00 - Pure hypercholesterolemia, unspecified Category: Medical Plan: Results of his labs done last week reviewed and discussed with patient Reinforced low cholesterol diet Continue Rosuvastatin 5 mg QD Will recheck his labs and fasting lipids in 4 months for follow up (7) GERD (gastroesophageal reflux disease): Code(s): K21.9 - Gastro-esophageal reflux disease without esophagitis Category: Medical Qualifiers: Esophagitis presence: without esophagitis Qualified Code(s): K21.9 - Gastro-esophageal reflux disease without esophagitis Plan: Dietary restrictions reinforced Continue Pantoprazole 40 mg QD (8) Impaired fasting glucose: Code(s): R73.01 - Impaired fasting glucose Category: Medical Plan: His HgbA1c remains unchanged and normal at 5.7% on his labs done last week; it was previously at 5.8% last year FBS was again slightly elevated at 111 mg/dl Reinforced low calorie diet / exercise as tolerated (9) Vitamin D deficiency: Code(s): E55.9 - Vitamin D deficiency, unspecified Category: Medical Plan: Continue Vitamin D3 2000 units QD (10) Anxiety: Code(s): F41.9 - Anxiety disorder, unspecified Category: Medical Plan: Continue Clonazepam 0.5 mg BID PRN He was also on Escitalopram to 20 mg QD (could not tolerate Sertraline in the past) but he self-discontinued this sometime last year as he did not feel that the Rx helped at all He has DECLINED taking anything else other than Clonazepam PRN, citing his issues when he tried Sertraline in the past, and does not wish to try any other medications at this time (11) Overweight (BMI 25.0-29.9): Code(s): E66.3 - Overweight Category: Medical Plan: Reinforced diet/exercise as tolerated/lose weight Plan To return as scheduled in July 2025 for his next annual physical examination Orders: Orders Complete Blood Count Auto Diff 07/17/25 D64.9 - Anemia, unspecified, Z00.00 - Encounter for general adult medical examination without abnormal findings Vitamin D 25-OH Total 07/17/25 E55.9 - Vitamin D deficiency, unspecified, Z00.00 - Encounter for general adult medical examination without abnormal findings Vitamin B12 and Folate 07/17/25 E53.8 - Deficiency of other specified B group vitamins, Z00.00 - Encounter for general adult medical examination without abnormal findings TSH reflex Free T4 07/17/25 E78.00 - Pure hypercholesterolemia, unspecified, Z00.00 - Encounter for general adult medical examination without abnormal findings Prostate Specific Antigen 07/17/25 N40.0 - Benign prostatic hyperplasia without lower urinary tract symptoms, Z00.00 - Encounter for general adult medical examination without abnormal findings Comprehensive [place]. Panel Fast 07/17/25 E78.00 - Pure hypercholesterolemia, unspecified, Z00.00 - Encounter for general adult medical examination without abnormal findings Lipid Panel 07/17/25 E78.00 - Pure hypercholesterolemia, unspecified, Z00.00 - Encounter for general adult medical examination without abnormal findings Hemoglobin A1c 07/17/25 R73.01 - Impaired fasting glucose, Z00.00 - Encounter for general adult medical examination without abnormal findings UA CC w/rflx Micro + Cult 07/17/25 R30.0 - Dysuria, Z00.00 - Encounter for general adult medical examination without abnormal findings Medications: Resumed Eliquis (apixaban) 5 mg PO BID 60 tabs 12RF 30 days NS I63.9 - Cerebral infarction, unspecified Eliquis 5 mg PO BID 30 days 60 tabs 3RF NS I63.9 - Cerebral infarction, unspecified
== END 2025-03-02 14:05 | disposition home or self-care (01) ==
LOC: HO.HMCH 13:15
PROVIDERS: PCP Internal Medicine; Visit Provider Internal Medicine
DX: M50.10 Cervical disc disorder with radiculopathy, unspecified cervical region (principal); Z86.73 Personal history of transient ischemic attack (TIA), and cerebral infarction without residual deficits; R42 Dizziness and giddiness; G62.9 Polyneuropathy, unspecified; I10 Essential (primary) hypertension; E78.00 Pure hypercholesterolemia, unspecified; K21.9 Gastro-esophageal reflux disease without esophagitis; R73.01 Impaired fasting glucose; E55.9 Vitamin D deficiency, unspecified; F41.9 Anxiety disorder, unspecified; E66.3 Overweight

== ENCOUNTER → 2025-03-02 13:14 | Outpatient (BNVA) | payer MEDICARE, SELFPAY | PROVIDERS: PCP Internal Medicine; Visit Provider Internal Medicine | DX: R42 Dizziness and giddiness (principal); M50.10 Cervical disc disorder with radiculopathy, unspecified cervical region; R51.9 Headache, unspecified; M25.511 Pain in right shoulder; G62.9 Polyneuropathy, unspecified; I10 Essential (primary) hypertension; E78.00 Pure hypercholesterolemia, unspecified; K21.9 Gastro-esophageal reflux disease without esophagitis; R73.01 Impaired fasting glucose; E55.9 Vitamin D deficiency, unspecified; F41.9 Anxiety disorder, unspecified; E66.3 Overweight; D64.9 Anemia, unspecified; E53.8 Deficiency of other specified B group vitamins; N40.1 Benign prostatic hyperplasia with lower urinary tract symptoms; R30.0 Dysuria; Z86.73 Personal history of transient ischemic attack (TIA), and cerebral infarction without residual deficits; Z68.27 Body mass index [BMI] 27.0-27.9, adult | CPT/HCPCS: 96127; 99212 ==

== ENCOUNTER 2025-03-17 13:40 | Outpatient (AMB) | payer MEDICARE, SELFPAY ==
--- NOTE | 2025-03-17 13:48 | A.OFFVIS_ITS ---
Vital Signs 03/17/25 13:54 Height 5 ft 7 in Weight 173 lb BMI 27.1 BP 130/62 Blood Pressure Location Rt brachial Position Sitting Pulse 58 Pulse Source Pulse Oximeter Pulse Oximetry (%) 96 Oxygen Delivery Method Room Air Intake Visit Reasons: 8 mo f/u r/s 01/26/25 Intake Note: Established patient for mgmt of GERD + CIC. 1 YR FUV. CC; Pt denies any GI sx or concerns at this time. Confirms current Rx are controlling conditions well. Field Marketing Specialist Required: No Accompanied by: Self / Same As Patient Allergies Iodinated Contrast Media [IV Dye, Iodine Containing] Allergy (Mild, Verified 03/17/25 13:52) Hives tizanidine Allergy (Mild, Verified 03/17/25 13:52) painful rash on ankles, dizziness sertraline Adverse Reaction (Intermediate, Verified 03/17/25 13:52) GI upset, confusion HPI HPI 8 mo f/u r/s 01/26/25: Details: Assessment & Plan (1) Constipation: Code(s): K59.00 - Constipation, unspecified Category: Medical (2) GERD (gastroesophageal reflux disease): Code(s): K21.9 - Gastro-esophageal reflux disease without esophagitis Category: Medical Qualifiers: Esophagitis presence: without esophagitis Qualified Code(s): K21.9 - Gastro-esophageal reflux disease without esophagitis (3) Delayed gastric emptying: Comment: Told by neurology that he had to stop his Reglan Code(s): K30 - Functional dyspepsia Category: Medical (4) Screening for malignant neoplasm of colon performed: Comment: 04/2024 COLOGUARD= neg repeat 3 years Code(s): Z12.11 - Encounter for screening for malignant neoplasm of colon Category: Medical Plan His Cologuard was negative so we will repeat this in 3 years. No doing well on his senna and his pantoprazole. ROV 6 mos. Medications: Refilled sennosides (Senna Laxative) 17.2 mg (2 x 8.6 mg) PO BEDTIME 60 tabs 6RF pantoprazole 40 mg PO DAILY 90 tabs 1RF K21.9 - Gastro-esophageal reflux disease without esophagitis TODAY'S VISIT He continues to do very well on his senna and pantoprazole. Because he has been very stable I offer him a 1 year follow-up and he is agreeable to this. [facility] Medical History (Updated 03/17/25 @ 14:09 by JOSI Caba) Screening for malignant neoplasm of colon performed Preoperative examination History of cerebrovascular accident (CVA) due to embolism Right shoulder pain Annual physical exam Arthritis Depression Kidney stone Spasmodic torticollis Cervical spondylosis Essential hypertension Vitamin D deficiency Cerebrovascular accident, embolic BPH (benign prostatic hyperplasia) Overweight (BMI 25.0-29.9) Anxiety Primary insomnia Cervical disc disorder with radiculopathy Impaired fasting glucose Pure hypercholesterolemia Benign essential hypertension Erectile dysfunction Degenerative disc disease, thoracic Degenerative disc disease, lumbar GERD (gastroesophageal reflux disease) Urgency of micturition Surgical History (Updated 03/17/25 @ 14:09 by JOSI Caba) Hx of colonoscopy (03/04/12) Hx of cardiac catheterization History of cervical discectomy History of prostate surgery Hx of cataract extraction Hx of cystoscopy (~2019) History of esophagogastroduodenoscopy (EGD) (02/14/15) Hx of tonsillectomy Family History Father Heart disease Mother Cancer Brother Diabetes Paternal Grandmother Heart disease Maternal Uncle Colon cancer Social History Household Members: Spouse Housing: House Are you a primary care coordination manager to a significant other at home: No Do you presently have visiting nurse or other home services: No Alcohol intake: current Alcohol intake frequency: does not drink Alcohol type: beer Patient Tobacco Use Status: Former Tobacco user Tobacco use type: Cigarette Years Smoked: 15 e-Cigarette/Vaping Use: Never Used Second Hand Smoke Exposure: Yes Substance Use Type: Other service: No Current occupational status: retired Current occupation: right hand dominant Cognitive needs: No Hearing needs: No Vision needs: Yes (glasses) Review of Systems Const Denies fatigue, Denies fever(s), Denies night sweats, Denies poor appetite and Denies weight loss ENT Reports Normal hearing present, Denies dental pain, Denies dysphagia, Denies hearing loss, Denies mouth pain, Denies odynophagia, Denies throat swelling, Denies tongue swelling and Reports other (Dentition adequate) Card Reports no additional complaints Resp Reports no additional complaints GI Details: Denies abdominal pain, Denies melena, Denies bloating, Denies hematochezia, Reports constipation, Denies GI cramping, Denies dysphagia, Denies excessive flatus, Denies early satiety, Reports heartburn, Denies diarrhea, Denies nausea, Denies odynophagia, Denies vomiting and Denies hematemesis Skin/Breast Denies pruritus, Denies lesions, Denies rash and Denies jaundice Neuro Reports Normal hearing present and Denies Abnormal speech present Endo Denies fatigue Aller/Immun Denies throat swelling and Denies tongue swelling Physical Exam Vital Signs: Last Vital Signs Pulse 58 03/17/25 13:54 BP 130/62 03/17/25 13:54 Pulse Ox 96 03/17/25 13:54 Oxygen Delivery Method Room Air 03/17/25 13:54 BMI result Body Mass Index 27.1 Const General: cooperative, no acute distress, well developed and well groomed Nutritional Appearance: average body habitus and well nourished Orientation/consciousness: oriented to person, oriented to place and oriented to time Limitations: No language barrier HEENT Head: Yes normocephalic and Yes atraumatic Eyes General: appearance normal, both eyes and all related structures Pupils: Equal, round and reactive pupils present Neck Neck: Yes normal visual inspection and Yes no lymphadenopathy Thyroid: Thyroid normal Resp Effort & Inspection: normal respiratory effort and able to speak in complete sentences Auscultation: clear to auscultation bilaterally Cardio Rate: regular rate Rhythm: regular rhythm Heart sounds: Normal, physiologic split S2 sound present Peripheral pulses: radial pulses present and posterior tibial pulses present GI Inspection: No distended and No Abdominal panniculus present Palpation (GI): Soft to palpation, nontender, no guarding, not rigid and No hepatosplenomegaly present Percussion: Yes normal to percussion Auscultation: normal bowel sounds Rectal Exam - Male: Yes deferred Skin General skin exam: no rashes or lesions noted, turgor normal, skin not dry, no jaundice, No spider nevi and no striae Rashes: no rashes Nails: normal Neuro General: oriented to person, oriented to place and oriented to time Cranial nerves: Yes Equal, round and reactive pupils present and Yes Normal hearing present Speech: No Abnormal speech present Extrem General: Yes normal to inspection, No clubbing, No cyanosis and No edema Psych Appearance: grossly normal and well kempt Mental Status: mental status grossly normal Speech and movement: Normal speech and movement present Affect: normal affect Attitude: cooperative Thought process: Normal thought process present and not confabulating Thought content: Normal thought content present Insight: Good insight present (Psych) Judgement: Good judgement present (Psych) Assessment & Plan Assessment & Plan (1) GERD (gastroesophageal reflux disease): Code(s): K21.9 - Gastro-esophageal reflux disease without esophagitis Category: Medical Qualifiers: Esophagitis presence: without esophagitis Qualified Code(s): K21.9 - Gastro-esophageal reflux disease without esophagitis (2) Delayed gastric emptying: Comment: Told by neurology that he had to stop his Reglan Code(s): K30 - Functional dyspepsia Category: Medical (3) Constipation: Code(s): K59.00 - Constipation, unspecified Category: Medical Plan He continues to do very well on his senna and pantoprazole. Because he has been very stable I offer him a 1 year follow-up and he is agreeable to this. Medications: Refilled pantoprazole 40 mg PO DAILY 90 tabs 3RF 90 days K21.9 - Gastro-esophageal reflux disease without esophagitis sennosides (Senna Laxative) 17.2 mg (2 x 8.6 mg) PO BEDTIME 60 tabs 12RF Coding Level of Care Code Est Pt Level 3 (30286) Diagnoses Gastroesophageal reflux disease without esophagitis K21.9 Esophagitis presence: without esophagitis Delayed gastric emptying K30 Constipation K59.00
[2025-03-17 13:54] VITALS: BP 130/62; PULSE 58; O2SAT 96; BMI 27.1
--- OUTSIDE RECORDS SUMMARY | 2025-03-17 15:29 | XMS_ITS | Clinical Summary ---
Author Organization [facility] Facility Address [address] [place] [address], [place] [address] Care Team Providers Care Computer Customer Support Specialist Name Role Phone Armaan Correa MD Primary Care Provider [phone] Social History Tobacco Use Types Packs/Day Years [...] patient's age to complete this topic Insurance [facility] Care Teams Computer Customer Support Specialist Relationship Specialty Start Date End Date Armaan Correa MD [address] [facility] [address] [place] [address] [id number] PCP - General Internal Medicine 10/05/21
== END 2025-03-17 14:18 | disposition home or self-care (01) ==
LOC: HO.HGI 13:41
PROVIDERS: PCP Internal Medicine; Visit Provider Nurse Practitioner
DX: K21.9 Gastro-esophageal reflux disease without esophagitis (principal); K30 Functional dyspepsia; K59.00 Constipation, unspecified
CPT/HCPCS: 99213

== ENCOUNTER → 2025-03-17 13:40 | Outpatient (BNVA) | payer MEDICARE, SELFPAY | PROVIDERS: PCP Internal Medicine; Visit Provider Nurse Practitioner | DX: K59.00 Constipation, unspecified (principal); K21.9 Gastro-esophageal reflux disease without esophagitis; K30 Functional dyspepsia; Z12.11 Encounter for screening for malignant neoplasm of colon | CPT/HCPCS: 99212 ==

== ENCOUNTER 2025-03-26 09:25 | Day surgery (SDC) | payer MEDICARE, SELFPAY ==
--- OUTSIDE RECORDS SUMMARY | 2025-02-16 15:09 | XMS_ITS | Clinical Summary ---
Author Organization [facility] Facility Address [address] [place] [address], [place] [address] Care Team Providers Care Lithographic Printing Machinist Name Role Phone Armaan Correa MD Primary Care Provider +1- [phone] Social History Tobacco Use Types Packs/Day Years [...] patient's age to complete this topic Insurance [facility] Care Teams Lithographic Printing Machinist Relationship Specialty Start Date End Date Armaan Correa MD 2 [facility] [address] [place] [phone] PCP - General Internal Medicine 10/05/21
[2025-03-12 12:13] VITALS: BP 120/58; PULSE 55; RESP 20; O2SAT 96; BMI 28.1
--- NOTE | 2025-03-12 12:24 | HO.ANESPROP2 ---
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 Denies any on shoulders. Instructed to wear long sleeves while outside during preop period to avoid skin concerns DOS PMFSH Active Problems Active Problems: All Active Problems Annual physical exam (Acute) Cubital tunnel syndrome, bilateral (Acute) Impingement of right shoulder (Acute) Rotator cuff insufficiency of right shoulder (Acute) Bilateral carpal tunnel syndrome (Acute) Right shoulder pain (Acute) Dizziness of unknown etiology (Acute) History of cerebrovascular accident (CVA) due to embolism (Acute) Preoperative examination (Acute) Screening for malignant neoplasm of colon performed (Acute) Constipation (Acute) Neuropathy (Acute) Paresthesia and pain of both upper extremities (Acute) Dizziness (Acute) Headache (Acute) Chronic anticoagulation (Acute) Urgency incontinence (Acute) BPH with obstruction/lower urinary tract symptoms (Acute) Essential hypertension (Acute) Spasmodic torticollis (Acute) Vitamin D deficiency (Acute) Hx of colonoscopy (Acute 03/04/12) GERD (gastroesophageal reflux disease) (Acute) Delayed gastric emptying (Acute) Degenerative disc disease, thoracic (Acute) Erectile dysfunction (Acute) Benign essential hypertension (Acute) Pure hypercholesterolemia (Acute) Impaired fasting glucose (Acute) Cervical disc disorder with radiculopathy (Acute) Primary insomnia (Acute) Anxiety (Acute) Overweight (BMI 25.0-29.9) (Acute) Past Medical History Medical History Screening for malignant neoplasm of colon performed Preoperative examination History of cerebrovascular accident (CVA) due to embolism Right shoulder pain Annual physical exam Arthritis Depression Kidney stone Spasmodic torticollis Cervical spondylosis Essential hypertension Vitamin D deficiency Cerebrovascular accident, embolic BPH (benign prostatic hyperplasia) Overweight (BMI 25.0-29.9) Anxiety Primary insomnia Cervical disc disorder with radiculopathy Impaired fasting glucose Pure hypercholesterolemia Benign essential hypertension Erectile dysfunction Degenerative disc disease, thoracic Degenerative disc disease, lumbar GERD (gastroesophageal reflux disease) Urgency of micturition Family History Family History Father Heart disease Mother Cancer Brother Diabetes Paternal Grandmother Heart disease Maternal Uncle Colon cancer Family history of problems with anesthesia: No Surgical History Surgical History Hx of colonoscopy (03/04/12) Hx of cardiac catheterization History of cervical discectomy History of prostate surgery Hx of cataract extraction Hx of cystoscopy (~2019) History of esophagogastroduodenoscopy (EGD) (02/14/15) Hx of tonsillectomy History of Problems with Anesthesia: No Social History Social History Household Members: Spouse Housing: House Are you a primary post acute care nurse practitioner to a significant other at home: No Do you presently have visiting nurse or other home services: No Alcohol intake: current Alcohol intake frequency: does not drink Alcohol type: beer Patient Tobacco Use Status: Former Tobacco user Tobacco use type: Cigarette Years Smoked: 15 e-Cigarette/Vaping Use: Never Used Second Hand Smoke Exposure: Yes Use of substances other than those prescribed or required for medical reasons: Yes Substance Use Type: Other Substance Use Type Other:: edibles for sleep-advised to stop 3-5 days pre-op Substance Use Frequency: Daily Have you been hit, kicked, punched, or otherwise hurt by someone within the past year? If so, by whom?: No Spiritual Healthcare Practices: no Jewish Healthcare Practices: no Cultural Healthcare Practices: no Are you DNR?: No Advance Directives: No Advance Directives Information Provided: Yes Advance Directives on File: No Poor oral hygiene: No service: No Current occupational status: retired Current occupation: right hand dominant Cognitive needs: No Hearing needs: No Vision needs: Yes (glasses) Meds Allergies Allergy/AdvReac Type Severity Reaction Status Date / Time Iodinated Contrast Media (IV Allergy Mild Hives Verified 03/17/25 13:52 Dye, Iodine Containing) tizanidine Allergy Mild painful Verified 03/17/25 13:52 rash on ankles, dizziness sertraline AdvReac Intermediate GI upset, Verified 03/17/25 13:52 confusion Exam Height,Weight and Vital Signs: Height 5 ft 6 in Weight 79.1 kg Last Vital Signs Pulse 55 03/12/25 12:13 Resp 20 03/12/25 12:13 BP 120/58 L 03/12/25 12:13 Pulse Ox 96 03/12/25 12:13 O2 Del Method Room Air 03/12/25 12:13 Pertinent Lab Results Pertinent Lab Results: Laboratory Tests 02/22/25 07:48 WBC 7.4 Hgb 15.2 Hct 44.0 Plt Count 170 Sodium 143 Potassium 3.4 Chloride 106 Carbon Dioxide 30 H BUN 17 H Creatinine 1.02 Narrative Narrative: EKG 10/2024 Vent. Rate : 55 BPM Atrial Rate : 55 BPM P-R Int : 176 ms QRS Dur : 96 ms QT Int : 420 ms P-R-T Axes : 18 33 40 degrees QTcB Int : 401 ms Sinus bradycardia Low voltage QRS Borderline ECG When compared with ECG of 28-Sep-2021 16:28, T wave inversion no longer evident in Inferior leads Airway Mallampati Class: III TM Dist: >3cm Neck ROM: Limited Partial: Upper Loose/Missing/Broken Teeth: Yes (Partial dentures top. Missing several teeth bottom sides.Denies broken or loose teeth) Heart: RRR - tiesha Lungs: CTAB Assessment and Plan Assessment Anesthesia Assessment: Anesthesia Plan Discussed and PAT Visit Final Anesthetic Review Family History of Problems with Anesthesia: No History of Problems with Anesthesia: No Documented by User: Graham Mulligan MD 03/26/25 10:43 [facility] Past Medical History Medical History Screening for malignant neoplasm of colon performed Preoperative examination History of cerebrovascular accident (CVA) due to embolism Right shoulder pain Annual physical exam Arthritis Depression Kidney stone Spasmodic torticollis Cervical spondylosis Essential hypertension Vitamin D deficiency Cerebrovascular accident, embolic BPH (benign prostatic hyperplasia) Overweight (BMI 25.0-29.9) Anxiety Primary insomnia Cervical disc disorder with radiculopathy Impaired fasting glucose Pure hypercholesterolemia Benign essential hypertension Erectile dysfunction Degenerative disc disease, thoracic Degenerative disc disease, lumbar GERD (gastroesophageal reflux disease) Urgency of micturition Functional capacity: independent ambulation Family History Family History Father Heart disease Mother Cancer Brother Diabetes Paternal Grandmother Heart disease Maternal Uncle Colon cancer Surgical History Surgical History Hx of colonoscopy (03/04/12) Hx of cardiac catheterization History of cervical discectomy History of prostate surgery Hx of cataract extraction Hx of cystoscopy (~2019) History of esophagogastroduodenoscopy (EGD) (02/14/15) Hx of tonsillectomy Social History Social History Household Members: Spouse Housing: House Are you a primary post acute care nurse practitioner to a significant other at home: No Do you presently have visiting nurse or other home services: No Alcohol intake: current Alcohol intake frequency: does not drink Alcohol type: beer Patient Tobacco Use Status: Former Tobacco user Tobacco use type: Cigarette Years Smoked: 15 e-Cigarette/Vaping Use: Never Used Second Hand Smoke Exposure: Yes Use of substances other than those prescribed or required for medical reasons: Yes Substance Use Type: Other Substance Use Type Other:: edibles for sleep-advised to stop 3-5 days pre-op Substance Use Frequency: Daily Have you been hit, kicked, punched, or otherwise hurt by someone within the past year? If so, by whom?: No Spiritual Healthcare Practices: no Jewish Healthcare Practices: no Cultural Healthcare Practices: no Are you DNR?: No Advance Directives: No Advance Directives Information Provided: Yes Advance Directives on File: No Poor oral hygiene: No service: No Current occupational status: retired Current occupation: right hand dominant Cognitive needs: No Hearing needs: No Vision needs: Yes (glasses) Meds Allergies Allergy/AdvReac Type Severity Reaction Status Date / Time Iodinated Contrast Media (IV Allergy Mild Hives Verified 03/17/25 13:52 Dye, Iodine Containing) tizanidine Allergy Mild painful Verified 03/17/25 13:52 rash on ankles, dizziness sertraline AdvReac Intermediate GI upset, Verified 03/17/25 13:52 confusion Exam Exam Date and Time: 03/26/2025 Airway Other: 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
[2025-03-26] VITALS (8 sets, daily range): BP systolic 123–146; BP diastolic 42–63; PULSE 55–60; RESP 12–19; TEMP 36.1–37.1; O2SAT 93–99
[2025-03-26] MEDS: Lactated Ringers 1,000 ML 100 ML IVCONT (10:14)
[2025-03-26] MEDS: ceFAZolin Sodium/Dextrose,Iso 2 GM/50 ML PIGGYBACK IV (11:45)
[2025-03-26] MEDS: Acetaminophen 1,000 MG/100 ML PIGGYBACK 400 MG IV (11:45)
--- NOTE | 2025-03-26 13:26 | P.BOP_ITS ---
Brief Operative Note Date of Service: 03/26/25 Pre-op diagnosis: Right shoulder impingement syndrome, right shoulder acromioclavicular joint arthritis, right shoulder adhesive capsulitis Post-op diagnosis: same Procedure: Right shoulder arthroscopic distal clavicle excision, right shoulder arthroscopic acromioplasty, right shoulder arthroscopic anterior capsular release, right shoulder manipulation under anesthesia Implants: None Surgeon: Alejandro Curiel MD Anesthesia: GETA and regional Was an Glue Jointer Operator used for this Procedure?: No Estimated blood loss (mL): 10 Pathology: none sent Condition: stable Disposition: PACU
--- NOTE | 2025-03-26 13:27 | P.OP_ITS ---
Operative Note Operative Note Date of Service: 03/26/25 Narrative: After the patient was identified as Fabio Maciel and his right shoulder was initialed by myself the patient was brought to the holding area where a right shoulder interscalene regional block was performed by the anesthesiologist in routine fashion. The patient was then brought to the operating room where general anesthesia was induced by the anesthesiologist in routine fashion. The patient was given 2 g of IV Ancef preoperatively for infection prophylaxis. Examination under anesthesia of the patient's right shoulder showed decreased passive range of motion when compared to the left shoulder. The patient's right shoulder had passive forward flexion to 110 degrees compared to 170 degrees, external rotation to 30 degrees compared to 60 degrees, and internal rotation to 40 degrees compared to 50 degrees. The patient was gently positioned in the beach chair position with all bony prominences well padded. The patient's right shoulder region and upper extremity were prepped and draped in sterile fashion. A formal time-out was completed. A #11 scalpel blade was used to make a posterior portal 2 cm inferior and 1 cm medial to the posterolateral corner of the acromion. Blunt trocar technique was used to enter the glenohumeral joint in routine fashion. An anterior portal was made just lateral to the coracoid process after proper positioning was confirmed using a spinal needle. Diagnostic arthroscopy showed diffuse grade 1 and 2 degenerative changes of the glenoid articular surface as well as diffuse grade 2 and 3 degenerative changes of the humeral head articular surface. The articular surfaces were smooth so no chondroplasty was indicated. There was no evidence of rotator cuff tearing. There was no evidence of injury to the biceps tendon or its insertion onto the glenoid. There was inflammation of the anterior joint capsule consistent with adhesive capsulitis. The ArthroCare Wand was then used to perform an anterior capsular release between the inferior border of the biceps tendon and the superior border of the subscapularis tendon. The arthroscope was then placed from the posterior portal into the subacromial space. A lateral portal was made 2 fingerbreadths lateral to the anterior lateral corner of the acromion. The ArthroCare Wand was used to ablate soft tissues along the undersurface of the acromion as well as to excise the coracoacromial ligament. There was a sharp s pur along the undersurface of the acromion which was removed using the hooded bur. The arthroscope was then placed into the lateral portal and the acromioplasty was completed with the bur in the posterior portal using the posterior aspect of the acromion as a cutting block. The ArthroCare Wand was then brought in through the anterior portal and was used to ablate soft tissues along the acromioclavicular joint and distal clavicle. The posterior and superior ligamentous structures were left intact. A distal clavicle excision of 8 mm was performed using the fluted bur. There was a small loose body within the acromioclavicular joint which was removed using the arthroscopic grasper. Any remaining bursal tissue was removed using the arthroscopic shaver. The subacromial space was irrigated and then drained. All arthroscopic instruments were removed. A gentle manipulation under anesthesia was then performed. Full passive range of motion was easily attained. The 3 portals were closed with 3-0 nylon interrupted suture. The subacromial space was injected with Marcaine. Dry sterile dressing was placed over all incisions. The patient's right upper extremity was placed into a sling. The patient was awoken and extubated in the operating room. The patient was transferred to the recovery room in stable condition.
[2025-03-26] MEDS: cefTRIAXone sodium 1 GM VIAL IVPUSH (13:55)
== END 2025-03-26 15:10 | disposition home or self-care (01) ==
PROVIDERS: PCP Internal Medicine; Visit Provider Orthopaedic Surgery
PROC: (CPT 29805; principal; 2025-03-26 11:30)
DX: M75.41 Impingement syndrome of right shoulder (principal); M75.01 Adhesive capsulitis of right shoulder; M25.511 Pain in right shoulder; M19.011 Primary osteoarthritis, right shoulder; M25.811 Other specified joint disorders, right shoulder; R20.0 Anesthesia of skin; R53.1 Weakness; M47.812 Spondylosis without myelopathy or radiculopathy, cervical region; I10 Essential (primary) hypertension; E78.00 Pure hypercholesterolemia, unspecified; R73.01 Impaired fasting glucose; Z79.01 Long term (current) use of anticoagulants; Z79.899 Other long term (current) drug therapy; Z88.8 Allergy status to other drugs, medicaments and biological substances; Z91.041 Radiographic dye allergy status; Z98.890 Other specified postprocedural states; Z87.891 Personal history of nicotine dependence
CPT/HCPCS: 29824; 29825; 29826; J0131; J0171; J0330; J0665; J0690; J0696; J1100; J2003; J2250; J2405; J2704; J2795; J3010

== ENCOUNTER → 2025-03-26 09:25 | Outpatient (BNV) | payer MEDICARE, SELFPAY | PROVIDERS: PCP Internal Medicine; Visit Provider Orthopaedic Surgery | DX: M75.41 Impingement syndrome of right shoulder (principal); M19.011 Primary osteoarthritis, right shoulder; M75.01 Adhesive capsulitis of right shoulder; M24.011 Loose body in right shoulder | CPT/HCPCS: 29819; 29824; 29825; 29826 ==

== ENCOUNTER 2025-04-08 11:36 | Outpatient (AMB) | payer MEDICARE, SELFPAY ==
--- NOTE | 2025-04-08 11:42 | MHC.OFFVIS ---
Vital Signs 04/08/25 11:48 Height 5 ft 7 in Weight 173 lb BMI 27.1 Intake Visit Reasons: PO RT shoulder 03/26/25 AR Intake Note: Fabio is a 79 year old right hand dominant male who presents today for his first post-operative visit after undergoing a right shoulder arthroscopy on 03/26/25. Patient reports he is doing well. Patient states he has not taken anything for the pain. Sutures removed and steri strips applied. Allergies Iodinated Contrast Media (IV Dye, Iodine Containing) Allergy (Mild, Verified 04/08/25 11:48) Hives tizanidine Allergy (Mild, Verified 04/08/25 11:48) painful rash on ankles, dizziness sertraline Adverse Reaction (Intermediate, Verified 04/08/25 11:48) GI upset, confusion Medication List - Last Reconciled 04/08/25 by Alejandro Curiel MD amlodipine 2.5 mg PO DAILY 90 days amlodipine 5 mg PO DAILY 90 days clonazepam 0.5 mg PO BEDTIME PRN 90 days Eliquis (apixaban) 5 mg PO BID 30 days NS hydrochlorothiazide 12.5 mg PO DAILY 90 days lisinopril 40 mg PO DAILY 90 days metoprolol succinate ER 25 mg PO DAILY 90 days pantoprazole 40 mg PO DAILY 90 days rosuvastatin 5 mg PO DAILY 90 days sennosides (Senna Laxative) 17.2 mg (2 x 8.6 mg) PO BEDTIME [facility] Medical History (Updated 04/08/25 @ 12:30 by Alejandro Curiel MD) Right shoulder pain Screening for malignant neoplasm of colon performed Preoperative examination History of cerebrovascular accident (CVA) due to embolism Annual physical exam Arthritis Depression Kidney stone Spasmodic torticollis Cervical spondylosis Essential hypertension Vitamin D deficiency Cerebrovascular accident, embolic BPH (benign prostatic hyperplasia) Overweight (BMI 25.0-29.9) Anxiety Primary insomnia Cervical disc disorder with radiculopathy Impaired fasting glucose Pure hypercholesterolemia Benign essential hypertension Erectile dysfunction Degenerative disc disease, thoracic Degenerative disc disease, lumbar GERD (gastroesophageal reflux disease) Urgency of micturition Surgical History Hx of colonoscopy (03/04/12) Hx of cardiac catheterization History of cervical discectomy History of prostate surgery Hx of cataract extraction Hx of cystoscopy (~2019) History of esophagogastroduodenoscopy (EGD) (02/14/15) Hx of tonsillectomy Family History Father Heart disease Mother Cancer Brother Diabetes Paternal Grandmother Heart disease Maternal Uncle Colon cancer Social History Household Members: Spouse Housing: House Are you a primary account executive healthcare to a significant other at home: No Do you presently have visiting nurse or other home services: No Alcohol intake: current Alcohol intake frequency: does not drink Alcohol type: beer Patient Tobacco Use Status: Former Tobacco user Tobacco use type: Cigarette Years Smoked: 15 e-Cigarette/Vaping Use: Never Used Second Hand Smoke Exposure: Yes Substance Use Type: Other service: No Current occupational status: retired Current occupation: right hand dominant Cognitive needs: No Hearing needs: No Vision needs: Yes (glasses) Physical Exam Vital Signs: BMI result Body Mass Index 27.1 Extrem Other: Right shoulder examination shows that the surgical incisions are healing well, no erythema, minimal discomfort with range of motion, no instability Assessment & Plan Assessment & Plan (1) Right shoulder pain: Code(s): M25.511 - Pain in right shoulder Category: Medical Plan Mr. Maciel is doing well after undergoing right shoulder arthroscopic surgery on 03/26/2025. His sutures were removed and Steri-Strips placed over his incisions. He will continue with his home stretching program. The do's and don'ts of lifting were discussed at length with the patient. He will contact me prior to his follow-up appointment in 2 months should any questions or concerns arise. Feel free to call me at any time should questions regarding his orthopedic management arise. Coding Level of Care Code Global (84941) Diagnoses Right shoulder pain M25.511
[2025-04-08 11:48] VITALS: BMI 27.1
--- OUTSIDE RECORDS SUMMARY | 2025-04-08 12:20 | XMS_ITS | Clinical Summary ---
Author Organization [facility] Facility Address [address] [place] [address], [place] [address] Care Team Providers Care Retail Helper Name Role Phone Armaan Correa MD Primary Care Provider +1- [phone] Social History Tobacco Use Types Packs/Day Years [...] patient's age to complete this topic Insurance [facility] Care Teams Retail Helper Relationship Specialty Start Date End Date Armaan Correa MD 2 [facility] [address] [place] [address] [phone] PCP - General Internal Medicine 10/05/21
--- OUTSIDE RECORDS SUMMARY | 2025-04-08 12:20 | XMS_ITS | Data Portability ---
Author Organization [place] [facility], Allergy Address [address] [address] Care Team Providers Care Personal Shopper Name Role Phone JAYY BAPTISTE Primary Care Provider Assessment Encounter Date Assessment [...] Address Organization Details Recorded Time Impacted cerumen 49557079 Active 2013 Impacted wax /debris; CMS Risk: low risk CMS Treatment : new problem (to examiner) : no additiona l workup planned C ondition: controlle d Note: Date Diagnosed : 4 3:37 PM (380.4) Not Available [facility] 4 02:44:50 Sensorine ural hearing loss of bilateral ears 734082528 Active 2015 Sensorine ural hearing loss bilateral [...] [facility] Center 4 02:44:47 Dizziness and giddiness 065888319 Active 2021 Dizziness and giddiness ; Note: Date Diagnosed : 05/25/2022 10:53 AM (R42) Not Available [facility] 4 02:44:48 Candidal otitis externa 86230095 Active 2015 Candidal otitis externa; Note: Date Diagnosed : 11/02/2015 1:29 PM (B37.84) Not Available [facility] 4 02:44:45 Atypical facial pain 19156233 Active 2021 Atypical facial pain; Note: Date Diagnosed : 05/25/2022 10:53 AM (G50.1) Not Available [facility] 4 02:44:46 Infective otitis externa of left ear 52382586618 07191 Active 2015 Other infective otitis externa, left ear; Note: Date Diagnosed : 11/02/2015 1:29 PM (H60.392) Not Available [facility] 4 02:44:48 Chronic mycotic otitis externa 000952575 Active 2015 Chronic mycotic otitis externa; Note: Date Diagnosed : 11/11/2015 1:17 PM (380.15) Not Available [facility] 4 02:44:44 Impacted cerumen 26255904 Active 2023 LAURA MAIER MD [address] [place] [address], [place], [address] , [facility] - [facility] 4 20:48:19 Dizziness 398578635 Active 2023 LAURA MAIER MD [address] [place] [address], [place], [phone] , [facility] 4 20:48:34 Deviated nasal septum 847380752 Active 2023 LAURA MAIER MD [address] [place] [address], [place], [address] , [facility] 4 20:48:47 Problem Notes None recorded. Medical Equipment None Reported. Allergies Allergen ID Allergen Name Allergen Category Reaction Reaction Severity Criticality Documentation Date Start Date Code Code System Note Provider Name and Address Organization Details Recorded Time 75322 Iodinated contrast media (substanc e) medicatio n other Not available Not available 02/18/2024301782003 SNOMED React ion: unkno wn, unspe cifie d;; Not Available [facility] 4 01:02:09 Medications Name Sig Start Date Stop Date Status Note LastModified by Organization Details LastModified Time clonidine HCl 0.1 mg tablet 05/08 completed Medicati on ID: [id number] B rand Name: clonidin e HCl Send [...] mg tablet 05/08 completed Medicati on ID: [id number] B rand Name: clonazep am Send Method: E-Prescr ibed Sub s Allowed: subs [place] [facility] : clonazep am Not Available Not Available Not Available amlodipin e 2.5 mg tablet active Not Available Not Available Not Available amlodipin e 5 mg tablet active Not Available Not Available Not Available Ciloxan 0.3 % eye drops 05/08 completed Medicati on ID: [id number] D uration Value: 10 Prescri bed By [...] TWICE A DAY FOR 30 DAYS Med icationG enericNa me: lorazepa m Not Available Not Available Not Available metoclopr amide 5 mg tablet 05/08 completed Medicati on ID: [id number] B rand Name: metoclop ramide HCl Send [...] topical solution 05/25 completed Medicati on ID: [id number] Monique russell By Name: JOSE Burnett nd Name: clotripeng zole Sen d Method: E-Prescr ibed Sub s Allowed: subs OK Speci al Instruct ion: 4 drops to affected ear three times a day X 14 days Med icationG enericNa me: clotrima zole Not Available Not Available [...] 5 mg tablet active Medicati on ID: [id number] B rand Name: rosuvast atin Sen d [...] 5 mg tablet active Medicati on ID: [id number] B rand Name: Eliquis Send Method: E-Prescr ibed Sub s Allowed: subs OK Medic ationGen ericName : Eliquis Not Available Not Available Not Available Vitals Date Recorded Body height Body mass index (BMI) Body weight Provider Name and Address Organization Details Last Updated DateTime 05/08/2024 167.64 cm 29.1 kg/m2 90760.63 g Shyanne Gaytan [place] - [facility] 05/08/2024 11:10:52 Social History None recorded. Functional Status None recorded. Mental Status None recorded. Family History Nothing Reported. Medical History No medical history recorded. Past Encounters Encounter ID Performer Location Encounter Start Date Encounter Closed Date Diagnosis/Indication Diagnosis SNOMED-CT Code Diagnosis ICD10 Code Diagnosis Note [id number] LAURA MAIER MD [facility] [address] [place] [address] 05/08/2024 10:44:25 05/08/2024 11:29:39 Impacted cerumen 80358150 H61.22 Dizziness 986590101 R42 Deviated nasal septum 12 5418874 J34.2 Health Concerns Section Related Observation LastModified by Organization Detai ls LastModified Time None Recorded Concern Status LastModified by Organization Details LastModified Time None Recorded Advance Directives Directive None Recorded Payers Insurance Date Sequence Insurance Name Policy Number Policy Castellano Covered Member ID Castellano Member ID Guarantor Name 05/08/2024 1 [facility] - MEDICARE ADVANTAGE PLAN (MEDICARE REPLACEMENT HMO) [id number] 1 Fabio Maciel [id number] Fabio Maciel Notes Date Note Type Note [...] eye burning. He had an MRI at [facility] but his sinus headaches started after this. He is had CT sinuses in the past which have not shown any disease. LAURA MAIER MD [address] [place] [address], [place], [address], [facility] - [facility] 05/10/2024 20:50:40
== END 2025-04-08 12:15 | disposition home or self-care (01) ==
LOC: HO.HOS 11:37
PROVIDERS: PCP Internal Medicine; Visit Provider Orthopaedic Surgery
DX: M25.511 Pain in right shoulder (principal)
CPT/HCPCS: 99024

== ENCOUNTER → 2025-04-08 11:36 | Outpatient (BNVA) | payer MEDICARE, SELFPAY | PROVIDERS: PCP Internal Medicine; Visit Provider Orthopaedic Surgery | DX: M25.511 Pain in right shoulder (principal); Z98.890 Other specified postprocedural states | CPT/HCPCS: 99212 ==

== ENCOUNTER 2025-06-10 11:37 | Outpatient (AMB) | payer MEDICARE, SELFPAY ==
--- NOTE | 2025-06-10 11:41 | A.OFFVIS_ITS ---
Vital Signs 06/10/25 11:42 Height 5 ft 6 in Weight 175 lb BMI 28.2 Intake Visit Reasons: PO RT shoulder 03/26/25 Intake Note: Fabio is a 80 year old male who presents with complaints of mild intermittent discomfort along the lateral aspect of his right shoulder after undergoing right shoulder arthroscopic surgery on 03/26/2025. He denies any fevers or chills. He continues with his home stretching program. Allergies Iodinated Contrast Media (IV Dye, Iodine Containing) Allergy (Mild, Verified 06/10/25 11:42) Hives tizanidine Allergy (Mild, Verified 06/10/25 11:42) painful rash on ankles, dizziness sertraline Adverse Reaction (Intermediate, Verified 06/10/25 11:42) GI upset, confusion Medication List - Last Reconciled 06/10/25 by Alejandro Curiel MD amlodipine 2.5 mg PO DAILY 90 days amlodipine 5 mg PO DAILY 90 days clonazepam 0.5 mg PO BEDTIME PRN 90 days Eliquis (apixaban) 5 mg PO BID 30 days NS hydrochlorothiazide 12.5 mg PO DAILY 90 days lisinopril 40 mg PO DAILY 90 days metoprolol succinate ER 25 mg PO DAILY 90 days pantoprazole 40 mg PO DAILY 90 days rosuvastatin 5 mg PO DAILY 90 days sennosides (Senna Laxative) 17.2 mg (2 x 8.6 mg) PO BEDTIME [facility] Medical History (Updated 04/08/25 @ 12:30 by Alejandro Curiel MD) Right shoulder pain Screening for malignant neoplasm of colon performed Preoperative examination History of cerebrovascular accident (CVA) due to embolism Annual physical exam Arthritis Depression Kidney stone Spasmodic torticollis Cervical spondylosis Essential hypertension Vitamin D deficiency Cerebrovascular accident, embolic BPH (benign prostatic hyperplasia) Overweight (BMI 25.0-29.9) Anxiety Primary insomnia Cervical disc disorder with radiculopathy Impaired fasting glucose Pure hypercholesterolemia Benign essential hypertension Erectile dysfunction Degenerative disc disease, thoracic Degenerative disc disease, lumbar GERD (gastroesophageal reflux disease) Urgency of micturition Surgical History (Updated 06/10/25 @ 11:44 by CLARY Hernandez) Hx of colonoscopy (03/04/12) Hx of cardiac catheterization History of cervical discectomy History of prostate surgery Hx of cataract extraction Hx of cystoscopy (~2019) History of esophagogastroduodenoscopy (EGD) (02/14/15) Hx of tonsillectomy Family History Father Heart disease Mother Cancer Brother Diabetes Paternal Grandmother Heart disease Maternal Uncle Colon cancer Social History Household Members: Spouse Housing: House Are you a primary home care consultant to a significant other at home: No Do you presently have visiting nurse or other home services: No Alcohol intake: current Alcohol intake frequency: does not drink Alcohol type: beer Patient Tobacco Use Status: Former Tobacco user Tobacco use type: Cigarette Years Smoked: 15 e-Cigarette/Vaping Use: Never Used Second Hand Smoke Exposure: Yes Substance Use Type: Other service: No Current occupational status: retired Current occupation: right hand dominant Cognitive needs: No Hearing needs: No Vision needs: Yes (glasses) Physical Exam Vital Signs: BMI result Body Mass Index 28.2 Extrem Other: Right shoulder examination shows that the surgical incisions are well healed, no erythema, almost full range of motion when compared to his left shoulder, mild discomfort with range of motion, no instability Assessment & Plan Assessment & Plan (1) Right shoulder pain: Code(s): M25.511 - Pain in right shoulder Category: Medical Plan Mr. Maciel continues to do well after undergoing right shoulder arthroscopic surgery on 03/26/2025. He will continue with his home stretching program. The do's and don'ts of lifting were discussed at length with the patient. He will contact me prior to his follow-up appointment in 3 months should any questions or concerns arise. He will follow up with Dr. Palacios as scheduled for his carpal tunnel release surgery. Feel free to call me at any time should questions regarding his orthopedic management arise. Coding Level of Care Code Global (37348) Diagnoses Right shoulder pain M25.511
[2025-06-10 11:42] VITALS: BMI 28.2
--- OUTSIDE RECORDS SUMMARY | 2025-06-10 13:17 | XMS_ITS | Clinical Summary ---
Author Organization [facility] Facility Address [address] [place] [address], [place] [address] Care Team Providers Care Orchestra Conductor Name Role Phone Armaan Correa MD Primary Care Provider +1- [phone] Social History Tobacco Use Types Packs/Day Years Used Date Smoking Tobacco: Never Assessed Sex and Gender Information Value Date Recorded Sex Assigned at Not on file Legal Sex Male 12:13 PM EST Gender Identity Not on file Sexual Orientation Not on file Plan of Treatment Health Maintenance Due Date Last Done Comments Pneumococcal Vaccine: 50+ Ye ars (1 of 1 - PCV) 1995 Influenza Vaccine (#1) 2025 Hepatitis B Vaccine Aged Out No longe r eligible based on patient's age to complete this topic Insurance [facility] Care Teams Orchestra Conductor Relationship Specialty Start Date End Date Armaan Correa MD 2 [facility] [address] [place] [address] [phone] PCP - General Internal Medicine 10/05/21
== END 2025-06-10 12:00 | disposition home or self-care (01) ==
LOC: HO.HOS 11:37
PROVIDERS: PCP Internal Medicine; Visit Provider Orthopaedic Surgery
DX: M25.511 Pain in right shoulder (principal)
CPT/HCPCS: 99024

== ENCOUNTER → 2025-06-10 11:37 | Outpatient (BNVA) | payer MEDICARE, SELFPAY | PROVIDERS: PCP Internal Medicine; Visit Provider Orthopaedic Surgery | DX: M25.511 Pain in right shoulder (principal) | CPT/HCPCS: 99212 ==

== ENCOUNTER 2025-08-31 07:30 | Outpatient (REF) | payer MEDICARE, SELFPAY ==
--- OUTSIDE RECORDS SUMMARY | 2025-08-31 07:33 | XMS_ITS | Data Portability ---
Author Organization [place] [facility], Allergy Address [address] [address] Care Team Providers Care Flight Crew Ordnanceman Name Role Phone JAYY BAPTISTE Primary Care [...] Address Organization Details Recorded Time Impacted cerumen 70484985 Active 2013 Impacted wax /debris; CMS Risk: low risk CMS Treatment : new problem (to examiner) : no additiona l workup planned C ondition: controlle d Note: Date Diagnosed : 4 3:37 PM (380.4) Not Available [facility] 4 02:44:50 Candidal otitis externa 82603397 Active 2015 Candidal otitis externa; Note: Date Diagnosed : 11/02/2015 1:29 PM (B37.84) Not Available [facility] 4 02:44:45 Infective otitis externa of left ear 50892099033 63471 Active 2015 Other infective otitis externa, left ear; Note: Date Diagnosed : 11/02/2015 1:29 PM (H60.392) Not Available [facility] 4 02:44:48 Chronic mycotic otitis externa 843321711 Active 2015 Chronic mycotic otitis externa; Note: Date Diagnosed : 11/11/2015 1:17 PM (380.15) Not Available [facility] 4 02:44:44 Sensorine ural hearing loss of bilateral ears 835662397 Active 2015 Sensorine ural hearing loss bilateral ly; CMS Risk: low risk CMS Treatment : new problem (to examiner) : no additiona l workup planned C ondition: controlle d Note: Date Diagnosed : 4 3:37 PM (389.18) ; Start Date : 4 Sensori neural hearing loss, bilateral ; Note: Date Diagnosed : 11/18/2015 1:58 PM (H90.3) Not Available [facility] 4 02:44:47 Dizziness and giddiness 120995043 Active 2021 Dizziness and giddiness ; Note: Date Diagnosed : 05/25/2022 10:53 AM (R42) Not Available [facility] 4 02:44:48 Atypical facial pain 97913152 Active 2021 Atypical facial pain; Note: Date Diagnosed : 05/25/2022 10:53 AM (G50.1) Not Available [facility] 4 02:44:46 Impacted cerumen 57598770 Active 2023 LAURA MAIER MD [address] [place] [address], [place], [address] , [facility] 20:48:19 Dizziness 838693233 Active 2023 LAURA MAIER MD [address] [place] [address], [place], [address] , [facility] 4 20:48:34 Deviated nasal septum 323523423 Active 2023 LAURA MAIER MD [address] [place] [address], [place], [phone] , [facility] 4 20:48:47 Problem Notes None recorded. Medical Equipment None Reported. Allergies Allergen ID Allergen Name Allergen Category Reaction Reaction Severity Criticality Documentation Date Start Date Code Code System Note Provider Name and Address Organization Details Recorded Time 67487 Iodinated contrast media (substanc e) medicatio n other Not available Not available 02/18/20242003 SNOMED React ion: unkno wn, unspe cifie d;; Not Available [facility] 4 01:02:09 Medications Name Sig Start Date Stop Date Status Note LastModified by Organization Details LastModified Time clonidine HCl 0.1 mg tablet 05/08 completed Medicati on ID: [id number] B rand Name: clonidin e HCl Send [...] mg tablet 05/08 completed Medicati on ID: [id number] B rand Name: clonazep am Send Method: E-Prescr ibed Sub s Allowed: subs OK [facility] : clonazep am Not Available Not Available Not Available amlodipin e 2.5 mg tablet active Not Available Not Available Not Available amlodipin e 5 mg tablet active Not Available Not Available Not Available Ciloxan 0.3 % eye drops 05/08 completed Medicati on ID: [id number] D uration Value: 10 Prescri bed By [...] mg tablet 05/08 completed Medicati on ID: [id number] B rand Name: metoclop ramide HCl Send [...] topical solution 05/25 completed Medicati on ID: [id number] Monique russell By Name: JOSE Burnett nd [...] 5 mg tablet active Medicati on ID: [id number] B rand Name: rosuvast atin Sen d [...] 5 mg tablet active Medicati on ID: [id number] B rand Name: Eliquis Send Method: E-Prescr ibed Sub s Allowed: subs OK Medic ationGen ericName : Eliquis Not Available Not Available Not Available Vitals Date Recorded Body height Body mass index (BMI) Body weight Provider Name and Address Organization Details Last Updated DateTime 05/08/2024 167.64 cm 29.1 kg/m2 89178.63 g Shyanne Gaytan [place] - [facility] 05/08/2024 11:10:52 Social History None recorded. Functional Status None recorded. Mental Status None recorded. Family History Nothing Reported. Medical History No medical history recorded. Past Encounters Encounter ID Performer Location Encounter Start Date Encounter Closed Date Diagnosis/Indication Diagnosis SNOMED-CT Code Diagnosis ICD10 Code Diagnosis IMO Codes Diagnosis Note [id number] LAURA MAIER MD [facility] [address] [address] 05/08/2024 10:44:25 05/08/2024 11:29:39 Impacted cerumen 54001374 H61.22 Dizziness 698314486 R42 Deviated nasal septum 12 6542467 J34.2 Health Concerns Section Related Observation LastModified by Organization Detai ls LastModified Time None Recorded Concern Status LastModified by Organization Details LastModified Time None Recorded Advance Directives Directive None Recorded Payers Insurance Date Sequence Insurance Name Policy Number Policy Castellano Covered Member ID Castellano Member ID Guarantor Name 05/08/2024 1 [employer] - MEDICARE ADVANTAGE PLAN (MEDICARE REPLACEMENT HMO) [id number] 1 Fabio Maciel [id number] Fabio Maciel Notes Date Note Type Note Provider Name and Address Organization Details Recorded Time 05/08/2024 text/html ROS as noted in the HPI 79-year-old male presents for left-sided nasal obstruction. [...] eye burning. He had an MRI at [facility] but his sinus headaches started after this. He is had CT sinuses in the past which have not shown any disease. LAURA MAIER MD [address] [place] [address], [address], [facility] - [facility] 05/10/2024 20:50:40
--- OUTSIDE RECORDS SUMMARY | 2025-08-31 07:33 | XMS_ITS | Clinical Summary ---
Author Organization [facility] Facility Address [address] [place] [address], [place] [address] Care Team Providers Care Lidder Name Role Phone Armaan Correa MD Primary Care Provider +1- [phone] Social History Tobacco Use Types Packs/Day Years [...] patient's age to complete this topic Insurance [facility] Care Teams Lidder Relationship Specialty Start Date End Date Armaan Correa MD 2 [facility] [address] [place] [address] [phone] PCP - General Internal Medicine 10/05/21
[2025-08-31 10:09] LABS: MANUAL DIFF FLAG NO
[2025-08-31 10:21] LABS: Appearance Urine Clear; Glucose Urine UA Negative (Negative); PH 5.5 (5.0-9.0); Specific Gravity - Urine 1.015 (1.005-1.025)
[2025-08-31 10:22] LABS: Hematocrit 44.1 % (42.0-52.0); Hemoglobin 15.2 g/dl (14.0-18.0); Imm Gran Abs Auto 0.01 X10*3/uL (0.00-0.03); Imm Gran Pct Auto 0.2 % (0.0-0.4); Lymphocytes Absolute Auto 1.8 X10*3/uL (1.2-4.9); Mean Corpuscular HGB Conc 34.5 g/dl (31.0-36.0); Mean Corpuscular Hemoglobin 30.8 pg (27.0-33.0); Mean Corpuscular Volume 89.3 fL (80.0-98.0); NRBC Abs Auto 0.000 X10*3/uL (0.0-0.012); NRBC Pct Auto 0.0 /100WBC (0.0-0.2); Platelet Count 171 X10*3/uL (160-400); Red Blood Count 4.94 X10*6/uL (4.60-5.80); White Blood Count 6.3 X10*3/uL (4.8-10.8)
[2025-08-31 10:56] LABS: Alanine Aminotransferase 39 U/L (0-40); Albumin Level 4.4 g/dL (3.5-5.0); Alkaline Phosphatase 61 U/L (39-117); Anion Gap 10 (12-20); Aspartate Amino Transferase 35 U/L (5-37); Blood Urea Nitrogen 15 mg/dL (9-16); Calcium 9.2 mg/dL (8.4-10.2); Carbon Dioxide 32 mmol/L (22-29); Chloride 106 mmol/L (96-108); Cholesterol 110 mg/dL (<200); Estimated Glomerular Filt Rate > 60; HDL Cholesterol 49 mg/dL (>40); Potassium 3.5 mmol/L (3.3-5.1); Sodium 144 mmol/L (135-145); Total Protein 7.0 g/dL (6.5-8.0); Triglycerides 97 mg/dL (<150)
[2025-08-31 11:22] LABS: Folate 11.4 ng/mL (> or = 4.0); Prostate Specific Antigen 1.06 ng/mL (<0.05-4.0); Vitamin B12 286 pg/mL (200-900)
== END 2025-08-31 07:31 | disposition home or self-care (01) ==
LOC: HO.HMGCLDS 07:30
PROVIDERS: PCP Internal Medicine; Visit Provider Internal Medicine
DX: Z00.00 Encounter for general adult medical examination without abnormal findings (principal); N40.0 Benign prostatic hyperplasia without lower urinary tract symptoms; D64.9 Anemia, unspecified; E53.8 Deficiency of other specified B group vitamins; E78.00 Pure hypercholesterolemia, unspecified; E55.9 Vitamin D deficiency, unspecified; R73.01 Impaired fasting glucose; R30.0 Dysuria; Z12.5 Encounter for screening for malignant neoplasm of prostate
CPT/HCPCS: 36415; 80053; 80061; 81003; 82306; 82607; 82746; 83036; 84153; 84443; 85025